=== PATIENT | male | born 1940 | race Caucasian/White ===

== ENCOUNTER 2017-08-12 08:30 | Outpatient (RCR) | payer MEDICARE, SELFPAY | END 2017-08-12 14:53 | LOC: CAR 08:30 | PROVIDERS: Family Provider Family Medicine; PCP Family Medicine; Visit Provider Internal Medicine Cardiovascular Disease | DX: Z95.2 Presence of prosthetic heart valve (principal) | CPT/HCPCS: 93798 ==

== ENCOUNTER → 2018-01-24 10:21 | Outpatient (CLI) | payer MEDICARE, SELFPAY ==
[2018-01-24 12:00] LABS: BUN Creatinine Ratio 17.5 (6-22); Blood Urea Nitrogen 14 mg/dL (9-20); Calcium 9.7 mg/dL (8.4-10.2); Carbon Dioxide 31 mmol/L (22-32); Chloride 99 mmol/L (98-107); Estimated Glomerular Filt Rate > 60.0 mL/min (>60); Glucose 100 mg/dL (80-110); HEMOLYSIS < 15 (0-50); Potassium 4.3 mmol/L (3.4-5.1); Sodium 141 mmol/L (137-145)
[2018-01-24 12:25] LABS: Thyroid Stimulating Hormone 1.52 uIU/mL (0.47-4.68)
== END ==
PROVIDERS: Visit Provider Internal Medicine Cardiovascular Disease
DX: I10 Essential (primary) hypertension (principal); I49.1 Atrial premature depolarization
CPT/HCPCS: 36415; 80048; 83735; 84443

== ENCOUNTER → 2018-04-05 07:31 | Outpatient (CLI) | payer MEDICARE, SELFPAY ==
[2018-04-05 08:09] LABS: Add Manual Diff / Slide Review NO; Basophils Absolute Auto 0 /uL (0-100); Basophils Percent Auto 0.4 % (0-2); Eosinophils Absolute Auto 200 /uL (0-450); Eosinophils Percent Auto 3.5 % (2-4); Hemoglobin 14.3 g/dL (13.5-17.5); Lymphocytes Absolute Auto 2000 /uL (1100-4500); Mean Corpuscular HGB Conc 33.3 % (30-36); Mean Corpuscular Hemoglobin 29.6 PG (26-34); Mean Corpuscular Volume 88.9 fL (80-100); Monocytes Absolute Auto 600 /uL (0-900); Monocytes Percent Auto 8.5 % (3-14); Neutrophils Absolute Auto 3700 /uL (1500-7000); Neutrophils Percent Auto 56.6 % (50-75); Platelet Count 211 X10^3/uL (150-400); Red Blood Cell Count 4.84 X10^6/uL (4.5-5.9); Red Cell Distribution Width 14.3 % (11.6-14.8); White Blood Cell Count 6.5 X10^3/uL (4.5-11.0)
[2018-04-05 08:35] LABS: Alanine Aminotransferase 42 IU/L (21-72); Albumin 4.4 g/dL (3.5-5.0); Albumin Globulin Ratio 1.4 (1.0-2.8); Alkaline Phosphatase 107 U/L (38-126); Aspartate Aminotransferase 35 IU/L (17-59); BUN Creatinine Ratio 22.5 (6-22); Bilirubin Total 1.3 mg/dL (0.2-1.3); Blood Urea Nitrogen 18 mg/dL (9-20); Calcium 9.4 mg/dL (8.4-10.2); Carbon Dioxide 29 mmol/L (22-32); Chloride 101 mmol/L (98-107); Estimated Glomerular Filt Rate > 60.0 mL/min (>60); Globulin 3.1 g/dL (1.7-4.1); Glucose 109 mg/dL (80-110); HEMOLYSIS < 15 (0-50); Potassium 4.2 mmol/L (3.4-5.1); Sodium 140 mmol/L (137-145); Total Protein 7.5 g/dL (6.3-8.2)
--- NOTE | 2018-04-05 14:15 | DI.CT.S_ITS ---
PROCEDURE: CT KIDNEY URETER BLADDER (KUB) INDICATIONS: 77 y/o former smoker w/ painless gross hematuria TECHNIQUE: Noncontrast 5 mm thick sections acquired from the diaphragms to the symphysis. 5 mm thick coronal and sagittal reformats were then performed. For radiation dose reduction, the following was used: automated exposure control, adjustment of mA and/or kV according to patient size. COMPARISON: [facility], CT, THORAX WITH CONTRAST, 09/20/2007, 9:28. [facility], CT, THORAX WITHOUT CONTRAST, 03/20/2008, 10:10. [facility], CT, THORAX WITHOUT CONTRAST, 04/04/2009, 9:34. FINDINGS: Image quality: Excellent. Lung bases: There is a partially calcified 2 cm mass in the right middle lobe, minimally changed since 2007, consistent with a benign mass. Heart size is normal. There is a aortic valve prosthesis. There is a tiny hiatal hernia. Urinary system: There is a 3 mm stone in the proximal left ureter. There is trace left pelviectasis. Both kidneys are normal in size. Mild bilateral perinephric fat stranding. Both ureters appear non-dilated throughout their expected courses. Bladder wall thickness is normal; no calcified bladder stones. There is a 3.2 cm diameter simple appearing cyst in the superior pole of the left kidney. No renal stones. Other solid organs: There is a 1.8 x 5.8 cm low density subcapsular mass in the posterior inferior aspect of liver. Liver is normal in size. Gallbladder is normal. Pancreas is normal in contours. Spleen is normal in size. No adrenal nodules. Peritoneum and bowel: Unenhanced bowel loops demonstrate normal wall thickness and caliber. There are numerous colonic diverticula. No evidence for acute diverticulitis. No free fluid or air. Nodes and vessels: No retroperitoneal or mesenteric adenopathy by size criteria. Aorta and inferior vena cava are normal in caliber. Severe aortic atherosclerosis. Abdominal wall: No ventral hernias. Pelvis: No free pelvic fluid. No inguinal hernias or adenopathy. Bones: No suspicious bony lesions. No vertebral body compression fractures. Degenerative and postsurgical changes changes are noted in lumbar spine. IMPRESSION: 1. A 3 mm stone in the proximal left ureter. There is trace left pelviectasis. 2. A 3.2 cm simple cyst in the superior pole the left kidney. 3. Diverticulosis without acute diverticulitis. 4. A 2 cm partially calcified mass in the right middle lobe, minimally changed since 2007, compared with a benign mass. 5. A 1.8 x 5.8 cm subcapsular low density mass in the posterior inferior aspect of liver. This may be a subscapularis cyst. Ultrasound is suggested for followup evaluation. Dictated by: Chaim Boggs M.D. on 04/05/2018 at 17:04 Approved by: Chaim Boggs M.D. on 04/05/2018 at 17:18
== END ==
PROVIDERS: Visit Provider Physician Assistant
DX: R31.0 Gross hematuria (principal); N20.1 Calculus of ureter; Z87.891 Personal history of nicotine dependence; K57.90 Diverticulosis of intestine, part unspecified, without perforation or abscess without bleeding; N28.1 Cyst of kidney, acquired; R91.8 Other nonspecific abnormal finding of lung field; R16.0 Hepatomegaly, not elsewhere classified
CPT/HCPCS: 36415; 74176; 80053; 85025

== ENCOUNTER → 2018-05-20 11:58 | Outpatient (CLI) | payer MEDICARE, SELFPAY ==
--- NOTE | 2018-05-20 12:01 | DI.US.S_ITS ---
PROCEDURE: US ABDOMEN COMPLETE INDICATIONS: abnormal abd CT, liver TECHNIQUE: Real-time scanning was performed of the abdominal and retroperitoneal organs, with image documentation. COMPARISON: [facility], US, ABDOMEN COMPLETE, 04/09/2015, 10:16. [facility], CT, CT KIDNEY URETER BLADDER (KUB), 04/05/2018, 14:09. FINDINGS: Liver: Liver is diffusely increased in echogenicity. Right lateral subcapsular cystic structure seen as was noted on prior CT scan measuring 5.4 x 2.3 x 1.4 cm. Gallbladder: No gallstones identified. Normal gallbladder wall. No pericholecystic fluid. Negative sonographic Singh sign. Biliary ducts: Intrahepatic bile ducts are non-dilated. Extrahepatic bile duct caliber measures 3 point mm. Normal is 6-7 mm or less in diameter, or 10 mm or less post-cholecystectomy. Pancreas: Visualized portions of the pancreas are sonographically normal. Spleen: Spleen is normal in size and homogeneous in echotexture. Kidneys: Kidneys are normal in size and echotexture. Right kidney measures 10.5 cm long; left kidney measures 11.5 cm long. No hydronephrosis or nephrolithiasis. No solid masses. Superior pole left renal cyst measuring 4.0 cm. Possible small calcifications in the superior pole left kidney measuring 7 mm. Aorta: Visualized aorta is normal in caliber at less than 3 cm. Iliacs: Proximal common iliac arteries are normal in caliber at less than 2.5 cm. IVC: Intrahepatic inferior vena cava is patent. Miscellaneous: No free abdominal fluid. IMPRESSION: 1. Increased hepatic echogenicity noted possibly related to hepatic steatosis but other sources of hepatocellular disease cannot be excluded. Recommend clinical correlation. 2. Subcapsular right lateral cystic structure again noted measuring up to 5.4 cm. Dictated by: Alonso NERI Interpreted: Karla Knight MD on 05/20/2018 at 13:36 Approved by: Karla Knight M.D. on 05/20/2018 at 16:59
== END ==
PROVIDERS: PCP Nurse Practitioner Family; Visit Provider Nurse Practitioner Family
DX: R93.5 Abnormal findings on diagnostic imaging of other abdominal regions, including retroperitoneum (principal); N28.1 Cyst of kidney, acquired
CPT/HCPCS: 76700

== ENCOUNTER → 2018-07-18 07:26 | Outpatient (CLI) | payer MEDICARE, SELFPAY ==
[2018-07-18 08:46] LABS: Cholesterol 194 mg/dL (140-199); HDL Cholesterol 39 mg/dL (40-60); LDL Cholesterol Calculated 121 mg/dL (<100); Triglycerides 172 mg/dL (35-150)
== END ==
PROVIDERS: PCP Nurse Practitioner Family; Visit Provider Nurse Practitioner Family
DX: E78.5 Hyperlipidemia, unspecified (principal)
CPT/HCPCS: 36415; 80061

== ENCOUNTER → 2018-10-27 08:38 | Outpatient (CLI) | payer MEDICARE, SELFPAY ==
[2018-10-27 09:39] LABS: Hematocrit 41.3 % (41-53); Mean Corpuscular HGB Conc 33.8 % (30-36); Mean Corpuscular Hemoglobin 30.3 PG (26-34); Mean Corpuscular Volume 89.6 fL (80-100); Platelet Count 200 X10^3/uL (150-400); Red Blood Cell Count 4.61 X10^6/uL (4.5-5.9); Red Cell Distribution Width 13.6 % (11.6-14.8); White Blood Cell Count 7.1 X10^3/uL (4.5-11.0)
[2018-10-27 10:00] LABS: Creatinine Urine Random 76.6 mg/dL
[2018-10-27 10:01] LABS: Alanine Aminotransferase 39 IU/L (21-72); Albumin 4.2 g/dL (3.5-5.0); Albumin Globulin Ratio 1.3 (1.0-2.8); Alkaline Phosphatase 109 U/L (38-126); Aspartate Aminotransferase 42 IU/L (17-59); BUN Creatinine Ratio 21.4 (6-22); Bilirubin Total 1.3 mg/dL (0.2-1.3); Blood Urea Nitrogen 15 mg/dL (9-20); Calcium 9.2 mg/dL (8.4-10.2); Carbon Dioxide 29 mmol/L (22-32); Chloride 102 mmol/L (98-107); Cholesterol 172 mg/dL (140-199); Estimated Glomerular Filt Rate > 60.0 mL/min (>60); Globulin 3.2 g/dL (1.7-4.1); Glucose 103 mg/dL (80-110); HDL Cholesterol 36 mg/dL (40-60); HEMOLYSIS 19 (0-50); LDL Cholesterol Calculated 109 mg/dL (<100); Potassium 3.8 mmol/L (3.4-5.1); Sodium 139 mmol/L (137-145); Total Protein 7.4 g/dL (6.3-8.2); Triglycerides 135 mg/dL (35-150)
[2018-10-27 10:05] LABS: Microalbumi Creatinin Ratio Ur 11.7 ug/mg CR (<30); Microalbumin Urine Random 0.9 mg/dL (0-1.6)
[2018-10-27 10:07] LABS: Hemoglobin A1C% w Est Avg Glu 5.8 % (4.0-6.0)
== END ==
PROVIDERS: PCP Nurse Practitioner Family; Visit Provider Nurse Practitioner Family
DX: I10 Essential (primary) hypertension (principal); Z68.36 Body mass index [BMI] 36.0-36.9, adult; R73.09 Other abnormal glucose
CPT/HCPCS: 36415; 80053; 80061; 82043; 82570; 83036; 85027

== ENCOUNTER → 2018-11-02 10:34 | Outpatient (CLI) | payer MEDICARE, SELFPAY ==
--- NOTE | 2018-11-02 10:36 | DI.RAD.S_ITS ---
PROCEDURE: XR LUMBAR SPINE MIN 4V INDICATIONS: hx back surgery, spinal stenosis TECHNIQUE: 4 views of the lumbar spine were acquired. COMPARISON: [facility], CT, CT ABDOMEN HEPATIC/ADRENAL PROTOCOL, 07/16/2018, 12:02. FINDINGS: Bones: 5 nonrib-bearing vertebrae are present. There is normal bony alignment. No acute vertebral body compression fractures. No suspicious bony lesions. Stable appearance of moderate multilevel spondylosis throughout the imaged lower thoracic and entire lumbar spine. There is disc space narrowing, degenerative endplate changes, and prominent endplate osteophyte formation. Severe multilevel facet arthrosis of the lumbar spine. Soft tissues: Overlying bowel gas pattern is normal. No suspicious soft tissue calcifications. Dense vascular calcifications of the abdominal aorta are noted. Oblique images: No definite pars defects identified. IMPRESSION: Lumbar spine without acute radiographic abnormalities. Moderate multilevel spondylosis involving the imaged portions of the lower thoracic and entire lumbar spine with severe lumbar facet arthrosis. Dictated by: Elie Castro M.D. on 11/02/2018 at 13:26 Approved by: Elie Castro M.D. on 11/02/2018 at 13:32
== END ==
PROVIDERS: PCP Nurse Practitioner Family; Visit Provider Nurse Practitioner Family
DX: R20.2 Paresthesia of skin (principal); M47.816 Spondylosis without myelopathy or radiculopathy, lumbar region; M47.814 Spondylosis without myelopathy or radiculopathy, thoracic region
CPT/HCPCS: 72110

== ENCOUNTER → 2018-11-24 11:34 | Outpatient (CLI) | payer MEDICARE, SELFPAY | PROVIDERS: PCP Nurse Practitioner Family; Visit Provider Nurse Practitioner Family | DX: R20.2 Paresthesia of skin (principal); M48.00 Spinal stenosis, site unspecified | CPT/HCPCS: 95885; 95886; 95912 ==

== ENCOUNTER → 2019-04-20 07:20 | Outpatient (CLI) | payer MEDICARE, SELFPAY ==
[2019-04-20 08:11] LABS: Alanine Aminotransferase 37 IU/L (<50); Albumin 4.3 g/dL (3.5-5.0); Albumin Globulin Ratio 1.3 (1.0-2.8); Alkaline Phosphatase 114 U/L (38-126); Aspartate Aminotransferase 44 IU/L (17-59); BUN Creatinine Ratio 23.8 (6-22); Blood Urea Nitrogen 19 mg/dL (9-20); Calcium 9.2 mg/dL (8.4-10.2); Carbon Dioxide 30 mmol/L (22-32); Chloride 102 mmol/L (98-107); Cholesterol 177 mg/dL (140-199); Estimated Glomerular Filt Rate > 60.0 mL/min (>60); Globulin 3.4 g/dL (1.7-4.1); Glucose 111 mg/dL (80-110); HDL Cholesterol 33 mg/dL (40-60); HEMOLYSIS < 15 (0-50); LDL Cholesterol Calculated 115 mg/dL (<100); Sodium 140 mmol/L (137-145); Total Protein 7.7 g/dL (6.3-8.2); Triglycerides 145 mg/dL (35-150)
== END ==
PROVIDERS: PCP Nurse Practitioner Family; Referring Provider Internal Medicine Cardiovascular Disease; Visit Provider Internal Medicine Cardiovascular Disease
DX: E78.5 Hyperlipidemia, unspecified (principal)
CPT/HCPCS: 36415; 80053; 80061

== ENCOUNTER → 2019-07-07 07:29 | Outpatient (CLI) | payer MEDICARE, SELFPAY ==
[2019-07-07 09:46] LABS: Alanine Aminotransferase 29 IU/L (<50); Albumin 4.3 g/dL (3.5-5.0); Albumin Globulin Ratio 1.4 (1.0-2.8); Alkaline Phosphatase 103 U/L (38-126); Aspartate Aminotransferase 38 IU/L (17-59); Bilirubin Total 2.1 mg/dL (0.2-1.3); Bilirubin Unconjugated 1.9 mg/dL (0.0-1.1); Cholesterol 135 mg/dL (140-199); HDL Cholesterol 33 mg/dL (40-60); HEMOLYSIS < 15 (0-50); LDL Cholesterol Calculated 74 mg/dL (<100); Total Protein 7.3 g/dL (6.3-8.2); Triglycerides 142 mg/dL (35-150)
== END ==
PROVIDERS: PCP Nurse Practitioner Family; Referring Provider Internal Medicine Cardiovascular Disease; Visit Provider Internal Medicine Cardiovascular Disease
DX: E78.5 Hyperlipidemia, unspecified (principal); R17 Unspecified jaundice
CPT/HCPCS: 36415; 80061; 80076

== ENCOUNTER 2019-10-12 10:30 | Outpatient (RCR) | payer MEDICARE, SELFPAY ==
--- NOTE | 2019-08-29 12:31 | PT.OIE ---
Current Diagnoses Unilateral primary osteoarthritis, right hip (08/29/19) Pain in right hip (08/29/19) Past Medical History (Last Updated 05/26/19 @ 12:45 by BENNY Murdock) Fatigue (Inactive 12/10/14) Obesity (BMI 30-39.9) (Chronic) Obstructive sleep apnea of adult (Chronic) Rosacea (Acute) Seborrheic dermatitis (Acute) Seborrheic keratosis (Acute) Past Surgical History (Last Reviewed 01/19/18 @ 16:23 by Marino Jones MD) Status post knee surgery Visit Care Team Role Provider Type BENNY Murdock Primary Care Provider Advanced Cad Programmer Specialty: Family Practice Address: [address] [place] [address], [id number] Email: [email or web address] Taylor Merritt PA-C Attending Provider Non-Staff Referring Provider Specialty: General Surgery Address: [address] [place] [address], [id number] Fax: Email: Physical Therapy Initial Evaluation PT-OP-A Visit Information Start: 08/29/19 12:05 Freq: Status: Active Protocol: Document 08/29/19 12:05 (Rec: 08/29/19 12:31 [email or web address]) Out-Patient Physical Therapy Visit Information Visit Information Visit Type Initial Evaluation Visit Start Time 09:04 Visit Stop Time 09:45 Total Visit Minutes 41 Visit Number 02/26 Number of PRESCRIPTION EYEGLASS MAKER Visits 0 Evaluation Information Evaluation Date 08/29/19 Precautions Precautions bruise easily PT-OP-B Current Condition Start: 08/29/19 12:05 Freq: Status: Active Protocol: Document 08/29/19 12:05 (Rec: 08/29/19 12:31 [email or web address]) Current Condition History of Current Condition Onset Date 08/23/19 Current Complaints s/p R RJ (post), difficulty in walking History of Current Condition Pt is a 78 yo male here for therapy s/p R RJ with posterior approach on 08/23/[address] [facility]. Pt has been using FWW for mobility and her and dtr assisted in ADLs and IADLs with mostly SBA. Pt is ambulatory but difficulty in bed mobility and transfers. He has been sleeping in his recliner since he has 5 MATILDA with L rail to bedroom. Pt currently can walk a block without a rest break. And his pain is around 2/10. He has been doing his post op ex such as hip abduction in supine, seated knee extension, mini squat and quad set twice a day for 20 reps. Future Testing and Treatments Planned Pt will have follow up 09/02 with surgical team. Treatment Goals Patient/Caregiver Goals 1. To be ambulatory with SPC 2. To climb 5 matilda with 1 rail without assistance 3. To complete all ADLs and IADLs independently Prior Functional Status Baseline Function- ADL's Modified Independent Baseline Function- Mobility Modified Independent Baseline Function- Gait with SPC Current Functional Impairments (Reported) Functional Limitations- ADL's SBA from family Functional Limitations- Mobility/Gait amb with FWW and CGA for car transfer Personal Factors Other Personal Factors That May Effect Depression, B TKA, STEBBINS Therapy/Recovery PT-OP-C Subjective Start: 08/29/19 12:05 Freq: Status: Active Protocol: Document 08/29/19 12:05 (Rec: 08/29/19 12:31 [email or web address]) Patient Questionnaires Lower Extremity Functional Scale LEFS Score 12 LEFS Impairment 80 to 99% Impaired (Score 1-16 ) OP-PT Pain Assessment Location R hip Pain Location Details posterior hip Intensity 2 Scale Used Numeric (0 - 10) Description Aching Frequency Frequent Pain Aggravating Factors Position,Changing Position,ADL 's,Activity,Exercise,Bending Pain Alleviating Factors Inactivity PT-OP-F Manual Assessment Start: 08/29/19 12:05 Freq: Status: Active Protocol: Document 08/29/19 12:05 (Rec: 08/29/19 12:31 [email or web address]) Manual Assessments Soft Tissue Assessment Soft Tissue Mobility Assessment significant swelling and soft tissue hardening at distal R thigh especiall medially. significant ecchymosis noted at posterior of R thigh PT-OP-G Mobility & Gait Start: 08/29/19 12:05 Freq: Status: Active Protocol: Document 08/29/19 12:05 (Rec: 08/29/19 12:31 [email or web address]) OP Mobility Evaluation Bed Mobility Supine to and from Sit need 1 POWER PLANT OPERATOR to pull from supine to sit OP Gait Assessment Gait Deviations General Gait Pattern Antalgic,Decreased Stride Length,Decreased Feet Clearance,Lateral Trunk Lean, Step-to Gait Factors Limiting Gait Function Factors Limiting Gait Function Decreased Activity Tolerance, Decreased Strength,Limited Range of Motion,Pain,Poor Balance,Poor Safety Awareness Stair Climbing Evaluation Comments Stair Climbing Comments unable to climb stairs yet PT-OP-H Neuro Start: 08/29/19 12:05 Freq: Status: Active Protocol: Document 08/29/19 12:05 (Rec: 08/29/19 12:31 [email or web address]) Deep Tendon Reflex & Clonus Assessment Deep Tendon Reflex Bilateral Achilles Deep Tendon Reflex 2+ Normal Bilateral Patellar Deep Tendon Reflex 1+ Diminished PT-OP-J Posture/Palpation/Skin Start: 08/29/19 12:05 Freq: Status: Active Protocol: Document 08/29/19 12:05 (Rec: 08/29/19 12:31 [email or web address]) Skin Assessment Circumference Measurement L knee Location 5 cm above of patella, patella and 5 cm below patella Comments 18.5 , 17 , 14 R knee Location 5 cm above of patella, patella and 5 cm below patella Comments 20 , 18 , 16.3 PT-OP-K Range of Motion Start: 08/29/19 12:05 Freq: Status: Active Protocol: Document 08/29/19 12:05 (Rec: 08/29/19 12:31 [email or web address]) Hip Goniometric Range of Motion Hip Left Passive Hip ROM WFL Yes Testing Position Supine Straight Leg Raise 85 Extension 0 Abduction 25 Right Passive Hip ROM WFL No Testing Position Supine Straight Leg Raise 70 Extension 0 Abduction 18 Knee Goniometric Range of Motion Knee Right Knee ROM WFL No Patient Position Supine Flexion Active (degrees) 108 Extension Active (degrees) 5 Left Knee ROM WFL Yes Patient Position Supine Flexion Active (degrees) 120 Extension Active (degrees) 0 PT-OP-M Strength Start: 08/29/19 12:05 Freq: Status: Active Protocol: Document 08/29/19 12:05 (Rec: 08/29/19 12:31 [email or web address]) Hip Strength Hip Manual Muscle Testing Right Flexion (L2) 3 Fair Extension (S1) 3+ Fair+ Abduction 2+ Poor+ Adduction 3+ Fair+ Left Flexion (L2) 4 Good Extension (S1) 4 Good Abduction 4 Good Adduction 4 Good Knee Strength Knee Manual Muscle Testing Right Flexion (S2) 4 Good Extension (L3) 4 Good Left Flexion (S2) 4+ Good+ Extension (L3) 4+ Good+ PT-OP-Q Treatments Start: 08/29/19 12:05 Freq: Status: Active Protocol: Document 08/29/19 12:05 (Rec: 08/29/19 12:31 [email or web address]) Manual Therapy Treatment Soft Tissue Mobilization R thigh Body Location for swelling management Mobilization Type Rolling Intensity/Depth Deep Body Position Hooklying Comments upward rolling at R quads and hamstrings for HEP as well for swelling management PT-OP-T Assessment and Plan Start: 08/29/19 12:05 Freq: Status: Active Protocol: Document 08/29/19 12:05 (Rec: 08/29/19 12:31 [email or web address]) Physical Therapy Assessment Rehab Potential Rehabilitation Potential Good Evaluation Complexity Number of Personal Factors/Comorbidities 3 or More Number of Body Systems Impaired 3 Clinical Presentation at Evaluation Stable Impairments Impairments Activity Tolerance,Balance, Edema,Functional Activities, Functional Mobility,Gait,Pain, Posture,ROM,Soft Tissue Mobility,Strength,Transfers Goals stair climbing Impairment Pt has poor leg strength Retirement Goal (LTG) Pt will strengthen his RLE by doing daily HEP so he can climb his 5 steps to bedroom independently. LTG Duration 6 weeks activity tolerance Impairment Pt has poor activity tolerance and amb with FWW Short Term Goal (STG) Pt will be able to amb with SPC for more than 2 blocks STG Duration 4 weeks Retirement Goal (LTG) Pt will be able to amb with least assistive device for more than 4 blocks independently for community mobility LTG Duration 6 weeks hip and knee ROM Impairment pt lacks of hip flexion, abd and knee ext and flexion actively Behavioral Health Specialist Goal (LTG) Pt will gain 10 degrees or greater for both hip and knee ROM to optimize his gait pattern LTG Duration 6 weeks LEFS Impairment pt scores 12 for LEFS Short Term Goal (STG) Pt will score 30 or greater on LEFS STG Duration 4 weeks Behavioral Health Specialist Goal (LTG) Pt will score 40 or greater on LEFS to improve her quality of life LTG Duration 6 weeks Assessment Summary Assessment Pt is a 78 yo male here for therapy s/p R RJ with posterior approach on 08/23/[address] [facility]. Upon assessment, pt is using FWW for mobility and SBA for ADLs from his family. He presents with significant post op ecchymosis and swelling at R thigh which is approx 1-1.5 inches bigger than L. His R hip and knee ROM are also affected. Educated pt to use rolling for swelling management. Pt will benefit from skilled therapy to strength his LE strength, balance, gait quality and RLE ROM so he can complete ADLs and IADLs and community mobility independently. Physical Therapy Plan Frequency and Duration Frequency of Treatment 2x/Week Duration of Treatment 6 weeks Plan of Care Start Date 08/29/19 Plan of Care End Date 10/13/19 Therapeutic Interventions Therapeutic Interventions Balance Training,Gait Training ,Home Exercise Program,Joint Mobilizations,Manual Therapy, Neuromuscular Re-education, Patient/Caregiver Education, Self-Care/Home Management,Soft Tissue Mobilization,Taping, Therapeutic Activities, Therapeutic Exercises Modalities Cold Pack/Ice Massage,Hot Packs,Infrared Therapy Next Visit Focus/Plan Next Note Type Treatment Note Next Visit Plan check rolling pin usage for self swelling management provide HEP for home ex ROM ex for R hip and knee balance training gait training within //bar
--- NOTE | 2019-08-29 12:32 | PT.OPPOC ---
Physical, Occupational & Speech Therapy At [facility] Current Diagnoses Unilateral primary osteoarthritis, right hip (08/29/19) Pain in right hip (08/29/19) Visit Care Team Role Provider Type BENNY Murdock Primary Care Provider Advanced Supervisor Offset Plate Preparation Specialty: Family Practice Address: [address] [place] [address], [id number] Email: [email or web address] Taylor Merritt PA-C Attending Provider Non-Staff Referring Provider Specialty: General Surgery Address: [address] [place] [address], [address] Fax: Email: Plan Of Care PT-OP-T Assessment and Plan Start: 08/29/19 12:05 Freq: Status: Active Protocol: Document 08/29/19 12:05 (Rec: 08/29/19 12:31 [email or web address]) Physical Therapy Assessment Rehab Potential Rehabilitation Potential Good Evaluation Complexity Number of Personal Factors/Comorbidities 3 or More Number of Body Systems Impaired 3 Clinical Presentation at Evaluation Stable Impairments Impairments Activity Tolerance,Balance, Edema,Functional Activities, Functional Mobility,Gait,Pain, Posture,ROM,Soft Tissue Mobility,Strength,Transfers Goals stair climbing Impairment Pt has poor leg strength Nursing Home Goal (LTG) Pt will strengthen his RLE by doing daily HEP so he can climb his 5 steps to bedroom independently. LTG Duration 6 weeks activity tolerance Impairment Pt has poor activity tolerance and amb with FWW Short Term Goal (STG) Pt will be able to amb with SPC for more than 2 blocks STG Duration 4 weeks Nursing Home Goal (LTG) Pt will be able to amb with least assistive device for more than 4 blocks independently for community mobility LTG Duration 6 weeks hip and knee ROM Impairment pt lacks of hip flexion, abd and knee ext and flexion actively Arbor Press Operator Goal (LTG) Pt will gain 10 degrees or greater for both hip and knee ROM to optimize his gait pattern LTG Duration 6 weeks LEFS Impairment pt scores 12 for LEFS Short Term Goal (STG) Pt will score 30 or greater on LEFS STG Duration 4 weeks Nursing Home Goal (LTG) Pt will score 40 or greater on LEFS to improve her quality of life LTG Duration 6 weeks Assessment Summary Assessment Pt is a 78 yo male here for therapy s/p R RJ with posterior approach on 08/23/19 at [facility]. Upon assessment, pt is using FWW for mobility and SBA for ADLs from his family. He presents with significant post op ecchymosis and swelling at R thigh which is approx 1-1.5 inches bigger than L. His R hip and knee ROM are also affected. Educated pt to use rolling for swelling management. Pt will benefit from skilled therapy to strength his LE strength, balance, gait quality and RLE ROM so he can complete ADLs and IADLs and community mobility independently. Physical Therapy Plan Frequency and Duration Frequency of Treatment 2x/Week Duration of Treatment 6 weeks Plan of Care Start Date 08/29/19 Plan of Care End Date 10/13/19 Therapeutic Interventions Therapeutic Interventions Balance Training,Gait Training ,Home Exercise Program,Joint Mobilizations,Manual Therapy, Neuromuscular Re-education, Patient/Caregiver Education, Self-Care/Home Management,Soft Tissue Mobilization,Taping, Therapeutic Activities, Therapeutic Exercises Modalities Cold Pack/Ice Massage,Hot Packs,Infrared Therapy Next Visit Focus/Plan Next Note Type Treatment Note Next Visit Plan check rolling pin usage for self swelling management provide HEP for home ex ROM ex for R hip and knee balance training gait training within //bar Plan of Care Dates Plan of Care Start Date 08/29/19 Plan of Care End Date 10/13/19 Electronically Signed by: Gisella Velázquez PT 08/29/19 [id number] Please Sign and Return: I have reviewed this Plan of Care and certify that the skilled therapy services above are required to meet the patient?s needs. Physician Signature Date Printed Name and Credentials Clinical Instructor Signature Printed Name and Credentials
--- NOTE | 2019-08-31 14:30 | PT.OTN ---
Addendum entered and electronically signed by Marina Bills PTA 08/31/19 16:01: CARDIAC CATH TECH student, Antonieta, attended tx session and provided feedback to pt for proper form during tx. Original Note: Current Diagnoses Unilateral primary osteoarthritis, right hip (08/31/19) Pain in right hip (08/31/19) Physical Therapy Treatment Note PT-OP-A Visit Information Start: 08/29/19 12:05 Freq: Status: Active Protocol: Document 08/31/19 13:50 SP (Rec: 08/31/19 16:00 SP [id number]) Out-Patient Physical Therapy Visit Information Visit Information Visit Type Treatment Note Visit Start Time 13:50 Visit Stop Time 14:30 Total Visit Minutes 40 Visit Number 03/29 Number of CARDIAC CATH TECH Visits 1 PT-OP-B Current Condition Start: 08/29/19 12:05 Freq: Status: Active Protocol: Document 08/29/19 12:05 HH (Rec: 08/29/19 12:31 HH [email or web address]) Current Condition History of Current Condition Onset Date 08/23/19 Current Complaints s/p R RJ (post), difficulty in walking History of Current Condition Pt is a 78 yo male here for therapy s/p R RJ with posterior approach on 08/23/19 at [facility]. Pt has been using FWW for mobility and her and dtr assisted in ADLs and IADLs with mostly SBA. Pt is ambulatory but difficulty in bed mobility and transfers. He has been sleeping in his recliner since he has 5 MATILDA with L rail to bedroom. Pt currently can walk a block without a rest break. And his pain is around 2/10. He has been doing his post op ex such as hip abduction in supine, seated knee extension, mini squat and quad set twice a day for 20 reps. Future Testing and Treatments Planned Pt will have follow up 09/02 with surgical team. Treatment Goals Patient/Caregiver Goals 1. To be ambulatory with SPC 2. To climb 5 matilda with 1 rail without assistance 3. To complete all ADLs and IADLs independently Prior Functional Status Baseline Function- ADL's Modified Independent Baseline Function- Mobility Modified Independent Baseline Function- Gait with SPC Current Functional Impairments (Reported) Functional Limitations- ADL's SBA from family Functional Limitations- Mobility/Gait amb with FWW and CGA for car transfer Personal Factors Other Personal Factors That May Effect Depression, B TKA, [place] Therapy/Recovery PT-OP-C Subjective Start: 08/29/19 12:05 Freq: Status: Active Protocol: Document 08/31/19 13:50 SP (Rec: 08/31/19 16:00 SP [id number]) OP-PT Subjective Patient Comments Patient Comments Pt arrived to tx using FWW. Pt reports has been compliant with post ops exercises at home, wearing JANESSA thigh hose on accept 1 x2 hrs a day, 1/10 pain and just mostly feeling bruised over surgery site. Pt stated rolling pin use at home over R quad has been very helpful with low level pain/ soreness. PT-OP-F Manual Assessment Start: 08/29/19 12:05 Freq: Status: Active Protocol: Document 08/29/19 12:05 HH (Rec: 08/29/19 12:31 HH [email or web address]) Manual Assessments Soft Tissue Assessment Soft Tissue Mobility Assessment significant swelling and soft tissue hardening at distal R thigh especiall medially. significant ecchymosis noted at posterior of R thigh PT-OP-G Mobility & Gait Start: 08/29/19 12:05 Freq: Status: Active Protocol: Document 08/29/19 12:05 HH (Rec: 08/29/19 12:31 HH [email or web address]) OP Mobility Evaluation Bed Mobility Supine to and from Sit need 1 CLASSIFIER OPERATOR to pull from supine to sit OP Gait Assessment Gait Deviations General Gait Pattern Antalgic,Decreased Stride Length,Decreased Feet Clearance,Lateral Trunk Lean, Step-to Gait Factors Limiting Gait Function Factors Limiting Gait Function Decreased Activity Tolerance, Decreased Strength,Limited Range of Motion,Pain,Poor Balance,Poor Safety Awareness Stair Climbing Evaluation Comments Stair Climbing Comments unable to climb stairs yet PT-OP-H Neuro Start: 08/29/19 12:05 Freq: Status: Active Protocol: Document 08/29/19 12:05 HH (Rec: 08/29/19 12:31 HH [email or web address]) Deep Tendon Reflex & Clonus Assessment Deep Tendon Reflex Bilateral Achilles Deep Tendon Reflex 2+ Normal Bilateral Patellar Deep Tendon Reflex 1+ Diminished PT-OP-J Posture/Palpation/Skin Start: 08/29/19 12:05 Freq: Status: Active Protocol: Document 08/29/19 12:05 HH (Rec: 08/29/19 12:31 HH [email or web address]) Skin Assessment Circumference Measurement L knee Location 5 cm above of patella, patella and 5 cm below patella Comments 18.5 , 17 , 14 R knee Location 5 cm above of patella, patella and 5 cm below patella Comments 20 , 18 , 16.3 PT-OP-K Range of Motion Start: 08/29/19 12:05 Freq: Status: Active Protocol: Document 08/29/19 12:05 (Rec: 08/29/19 12:31 [email or web address]) Hip Goniometric Range of Motion Hip Left Passive Hip ROM WFL Yes Testing Position Supine Straight Leg Raise 85 Extension 0 Abduction 25 Right Passive Hip ROM WFL No Testing Position Supine Straight Leg Raise 70 Extension 0 Abduction 18 Knee Goniometric Range of Motion Knee Right Knee ROM WFL No Patient Position Supine Flexion Active (degrees) 108 Extension Active (degrees) 5 Left Knee ROM WFL Yes Patient Position Supine Flexion Active (degrees) 120 Extension Active (degrees) 0 PT-OP-M Strength Start: 08/29/19 12:05 Freq: Status: Active Protocol: Document 08/29/19 12:05 (Rec: 08/29/19 12:31 [email or web address]) Hip Strength Hip Manual Muscle Testing Right Flexion (L2) 3 Fair Extension (S1) 3+ Fair+ Abduction 2+ Poor+ Adduction 3+ Fair+ Left Flexion (L2) 4 Good Extension (S1) 4 Good Abduction 4 Good Adduction 4 Good Knee Strength Knee Manual Muscle Testing Right Flexion (S2) 4 Good Extension (L3) 4 Good Left Flexion (S2) 4+ Good+ Extension (L3) 4+ Good+ PT-OP-Q Treatments Start: 08/29/19 12:05 Freq: Status: Active Protocol: Document 08/31/19 13:50 SP (Rec: 08/31/19 16:00 SP [id number]) Therapeutic Exercises Supine Exercises hip abd Side right Reps/Minutes x10 heel slide Side right Reps/Minutes x10 Comments cued oppposite knee bent if needed for LS neutral quad, glut set Side right Reps/Minutes 5 sec hold x10 Standing Exercises sit to stand with BUE Reps/Minutes x3 april Equipment Used FWW Reps/Minutes x10 hip ext Equipment Used FWW Reps/Minutes x10 hip abd Side bilateral Equipment Used FWW Reps/Minutes 5 x2 Comments cued L glut facilitation during RLE abd, weakness better on R LE Gait Training Gait Activity stairs Description step to/step over step Device Used L HR Level of Assistance SBA Surface 3 steps x4 Treatment Focus assess assist needed Comments SBA step to patterning ascend, receiprocal descend L HR ( at home uses SPC in RUE), son installing RHR today. gait Description LLE increase glut facilitation Device Used FWW Surface level Distance/Duration 100 Treatment Focus decreased hip elevation on L PT-OP-R Modalities Start: 08/29/19 12:05 Freq: Status: Active Protocol: Document 08/31/19 13:50 SP (Rec: 08/31/19 16:00 SP [id number]) Hot Pack/Cold Pack Treatment CP Location R h ip Patient Position Hooklying Treatment Duration (minutes) 10 Patient Tolerance Good PT-OP-T Assessment and Plan Start: 08/29/19 12:05 Freq: Status: Active Protocol: Document 08/31/19 13:50 SP (Rec: 08/31/19 16:00 SP [id number]) Physical Therapy Assessment Goals stair climbing Impairment Pt has poor leg strength Chcf Goal (LTG) Pt will strengthen his RLE by doing daily HEP so he can climb his 5 steps to bedroom independently. LTG Duration 6 weeks activity tolerance Impairment Pt has poor activity tolerance and amb with FWW Short Term Goal (STG) Pt will be able to amb with SPC for more than 2 blocks STG Duration 4 weeks Support Teacher Goal (LTG) Pt will be able to amb with least assistive device for more than 4 blocks independently for community mobility LTG Duration 6 weeks hip and knee ROM Impairment pt lacks of hip flexion, abd and knee ext and flexion actively Chcf Goal (LTG) Pt will gain 10 degrees or greater for both hip and knee ROM to optimize his gait pattern LTG Duration 6 weeks LEFS Impairment pt scores 12 for LEFS Short Term Goal (STG) Pt will score 30 or greater on LEFS STG Duration 4 weeks Support Teacher Goal (LTG) Pt will score 40 or greater on LEFS to improve her quality of life LTG Duration 6 weeks Assessment Summary Assessment Tx focused on supine post op exercise review with good demonstration, added standing hip abd/ext using FWW for support. Pt demonstrated increased weakness in L glut medius hip depression and R lower leg circumduction during RLE standing activity and gait using FWW. Cued for level pelvis and using mirror in front at home for self cuing awareness that gave during tx today. Next tx mirror front standing ex review. Pt is able to ascend L HR step to gait and receiprocal descend, pt stated uses SPC in RUE at home and son will be installing R HR tonight for support. Improved level pelvis walking out of tx with little R low leg circumduction, will assess work on quality gait next tx. Physical Therapy Plan Frequency and Duration Frequency of Treatment 2x/Week Duration of Treatment 6 weeks Plan of Care Start Date 08/29/19 Plan of Care End Date 10/13/19 Therapeutic Interventions Therapeutic Interventions Balance Training,Gait Training ,Home Exercise Program,Joint Mobilizations,Manual Therapy, Neuromuscular Re-education, Patient/Caregiver Education, Self-Care/Home Management,Soft Tissue Mobilization,Taping, Therapeutic Activities, Therapeutic Exercises Modalities Cold Pack/Ice Massage,Hot Packs,Infrared Therapy Next Visit Focus/Plan Next Note Type Treatment Note Next Visit Plan Assess response to last tx: HEP review, added stand ex, stairs, gait. Progress gait with decrease R lower leg circumduction. and progress HEP as tolerated. Continue per PT POC: provide HEP for home ex ROM ex for R hip and knee balance training gait training within //bar
--- NOTE | 2019-09-05 09:51 | PT.OTN ---
Current Diagnoses Unilateral primary osteoarthritis, right hip (09/05/19) Pain in right hip (09/05/19) Physical Therapy Treatment Note PT-OP-A Visit Information Start: 08/29/19 12:05 Freq: Status: Active Protocol: Document 09/05/19 09:02 HH (Rec: 09/05/19 09:51 HH [id number]) Out-Patient Physical Therapy Visit Information Visit Information Visit Type Treatment Note Visit Start Time 09:04 Visit Stop Time 10:00 Total Visit Minutes 41 Visit Number 04/26 Number of STORAGE BATTERY CHARGER Visits 0 PT-OP-B Current Condition Start: 08/29/19 12:05 Freq: Status: Active Protocol: Document 08/29/19 12:05 HH (Rec: 08/29/19 12:31 HH [email or web address]) Current Condition History of Current Condition Onset Date 08/23/19 Current Complaints s/p R RJ (post), difficulty in walking History of Current Condition Pt is a 78 yo male here for therapy s/p R RJ with posterior approach on 08/23/19 at [facility]. Pt has been using FWW for mobility and her and dtr assisted in ADLs and IADLs with mostly SBA. Pt is ambulatory but difficulty in bed mobility and transfers. He has been sleeping in his recliner since he has 5 MATILDA with L rail to bedroom. Pt currently can walk a block without a rest break. And his pain is around 2/10. He has been doing his post op ex such as hip abduction in supine, seated knee extension, mini squat and quad set twice a day for 20 reps. Future Testing and Treatments Planned Pt will have follow up 09/02 with surgical team. Treatment Goals Patient/Caregiver Goals 1. To be ambulatory with SPC 2. To climb 5 matilda with 1 rail without assistance 3. To complete all ADLs and IADLs independently Prior Functional Status Baseline Function- ADL's Modified Independent Baseline Function- Mobility Modified Independent Baseline Function- Gait with SPC Current Functional Impairments (Reported) Functional Limitations- ADL's SBA from family Functional Limitations- Mobility/Gait amb with FWW and CGA for car transfer Personal Factors Other Personal Factors That May Effect Depression, B TKA, [place] Therapy/Recovery PT-OP-C Subjective Start: 08/29/19 12:05 Freq: Status: Active Protocol: Document 09/05/19 09:02 HH (Rec: 09/05/19 09:51 HH [id number]) OP-PT Subjective Patient Comments Patient Comments Pt arrived to session using FWW. Jayshree been doing pretty and walking faster and better. I can get up and down the chair easily without much pain Patient Reported Progress Improving PT-OP-F Manual Assessment Start: 08/29/19 12:05 Freq: Status: Active Protocol: Document 08/29/19 12:05 HH (Rec: 08/29/19 12:31 [email or web address]) Manual Assessments Soft Tissue Assessment Soft Tissue Mobility Assessment significant swelling and soft tissue hardening at distal R thigh especiall medially. significant ecchymosis noted at posterior of R thigh PT-OP-G Mobility & Gait Start: 08/29/19 12:05 Freq: Status: Active Protocol: Document 08/29/19 12:05 HH (Rec: 08/29/19 12:31 [email or web address]) OP Mobility Evaluation Bed Mobility Supine to and from Sit need 1 CREPE LAMINATOR OPERATOR to pull from supine to sit OP Gait Assessment Gait Deviations General Gait Pattern Antalgic,Decreased Stride Length,Decreased Feet Clearance,Lateral Trunk Lean, Step-to Gait Factors Limiting Gait Function Factors Limiting Gait Function Decreased Activity Tolerance, Decreased Strength,Limited Range of Motion,Pain,Poor Balance,Poor Safety Awareness Stair Climbing Evaluation Comments Stair Climbing Comments unable to climb stairs yet PT-OP-H Neuro Start: 08/29/19 12:05 Freq: Status: Active Protocol: Document 08/29/19 12:05 HH (Rec: 08/29/19 12:31 [email or web address]) Deep Tendon Reflex & Clonus Assessment Deep Tendon Reflex Bilateral Achilles Deep Tendon Reflex 2+ Normal Bilateral Patellar Deep Tendon Reflex 1+ Diminished PT-OP-J Posture/Palpation/Skin Start: 08/29/19 12:05 Freq: Status: Active Protocol: Document 08/29/19 12:05 (Rec: 08/29/19 12:31 [email or web address]) Skin Assessment Circumference Measurement L knee Location 5 cm above of patella, patella and 5 cm below patella Comments 18.5 , 17 , 14 R knee Location 5 cm above of patella, patella and 5 cm below patella Comments 20 , 18 , 16.3 PT-OP-K Range of Motion Start: 08/29/19 12:05 Freq: Status: Active Protocol: Document 08/29/19 12:05 (Rec: 08/29/19 12:31 [email or web address]) Hip Goniometric Range of Motion Hip Left Passive Hip ROM WFL Yes Testing Position Supine Straight Leg Raise 85 Extension 0 Abduction 25 Right Passive Hip ROM WFL No Testing Position Supine Straight Leg Raise 70 Extension 0 Abduction 18 Knee Goniometric Range of Motion Knee Right Knee ROM WFL No Patient Position Supine Flexion Active (degrees) 108 Extension Active (degrees) 5 Left Knee ROM WFL Yes Patient Position Supine Flexion Active (degrees) 120 Extension Active (degrees) 0 PT-OP-M Strength Start: 08/29/19 12:05 Freq: Status: Active Protocol: Document 08/29/19 12:05 (Rec: 08/29/19 12:31 [email or web address]) Hip Strength Hip Manual Muscle Testing Right Flexion (L2) 3 Fair Extension (S1) 3+ Fair+ Abduction 2+ Poor+ Adduction 3+ Fair+ Left Flexion (L2) 4 Good Extension (S1) 4 Good Abduction 4 Good Adduction 4 Good Knee Strength Knee Manual Muscle Testing Right Flexion (S2) 4 Good Extension (L3) 4 Good Left Flexion (S2) 4+ Good+ Extension (L3) 4+ Good+ PT-OP-Q Treatments Start: 08/29/19 12:05 Freq: Status: Active Protocol: Document 09/05/19 09:02 (Rec: 09/05/19 09:51 [id number]) Cardio Equipment Recumbent Elliptical (Biodex) Duration (Minutes) 6 Resistance 2 Therapeutic Exercises Supine Exercises hip abd Side right Reps/Minutes x10 quad, glut set Side right Reps/Minutes 5 sec hold x10 Standing Exercises staggered stance Standing Exercise Name AP weight shift Side bilateral Reps/Minutes 20 x 2 Comments noticed LLE is less stable ankle board Standing Exercise Name A/P and lateral w/o support Side bilateral Reps/Minutes 20 reps x 2 sit to stand with BUE Reps/Minutes x3 april Equipment Used FWW Reps/Minutes x10 Gait Training Gait Activity gait with SPC Device Used SPC Surface level Distance/Duration 200 ft Treatment Focus cues on preventing circumduction Comments SPC on L hand gait Device Used //bar Surface level Distance/Duration in place Treatment Focus R hip flexion Comments arlyn on R to facilitate hip flexion and prevent circumduction Manual Therapy Treatment Soft Tissue Mobilization R thigh Body Location for swelling management Mobilization Type Rolling Intensity/Depth Deep Body Position Hooklying Comments upward rolling at R quads and hamstrings for HEP as well for swelling management PT-OP-R Modalities Start: 08/29/19 12:05 Freq: Status: Active Protocol: Document 09/05/19 09:02 HH (Rec: 09/05/19 09:51 HH [email or web address]) Hot Pack/Cold Pack Treatment CP Location R h ip Patient Position Sitting Treatment Duration (minutes) 10 Patient Tolerance Good PT-OP-T Assessment and Plan Start: 08/29/19 12:05 Freq: Status: Active Protocol: Document 09/05/19 09:02 HH (Rec: 09/05/19 09:51 HH [id number]) Physical Therapy Assessment Goals stair climbing Impairment Pt has poor leg strength Longterm Goal (LTG) Pt will strengthen his RLE by doing daily HEP so he can climb his 5 steps to bedroom independently. LTG Duration 6 weeks activity tolerance Impairment Pt has poor activity tolerance and amb with FWW Short Term Goal (STG) Pt will be able to amb with SPC for more than 2 blocks STG Duration 4 weeks Material Distributor Goal (LTG) Pt will be able to amb with least assistive device for more than 4 blocks independently for community mobility LTG Duration 6 weeks hip and knee ROM Impairment pt lacks of hip flexion, abd and knee ext and flexion actively Material Distributor Goal (LTG) Pt will gain 10 degrees or greater for both hip and knee ROM to optimize his gait pattern LTG Duration 6 weeks LEFS Impairment pt scores 12 for LEFS Short Term Goal (STG) Pt will score 30 or greater on LEFS STG Duration 4 weeks Material Distributor Goal (LTG) Pt will score 40 or greater on LEFS to improve her quality of life LTG Duration 6 weeks Assessment Summary Assessment Pt shows good progress with improved stability and gait pattern. This session focused on gait training to reduce circumduction and staggered stance balance. Physical Therapy Plan Next Visit Focus/Plan Next Note Type Treatment Note Next Visit Plan Assess response to last tx: HEP review, added stand ex, stairs, gait. Progress gait with decrease R lower leg circumduction. and progress HEP as tolerated. Continue per PT POC: provide HEP for home ex ROM ex for R hip and knee balance training gait training within //bar
--- NOTE | 2019-09-08 13:04 | PT.OTN ---
Current Diagnoses Unilateral primary osteoarthritis, right hip (09/08/19) Pain in right hip (09/08/19) Physical Therapy Treatment Note PT-OP-A Visit Information Start: 08/29/19 12:05 Freq: Status: Active Protocol: Document 09/08/19 12:18 SP (Rec: 09/08/19 15:48 SP [id number]) Out-Patient Physical Therapy Visit Information Visit Information Visit Type Treatment Note Visit Start Time 12:18 Visit Stop Time 13:04 Total Visit Minutes 46 Visit Number 05/27 Number of PURCHASE REQUEST EDITOR Visits 1 PT-OP-B Current Condition Start: 08/29/19 12:05 Freq: Status: Active Protocol: Document 08/29/19 12:05 HH (Rec: 08/29/19 12:31 HH [email or web address]) Current Condition History of Current Condition Onset Date 08/23/19 Current Complaints s/p R RJ (post), difficulty in walking History of Current Condition Pt is a 78 yo male here for therapy s/p R RJ with posterior approach on 08/23/19 at [facility]. Pt has been using FWW for mobility and her and dtr assisted in ADLs and IADLs with mostly SBA. Pt is ambulatory but difficulty in bed mobility and transfers. He has been sleeping in his recliner since he has 5 YIMI with L rail to bedroom. Pt currently can walk a block without a rest break. And his pain is around 2/10. He has been doing his post op ex such as hip abduction in supine, seated knee extension, mini squat and quad set twice a day for 20 reps. Future Testing and Treatments Planned Pt will have follow up 09/02 with surgical team. Treatment Goals Patient/Caregiver Goals 1. To be ambulatory with SPC 2. To climb 5 yimi with 1 rail without assistance 3. To complete all ADLs and IADLs independently Prior Functional Status Baseline Function- ADL's Modified Independent Baseline Function- Mobility Modified Independent Baseline Function- Gait with SPC Current Functional Impairments (Reported) Functional Limitations- ADL's SBA from family Functional Limitations- Mobility/Gait amb with FWW and CGA for car transfer Personal Factors Other Personal Factors That May Effect Depression, B TKA, [place] Therapy/Recovery PT-OP-C Subjective Start: 08/29/19 12:05 Freq: Status: Active Protocol: Document 09/08/19 12:18 SP (Rec: 09/08/19 15:48 SP [id number]) OP-PT Subjective Patient Comments Patient Comments Pt arrived using SPC for gait in LUE. Dressing removed yesterday and PA please with surgical site. Pt reported that bruising and swelling still and was told this is normal. PT-OP-F Manual Assessment Start: 08/29/19 12:05 Freq: Status: Active Protocol: Document 08/29/19 12:05 HH (Rec: 08/29/19 12:31 HH [email or web address]) Manual Assessments Soft Tissue Assessment Soft Tissue Mobility Assessment significant swelling and soft tissue hardening at distal R thigh especiall medially. significant ecchymosis noted at posterior of R thigh PT-OP-G Mobility & Gait Start: 08/29/19 12:05 Freq: Status: Active Protocol: Document 08/29/19 12:05 HH (Rec: 08/29/19 12:31 HH [email or web address]) OP Mobility Evaluation Bed Mobility Supine to and from Sit need 1 AIRCRAFT PART ASSEMBLER to pull from supine to sit OP Gait Assessment Gait Deviations General Gait Pattern Antalgic,Decreased Stride Length,Decreased Feet Clearance,Lateral Trunk Lean, Step-to Gait Factors Limiting Gait Function Factors Limiting Gait Function Decreased Activity Tolerance, Decreased Strength,Limited Range of Motion,Pain,Poor Balance,Poor Safety Awareness Stair Climbing Evaluation Comments Stair Climbing Comments unable to climb stairs yet PT-OP-H Neuro Start: 08/29/19 12:05 Freq: Status: Active Protocol: Document 08/29/19 12:05 HH (Rec: 08/29/19 12:31 [email or web address]) Deep Tendon Reflex & Clonus Assessment Deep Tendon Reflex Bilateral Achilles Deep Tendon Reflex 2+ Normal Bilateral Patellar Deep Tendon Reflex 1+ Diminished PT-OP-J Posture/Palpation/Skin Start: 08/29/19 12:05 Freq: Status: Active Protocol: Document 08/29/19 12:05 HH (Rec: 08/29/19 12:31 [email or web address]) Skin Assessment Circumference Measurement L knee Location 5 cm above of patella, patella and 5 cm below patella Comments 18.5 , 17 , 14 R knee Location 5 cm above of patella, patella and 5 cm below patella Comments 20 , 18 , 16.3 PT-OP-K Range of Motion Start: 08/29/19 12:05 Freq: Status: Active Protocol: Document 08/29/19 12:05 HH (Rec: 08/29/19 12:31 HH [email or web address]) Hip Goniometric Range of Motion Hip Left Passive Hip ROM WFL Yes Testing Position Supine Straight Leg Raise 85 Extension 0 Abduction 25 Right Passive Hip ROM WFL No Testing Position Supine Straight Leg Raise 70 Extension 0 Abduction 18 Knee Goniometric Range of Motion Knee Right Knee ROM WFL No Patient Position Supine Flexion Active (degrees) 108 Extension Active (degrees) 5 Left Knee ROM WFL Yes Patient Position Supine Flexion Active (degrees) 120 Extension Active (degrees) 0 PT-OP-M Strength Start: 08/29/19 12:05 Freq: Status: Active Protocol: Document 08/29/19 12:05 HH (Rec: 08/29/19 12:31 [email or web address]) Hip Strength Hip Manual Muscle Testing Right Flexion (L2) 3 Fair Extension (S1) 3+ Fair+ Abduction 2+ Poor+ Adduction 3+ Fair+ Left Flexion (L2) 4 Good Extension (S1) 4 Good Abduction 4 Good Adduction 4 Good Knee Strength Knee Manual Muscle Testing Right Flexion (S2) 4 Good Extension (L3) 4 Good Left Flexion (S2) 4+ Good+ Extension (L3) 4+ Good+ PT-OP-Q Treatments Start: 08/29/19 12:05 Freq: Status: Active Protocol: Document 09/08/19 12:18 SP (Rec: 09/08/19 15:48 SP [id number]) Cardio Equipment Recumbent Elliptical (Biodex) Duration (Minutes) 6 Resistance 4 Seat Position 12 Therapeutic Exercises Supine Exercises hip abd Supine Exercise Name alternating BLE(isometric glut /quad facilitaiton opposite LE ) Side right Reps/Minutes x10 heel slide Supine Exercise Name HEP review Reps/Minutes x5 Comments cued oppposite knee bent if needed for LS neutral quad, glut set Supine Exercise Name HEP review Side right Reps/Minutes 5 sec hold x10 Standing Exercises staggered stance Standing Exercise Name AP weight shift Side bilateral Reps/Minutes 20 x 2 Comments noticed LLE is less stable sit to stand with BUE Reps/Minutes x3 Gait Training Gait Activity gait with SPC Device Used SPC Surface level Distance/Duration 200 ft Treatment Focus cues on L glut facilitation and RLE preventing circumduction Comments SPC on L hand, cued keep time with RLE advancement with upright posture and core for balance improvement gait Description LLe glut facilitation Device Used at rail, mirror for self feedback, SPC in LUE vs RUE Surface level Distance/Duration in place Treatment Focus R hip flexion Comments arlyn on R to facilitate hip flexion and prevent circumduction, L glut facilitation level pelvis PT-OP-R Modalities Start: 08/29/19 12:05 Freq: Status: Active Protocol: Document 09/05/19 09:02 HH (Rec: 09/05/19 09:51 HH [id number]) Hot Pack/Cold Pack Treatment CP Location R h ip Patient Position Sitting Treatment Duration (minutes) 10 Patient Tolerance Good PT-OP-T Assessment and Plan Start: 08/29/19 12:05 Freq: Status: Active Protocol: Document 09/08/19 12:18 SP (Rec: 09/08/19 15:48 SP [id number]) Physical Therapy Assessment Goals stair climbing Impairment Pt has poor leg strength Intermediate Goal (LTG) Pt will strengthen his RLE by doing daily HEP so he can climb his 5 steps to bedroom independently. LTG Duration 6 weeks activity tolerance Impairment Pt has poor activity tolerance and amb with FWW Short Term Goal (STG) Pt will be able to amb with SPC for more than 2 blocks STG Duration 4 weeks Certified Adapted Physical Educator Goal (LTG) Pt will be able to amb with least assistive device for more than 4 blocks independently for community mobility LTG Duration 6 weeks hip and knee ROM Impairment pt lacks of hip flexion, abd and knee ext and flexion actively Intermediate Goal (LTG) Pt will gain 10 degrees or greater for both hip and knee ROM to optimize his gait pattern LTG Duration 6 weeks LEFS Impairment pt scores 12 for LEFS Short Term Goal (STG) Pt will score 30 or greater on LEFS STG Duration 4 weeks Intermediate Goal (LTG) Pt will score 40 or greater on LEFS to improve her quality of life LTG Duration 6 weeks Assessment Summary Assessment Pt demonstrated trendelenburg gait upon arrival, cued slower pacing gait for sequencing SPC in LUE with RLE together, L glut facilitation, upright posture, and quality R toe off /knee and hip flexion/foward swing/ heel toe to decreased L hip depression and R lower leg circumduction. Focused on quality of this sequencing as did last tx with mirror for self visual with little improvement and patient stated has a mirror at home can do this in front of as well. HEP review supine good form. Physical Therapy Plan Frequency and Duration Frequency of Treatment 2x/Week Duration of Treatment 6 weeks Plan of Care Start Date 08/29/19 Plan of Care End Date 10/13/19 Therapeutic Interventions Therapeutic Interventions Balance Training,Gait Training ,Home Exercise Program,Joint Mobilizations,Manual Therapy, Neuromuscular Re-education, Patient/Caregiver Education, Self-Care/Home Management,Soft Tissue Mobilization,Taping, Therapeutic Activities, Therapeutic Exercises Modalities Cold Pack/Ice Massage,Hot Packs,Infrared Therapy Next Visit Focus/Plan Next Note Type Treatment Note Next Visit Plan Assess response to last tx: HEP review and quality gait performed. Continue stand ex, stairs, gait given previous . Progress gait with decrease R lower leg circumduction and progress HEP as tolerated, balance training gait training with SPC.
--- NOTE | 2019-09-12 09:49 | PT.OTN ---
Current Diagnoses Unilateral primary osteoarthritis, right hip (09/12/19) Pain in right hip (09/12/19) Physical Therapy Treatment Note PT-OP-A Visit Information Start: 08/29/19 12:05 Freq: Status: Active Protocol: Document 09/12/19 09:03 HH (Rec: 09/12/19 09:48 HH [id number]) Out-Patient Physical Therapy Visit Information Visit Information Visit Type Treatment Note Visit Start Time 09:04 Visit Stop Time 09:45 Total Visit Minutes 41 Visit Number 06/26 Number of TROUBLE SHOOTING MECHANIC Visits 0 PT-OP-B Current Condition Start: 08/29/19 12:05 Freq: Status: Active Protocol: Document 08/29/19 12:05 HH (Rec: 08/29/19 12:31 HH [email or web address]) Current Condition History of Current Condition Onset Date 08/23/19 Current Complaints s/p R RJ (post), difficulty in walking History of Current Condition Pt is a 78 yo male here for therapy s/p R RJ with posterior approach on 08/23/19 at [facility]. Pt has been using FWW for mobility and her and dtr assisted in ADLs and IADLs with mostly SBA. Pt is ambulatory but difficulty in bed mobility and transfers. He has been sleeping in his recliner since he has 5 YIMI with L rail to bedroom. Pt currently can walk a block without a rest break. And his pain is around 2/10. He has been doing his post op ex such as hip abduction in supine, seated knee extension, mini squat and quad set twice a day for 20 reps. Future Testing and Treatments Planned Pt will have follow up 09/02 with surgical team. Treatment Goals Patient/Caregiver Goals 1. To be ambulatory with SPC 2. To climb 5 yimi with 1 rail without assistance 3. To complete all ADLs and IADLs independently Prior Functional Status Baseline Function- ADL's Modified Independent Baseline Function- Mobility Modified Independent Baseline Function- Gait with SPC Current Functional Impairments (Reported) Functional Limitations- ADL's SBA from family Functional Limitations- Mobility/Gait amb with FWW and CGA for car transfer Personal Factors Other Personal Factors That May Effect Depression, B TKA, [place] Therapy/Recovery PT-OP-C Subjective Start: 08/29/19 12:05 Freq: Status: Active Protocol: Document 09/12/19 09:03 HH (Rec: 09/12/19 09:48 HH [id number]) OP-PT Subjective Patient Comments Patient Comments Everything has been doing good. I still feel wobbly sometimes. Patient Reported Progress Improving PT-OP-F Manual Assessment Start: 08/29/19 12:05 Freq: Status: Active Protocol: Document 08/29/19 12:05 HH (Rec: 08/29/19 12:31 HH [email or web address]) Manual Assessments Soft Tissue Assessment Soft Tissue Mobility Assessment significant swelling and soft tissue hardening at distal R thigh especiall medially. significant ecchymosis noted at posterior of R thigh PT-OP-G Mobility & Gait Start: 08/29/19 12:05 Freq: Status: Active Protocol: Document 08/29/19 12:05 HH (Rec: 08/29/19 12:31 [email or web address]) OP Mobility Evaluation Bed Mobility Supine to and from Sit need 1 DATABASE REPORT WRITER to pull from supine to sit OP Gait Assessment Gait Deviations General Gait Pattern Antalgic,Decreased Stride Length,Decreased Feet Clearance,Lateral Trunk Lean, Step-to Gait Factors Limiting Gait Function Factors Limiting Gait Function Decreased Activity Tolerance, Decreased Strength,Limited Range of Motion,Pain,Poor Balance,Poor Safety Awareness Stair Climbing Evaluation Comments Stair Climbing Comments unable to climb stairs yet PT-OP-H Neuro Start: 08/29/19 12:05 Freq: Status: Active Protocol: Document 08/29/19 12:05 (Rec: 08/29/19 12:31 [email or web address]) Deep Tendon Reflex & Clonus Assessment Deep Tendon Reflex Bilateral Achilles Deep Tendon Reflex 2+ Normal Bilateral Patellar Deep Tendon Reflex 1+ Diminished PT-OP-J Posture/Palpation/Skin Start: 08/29/19 12:05 Freq: Status: Active Protocol: Document 08/29/19 12:05 HH (Rec: 08/29/19 12:31 [email or web address]) Skin Assessment Circumference Measurement L knee Location 5 cm above of patella, patella and 5 cm below patella Comments 18.5 , 17 , 14 R knee Location 5 cm above of patella, patella and 5 cm below patella Comments 20 , 18 , 16.3 PT-OP-K Range of Motion Start: 08/29/19 12:05 Freq: Status: Active Protocol: Document 08/29/19 12:05 (Rec: 08/29/19 12:31 [email or web address]) Hip Goniometric Range of Motion Hip Left Passive Hip ROM WFL Yes Testing Position Supine Straight Leg Raise 85 Extension 0 Abduction 25 Right Passive Hip ROM WFL No Testing Position Supine Straight Leg Raise 70 Extension 0 Abduction 18 Knee Goniometric Range of Motion Knee Right Knee ROM WFL No Patient Position Supine Flexion Active (degrees) 108 Extension Active (degrees) 5 Left Knee ROM WFL Yes Patient Position Supine Flexion Active (degrees) 120 Extension Active (degrees) 0 PT-OP-M Strength Start: 08/29/19 12:05 Freq: Status: Active Protocol: Document 08/29/19 12:05 (Rec: 08/29/19 12:31 [email or web address]) Hip Strength Hip Manual Muscle Testing Right Flexion (L2) 3 Fair Extension (S1) 3+ Fair+ Abduction 2+ Poor+ Adduction 3+ Fair+ Left Flexion (L2) 4 Good Extension (S1) 4 Good Abduction 4 Good Adduction 4 Good Knee Strength Knee Manual Muscle Testing Right Flexion (S2) 4 Good Extension (L3) 4 Good Left Flexion (S2) 4+ Good+ Extension (L3) 4+ Good+ PT-OP-Q Treatments Start: 08/29/19 12:05 Freq: Status: Active Protocol: Document 09/12/19 09:03 (Rec: 09/12/19 09:48 [id number]) Cardio Equipment Recumbent Elliptical (Biodex) Duration (Minutes) 6 Resistance 4 Seat Position 12 Gym Equipment Shuttle Rebound red Exercise Details static then staggered Reps/Duration 8 mins Comments w/o support pt needed min A for staggered stance. Gait Training Gait Activity gait without SPC Device Used 100 ft x 4 Level of Assistance CGA Surface ground level Comments RLE circumduction noted. Cues on heel strike and push off. side stepping, bwd walking Device Used CGA Level of Assistance CGA Surface ground level Comments next to grab bar pt appeared fatigue towards the end of backward walking, slight LOB gait Description hurdles Device Used nex to grab bar Surface level Distance/Duration 15 ft x 6 rounds Treatment Focus R hip flexion Comments cues on step to pattern with good pacing. Pt tends to león it resulting LOB PT-OP-R Modalities Start: 08/29/19 12:05 Freq: Status: Active Protocol: Document 09/05/19 09:02 (Rec: 09/05/19 09:51 [id number]) Hot Pack/Cold Pack Treatment CP Location R h ip Patient Position Sitting Treatment Duration (minutes) 10 Patient Tolerance Good PT-OP-T Assessment and Plan Start: 08/29/19 12:05 Freq: Status: Active Protocol: Document 09/12/19 09:03 (Rec: 09/12/19 09:48 [email or web address]) Physical Therapy Assessment Goals stair climbing Impairment Pt has poor leg strength Care Home Goal (LTG) Pt will strengthen his RLE by doing daily HEP so he can climb his 5 steps to bedroom independently. LTG Duration 6 weeks activity tolerance Impairment Pt has poor activity tolerance and amb with FWW Short Term Goal (STG) Pt will be able to amb with SPC for more than 2 blocks STG Duration 4 weeks Care Home Goal (LTG) Pt will be able to amb with least assistive device for more than 4 blocks independently for community mobility LTG Duration 6 weeks hip and knee ROM Impairment pt lacks of hip flexion, abd and knee ext and flexion actively Care Home Goal (LTG) Pt will gain 10 degrees or greater for both hip and knee ROM to optimize his gait pattern LTG Duration 6 weeks LEFS Impairment pt scores 12 for LEFS Short Term Goal (STG) Pt will score 30 or greater on LEFS STG Duration 4 weeks Test Design Engineer Goal (LTG) Pt will score 40 or greater on LEFS to improve her quality of life LTG Duration 6 weeks Assessment Summary Assessment Pt shows improved gait qaulity with decreased RLE circumduction. Pt does need cues to slow down for balancing ex and step over ex. Practiced gait training without SPC and noticed circumduction on RLE. Pt overall progress very well. Physical Therapy Plan Next Visit Focus/Plan Next Note Type Treatment Note Next Visit Plan Assess response to last tx: HEP review and quality gait performed. Continue stand ex, stairs, gait given previous . Progress gait with decrease R lower leg circumduction and progress HEP as tolerated, balance training gait training with / without SPC.
--- NOTE | 2019-09-15 13:00 | PT.OTN ---
Current Diagnoses Unilateral primary osteoarthritis, right hip (09/15/19) Pain in right hip (09/15/19) Physical Therapy Treatment Note PT-OP-A Visit Information Start: 08/29/19 12:05 Freq: Status: Active Protocol: Document 09/15/19 12:16 TP (Rec: 09/15/19 15:35 TP [id number]) Out-Patient Physical Therapy Visit Information Visit Information Visit Type Treatment Note Visit Note Student WILBER Fung supervised by WILBER Gray. Visit Start Time 12:16 Visit Stop Time 13:00 Total Visit Minutes 44 Visit Number 07/27 Number of COAL HANDLER Visits 1 PT-OP-B Current Condition Start: 08/29/19 12:05 Freq: Status: Active Protocol: Document 08/29/19 12:05 HH (Rec: 08/29/19 12:31 HH [email or web address]) Current Condition History of Current Condition Onset Date 08/23/19 Current Complaints s/p R RJ (post), difficulty in walking History of Current Condition Pt is a 78 yo male here for therapy s/p R RJ with posterior approach on 08/23/19 at [facility]. Pt has been using FWW for mobility and her and dtr assisted in ADLs and IADLs with mostly SBA. Pt is ambulatory but difficulty in bed mobility and transfers. He has been sleeping in his recliner since he has 5 MATILDA with L rail to bedroom. Pt currently can walk a block without a rest break. And his pain is around 2/10. He has been doing his post op ex such as hip abduction in supine, seated knee extension, mini squat and quad set twice a day for 20 reps. Future Testing and Treatments Planned Pt will have follow up 09/02 with surgical team. Treatment Goals Patient/Caregiver Goals 1. To be ambulatory with SPC 2. To climb 5 matilda with 1 rail without assistance 3. To complete all ADLs and IADLs independently Prior Functional Status Baseline Function- ADL's Modified Independent Baseline Function- Mobility Modified Independent Baseline Function- Gait with SPC Current Functional Impairments (Reported) Functional Limitations- ADL's SBA from family Functional Limitations- Mobility/Gait amb with FWW and CGA for car transfer Personal Factors Other Personal Factors That May Effect Depression, B TKA, [place] Therapy/Recovery PT-OP-C Subjective Start: 08/29/19 12:05 Freq: Status: Active Protocol: Document 09/15/19 12:16 TP (Rec: 09/15/19 15:35 TP [id number]) OP-PT Subjective Patient Comments Patient Comments I'm doing well. I'm doing my exercises at home and try to get outside as much as I can. PT-OP-F Manual Assessment Start: 08/29/19 12:05 Freq: Status: Active Protocol: Document 08/29/19 12:05 HH (Rec: 08/29/19 12:31 HH [email or web address]) Manual Assessments Soft Tissue Assessment Soft Tissue Mobility Assessment significant swelling and soft tissue hardening at distal R thigh especiall medially. significant ecchymosis noted at posterior of R thigh PT-OP-G Mobility & Gait Start: 08/29/19 12:05 Freq: Status: Active Protocol: Document 08/29/19 12:05 HH (Rec: 08/29/19 12:31 HH [email or web address]) OP Mobility Evaluation Bed Mobility Supine to and from Sit need 1 JOINT CLEANING MACHINE OPERATOR to pull from supine to sit OP Gait Assessment Gait Deviations General Gait Pattern Antalgic,Decreased Stride Length,Decreased Feet Clearance,Lateral Trunk Lean, Step-to Gait Factors Limiting Gait Function Factors Limiting Gait Function Decreased Activity Tolerance, Decreased Strength,Limited Range of Motion,Pain,Poor Balance,Poor Safety Awareness Stair Climbing Evaluation Comments Stair Climbing Comments unable to climb stairs yet PT-OP-H Neuro Start: 08/29/19 12:05 Freq: Status: Active Protocol: Document 08/29/19 12:05 HH (Rec: 08/29/19 12:31 [email or web address]) Deep Tendon Reflex & Clonus Assessment Deep Tendon Reflex Bilateral Achilles Deep Tendon Reflex 2+ Normal Bilateral Patellar Deep Tendon Reflex 1+ Diminished PT-OP-J Posture/Palpation/Skin Start: 08/29/19 12:05 Freq: Status: Active Protocol: Document 08/29/19 12:05 HH (Rec: 08/29/19 12:31 [email or web address]) Skin Assessment Circumference Measurement L knee Location 5 cm above of patella, patella and 5 cm below patella Comments 18.5 , 17 , 14 R knee Location 5 cm above of patella, patella and 5 cm below patella Comments 20 , 18 , 16.3 PT-OP-K Range of Motion Start: 08/29/19 12:05 Freq: Status: Active Protocol: Document 08/29/19 12:05 HH (Rec: 08/29/19 12:31 HH [email or web address]) Hip Goniometric Range of Motion Hip Left Passive Hip ROM WFL Yes Testing Position Supine Straight Leg Raise 85 Extension 0 Abduction 25 Right Passive Hip ROM WFL No Testing Position Supine Straight Leg Raise 70 Extension 0 Abduction 18 Knee Goniometric Range of Motion Knee Right Knee ROM WFL No Patient Position Supine Flexion Active (degrees) 108 Extension Active (degrees) 5 Left Knee ROM WFL Yes Patient Position Supine Flexion Active (degrees) 120 Extension Active (degrees) 0 PT-OP-M Strength Start: 08/29/19 12:05 Freq: Status: Active Protocol: Document 08/29/19 12:05 HH (Rec: 08/29/19 12:31 HH [email or web address]) Hip Strength Hip Manual Muscle Testing Right Flexion (L2) 3 Fair Extension (S1) 3+ Fair+ Abduction 2+ Poor+ Adduction 3+ Fair+ Left Flexion (L2) 4 Good Extension (S1) 4 Good Abduction 4 Good Adduction 4 Good Knee Strength Knee Manual Muscle Testing Right Flexion (S2) 4 Good Extension (L3) 4 Good Left Flexion (S2) 4+ Good+ Extension (L3) 4+ Good+ PT-OP-Q Treatments Start: 08/29/19 12:05 Freq: Status: Active Protocol: Document 09/15/19 12:16 TP (Rec: 09/15/19 15:35 TP [id number]) Cardio Equipment Recumbent Elliptical (Biodex) Duration (Minutes) 8 Resistance 5 Seat Position 12 Therapeutic Exercises Standing Exercises sit to stands Standing Exercise Name arms across chest Equipment Used 18 chair height Reps/Minutes x5 Comments cued COG over ALBINO feet underneath him hip ext Standing Exercise Name Review HEP Side bilateral Equipment Used //bar Reps/Minutes x10 Comments cued glut facilitation, knee extension, upright posture hip abd Standing Exercise Name HEP review Side bilateral Equipment Used //bar Reps/Minutes 5 x2 Comments cued L glut facilitation during RLE abd, weakness better on R LE Gait Training Gait Activity stairs Description step ups Device Used // Level of Assistance CGA Surface firm Distance/Duration 10x2 each side Comments CGA-Min A required for safety. Cues for glut fac. Use of L rail as needed. gait Description hurdles forward/backward Device Used //bar Surface level Distance/Duration 10 ft x 4 rounds Treatment Focus R hip flexion Comments cues on step to pattern with heel toe and glut facilitation and trailing foot clearance. Pt tends to león it resulting LOB Neuro Re-Education Treatment Balance Activities heel toe rocking Details AP weight shift, into each gait stance phase Surface firm Equipment // Reps/Duration 10x2 each side Comments noticed LLE is less stable ALBINO Details WBOS, NBOS, modified tandem, heel/toe rocking Surface firm Equipment // Reps/Duration 30 sec each Comments Cues for glut fac. Head turns and EC (held 3-5 sec) PT-OP-R Modalities Start: 08/29/19 12:05 Freq: Status: Active Protocol: Document 09/05/19 09:02 HH (Rec: 09/05/19 09:51 HH [id number]) Hot Pack/Cold Pack Treatment CP Location R h ip Patient Position Sitting Treatment Duration (minutes) 10 Patient Tolerance Good PT-OP-T Assessment and Plan Start: 08/29/19 12:05 Freq: Status: Active Protocol: Document 09/15/19 12:16 TP (Rec: 09/15/19 15:35 TP [id number]) Physical Therapy Assessment Goals stair climbing Impairment Pt has poor leg strength Assisted Goal (LTG) Pt will strengthen his RLE by doing daily HEP so he can climb his 5 steps to bedroom independently. LTG Duration 6 weeks activity tolerance Impairment Pt has poor activity tolerance and amb with FWW Short Term Goal (STG) Pt will be able to amb with SPC for more than 2 blocks STG Duration 4 weeks Assisted Goal (LTG) Pt will be able to amb with least assistive device for more than 4 blocks independently for community mobility LTG Duration 6 weeks hip and knee ROM Impairment pt lacks of hip flexion, abd and knee ext and flexion actively Mill Beam Fitter Goal (LTG) Pt will gain 10 degrees or greater for both hip and knee ROM to optimize his gait pattern LTG Duration 6 weeks LEFS Impairment pt scores 12 for LEFS Short Term Goal (STG) Pt will score 30 or greater on LEFS STG Duration 4 weeks Mill Beam Fitter Goal (LTG) Pt will score 40 or greater on LEFS to improve his quality of life LTG Duration 6 weeks Assessment Summary Assessment Review of HEP. Cues needed for improved posture and smaller range hip ext/abd eliminate compensation strategies. Self feedback provided with full length mirror. Pt hip strength increasing with an improvement in gait. R hip FF increasing evidenced by improved foot clearance during gait, reducing R LE circumduction. Continue PT to increase strength and endurance of B hips with R<L to improve hip stability and balance. Current limitations in hip stability increase pt's fall risk. Pt fatigues with duration. Physical Therapy Plan Frequency and Duration Frequency of Treatment 2x/Week Duration of Treatment 6 weeks Plan of Care Start Date 08/29/19 Plan of Care End Date 10/13/19 Therapeutic Interventions Therapeutic Interventions Balance Training,Gait Training ,Home Exercise Program,Joint Mobilizations,Manual Therapy, Neuromuscular Re-education, Patient/Caregiver Education, Self-Care/Home Management,Soft Tissue Mobilization,Taping, Therapeutic Activities, Therapeutic Exercises Modalities Cold Pack/Ice Massage,Hot Packs,Infrared Therapy Next Visit Focus/Plan Next Note Type Treatment Note Next Visit Plan Assess response to last tx: HEP review and quality gait performed. Continue stand ex, stairs, gait. Progress gait with decrease R lower leg circumduction.Progress HEP as tolerated, balance training gait training with / without SPC.
--- NOTE | 2019-09-19 09:50 | PT.OTN ---
Current Diagnoses Unilateral primary osteoarthritis, right hip (09/19/19) Pain in right hip (09/19/19) Physical Therapy Treatment Note PT-OP-A Visit Information Start: 08/29/19 12:05 Freq: Status: Active Protocol: Document 09/19/19 09:08 HH (Rec: 09/19/19 09:50 HH [id number]) Out-Patient Physical Therapy Visit Information Visit Information Visit Type Treatment Note Visit Start Time 09:04 Visit Stop Time 09:45 Total Visit Minutes 41 Visit Number 08/26 Number of BOARD MILL SUPERVISOR Visits 0 PT-OP-B Current Condition Start: 08/29/19 12:05 Freq: Status: Active Protocol: Document 08/29/19 12:05 HH (Rec: 08/29/19 12:31 HH [email or web address]) Current Condition History of Current Condition Onset Date 08/23/19 Current Complaints s/p R RJ (post), difficulty in walking History of Current Condition Pt is a 78 yo male here for therapy s/p R RJ with posterior approach on 08/23/19 at [facility]. Pt has been using FWW for mobility and her and dtr assisted in ADLs and IADLs with mostly SBA. Pt is ambulatory but difficulty in bed mobility and transfers. He has been sleeping in his recliner since he has 5 YIMI with L rail to bedroom. Pt currently can walk a block without a rest break. And his pain is around 2/10. He has been doing his post op ex such as hip abduction in supine, seated knee extension, mini squat and quad set twice a day for 20 reps. Future Testing and Treatments Planned Pt will have follow up 09/02 with surgical team. Treatment Goals Patient/Caregiver Goals 1. To be ambulatory with SPC 2. To climb 5 yimi with 1 rail without assistance 3. To complete all ADLs and IADLs independently Prior Functional Status Baseline Function- ADL's Modified Independent Baseline Function- Mobility Modified Independent Baseline Function- Gait with SPC Current Functional Impairments (Reported) Functional Limitations- ADL's SBA from family Functional Limitations- Mobility/Gait amb with FWW and CGA for car transfer Personal Factors Other Personal Factors That May Effect Depression, B TKA, [place] Therapy/Recovery PT-OP-C Subjective Start: 08/29/19 12:05 Freq: Status: Active Protocol: Document 09/19/19 09:08 HH (Rec: 09/19/19 09:50 HH [id number]) OP-PT Subjective Patient Comments Patient Comments Im doing good without using my cane but more careful. Im 80 % better. Patient Reported Progress Improving PT-OP-F Manual Assessment Start: 08/29/19 12:05 Freq: Status: Active Protocol: Document 08/29/19 12:05 HH (Rec: 08/29/19 12:31 [email or web address]) Manual Assessments Soft Tissue Assessment Soft Tissue Mobility Assessment significant swelling and soft tissue hardening at distal R thigh especiall medially. significant ecchymosis noted at posterior of R thigh PT-OP-G Mobility & Gait Start: 08/29/19 12:05 Freq: Status: Active Protocol: Document 08/29/19 12:05 HH (Rec: 08/29/19 12:31 [email or web address]) OP Mobility Evaluation Bed Mobility Supine to and from Sit need 1 FERTILIZER SUPERVISOR to pull from supine to sit OP Gait Assessment Gait Deviations General Gait Pattern Antalgic,Decreased Stride Length,Decreased Feet Clearance,Lateral Trunk Lean, Step-to Gait Factors Limiting Gait Function Factors Limiting Gait Function Decreased Activity Tolerance, Decreased Strength,Limited Range of Motion,Pain,Poor Balance,Poor Safety Awareness Stair Climbing Evaluation Comments Stair Climbing Comments unable to climb stairs yet PT-OP-H Neuro Start: 08/29/19 12:05 Freq: Status: Active Protocol: Document 08/29/19 12:05 (Rec: 08/29/19 12:31 [email or web address]) Deep Tendon Reflex & Clonus Assessment Deep Tendon Reflex Bilateral Achilles Deep Tendon Reflex 2+ Normal Bilateral Patellar Deep Tendon Reflex 1+ Diminished PT-OP-J Posture/Palpation/Skin Start: 08/29/19 12:05 Freq: Status: Active Protocol: Document 08/29/19 12:05 HH (Rec: 08/29/19 12:31 [email or web address]) Skin Assessment Circumference Measurement L knee Location 5 cm above of patella, patella and 5 cm below patella Comments 18.5 , 17 , 14 R knee Location 5 cm above of patella, patella and 5 cm below patella Comments 20 , 18 , 16.3 PT-OP-K Range of Motion Start: 08/29/19 12:05 Freq: Status: Active Protocol: Document 08/29/19 12:05 HH (Rec: 08/29/19 12:31 [email or web address]) Hip Goniometric Range of Motion Hip Left Passive Hip ROM WFL Yes Testing Position Supine Straight Leg Raise 85 Extension 0 Abduction 25 Right Passive Hip ROM WFL No Testing Position Supine Straight Leg Raise 70 Extension 0 Abduction 18 Knee Goniometric Range of Motion Knee Right Knee ROM WFL No Patient Position Supine Flexion Active (degrees) 108 Extension Active (degrees) 5 Left Knee ROM WFL Yes Patient Position Supine Flexion Active (degrees) 120 Extension Active (degrees) 0 PT-OP-M Strength Start: 08/29/19 12:05 Freq: Status: Active Protocol: Document 08/29/19 12:05 (Rec: 08/29/19 12:31 [email or web address]) Hip Strength Hip Manual Muscle Testing Right Flexion (L2) 3 Fair Extension (S1) 3+ Fair+ Abduction 2+ Poor+ Adduction 3+ Fair+ Left Flexion (L2) 4 Good Extension (S1) 4 Good Abduction 4 Good Adduction 4 Good Knee Strength Knee Manual Muscle Testing Right Flexion (S2) 4 Good Extension (L3) 4 Good Left Flexion (S2) 4+ Good+ Extension (L3) 4+ Good+ PT-OP-Q Treatments Start: 08/29/19 12:05 Freq: Status: Active Protocol: Document 09/19/19 09:08 (Rec: 09/19/19 09:50 [id number]) Cardio Equipment Recumbent Stepper (Sci-Fit) Duration (Minutes) 6 Resistance 3.0 Seat Position 12 Gym Equipment Shuttle Rebound red Exercise Details static then staggered Reps/Duration 8 mins Comments w/o support pt needed min A for staggered stance. CGA for balance Therapeutic Exercises Standing Exercises step up Standing Exercise Name 6 inch step Side bilateral Reps/Minutes 10 x 2 Comments with B rails. sit to stands Standing Exercise Name arms across chest Equipment Used 18 chair height Reps/Minutes x5 Comments cued COG over ALBINO feet underneath him ankle board Standing Exercise Name for warm up Equipment Used CGA Reps/Minutes 4 mins Comments ankle board, blue foam then mckinley foam Gait Training Gait Activity gait without SPC Device Used 80 ft x 4 Level of Assistance CGA Surface ground level Comments reduced RLE circumduction noted. Cues on heel strike and push off. Pt tends to LOB slightly with increased step length side stepping, bwd walking Device Used CGA Level of Assistance CGA Surface ground level Comments next to grab bar pt needs cues to slow down then balance improves Neuro Re-Education Treatment Balance Activities heel toe rocking Details AP weight shift, into each gait stance phase Surface firm Equipment // Reps/Duration 10x2 each side Comments noticed LLE is less stable ALBINO Details WBOS, NBOS, modified tandem, heel/toe rocking Surface firm Equipment // Reps/Duration 30 sec each Comments Cues for glut fac. Head turns and EC (held 3-5 sec) PT-OP-R Modalities Start: 08/29/19 12:05 Freq: Status: Active Protocol: Document 09/05/19 09:02 HH (Rec: 09/05/19 09:51 HH [id number]) Hot Pack/Cold Pack Treatment CP Location R h ip Patient Position Sitting Treatment Duration (minutes) 10 Patient Tolerance Good PT-OP-T Assessment and Plan Start: 08/29/19 12:05 Freq: Status: Active Protocol: Document 09/19/19 09:08 HH (Rec: 09/19/19 09:50 HH [id number]) Physical Therapy Assessment Goals activity tolerance Impairment Pt has poor activity tolerance and amb with FWW Short Term Goal (STG) Pt will be able to amb with SPC for more than 2 blocks STG Duration 4 weeks Embalmer/Funeral Director Goal (LTG) Pt will be able to amb with least assistive device for more than 4 blocks independently for community mobility LTG Duration 6 weeks hip and knee ROM Impairment pt lacks of hip flexion, abd and knee ext and flexion actively Embalmer/Funeral Director Goal (LTG) Pt will gain 10 degrees or greater for both hip and knee ROM to optimize his gait pattern LTG Duration 6 weeks LEFS Impairment pt scores 12 for LEFS Short Term Goal (STG) Pt will score 30 or greater on LEFS STG Duration 4 weeks Embalmer/Funeral Director Goal (LTG) Pt will score 40 or greater on LEFS to improve his quality of life LTG Duration 6 weeks Assessment Summary Assessment Pt reports he is 80% better with overall improvements in strength and balance. Added step up today and pt tends to attempt it without using handrails. Spent time educating pt regarding HEP safety. Will cont POC to focus on balance and strengthening. Physical Therapy Plan Next Visit Focus/Plan Next Note Type Treatment Note Next Visit Plan Assess response to last tx: HEP review and quality gait performed. Continue stand ex, stairs, gait. Progress gait with decrease R lower leg circumduction.Progress HEP as tolerated, balance training gait training with / without SPC.
--- NOTE | 2019-09-21 09:45 | PT.OTN ---
Current Diagnoses Unilateral primary osteoarthritis, right hip (09/21/19) Pain in right hip (09/21/19) Physical Therapy Treatment Note PT-OP-A Visit Information Start: 08/29/19 12:05 Freq: Status: Active Protocol: Document 09/21/19 09:00 TP (Rec: 09/21/19 11:41 TP [id number]) Out-Patient Physical Therapy Visit Information Visit Information Visit Type Treatment Note Visit Note Student WILBER Fung supervised by WILBER Gray. Visit Start Time 09:00 Visit Stop Time 09:45 Total Visit Minutes 45 Visit Number 09/26 Number of SILO ERECTOR Visits 1 PT-OP-B Current Condition Start: 08/29/19 12:05 Freq: Status: Active Protocol: Document 08/29/19 12:05 HH (Rec: 08/29/19 12:31 HH [email or web address]) Current Condition History of Current Condition Onset Date 08/23/19 Current Complaints s/p R RJ (post), difficulty in walking History of Current Condition Pt is a 78 yo male here for therapy s/p R RJ with posterior approach on 08/23/19 at [facility]. Pt has been using FWW for mobility and her and dtr assisted in ADLs and IADLs with mostly SBA. Pt is ambulatory but difficulty in bed mobility and transfers. He has been sleeping in his recliner since he has 5 MATILDA with L rail to bedroom. Pt currently can walk a block without a rest break. And his pain is around 2/10. He has been doing his post op ex such as hip abduction in supine, seated knee extension, mini squat and quad set twice a day for 20 reps. Future Testing and Treatments Planned Pt will have follow up 09/02 with surgical team. Treatment Goals Patient/Caregiver Goals 1. To be ambulatory with SPC 2. To climb 5 matilda with 1 rail without assistance 3. To complete all ADLs and IADLs independently Prior Functional Status Baseline Function- ADL's Modified Independent Baseline Function- Mobility Modified Independent Baseline Function- Gait with SPC Current Functional Impairments (Reported) Functional Limitations- ADL's SBA from family Functional Limitations- Mobility/Gait amb with FWW and CGA for car transfer Personal Factors Other Personal Factors That May Effect Depression, B TKA, PAUMA Therapy/Recovery PT-OP-C Subjective Start: 08/29/19 12:05 Freq: Status: Active Protocol: Document 09/21/19 09:00 TP (Rec: 09/21/19 11:41 TP [id number]) OP-PT Subjective Patient Comments Patient Comments I'm not using my cane at all, but I have to be careful sometimes. Patient Reported Progress Improving PT-OP-F Manual Assessment Start: 08/29/19 12:05 Freq: Status: Active Protocol: Document 08/29/19 12:05 HH (Rec: 08/29/19 12:31 HH [email or web address]) Manual Assessments Soft Tissue Assessment Soft Tissue Mobility Assessment significant swelling and soft tissue hardening at distal R thigh especiall medially. significant ecchymosis noted at posterior of R thigh PT-OP-G Mobility & Gait Start: 08/29/19 12:05 Freq: Status: Active Protocol: Document 08/29/19 12:05 HH (Rec: 08/29/19 12:31 HH [email or web address]) OP Mobility Evaluation Bed Mobility Supine to and from Sit need 1 PILER to pull from supine to sit OP Gait Assessment Gait Deviations General Gait Pattern Antalgic,Decreased Stride Length,Decreased Feet Clearance,Lateral Trunk Lean, Step-to Gait Factors Limiting Gait Function Factors Limiting Gait Function Decreased Activity Tolerance, Decreased Strength,Limited Range of Motion,Pain,Poor Balance,Poor Safety Awareness Stair Climbing Evaluation Comments Stair Climbing Comments unable to climb stairs yet PT-OP-H Neuro Start: 08/29/19 12:05 Freq: Status: Active Protocol: Document 08/29/19 12:05 HH (Rec: 08/29/19 12:31 [email or web address]) Deep Tendon Reflex & Clonus Assessment Deep Tendon Reflex Bilateral Achilles Deep Tendon Reflex 2+ Normal Bilateral Patellar Deep Tendon Reflex 1+ Diminished PT-OP-J Posture/Palpation/Skin Start: 08/29/19 12:05 Freq: Status: Active Protocol: Document 08/29/19 12:05 HH (Rec: 08/29/19 12:31 [email or web address]) Skin Assessment Circumference Measurement L knee Location 5 cm above of patella, patella and 5 cm below patella Comments 18.5 , 17 , 14 R knee Location 5 cm above of patella, patella and 5 cm below patella Comments 20 , 18 , 16.3 PT-OP-K Range of Motion Start: 08/29/19 12:05 Freq: Status: Active Protocol: Document 08/29/19 12:05 HH (Rec: 08/29/19 12:31 HH [email or web address]) Hip Goniometric Range of Motion Hip Left Passive Hip ROM WFL Yes Testing Position Supine Straight Leg Raise 85 Extension 0 Abduction 25 Right Passive Hip ROM WFL No Testing Position Supine Straight Leg Raise 70 Extension 0 Abduction 18 Knee Goniometric Range of Motion Knee Right Knee ROM WFL No Patient Position Supine Flexion Active (degrees) 108 Extension Active (degrees) 5 Left Knee ROM WFL Yes Patient Position Supine Flexion Active (degrees) 120 Extension Active (degrees) 0 PT-OP-M Strength Start: 08/29/19 12:05 Freq: Status: Active Protocol: Document 08/29/19 12:05 HH (Rec: 08/29/19 12:31 [email or web address]) Hip Strength Hip Manual Muscle Testing Right Flexion (L2) 3 Fair Extension (S1) 3+ Fair+ Abduction 2+ Poor+ Adduction 3+ Fair+ Left Flexion (L2) 4 Good Extension (S1) 4 Good Abduction 4 Good Adduction 4 Good Knee Strength Knee Manual Muscle Testing Right Flexion (S2) 4 Good Extension (L3) 4 Good Left Flexion (S2) 4+ Good+ Extension (L3) 4+ Good+ PT-OP-Q Treatments Start: 08/29/19 12:05 Freq: Status: Active Protocol: Document 09/21/19 09:00 TP (Rec: 09/21/19 11:41 TP [id number]) Cardio Equipment Recumbent Stepper (Sci-Fit) Duration (Minutes) 6 Resistance 3.5 Seat Position 12 Gym Equipment Shuttle Balance Red Details WBOS, NBOS with head turns Reps/Duration 8min Comments Cues for glute facilitation. Pause for AP weightshifts. CGA-Vida required. Therapeutic Exercises Standing Exercises step up Standing Exercise Name 6 inch step, 2 inch step w/ foam Side bilateral Equipment Used green foam Reps/Minutes 10x2 step, 10x2 step with/foam Comments with rails for support, CGA, verbal cues to control ankle pronation march Standing Exercise Name stationary march Side bilateral Equipment Used L rail Reps/Minutes x20 Comments cues to slow movement with increased flexion hip ext Standing Exercise Name Review HEP Side right Equipment Used Rail, mirror Reps/Minutes 10x2 Comments cues for glute facilitation and upright posture hip abd Standing Exercise Name HEP Review Side right Equipment Used Rail Reps/Minutes 10x2 Comments cues for glute facilitation and upright posture PT-OP-R Modalities Start: 08/29/19 12:05 Freq: Status: Active Protocol: Document 09/05/19 09:02 HH (Rec: 09/05/19 09:51 HH [id number]) Hot Pack/Cold Pack Treatment CP Location R h ip Patient Position Sitting Treatment Duration (minutes) 10 Patient Tolerance Good PT-OP-T Assessment and Plan Start: 08/29/19 12:05 Freq: Status: Active Protocol: Document 09/21/19 09:00 TP (Rec: 09/21/19 11:41 TP [id number]) Physical Therapy Assessment Goals stair climbing Impairment Pt has poor leg strength Fci Goal (LTG) Pt will strengthen his RLE by doing daily HEP so he can climb his 5 steps to bedroom independently. LTG Duration 6 weeks activity tolerance Impairment Pt has poor activity tolerance and amb with FWW Short Term Goal (STG) Pt will be able to amb with SPC for more than 2 blocks STG Duration 4 weeks Health Evaluator Goal (LTG) Pt will be able to amb with least assistive device for more than 4 blocks independently for community mobility LTG Duration 6 weeks hip and knee ROM Impairment pt lacks of hip flexion, abd and knee ext and flexion actively Health Evaluator Goal (LTG) Pt will gain 10 degrees or greater for both hip and knee ROM to optimize his gait pattern LTG Duration 6 weeks LEFS Impairment pt scores 12 for LEFS Short Term Goal (STG) Pt will score 30 or greater on LEFS STG Duration 4 weeks Fci Goal (LTG) Pt will score 40 or greater on LEFS to improve his quality of life LTG Duration 6 weeks Assessment Summary Assessment Pt strength and balance improving, as pt is no longer using SPC for gait. Pt continues to have weakness in R hip and decreased static and dynamic balance in standing. Tx focus today on HEP review, balance training on Shuttle Balance, and stair management with a stable and unstable surface. Ther ex requires cues for upright posture to avoid compensatory strategies, with abd/ext>flex. Balance impairment persist, with need to hold on to rail to manage stairs, and Vida required during Shuttle Balance, particularly with head turns. Verbal cues for glute facilitation improves balance. Pt exhibits excessive R ankle pronation performing step ups on 2 step with blue foam pad. Unstable surface reduced to green foam pad on 2 step, with improved ability to control ankle pronation. Observation of R circumduction during gait upon completion of tx. Assess gait to see if circumduction is more or less present with SPC. Continue PT to increase R hip and LE strength, endurance and activity tolerance for improved balance and safe mobility. Physical Therapy Plan Frequency and Duration Frequency of Treatment 2x/Week Duration of Treatment 6 weeks Plan of Care Start Date 08/29/19 Plan of Care End Date 10/13/19 Therapeutic Interventions Therapeutic Interventions Balance Training,Gait Training ,Home Exercise Program,Joint Mobilizations,Manual Therapy, Neuromuscular Re-education, Patient/Caregiver Education, Self-Care/Home Management,Soft Tissue Mobilization,Taping, Therapeutic Activities, Therapeutic Exercises Modalities Cold Pack/Ice Massage,Hot Packs,Infrared Therapy Next Visit Focus/Plan Next Note Type Treatment Note Next Visit Plan Assess response to last tx: HEP review, Shuttle Balance, step ups stable/unstable surface. Continue stand ex, stairs, gait. Progress gait with decrease R lower leg circumduction.Progress HEP as tolerated, balance training gait training with / without SPC. Seated hip abd with TB resistance to reduce compensatory trunk lean in standing. Steps ups with blue foam pad if tolerated. Reassess gait with and without SPC for presence of R circumduction.
--- NOTE | 2019-09-26 15:21 | PT.OTN ---
Current Diagnoses Unilateral primary osteoarthritis, right hip (09/26/19) Pain in right hip (09/26/19) Physical Therapy Treatment Note PT-OP-A Visit Information Start: 08/29/19 12:05 Freq: Status: Active Protocol: Document 09/26/19 14:38 HH (Rec: 09/26/19 15:21 HH [id number]) Out-Patient Physical Therapy Visit Information Visit Information Visit Type Treatment Note Visit Start Time 14:32 Visit Stop Time 15:15 Total Visit Minutes 43 Visit Number 10/27 Number of COMMUNITY AMBASSADOR Visits 0 PT-OP-B Current Condition Start: 08/29/19 12:05 Freq: Status: Active Protocol: Document 08/29/19 12:05 HH (Rec: 08/29/19 12:31 HH [email or web address]) Current Condition History of Current Condition Onset Date 08/23/19 Current Complaints s/p R RJ (post), difficulty in walking History of Current Condition Pt is a 78 yo male here for therapy s/p R RJ with posterior approach on 08/23/19 at [facility]. Pt has been using FWW for mobility and her and dtr assisted in ADLs and IADLs with mostly SBA. Pt is ambulatory but difficulty in bed mobility and transfers. He has been sleeping in his recliner since he has 5 YIMI with L rail to bedroom. Pt currently can walk a block without a rest break. And his pain is around 2/10. He has been doing his post op ex such as hip abduction in supine, seated knee extension, mini squat and quad set twice a day for 20 reps. Future Testing and Treatments Planned Pt will have follow up 09/02 with surgical team. Treatment Goals Patient/Caregiver Goals 1. To be ambulatory with SPC 2. To climb 5 yimi with 1 rail without assistance 3. To complete all ADLs and IADLs independently Prior Functional Status Baseline Function- ADL's Modified Independent Baseline Function- Mobility Modified Independent Baseline Function- Gait with SPC Current Functional Impairments (Reported) Functional Limitations- ADL's SBA from family Functional Limitations- Mobility/Gait amb with FWW and CGA for car transfer Personal Factors Other Personal Factors That May Effect Depression, B TKA, [id number] Therapy/Recovery PT-OP-C Subjective Start: 08/29/19 12:05 Freq: Status: Active Protocol: Document 09/26/19 14:38 HH (Rec: 09/26/19 15:21 HH [id number]) OP-PT Subjective Patient Comments Patient Comments Im not using the cane now. but i still have some discomfort at my R hip getting up after sitting for a long time. Im 95% better now . Patient Reported Progress Improving PT-OP-F Manual Assessment Start: 08/29/19 12:05 Freq: Status: Active Protocol: Document 08/29/19 12:05 HH (Rec: 08/29/19 12:31 [email or web address]) Manual Assessments Soft Tissue Assessment Soft Tissue Mobility Assessment significant swelling and soft tissue hardening at distal R thigh especiall medially. significant ecchymosis noted at posterior of R thigh PT-OP-G Mobility & Gait Start: 08/29/19 12:05 Freq: Status: Active Protocol: Document 08/29/19 12:05 HH (Rec: 08/29/19 12:31 [email or web address]) OP Mobility Evaluation Bed Mobility Supine to and from Sit need 1 ADDICTIONS RECOVERY SPECIALIST to pull from supine to sit OP Gait Assessment Gait Deviations General Gait Pattern Antalgic,Decreased Stride Length,Decreased Feet Clearance,Lateral Trunk Lean, Step-to Gait Factors Limiting Gait Function Factors Limiting Gait Function Decreased Activity Tolerance, Decreased Strength,Limited Range of Motion,Pain,Poor Balance,Poor Safety Awareness Stair Climbing Evaluation Comments Stair Climbing Comments unable to climb stairs yet PT-OP-H Neuro Start: 08/29/19 12:05 Freq: Status: Active Protocol: Document 08/29/19 12:05 HH (Rec: 08/29/19 12:31 [email or web address]) Deep Tendon Reflex & Clonus Assessment Deep Tendon Reflex Bilateral Achilles Deep Tendon Reflex 2+ Normal Bilateral Patellar Deep Tendon Reflex 1+ Diminished PT-OP-J Posture/Palpation/Skin Start: 08/29/19 12:05 Freq: Status: Active Protocol: Document 08/29/19 12:05 HH (Rec: 08/29/19 12:31 [email or web address]) Skin Assessment Circumference Measurement L knee Location 5 cm above of patella, patella and 5 cm below patella Comments 18.5 , 17 , 14 R knee Location 5 cm above of patella, patella and 5 cm below patella Comments 20 , 18 , 16.3 PT-OP-K Range of Motion Start: 08/29/19 12:05 Freq: Status: Active Protocol: Document 08/29/19 12:05 (Rec: 08/29/19 12:31 [email or web address]) Hip Goniometric Range of Motion Hip Left Passive Hip ROM WFL Yes Testing Position Supine Straight Leg Raise 85 Extension 0 Abduction 25 Right Passive Hip ROM WFL No Testing Position Supine Straight Leg Raise 70 Extension 0 Abduction 18 Knee Goniometric Range of Motion Knee Right Knee ROM WFL No Patient Position Supine Flexion Active (degrees) 108 Extension Active (degrees) 5 Left Knee ROM WFL Yes Patient Position Supine Flexion Active (degrees) 120 Extension Active (degrees) 0 PT-OP-M Strength Start: 08/29/19 12:05 Freq: Status: Active Protocol: Document 08/29/19 12:05 (Rec: 08/29/19 12:31 [email or web address]) Hip Strength Hip Manual Muscle Testing Right Flexion (L2) 3 Fair Extension (S1) 3+ Fair+ Abduction 2+ Poor+ Adduction 3+ Fair+ Left Flexion (L2) 4 Good Extension (S1) 4 Good Abduction 4 Good Adduction 4 Good Knee Strength Knee Manual Muscle Testing Right Flexion (S2) 4 Good Extension (L3) 4 Good Left Flexion (S2) 4+ Good+ Extension (L3) 4+ Good+ PT-OP-Q Treatments Start: 08/29/19 12:05 Freq: Status: Active Protocol: Document 09/26/19 14:38 (Rec: 09/26/19 15:21 [id number]) Cardio Equipment Recumbent Stepper (Sci-Fit) Duration (Minutes) 6 Resistance 3.5 Seat Position 12 Therapeutic Exercises Standing Exercises step up Standing Exercise Name 6 inch step, 2 inch step w/ foam Side bilateral Reps/Minutes 10x2 step, 10x2 step with/foam Comments with rails for support, CGA, verbal cues to control ankle pronation march Standing Exercise Name walking march Side bilateral Equipment Used L rail Reps/Minutes x20 Comments cues to slow movement with increased flexion Gait Training Gait Activity side stepping, bwd walking Device Used CGA Level of Assistance CGA Surface ground level Distance/Duration 20 ft x 2 round trips each Comments next to grab bar pt needs cues to slow down then balance improves Manual Therapy Treatment Soft Tissue Mobilization R trochanteric region Body Location R hip Mobilization Type Sustained Pressure,Trigger Point Release Intensity/Depth Moderate Body Position Sidelying Comments slight ecchymosis noted at the proximal surgical region. PT-OP-R Modalities Start: 08/29/19 12:05 Freq: Status: Active Protocol: Document 09/05/19 09:02 HH (Rec: 09/05/19 09:51 [id number]) Hot Pack/Cold Pack Treatment CP Location R h ip Patient Position Sitting Treatment Duration (minutes) 10 Patient Tolerance Good PT-OP-T Assessment and Plan Start: 08/29/19 12:05 Freq: Status: Active Protocol: Document 09/26/19 14:38 HH (Rec: 09/26/19 15:21 [id number]) Physical Therapy Assessment Goals step up Impairment pt still has slight discomfort at R hip upon step up Alf Goal (LTG) pt will have no discomfort at R hip while step up/ climbin stair. LTG Duration 2 weeks stair climbing Impairment Pt has poor leg strength Wood Model Maker Goal (LTG) 09/25 goal met pt is getting in and out of bedroom multiple times a day independently LTG Duration 6 weeks activity tolerance Impairment Pt has poor activity tolerance and amb with FWW Short Term Goal (STG) Pt will be able to amb with SPC for more than 2 blocks STG Duration 4 weeks Alf Goal (LTG) 09/25 goal met Pt is amb without AD at home and community. LTG Duration 6 weeks hip and knee ROM Impairment pt lacks of hip flexion, abd and knee ext and flexion actively Wood Model Maker Goal (LTG) 09/25 Pt regain hip ROM to WFL LTG Duration 6 weeks LEFS Impairment pt scores 12 for LEFS Short Term Goal (STG) Pt will score 30 or greater on LEFS STG Duration 4 weeks Alf Goal (LTG) Pt will score 40 or greater on LEFS to improve his quality of life LTG Duration 6 weeks Progress Towards Goals Progress Towards Goals Progressing Toward Goals Assessment Summary Assessment Pt is 4 weeks s/p R RJ and cont to improve. He met most of rehab goals who is able to amb without AD safely. Pt still has some discomfort with step up / stair climbing. And pt's f/u appointment with surgeon = 10/10. Changed POC to once a week for 2 weeks for maintainence. Physical Therapy Plan Frequency and Duration Frequency of Treatment 1x/Week Duration of Treatment 2 weeks Next Visit Focus/Plan Next Note Type Treatment Note Next Visit Plan Assess response to last tx: HEP review, Shuttle Balance, step ups stable/unstable surface. Continue stand ex, stairs, gait. Progress gait with decrease R lower leg circumduction.Progress HEP as tolerated, balance training gait training with / without SPC. Seated hip abd with TB resistance to reduce compensatory trunk lean in standing. Steps ups with blue foam pad if tolerated. Reassess gait with and without SPC for presence of R circumduction.
--- NOTE | 2019-10-03 11:19 | PT.OTN ---
Current Diagnoses Unilateral primary osteoarthritis, right hip (10/03/19) Pain in right hip (10/03/19) Physical Therapy Treatment Note PT-OP-A Visit Information Start: 08/29/19 12:05 Freq: Status: Active Protocol: Document 10/03/19 10:35 HH (Rec: 10/03/19 11:19 HH [id number]) Out-Patient Physical Therapy Visit Information Visit Information Visit Type Progress Note Visit Start Time 10:31 Visit Stop Time 11:15 Total Visit Minutes 44 Visit Number 11/26 Number of SPECIALIST ICU Visits 0 PT-OP-B Current Condition Start: 08/29/19 12:05 Freq: Status: Active Protocol: Document 08/29/19 12:05 HH (Rec: 08/29/19 12:31 HH [email or web address]) Current Condition History of Current Condition Onset Date 08/23/19 Current Complaints s/p R RJ (post), difficulty in walking History of Current Condition Pt is a 78 yo male here for therapy s/p R RJ with posterior approach on 08/23/19 at [facility]. Pt has been using FWW for mobility and her and dtr assisted in ADLs and IADLs with mostly SBA. Pt is ambulatory but difficulty in bed mobility and transfers. He has been sleeping in his recliner since he has 5 MATILDA with L rail to bedroom. Pt currently can walk a block without a rest break. And his pain is around 2/10. He has been doing his post op ex such as hip abduction in supine, seated knee extension, mini squat and quad set twice a day for 20 reps. Future Testing and Treatments Planned Pt will have follow up 09/02 with surgical team. Treatment Goals Patient/Caregiver Goals 1. To be ambulatory with SPC 2. To climb 5 matilda with 1 rail without assistance 3. To complete all ADLs and IADLs independently Prior Functional Status Baseline Function- ADL's Modified Independent Baseline Function- Mobility Modified Independent Baseline Function- Gait with SPC Current Functional Impairments (Reported) Functional Limitations- ADL's SBA from family Functional Limitations- Mobility/Gait amb with FWW and CGA for car transfer Personal Factors Other Personal Factors That May Effect Depression, B TKA, [place] Therapy/Recovery PT-OP-C Subjective Start: 08/29/19 12:05 Freq: Status: Active Protocol: Document 10/03/19 10:35 HH (Rec: 10/03/19 11:19 [id number]) OP-PT Subjective Patient Comments Patient Comments Im doing good and i am walking better Patient Reported Progress Improving PT-OP-F Manual Assessment Start: 08/29/19 12:05 Freq: Status: Active Protocol: Document 08/29/19 12:05 HH (Rec: 08/29/19 12:31 [email or web address]) Manual Assessments Soft Tissue Assessment Soft Tissue Mobility Assessment significant swelling and soft tissue hardening at distal R thigh especiall medially. significant ecchymosis noted at posterior of R thigh PT-OP-G Mobility & Gait Start: 08/29/19 12:05 Freq: Status: Active Protocol: Document 08/29/19 12:05 HH (Rec: 08/29/19 12:31 [email or web address]) OP Mobility Evaluation Bed Mobility Supine to and from Sit need 1 SOLAR POOL HEATING INSTALLER to pull from supine to sit OP Gait Assessment Gait Deviations General Gait Pattern Antalgic,Decreased Stride Length,Decreased Feet Clearance,Lateral Trunk Lean, Step-to Gait Factors Limiting Gait Function Factors Limiting Gait Function Decreased Activity Tolerance, Decreased Strength,Limited Range of Motion,Pain,Poor Balance,Poor Safety Awareness Stair Climbing Evaluation Comments Stair Climbing Comments unable to climb stairs yet PT-OP-H Neuro Start: 08/29/19 12:05 Freq: Status: Active Protocol: Document 08/29/19 12:05 (Rec: 08/29/19 12:31 [email or web address]) Deep Tendon Reflex & Clonus Assessment Deep Tendon Reflex Bilateral Achilles Deep Tendon Reflex 2+ Normal Bilateral Patellar Deep Tendon Reflex 1+ Diminished PT-OP-J Posture/Palpation/Skin Start: 08/29/19 12:05 Freq: Status: Active Protocol: Document 08/29/19 12:05 (Rec: 08/29/19 12:31 [email or web address]) Skin Assessment Circumference Measurement L knee Location 5 cm above of patella, patella and 5 cm below patella Comments 18.5 , 17 , 14 R knee Location 5 cm above of patella, patella and 5 cm below patella Comments 20 , 18 , 16.3 PT-OP-K Range of Motion Start: 08/29/19 12:05 Freq: Status: Active Protocol: Document 08/29/19 12:05 (Rec: 08/29/19 12:31 [email or web address]) Hip Goniometric Range of Motion Hip Left Passive Hip ROM WFL Yes Testing Position Supine Straight Leg Raise 85 Extension 0 Abduction 25 Right Passive Hip ROM WFL No Testing Position Supine Straight Leg Raise 70 Extension 0 Abduction 18 Knee Goniometric Range of Motion Knee Right Knee ROM WFL No Patient Position Supine Flexion Active (degrees) 108 Extension Active (degrees) 5 Left Knee ROM WFL Yes Patient Position Supine Flexion Active (degrees) 120 Extension Active (degrees) 0 PT-OP-M Strength Start: 08/29/19 12:05 Freq: Status: Active Protocol: Document 08/29/19 12:05 (Rec: 08/29/19 12:31 [email or web address]) Hip Strength Hip Manual Muscle Testing Right Flexion (L2) 3 Fair Extension (S1) 3+ Fair+ Abduction 2+ Poor+ Adduction 3+ Fair+ Left Flexion (L2) 4 Good Extension (S1) 4 Good Abduction 4 Good Adduction 4 Good Knee Strength Knee Manual Muscle Testing Right Flexion (S2) 4 Good Extension (L3) 4 Good Left Flexion (S2) 4+ Good+ Extension (L3) 4+ Good+ PT-OP-Q Treatments Start: 08/29/19 12:05 Freq: Status: Active Protocol: Document 10/03/19 10:35 HH (Rec: 10/03/19 11:19 [id number]) Cardio Equipment Recumbent Bicycle Duration (Minutes) 6 Resistance 8 Seat Position 10 Gym Equipment Shuttle Balance Red Details static stance CGA with ball toss on trampoline Reps/Duration 6 mins Comments no LOB noted. Therapeutic Exercises Standing Exercises bosu ball step up Standing Exercise Name with CGA Equipment Used grab bar Reps/Minutes 5x2 step up Standing Exercise Name 6 inch step, 2 inch step w/ foam Side bilateral Reps/Minutes 20 x 2, alt steps Comments with L rail only, no shoes Neuro Re-Education Treatment Balance Activities reactive balance Details static stance on airmat Surface airmat Reps/Duration 4 mins Comments PT provides perturbations. Pt has difficulty with perturbation posteriorly. bosu ball Surface bosu Reps/Duration 4 mins Comments static stance with CGA pt needed grab bar for support PT-OP-R Modalities Start: 08/29/19 12:05 Freq: Status: Active Protocol: Document 09/05/19 09:02 (Rec: 09/05/19 09:51 [email or web address]) Hot Pack/Cold Pack Treatment CP Location R h ip Patient Position Sitting Treatment Duration (minutes) 10 Patient Tolerance Good PT-OP-T Assessment and Plan Start: 08/29/19 12:05 Freq: Status: Active Protocol: Document 10/03/19 10:35 HH (Rec: 10/03/19 11:19 [id number]) Physical Therapy Assessment Goals step up Impairment pt still has slight discomfort at R hip upon step up Prison Goal (LTG) 10/02 goal met no discomfort noted and able to climb stairs with 1/ 2 railings. pt will have no discomfort at R hip while step up/ climbin stair. LTG Duration 2 weeks stair climbing Impairment Pt has poor leg strength Game Room Attendant Goal (LTG) 09/25 goal met pt is getting in and out of bedroom multiple times a day independently LTG Duration 6 weeks activity tolerance Impairment Pt has poor activity tolerance and amb with FWW Short Term Goal (STG) Pt will be able to amb with SPC for more than 2 blocks STG Duration 4 weeks Prison Goal (LTG) 09/25 goal met Pt is amb without AD at home and community. LTG Duration 6 weeks hip and knee ROM Impairment pt lacks of hip flexion, abd and knee ext and flexion actively Prison Goal (LTG) 09/25 Pt regain hip ROM to WFL LTG Duration 6 weeks LEFS Impairment pt scores 12 for LEFS Short Term Goal (STG) Pt will score 30 or greater on LEFS STG Duration 4 weeks Prison Goal (LTG) 10/02 goal met pt scores 66 today Pt will score 40 or greater on LEFS to improve his quality of life LTG Duration 6 weeks Progress Towards Goals Progress Towards Goals Progressing Toward Goals Assessment Summary Assessment Pt came in with new shoes with thicker soles today and he apparently has decreased performance in balance. But he got better once he practices withiout shoes. Cont to focus on step up, balance training with uneven surface and reactive balance. Pt estrada tx well. He will have a f/u with surgeon next [id number]. Expect pt to be d/c from PT as well. Physical Therapy Plan Next Visit Focus/Plan Next Note Type Treatment Note Next Visit Plan Assess response to last tx: HEP review, Shuttle Balance, step ups stable/unstable surface. Continue stand ex, stairs, gait. Progress gait with decrease R lower leg circumduction.Progress HEP as tolerated, balance training gait training with / without SPC. Seated hip abd with TB resistance to reduce compensatory trunk lean in standing. Steps ups with blue foam pad if tolerated. Reassess gait with and without SPC for presence of R circumduction.
--- NOTE | 2019-10-12 11:16 | PT.OPDS ---
Current Diagnoses Unilateral primary osteoarthritis, right hip (10/12/19) Pain in right hip (10/12/19) Visit Care Team Role Provider Type BENNY Murdock Primary Care Provider Advanced New Grad Rn Specialty: Family Practice Address: [address] [place] [address] [address], [place], [address] Email: [email or web address] Taylor Merritt PA-C Attending Provider Non-Staff Referring Provider Specialty: General Surgery Address: [address] [place], [address] Fax: Email: Visit Number Visit Number 01/26 Discharge Summary PT-OP-B Current Condition Start: 08/29/19 12:05 Freq: Status: Active Protocol: Document 08/29/19 12:05 (Rec: 08/29/19 12:31 [email or web address]) Current Condition History of Current Condition Onset Date 08/23/19 Current Complaints s/p R RJ (post), difficulty in walking History of Current Condition Pt is a 78 yo male here for therapy s/p R RJ with posterior approach on 08/23/19 at [facility]. Pt has been using FWW for mobility and her and dtr assisted in ADLs and IADLs with mostly SBA. Pt is ambulatory but difficulty in bed mobility and transfers. He has been sleeping in his recliner since he has 5 MATILDA with L rail to bedroom. Pt currently can walk a block without a rest break. And his pain is around 2/10. He has been doing his post op ex such as hip abduction in supine, seated knee extension, mini squat and quad set twice a day for 20 reps. Future Testing and Treatments Planned Pt will have follow up 09/02 with surgical team. Treatment Goals Patient/Caregiver Goals 1. To be ambulatory with SPC 2. To climb 5 matilda with 1 rail without assistance 3. To complete all ADLs and IADLs independently Prior Functional Status Baseline Function- ADL's Modified Independent Baseline Function- Mobility Modified Independent Baseline Function- Gait with SPC Current Functional Impairments (Reported) Functional Limitations- ADL's SBA from family Functional Limitations- Mobility/Gait amb with FWW and CGA for car transfer Personal Factors Other Personal Factors That May Effect Depression, B TKA, [place] Therapy/Recovery PT-OP-C Subjective Start: 08/29/19 12:05 Freq: Status: Active Protocol: Document 10/12/19 10:35 HH (Rec: 10/12/19 11:13 HH [id number]) OP-PT Subjective Patient Comments Patient Comments Im doing good and im ready to be discharged. Patient Reported Progress Improving PT-OP-F Manual Assessment Start: 08/29/19 12:05 Freq: Status: Active Protocol: Document 08/29/19 12:05 HH (Rec: 08/29/19 12:31 [email or web address]) Manual Assessments Soft Tissue Assessment Soft Tissue Mobility Assessment significant swelling and soft tissue hardening at distal R thigh especiall medially. significant ecchymosis noted at posterior of R thigh PT-OP-G Mobility & Gait Start: 08/29/19 12:05 Freq: Status: Active Protocol: Document 08/29/19 12:05 HH (Rec: 08/29/19 12:31 [email or web address]) OP Mobility Evaluation Bed Mobility Supine to and from Sit need 1 MOTOR VEHICLES INSPECTOR to pull from supine to sit OP Gait Assessment Gait Deviations General Gait Pattern Antalgic,Decreased Stride Length,Decreased Feet Clearance,Lateral Trunk Lean, Step-to Gait Factors Limiting Gait Function Factors Limiting Gait Function Decreased Activity Tolerance, Decreased Strength,Limited Range of Motion,Pain,Poor Balance,Poor Safety Awareness Stair Climbing Evaluation Comments Stair Climbing Comments unable to climb stairs yet PT-OP-H Neuro Start: 08/29/19 12:05 Freq: Status: Active Protocol: Document 08/29/19 12:05 HH (Rec: 08/29/19 12:31 [email or web address]) Deep Tendon Reflex & Clonus Assessment Deep Tendon Reflex Bilateral Achilles Deep Tendon Reflex 2+ Normal Bilateral Patellar Deep Tendon Reflex 1+ Diminished PT-OP-J Posture/Palpation/Skin Start: 08/29/19 12:05 Freq: Status: Active Protocol: Document 08/29/19 12:05 (Rec: 08/29/19 12:31 [email or web address]) Skin Assessment Circumference Measurement L knee Location 5 cm above of patella, patella and 5 cm below patella Comments 18.5 , 17 , 14 R knee Location 5 cm above of patella, patella and 5 cm below patella Comments 20 , 18 , 16.3 PT-OP-K Range of Motion Start: 08/29/19 12:05 Freq: Status: Active Protocol: Document 08/29/19 12:05 (Rec: 08/29/19 12:31 [email or web address]) Hip Goniometric Range of Motion Hip Left Passive Hip ROM WFL Yes Testing Position Supine Straight Leg Raise 85 Extension 0 Abduction 25 Right Passive Hip ROM WFL No Testing Position Supine Straight Leg Raise 70 Extension 0 Abduction 18 Knee Goniometric Range of Motion Knee Right Knee ROM WFL No Patient Position Supine Flexion Active (degrees) 108 Extension Active (degrees) 5 Left Knee ROM WFL Yes Patient Position Supine Flexion Active (degrees) 120 Extension Active (degrees) 0 PT-OP-M Strength Start: 08/29/19 12:05 Freq: Status: Active Protocol: Document 08/29/19 12:05 (Rec: 08/29/19 12:31 [email or web address]) Hip Strength Hip Manual Muscle Testing Right Flexion (L2) 3 Fair Extension (S1) 3+ Fair+ Abduction 2+ Poor+ Adduction 3+ Fair+ Left Flexion (L2) 4 Good Extension (S1) 4 Good Abduction 4 Good Adduction 4 Good Knee Strength Knee Manual Muscle Testing Right Flexion (S2) 4 Good Extension (L3) 4 Good Left Flexion (S2) 4+ Good+ Extension (L3) 4+ Good+ PT-OP-T Assessment and Plan Start: 08/29/19 12:05 Freq: Status: Active Protocol: Document 10/12/19 10:35 (Rec: 10/12/19 11:13 [id number]) Physical Therapy Assessment Goals step up Impairment pt still has slight discomfort at R hip upon step up Continuous Absorption Process Operator Goal (LTG) 10/02 goal met no discomfort noted and able to climb stairs with 1/ 2 railings. pt will have no discomfort at R hip while step up/ climbin stair. LTG Duration 2 weeks stair climbing Impairment Pt has poor leg strength Continuous Absorption Process Operator Goal (LTG) 09/25 goal met pt is getting in and out of bedroom multiple times a day independently LTG Duration 6 weeks activity tolerance Impairment Pt has poor activity tolerance and amb with FWW Short Term Goal (STG) Pt will be able to amb with SPC for more than 2 blocks STG Duration 4 weeks [facility] Goal (LTG) 09/25 goal met Pt is amb without AD at home and community. LTG Duration 6 weeks hip and knee ROM Impairment pt lacks of hip flexion, abd and knee ext and flexion actively [facility] Goal (LTG) 09/25 Pt regain hip ROM to WFL LTG Duration 6 weeks LEFS Impairment pt scores 12 for LEFS Short Term Goal (STG) Pt will score 30 or greater on LEFS STG Duration 4 weeks [facility] Goal (LTG) 10/02 goal met pt scores 66 today Pt will score 40 or greater on LEFS to improve his quality of life LTG Duration 6 weeks Progress Towards Goals Progress Towards Goals Goals Met Assessment Summary Assessment Pt has been progressing really well without other complaints at this point. Pt regained full ROM, strength and functional mobility. Pt felt ready to be d.c from therapy at this point since he met all his functional rehab goals.
== END 2020-02-08 08:18 ==
LOC: PHYS 10:30
PROVIDERS: PCP Nurse Practitioner Family; Referring Provider Physician Assistant Surgical; Visit Provider Physician Assistant Surgical
DX: M16.11 Unilateral primary osteoarthritis, right hip (principal); M25.551 Pain in right hip
CPT/HCPCS: 97010; 97110; 97112; 97116; 97140; 97161

== ENCOUNTER → 2019-12-06 11:00 | Oncology outpatient (ONC) | payer MEDICARE, SELFPAY ==
[2019-11-22 16:18] VITALS: BP 139/71; PULSE 61; RESP 18; TEMP 36.3; O2SAT 93
[2019-11-22] MEDS: RABIES VACCINE (RABAVERT) 2.5 UNITS SYRINGE 1 UNITS IM (16:56)
[2019-11-22] MEDS: RABIES IMMUNE GLOBULIN 300 UNIT/ML 5 ML VIAL 2400 UNIT IM (16:57)
[2019-11-25] MEDS: RABIES VACCINE (RABAVERT) 2.5 UNITS SYRINGE IM (11:03)
[2019-11-29 13:46] VITALS: BP 135/74; PULSE 72; RESP 18; TEMP 36.6; O2SAT 96
[2019-11-29] MEDS: RABIES VACCINE (RABAVERT) 2.5 UNITS SYRINGE IM (13:47)
[2019-12-06 11:06] VITALS: BP 123/76; PULSE 77; RESP 18; TEMP 36.6; O2SAT 95
[2019-12-06] MEDS: RABIES VACCINE (RABAVERT) 2.5 UNITS SYRINGE IM (11:16)
== END ==
PROVIDERS: PCP Nurse Practitioner Family; Referring Provider Nurse Practitioner Family; Visit Provider Nurse Practitioner Family
DX: Z20.3 Contact with and (suspected) exposure to rabies (principal); W53.21XA Bitten by squirrel, initial encounter
CPT/HCPCS: 90375; 90471; 90472; 90675

== ENCOUNTER → 2020-06-21 07:38 | Outpatient (CLI) | payer MEDICARE, SELFPAY ==
[2020-06-21 08:12] LABS: Add Manual Diff / Slide Review NO; Basophils Absolute Auto 0 /uL (0-100); Basophils Percent Auto 0.6 % (0-2); Eosinophils Absolute Auto 500 /uL (0-450); Eosinophils Percent Auto 7.4 % (2-4); Hematocrit 41.1 % (41-53); Hemoglobin 13.7 g/dL (13.5-17.5); Lymphocytes Absolute Auto 1700 /uL (1100-4500); Lymphocytes Percent Auto 27.6 % (25-40); Mean Corpuscular HGB Conc 33.3 % (30-36); Mean Corpuscular Hemoglobin 30.1 PG (26-34); Mean Corpuscular Volume 90.5 fL (80-100); Monocytes Absolute Auto 600 /uL (0-900); Monocytes Percent Auto 9.3 % (3-14); Neutrophils Absolute Auto 3400 /uL (1500-7000); Neutrophils Percent Auto 55.1 % (50-75); Platelet Count 193 X10^3/uL (150-400); Red Blood Cell Count 4.54 X10^6/uL (4.5-5.9); Red Cell Distribution Width 13.3 % (11.6-14.8); White Blood Cell Count 6.2 X10^3/uL (4.5-11.0)
[2020-06-21 08:27] LABS: BUN Creatinine Ratio 19.7 (6-22); Blood Urea Nitrogen 15 mg/dL (9-20); Calcium 9.5 mg/dL (8.4-10.2); Carbon Dioxide 34 mmol/L (22-32); Chloride 102 mmol/L (98-107); Cholesterol 157 mg/dL (140-199); Estimated Glomerular Filt Rate > 60.0 mL/min (>60); Glucose 103 mg/dL (80-110); HDL Cholesterol 43 mg/dL (40-60); HEMOLYSIS < 15 (0-50); LDL Cholesterol Calculated 86 mg/dL (<100); Potassium 4.4 mmol/L (3.4-5.1); Sodium 140 mmol/L (137-145); Triglycerides 140 mg/dL (35-150)
== END ==
PROVIDERS: PCP Nurse Practitioner Family; Referring Provider Nurse Practitioner; Visit Provider Nurse Practitioner
DX: I10 Essential (primary) hypertension (principal); E78.5 Hyperlipidemia, unspecified
CPT/HCPCS: 36415; 80048; 80061; 83735; 85025

== ENCOUNTER → 2021-02-13 11:55 | Outpatient (CLI) | payer MEDICARE, SELFPAY ==
--- NOTE | 2021-02-13 11:57 | DI.US.S_ITS ---
PROCEDURE: US CAROTID DOPPLER BI INDICATIONS: STENOSIS TECHNIQUE: Color and pulse Doppler interrogation was performed of both carotid systems, with image documentation and velocity measurements. COMPARISON: [facility], , CAROTID ARTERY DOPPLER BILAT, 04/03/2015, 9:16. [facility], , CAROTID ARTERY DOPPLER BILAT, 03/20/2011, 8:39. FINDINGS: Stenosis calculations are based on SRU (Society of Radiologists in Ultrasound) criteria. The flow velocities and the arterial waveforms are normal within both carotid arterial systems. Atherosclerotic plaque is seen on both sides. The estimated degree of internal carotid artery stenosis is less than 50%. Antegrade flow is confirmed within both vertebral arteries. IMPRESSION: No hemodynamically significant stenosis is seen. No significant change from the prior. Atherosclerotic plaque is noted bilaterally. Dictated by: Lukas Church M.D. on 02/13/2021 at 12:08 Approved by: Lukas Church M.D. on 02/13/2021 at 12:09
== END ==
PROVIDERS: PCP Nurse Practitioner Family; Referring Provider Internal Medicine Cardiovascular Disease; Visit Provider Internal Medicine Cardiovascular Disease
DX: I65.23 Occlusion and stenosis of bilateral carotid arteries (principal)
CPT/HCPCS: 93880

== ENCOUNTER → 2021-02-27 07:01 | Outpatient (CLI) | payer MEDICARE, SELFPAY ==
[2021-02-27 08:49] LABS: BUN Creatinine Ratio 21.8 (6-22); Blood Urea Nitrogen 17 mg/dL (9-20); Carbon Dioxide 31 mmol/L (22-32); Chloride 102 mmol/L (98-107); Estimated Glomerular Filt Rate > 60.0 mL/min (>60); Glucose 103 mg/dL (80-110); HEMOLYSIS < 15 (0-50); Potassium 3.9 mmol/L (3.4-5.1); Sodium 139 mmol/L (137-145)
[2021-02-27 09:21] LABS: Thyroid Stimulating Hormone 2.16 uIU/mL (0.47-4.68)
== END ==
PROVIDERS: PCP Nurse Practitioner Family; Referring Provider Internal Medicine Cardiovascular Disease; Visit Provider Internal Medicine Cardiovascular Disease
DX: I10 Essential (primary) hypertension (principal); I47.2 Ventricular tachycardia
CPT/HCPCS: 36415; 80048; 83735; 84443

== ENCOUNTER 2021-05-30 15:47 | Emergency (ER) | payer MEDICARE, SELFPAY ==
[2021-05-30] VITALS (9 sets, daily range): BP systolic 159–181; BP diastolic 72–92; PULSE 62–75; RESP 15–18; TEMP 36.8; O2SAT 95–100; BMI 35.6
--- NOTE | 2021-05-30 16:25 | DI.RAD.S_ITS ---
PROCEDURE: XR ACUTE ABDOMEN SERIES INDICATIONS: constipation x 4 days, back pain TECHNIQUE: One view chest and two views of the abdomen were acquired. COMPARISON: [facility], CHEST 2 VIEW, 03/20/2008, 10:11. FINDINGS: Surgical changes and devices: Prostatectomy clips. Right hip arthroplasty. Percutaneous aortic valve replacement. Chest: Lungs are clear. Chronic smooth right lateral mid lung nodule. Heart size is normal. No pleural effusions. No pneumoperitoneum. Abdomen: No free air. Bowel gas pattern is normal. Normal quantity of stool present. No acute fluid levels. No suspicious calcifications. Visualized solid organ contours appear normal. Bones: No suspicious bony lesions. Multilevel degenerative disc and endplate spurs throughout the spine. IMPRESSION: 1. Nonobstructive bowel gas pattern. 2. No acute process visible in the chest or abdomen. Dictated by: Deisi Monroe M.D. on 05/30/2021 at 16:53 Approved by: Deisi Monroe M.D. on 05/30/2021 at 16:58
[2021-05-30 16:39] LABS: Alanine Aminotransferase 28 IU/L (<50); Albumin 4.6 g/dL (3.5-5.0); Albumin Globulin Ratio 1.5 (1.0-2.8); Alkaline Phosphatase 78 U/L (38-126); Aspartate Aminotransferase 39 IU/L (17-59); BUN Creatinine Ratio 21.8 (6-22); Bilirubin Total 1.7 mg/dL (0.2-1.3); Blood Urea Nitrogen 17 mg/dL (9-20); Carbon Dioxide 31 mmol/L (22-32); Chloride 105 mmol/L (98-107); Estimated Glomerular Filt Rate > 60 mL/min (>60); Globulin 3.1 g/dL (1.7-4.1); Glucose 127 mg/dL (80-110); HEMOLYSIS < 15 (0-50); Lipase 348 U/L (23-300); Potassium 3.7 mmol/L (3.4-5.1); Sodium 140 mmol/L (137-145); Total Protein 7.7 g/dL (6.3-8.2)
[2021-05-30 16:43] LABS: Add Manual Diff / Slide Review NO; Basophils Absolute Auto 0 /uL (0-100); Basophils Percent Auto 0.6 % (0-2); Eosinophils Absolute Auto 500 /uL (0-450); Eosinophils Percent Auto 5.8 % (2-4); Hematocrit 40.3 % (41-53); Hemoglobin 13.7 g/dL (13.5-17.5); Lymphocytes Absolute Auto 1600 /uL (1100-4500); Lymphocytes Percent Auto 19.8 % (25-40); Mean Corpuscular HGB Conc 33.9 % (30-36); Mean Corpuscular Hemoglobin 30.4 PG (26-34); Mean Corpuscular Volume 89.7 fL (80-100); Monocytes Absolute Auto 700 /uL (0-900); Monocytes Percent Auto 8.9 % (3-14); Neutrophils Absolute Auto 5300 /uL (1500-7000); Neutrophils Percent Auto 64.9 % (50-75); Platelet Count 203 X10^3/uL (150-400); Red Blood Cell Count 4.49 X10^6/uL (4.5-5.9); Red Cell Distribution Width 13.8 % (11.6-14.8); White Blood Cell Count 8.1 X10^3/uL (4.5-11.0)
--- NOTE | 2021-05-30 20:52 | ED_ITS ---
HPI - General Adult General Chief complaint: Abdominal Pain Stated complaint: Constipated 3 days, difficulty urinating Time Seen by Provider: 05/30/21 20:28 Source: patient and family Mode of arrival: Ambulatory History of Present Illness HPI narrative: Patient is an 80-year-old male who a couple days ago started having pain in his left back/left flank. After that he started to have a decrease in urine output. He has also felt like he has been constipated. He did take some stool softeners without any improvement. He also feels like his left leg is somewhat swollen. He has had swelling in his feet in the past but not in his legs. He denies chest pain. No shortness of breath. No nausea vomiting. He is not having any burning or itching with urination. No skin rashes. Related Data Home Medications Medication Instructions Recorded Confirmed CHOLECALCIFEROL (D3-5) 1,000 iu PO QDAY #0 12/24/10 11/22/19 ASPIRIN (Aspir-Low) 81 mg PO QDAY #0 03/19/11 11/22/19 apixaban 5 mg tablet (Eliquis) 5 mg PO BID 04/04/18 11/22/19 lisinopril 10 mg tablet 10 mg PO QPM tab 04/04/18 11/22/19 metoprolol succinate 25 mg 12.5 mg PO BID 04/19/18 11/22/19 tablet,extended release 24 hr ezetimibe 10 mg tablet (Zetia) 10 mg PO DAILY 05/19/19 11/22/19 Previous Rx's Medication Instructions Recorded varicella-zoster glycoE vacc-[id number] 50 mcg (0.5 mL) IM ONCE #1 each 04/22/18 adj(PF) 50 mcg/0.5 mL IM susp, kit (Shingrix (PF)) lisinopril 20 1 tab PO QAM #90 tab 05/04/18 mg-hydrochlorothiazide 25 mg tablet amoxicillin 875 mg-potassium 1 tab PO BID #10 tab 11/22/19 clavulanate 125 mg tablet rabies immune globulin (PF) 300 2,300 unit (7.6667 mL) IM ONCE #8 11/22/19 unit/mL intramuscular solution ml rabies vacc,human diploid (PF) 2.5 1 ml IM ONCE #1 each 11/22/19 unit intramuscular solution citalopram 40 mg tablet See Rx Instructions .ROUTE 04/16/21 .COMPLEX #90 tab atorvastatin 80 mg tablet See Rx Instructions .ROUTE 05/27/21 .COMPLEX #90 tab Allergies Allergy/AdvReac Type Severity Reaction Status Date / Time oxycodone Allergy Mild ITCHING, Verified 11/22/19 14:52 RASH Review of Systems Constitutional Constitutional: Denies fever(s) Eyes Eyes: Reports system reviewed and no additional complaints, except as documented ENT Ears, Nose, Mouth, and Throat: Reports system reviewed and no additional complaints, except as documented Cardiovascular Cardiovascular: Reports system reviewed and no additional complaints, except as documented Respiratory Respiratory: Reports system reviewed and no additional complaints, except as documented Gastrointestinal Gastrointestinal: Reports as per HPI and Reports system reviewed and no additional complaints, except as documented Genitourinary Genitourinary: Reports system reviewed and no additional complaints, except as documented and Reports as per HPI Musculoskeletal Musculoskeletal: Reports system reviewed and no additional complaints, except as documented and Reports as per HPI Integumentary/Breasts Skin/Breast: Reports system reviewed and no additional complaints, except as documented and Reports as per HPI Neurologic Neurologic: Reports system reviewed and no additional complaints, except as documented Psychiatric Psychiatric: Reports system reviewed and no additional complaints, except as documented Hematologic/Lymphatic On Anticoagulants: Yes Allergic/Immunologic Allergic/Immunologic: Reports system reviewed and no additional complaints, except as documented Patient History Medical History Bitten by squirrel (11/22/19) Fatigue (12/10/14) Obesity (BMI 30-39.9) Obstructive sleep apnea of adult Rosacea Seborrheic dermatitis Seborrheic keratosis Surgical History Status post knee surgery Social History Previous occupational history: 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, 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 Smoking Status: Former smoker alcohol intake: current (occasionally ) substance use type: does not use Smoking Status: Former smoker alcohol intake frequency: a few times a week Alcohol type: hard liquor Substance Use Type: does not use Exam Initial Vital Signs Initial Vital Signs: Vital Signs Temperature 98.2 F 05/30/21 15:51 Pulse Rate 68 05/30/21 15:51 Respiratory Rate 18 05/30/21 15:51 Blood Pressure 159/74 H 05/30/21 15:51 Pulse Oximetry 95 05/30/21 15:51 HENMT Head: normal to inspection and normocephalic Chest Chest: normal inspection of the chest Resp Effort & Inspection: normal respiratory effort Auscultation: clear to auscultation bilaterally Cardio Rate: regular rate Rhythm: regular rhythm GI Inspection: normal to inspection and non-distended Palpation: soft, No firm and No tender Back/Spine/Pelvis Back: No CVA tenderness Skin Other: No rashes concerning for zoster Neuro General: patient alert, patient awake, patient oriented x3 and moves all extremities Extrem General: capillary refill normal Other: Mild swelling bilateral feet. Left leg is only slightly more swollen than right. Psych Appearance: grossly normal and well kempt Course Orders Ordered: ED Orders 05/30/21 20:52 CT abdomen pelvis w con Stat Discontinued Medications Sodium Chloride (Normal Saline 0.9%) 1,000 mls @ 500 mls/hr IV BOLUS ONE Stop: 05/30/21 22:52 Last Admin: 05/30/21 21:20 Dose: 500 mls/hr Documented by: DANIELLE Vital Signs Vital signs: Vital Signs - 8 hr 05/30/21 20:34 05/30/21 20:35 05/30/21 20:44 Pulse Rate 71 66 75 Respiratory Rate 18 Blood Pressure 163/72 H 176/92 H Pulse Oximetry 98 100 98 05/30/21 21:00 05/30/21 21:30 05/30/21 22:00 Pulse Rate 67 67 64 Respiratory Rate 15 Blood Pressure Pulse Oximetry 99 98 98 05/30/21 22:30 05/30/21 23:17 Pulse Rate 62 67 Respiratory Rate 18 Blood Pressure 181/86 H Pulse Oximetry 99 98 Medical Decision Making Lab Data Lab results reviewed: Yes I reviewed the patient's lab results. Result diagrams: 05/30/21 16:10 05/30/21 16:10 Labs: Lab Results 05/30/21 05/30/21 Range/Units 16:10 16:10 WBC 8.1 (4.5-11.0) X10^3/uL RBC 4.49 L (4.5-5.9) X10^6/uL Hgb 13.7 (13.5-17.5) g/dL Hct 40.3 L (41-53) % MCV 89.7 (80-100) fL MCH 30.4 (26-34) PG MCHC 33.9 (30-36) % RDW 13.8 (11.6-14.8) % Plt Count 203 (150-400) X10^3/uL Neut % (Auto) 64.9 (50-75) % Lymph % (Auto) 19.8 L (25-40) % George % (Auto) 8.9 (3-14) % Eos % (Auto) 5.8 H (2-4) % Baso % (Auto) 0.6 (0-2) % Neut # (Auto) 5300 (0816-3624) /uL Lymph # (Auto) 1600 (5780-2366) /uL George # (Auto) 700 (0-900) /uL Eos # (Auto) 500 H (0-450) /uL Baso # (Auto) 0 (0-100) /uL Sodium 140 (137-145) mmol/L Potassium 3.7 (3.4-5.1) mmol/L Chloride 105 (98-107) mmol/L Carbon Dioxide 31 (22-32) mmol/L BUN 17 (9-20) mg/dL Creatinine 0.78 (0.66-1.25) mg/dL Estimated GFR > 60 (>60) mL/min BUN/Creatinine Ratio 21.8 (6-22) Glucose 127 H (80-110) mg/dL Calcium 9.0 (8.4-10.2) mg/dL Total Bilirubin 1.7 H (0.2-1.3) mg/dL AST 39 (17-59) IU/L ALT 28 (<50) IU/L Alkaline Phosphatase 78 (38-126) U/L Total Protein 7.7 (6.3-8.2) g/dL Albumin 4.6 (3.5-5.0) g/dL Globulin 3.1 (1.7-4.1) g/dL Albumin/Globulin Ratio 1.5 (1.0-2.8) Lipase 348 H (23-300) U/L Urine Dip Bedside Urine Glucose Negative Bedside Urine Bilirubin - Negative Bedside Urine Ketone - Negative Urine Specific [place] 1.030 Bedside Urine Occult Blood - Negative Bedside Urine pH 6.0 Bedside Urine Protein - Negative Bedside Urine Urobilinogen - Negative Bedside Urine Nitrite - Negative Bedside Urine Leukocytes - Negative Esterase Point of care testing: Urine Dip Bedside Urine Glucose Negative Bedside Urine Bilirubin - Negative Bedside Urine Ketone - Negative Urine Specific [place] 1.030 Bedside Urine Occult Blood - Negative Bedside Urine pH 6.0 Bedside Urine Protein - Negative Bedside Urine Urobilinogen - Negative Bedside Urine Nitrite - Negative Bedside Urine Leukocytes - Negative Esterase Imaging Data Abdominal x-ray: Radiologist's Impression: [address] [address] XRay Report Signed Patient: Woodrow Diego MR#: [id number] : 1940 Acct:[id number] Age/Sex: 80 / M Date of Service: 05/30/21 Loc: ED Accession Number: [id number] ?? Procedure: XR acute abdomen series Ordering Provider: Deann Boggs D.O. PROCEDURE:? XR ACUTE ABDOMEN SERIES ? INDICATIONS:? constipation x 4 days, back pain ? TECHNIQUE:? One view chest and two views of the abdomen were acquired.? ? COMPARISON:? [facility], CHEST 2 VIEW, 03/20/2008, 10:11. ? FINDINGS:? ? Surgical changes and devices:? Prostatectomy clips.? Right hip arthroplasty.? Percutaneous aortic valve replacement. ? Chest:? Lungs are clear.? Chronic smooth right lateral mid lung nodule.? Heart size is normal.? No pleural effusions.? No pneumoperitoneum.? ? Abdomen:? No free air.? Bowel gas pattern is normal.? Normal quantity of stool present.? No acute fluid levels.? No suspicious calcifications.? Visualized solid organ contours appear normal.? ? Bones:? No suspicious bony lesions.? Multilevel degenerative disc and endplate spurs throughout the spine.? ? IMPRESSION:? ? 1. Nonobstructive bowel gas pattern. ? 2. No acute process visible in the chest or abdomen.? ? ? Dictated by: Deisi Monroe M.D. on 05/30/2021 at 16:53 ? ? Approved by: Deisi Monroe M.D. on 05/30/2021 at 16:58?? CT scan - abdomen/pelvis: Radiologist's Impression: [address] [address] [address] Scan Report Signed Patient: Woodrow Diego MR#: [id number] : 1940 Acct:[id number] Age/Sex: 80 / M Date of Service: 05/30/21 Loc: ED Accession Number: [id number] ?? Procedure: CT abdomen pelvis w con Ordering Provider: Ty Jaquez D.O. PROCEDURE:? CT ABDOMEN PELVIS W CON ? INDICATIONS:? L sided abd pain and constipation ? TECHNIQUE:? After the administration of IV contrast, axial sections were acquired from the lung bases to the pubic symphysis.? Coronal and sagittal reformats were performed.? For radiation dose reduction, the following was used:? automated exposure control, adjustment of mA and/or kV according to patient size. ? COMPARISON:? [facility], CT, CT KIDNEY URETER BLADDER (KUB), 04/05/2018, 14:09.? [facility], CT, CT ABDOMEN HEPATIC/ADRENAL PROTOCOL, 07/16/2018, 12:02. ? FINDINGS:? Image quality:? Excellent.? ? Lung bases:? Right lower lobe pulmonary nodule measuring 1.6 x 1.2 cm, (04/08), partially visualized.? On the CT 04/05/2018 this measured 2.4 x 2 cm suggesting a benign etiology.? ? Heart:? TAVR stent. ? ? ABDOMEN: Liver:? No focal lesion.? ? Gallbladder:? Unremarkable.? ? Biliary ducts:? Unremarkable.? ? Pancreas:? Unremarkable.? ? Spleen:? Unremarkable.? ? Adrenal Glands:? Unremarkable.? ? Kidneys and Ureters:? No hydronephrosis.? Simple left kidney cysts.? ? ? Stomach and Bowel:? Stomach, small bowel loops, and colon are unremarkable.? Diverticulosis.? No diverticulitis.? Normal appendix.? Peritoneum:? No abnormal intraperitoneal fluid.? No free air.? Cyst adjacent to the liver measuring 6 cm, (04/03), unchanged compared to 2019. ? Ventral Wall: ? No hernia.? Abdominal Nodes:? No retroperitoneal or mesenteric adenopathy by size criteria.? Vessels:? Aorta and inferior vena cava are normal in size.? Circumferential calcified atherosclerotic plaque. ? PELVIS: Pelvic Organs:? Prostate is surgically absent.? Beam hardening artifact.? ? Bladder:? Prominent. Pelvic Nodes: No enlarged lymph nodes.? Miscellaneous: No definite inguinal hernias are seen. ? ? ? Bones:? No suspicious lesion identified.? Right total hip arthroplasty.? Mild L3 compression fracture, new.? Multilevel DDD. ? ? IMPRESSION:? 1. No diverticulitis.? No free fluid.? No small bowel obstruction. ? 2. Cyst adjacent to the liver is similar to 2019.? ? 3. Right lower lobe pulmonary nodule is similar or smaller compared to 2019 suggesting a benign etiology. ? 4. L3 compression fracture which is new in the interval compared to 2019. ? ? Dictated by: Allen Glasgow M.D. on 05/30/2021 at 21:48 ? ? Approved by: Allen Glasgow M.D. on 05/30/2021 at 21:58?? ECG Data Attestation: I personally reviewed and interpreted this ECG as follows: Interpretation: Sinus rhythm Ventricular rate is 66 Normal axis Normal QRS Normal QTC No ST T wave changes MDM Narrative Medical decision making narrative: Physical exam is reassuring. Labs reassuring. X-rays reassuring. CT scans reassuring. No signs of bowel obstruction. Low suspicion for urinary tract infection. Low suspicion for heart failure. I did inform him the faculty with diagnosing constipation secondary to a CT scan or x-ray and he does state that he feels like he is constipated so we did discuss thinks he could try at home to help with this to include laxatives and stool softeners. Patient was able to urinate here in the ER so I have low suspicion for acute urinary retention requiring Bernard catheterization. Not describing any discomfort over his lumbar vertebrae where the compression fractures noted on the CT scan. Patient can be safely discharged home with follow-up with primary provider he was given return precautions. He expressed understanding and agreement. Discharge Plan Departure Patient Disposition: Home Clinical Impression: Abdominal pain Instructions: DI for Abdominal Pain-Adult, DI for Constipation Activity Restrictions/Additional Instructions: Take all of your medications as directed. I do recommend that you increase your fluid intake and also consider taking a laxative. Return to the emergency department for any new or worsening symptoms. Prescriptions: No Action Eliquis 5 mg tablet 5 mg PO BID 0RF lisinopril 10 mg tablet 10 mg PO QPM 0RF metoprolol succinate 25 mg tablet extended release 24 hr 12.5 mg PO BID 0RF CHOLECALCIFEROL (D3-5) 1,000 iu PO QDAY Qty: 0 0RF ASPIRIN (Aspir-Low) 81 mg PO QDAY Qty: 0 0RF Shingrix (PF) 50 mcg/0.5 mL suspension for reconstitution 50 mcg IM ONCE Qty: 1 0RF Rx Instructions: as a single dose lisinopril-hydrochlorothiazide 20-25 mg tablet 1 tab PO QAM Qty: 90 1RF citalopram 40 mg tablet See Rx Instructions .ROUTE .COMPLEX Qty: 90 0RF Dose Instruction: TAKE 1 TABLET BY MOUTH ONCE DAILY Rx Instructions: TAKE 1 TABLET BY MOUTH ONCE DAILY atorvastatin 80 mg tablet See Rx Instructions .ROUTE .COMPLEX Qty: 90 3RF Dose Instruction: TAKE 1 TABLET BY MOUTH DAILY Rx Instructions: TAKE 1 TABLET BY MOUTH DAILY rabies immune globulin (PF) 300 unit/mL solution 2,300 unit IM ONCE Qty: 8 0RF amoxicillin-pot clavulanate 875-125 mg tablet 1 tab PO BID Qty: 10 0RF Rx Instructions: take with food rabies vacc,human diploid (PF) 2.5 unit recon soln 1 ml IM ONCE Qty: 1 3RF Rx Instructions: one dose on day 0, 3, 7, 14 ezetimibe [Zetia] 10 mg tablet 10 mg PO DAILY 0RF Referrals: Alma Coates ARNP [Primary Care Provider] -
--- NOTE | 2021-05-30 20:52 | DI.CT.S_ITS ---
PROCEDURE: CT ABDOMEN PELVIS W CON INDICATIONS: L sided abd pain and constipation TECHNIQUE: After the administration of IV contrast, axial sections were acquired from the lung bases to the pubic symphysis. Coronal and sagittal reformats were performed. For radiation dose reduction, the following was used: automated exposure control, adjustment of mA and/or kV according to patient size. COMPARISON: [facility], CT, CT KIDNEY URETER BLADDER (KUB), 04/05/2018, 14:09. [facility], CT, CT ABDOMEN HEPATIC/ADRENAL PROTOCOL, 07/16/2018, 12:02. FINDINGS: Image quality: Excellent. Lung bases: Right lower lobe pulmonary nodule measuring 1.6 x 1.2 cm, (3/), partially visualized. On the CT 04/05/2018 this measured 2.4 x 2 cm suggesting a benign etiology. Heart: TAVR stent. ABDOMEN: Liver: No focal lesion. Gallbladder: Unremarkable. Biliary ducts: Unremarkable. Pancreas: Unremarkable. Spleen: Unremarkable. Adrenal Glands: Unremarkable. Kidneys and Ureters: No hydronephrosis. Simple left kidney cysts. Stomach and Bowel: Stomach, small bowel loops, and colon are unremarkable. Diverticulosis. No diverticulitis. Normal appendix. Peritoneum: No abnormal intraperitoneal fluid. No free air. Cyst adjacent to the liver measuring 6 cm, (04/03), unchanged compared to 2019. Ventral Wall: No hernia. Abdominal Nodes: No retroperitoneal or mesenteric adenopathy by size criteria. Vessels: Aorta and inferior vena cava are normal in size. Circumferential calcified atherosclerotic plaque. PELVIS: Pelvic Organs: Prostate is surgically absent. Beam hardening artifact. Bladder: Prominent. Pelvic Nodes: No enlarged lymph nodes. Miscellaneous: No definite inguinal hernias are seen. Bones: No suspicious lesion identified. Right total hip arthroplasty. Mild L3 compression fracture, new. Multilevel DDD. IMPRESSION: 1. No diverticulitis. No free fluid. No small bowel obstruction. 2. Cyst adjacent to the liver is similar to 2019. 3. Right lower lobe pulmonary nodule is similar or smaller compared to 2019 suggesting a benign etiology. 4. L3 compression fracture which is new in the interval compared to 2019. Dictated by: Allen Glasgow M.D. on 05/30/2021 at 21:48 Approved by: Allen Glasgow M.D. on 05/30/2021 at 21:58
[2021-05-30] MEDS: SODIUM CHLORIDE 0.9% 1,000 ML 500 ML IV (21:20)
== END 2021-05-30 23:18 | disposition home or self-care (01) ==
PROVIDERS: Emergency Medicine; Emergency Provider Emergency Medicine; PCP Nurse Practitioner
DX: R10.9 Unspecified abdominal pain (principal); Z87.891 Personal history of nicotine dependence
CPT/HCPCS: 74022; 74177; 80053; 81003; 83690; 85025; 93005; 99284; Q9967

== ENCOUNTER 2021-08-27 11:18 | Emergency (ER) | payer MEDICARE, SELFPAY ==
[2021-08-27] VITALS (16 sets, daily range): BP systolic 133–149; BP diastolic 67–102; PULSE 62–111; RESP 13–39; TEMP 36.9; O2SAT 84–98; BMI 35.9
--- NOTE | 2021-08-27 11:40 | DI.RAD.S_ITS ---
PROCEDURE: XR CHEST 1V INDICATIONS: chest pain TECHNIQUE: One view of the chest was acquired. COMPARISON: [facility], , CHEST 2 VIEW, 03/20/2008, 10:11. FINDINGS: Surgical changes and devices: None. Lungs and pleura: Lungs are clear. No pleural effusions or pneumothorax. Mediastinum: Aortic arch calcifications are seen. Heart size is borderline enlarged. Bones and chest wall: No suspicious bony lesions. Overlying soft tissues appear unremarkable. IMPRESSION: No acute cardiopulmonary pathology. Dictated by: Leonidas Roberto M.D. on 08/27/2021 at 12:08 Approved by: Leonidas Roberto M.D. on 08/27/2021 at 12:09
[2021-08-27 11:50] LABS: Add Manual Diff / Slide Review NO; Basophils Absolute Auto 0 /uL (0-100); Basophils Percent Auto 0.5 % (0-2); Eosinophils Absolute Auto 400 /uL (0-450); Eosinophils Percent Auto 6.5 % (2-4); Hematocrit 41.5 % (41-53); Hemoglobin 13.8 g/dL (13.5-17.5); Lymphocytes Absolute Auto 1600 /uL (1100-4500); Lymphocytes Percent Auto 27.5 % (25-40); Mean Corpuscular HGB Conc 33.3 % (30-36); Mean Corpuscular Volume 90.3 fL (80-100); Monocytes Absolute Auto 500 /uL (0-900); Monocytes Percent Auto 9.2 % (3-14); Neutrophils Absolute Auto 3200 /uL (1500-7000); Neutrophils Percent Auto 56.3 % (50-75); Platelet Count 211 X10^3/uL (150-400); Red Cell Distribution Width 13.7 % (11.6-14.8); White Blood Cell Count 5.8 X10^3/uL (4.5-11.0)
--- NOTE | 2021-08-27 11:51 | ED_ITS ---
HPI - Dizziness General Chief Complaint: Dizziness Stated Complaint: headaches sent by Alec dizzy Time Seen by Provider: 08/27/21 11:40 History of Present Illness HPI Narrative: Patient is a 80-year-old male history of atrial fibrillation on Eliquis presenting today with ongoing dizziness. He says he always has some level of dizziness over the last 4 days if this progressively gotten worse. It is definitely worse with movement but seems to be a constant now. He has never been diagnosed with vertigo or stroke. He has no chest pain or palpitations. He does get some shortness of breath with exertion he was a little diaphoretic in the ED. he denies any blurry vision or double vision. 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 He does not have any weakness in his extremities. Related Data Home Medications Medication Instructions Recorded Confirmed CHOLECALCIFEROL (D3-5) 1,000 iu PO QDAY ##0 12/24/10 08/27/21 ASPIRIN (Aspir-Low) 81 mg PO QDAY ##0 03/19/11 08/27/21 apixaban 5 mg tablet (Eliquis) 5 mg PO BID 04/04/18 08/27/21 ezetimibe 10 mg tablet (Zetia) 10 mg PO DAILY 05/19/19 08/27/21 ketoconazole 2 % topical cream 1 applic topical BID 06/09/21 08/27/21 metoprolol succinate 25 mg 12.5 mg PO DAILY 06/09/21 08/27/21 tablet,extended release 24 hr multivitamin (Daily Multi-Vitamin 1 tab PO DAILY 06/09/21 08/27/21 tablet) omega 8-jjh-ksn-fish oil 1,000 mg 1 cap PO DAILY 06/09/21 08/27/21 (120 mg-180 mg) capsule (Fish Oil) Previous Rx's Medication Instructions Recorded lisinopril 20 1 tab PO QAM #90 tabs 05/04/18 mg-hydrochlorothiazide 25 mg tablet atorvastatin 80 mg tablet See Rx Instructions .Route 05/27/21 .COMPLEX #90 tabs citalopram 40 mg tablet See Rx Instructions .Route 06/09/21 .COMPLEX #90 tabs meclizine 25 mg tablet 25 mg PO TID PRN dizziness #10 tabs 08/27/21 Allergies Allergy/AdvReac Type Severity Reaction Status Date / Time oxycodone Allergy Mild ITCHING, Verified 06/09/21 10:42 RASH Review of Systems Review of Systems Narrative: GENERAL: Denies chills, fatigue, malaise, fever, sweats, travel HEENT: Denies sinus pain, ear pain, sore throat, difficulty swallowing, neck pain RESPIRATORY: Denies dyspnea, cough, wheezing, hemoptysis, sputum. CARDIOVASCULAR: Denies chest pain, palpitations, orthopnea, edema GASTROINTESTINAL: Denies nausea, vomiting, abdominal pain, diarrhea, constipation, melena. : Denies dysuria, frequency, incontinence, hematuria, urinary retention, flank pain. MUSCULOSKELETAL: Denies weakness, joint pain, or bony pain SKIN: No rash, no erythema, no pruritus NEUROLOGIC: See HPI PSYCHIATRIC: No concerning psychosocial issues. 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 HEENT: Head atraumatic,EOMI, pupils reactive, face symmetric, moist mucous memb ranes CARDIOVASCULAR: Regular rate and rhythm without murmurs, rubs or gallops. RESPIRATORY: Breath sounds equal bilaterally, no wheezes rales or rhonchi. ABDOMEN: Soft, nontender. Normoactive bowel sounds all 4 quadrants. No guarding or rebound. EXTREMITIES: Normal range of motion, no clubbing or edema. Neurovascularly intact NEUROLOGICAL: Alert and oriented x4.Normal gait and speech. Cranial nerves II through XII grossly intact. Good mxlejy-km-jwtn, good wzuh-mu-voeg, strength equal bilaterally, no dysarthria or aphasia, sensation in tact to soft touch bilaterally, no visual changes, no facial droop SKIN: Warm, dry, no laceration, no petechiae, no rashes or lesions. Scores NIH Stroke Scale Level of Conciousness: Alert, keenly responsive Ask month/age: Answers both questions correctly. Open/close eyes, close hand: Performs both tasks correctly Best gaze horizontal: Normal Visual pedroza: No visual loss Facial palsy: Normal symetrical movement Left arm drift: No drift for full 10 sec Right arm drift: No drift for full 10 sec Left leg drift: No drift for full 5 sec Right leg drift: No drift for full 5 sec Limb ataxia: Absent Sensory on face/arms/legs: Normal, no sensory loss Best language: No aphasia, normal Dysarthria: Normal Extinction or inattention: No abnormality Total NIH Stroke scale score: 0 Course Orders Ordered: ED Orders 08/27/21 11:40 XR chest 1V Stat 08/27/21 11:42 BNP [NT-proBNP (BNP-Adult 18+)] Stat Complete Blood Count AUTO DIFF Stat Comprehensive Metabolic Panel Stat Lipase Stat Magnesium Stat Partial Thromboplastin Time Stat Prothrombin Time INR Stat Troponin & CK Cardiac Panel Stat 08/27/21 11:49 COVID19 -Nasal RAPID/Pre-Proc Stat 08/27/21 11:54 CT angio head and neck Stat Discontinued Medications Furosemide (Furosemide 40 Mg/4 Ml Vial) 20 mg IV NOW ONE Stop: 08/27/21 12:15 Last Admin: 08/27/21 12:50 Dose: 20 mg Documented By: [facility] Meclizine HCl (Meclizine Hcl 12.5 Mg Tablet) 25 mg PO NOW ONE Stop: 08/27/21 13:42 Last Admin: 08/27/21 13:55 Dose: 25 mg Documented By: MARIELLEK Vital Signs Vital signs: Vital Signs - 8 hr 08/27/21 11:38 08/27/21 12:51 08/27/21 12:00 Temperature 98.4 F Pulse Rate 73 62 73 Respiratory Rate 20 21 Blood Pressure 135/71 138/71 Pulse Oximetry 94 94 Oxygen Delivery Method Room Air 08/27/21 12:34 08/27/21 12:50 08/27/21 12:50 Temperature Pulse Rate 63 66 Respiratory Rate 17 19 Blood Pressure 138/71 Pulse Oximetry 95 94 Oxygen Delivery Method 08/27/21 13:00 08/27/21 13:00 08/27/21 13:30 Temperature Pulse Rate 66 78 Respiratory Rate 17 17 Blood Pressure 149/70 H Pulse Oximetry 96 96 Oxygen Delivery Method 08/27/21 13:31 08/27/21 13:31 08/27/21 14:00 Temperature Pulse Rate 111 H 65 Respiratory Rate 20 Blood Pressure 149/102 H Pulse Oximetry 98 Oxygen Delivery Method 08/27/21 14:01 08/27/21 14:01 08/27/21 14:30 Temperature Pulse Rate 75 Respiratory Rate 18 Blood Pressure 141/72 H 139/67 Pulse Oximetry 97 Oxygen Delivery Method 08/27/21 14:30 08/27/21 15:00 08/27/21 15:13 Temperature Pulse Rate 64 75 Respiratory Rate 13 39 H Blood Pressure 142/83 H Pulse Oximetry 97 84 L Oxygen Delivery Method 08/27/21 15:13 08/27/21 16:19 Temperature Pulse Rate 68 77 Respiratory Rate 24 20 Blood Pressure 133/79 Pulse Oximetry 97 97 Oxygen Delivery Method Room Air MDM - Dizziness Lab Data Result diagrams: 08/27/21 11:42 08/27/21 11:42 Labs: Lab Results 08/27/21 08/27/21 08/27/21 Range/Units 11:42 11:42 11:42 WBC 5.8 (4.5-11.0) X10^3/uL RBC 4.60 (4.5-5.9) X10^6/uL Hgb 13.8 (13.5-17.5) g/dL Hct 41.5 (41-53) % MCV 90.3 (80-100) fL MCH 30.0 (26-34) PG MCHC 33.3 (30-36) % RDW 13.7 (11.6-14.8) % Plt Count 211 (150-400) X10^3/uL Neut % (Auto) 56.3 (50-75) % Lymph % (Auto) 27.5 (25-40) % Smith % (Auto) 9.2 (3-14) % Eos % (Auto) 6.5 H (2-4) % Baso % (Auto) 0.5 (0-2) % Neut # (Auto) 3200 (8702-7536) /uL Lymph # (Auto) 1600 (4636-2899) /uL Smith # (Auto) 500 (0-900) /uL Eos # (Auto) 400 (0-450) /uL Baso # (Auto) 0 (0-100) /uL PT 15.9 H (10.1-12.7) SECONDS INR 1.4 H (0.9-1.3) APTT 42 H (26.4-36.2) SECONDS Sodium 139 (137-145) mmol/L Potassium 3.7 (3.4-5.1) mmol/L Chloride 104 (98-107) mmol/L Carbon Dioxide 31 (22-32) mmol/L BUN 14 (9-20) mg/dL Creatinine 0.76 (0.66-1.25) mg/dL Estimated GFR > 60 (>60) mL/min BUN/Creatinine Ratio 18.4 (6-22) Glucose 106 (80-110) mg/dL Calcium 8.8 (8.4-10.2) mg/dL Magnesium 2.0 (1.6-2.3) mg/dL Total Bilirubin 1.8 H (0.2-1.3) mg/dL AST 36 (17-59) IU/L ALT 25 (<50) IU/L Alkaline Phosphatase 105 (38-126) U/L Total Creatine Kinase 140 (55-170) U/L CK-MB (CK-2) 2.20 (<2.37) ng/mL CK-MB (CK-2) Rel Index 1.6 (1.5-5.0) % Troponin I < 0.012 (0.01-0.034) ng/mL NT-Pro-B Natriuret Pep (<450) pg/mL Total Protein 7.4 (6.3-8.2) g/dL Albumin 4.3 (3.5-5.0) g/dL Globulin 3.1 (1.7-4.1) g/dL Albumin/Globulin Ratio 1.4 (1.0-2.8) Lipase 1097 H (23-300) U/L SARS-CoV-2 (PCR) (Negative) 08/27/21 08/27/21 Range/Units 11:42 11:49 WBC (4.5-11.0) X10^3/uL RBC (4.5-5.9) X10^6/uL Hgb (13.5-17.5) g/dL Hct (41-53) % MCV (80-100) fL MCH (26-34) PG MCHC (30-36) % RDW (11.6-14.8) % Plt Count (150-400) X10^3/uL Neut % (Auto) (50-75) % Lymph % (Auto) (25-40) % Smith % (Auto) (3-14) % Eos % (Auto) (2-4) % Baso % (Auto) (0-2) % Neut # (Auto) (1331-9320) /uL Lymph # (Auto) (7250-2597) /uL Smith # (Auto) (0-900) /uL Eos # (Auto) (0-450) /uL Baso # (Auto) (0-100) /uL PT (10.1-12.7) SECONDS INR (0.9-1.3) APTT (26.4-36.2) SECONDS Sodium (137-145) mmol/L Potassium (3.4-5.1) mmol/L Chloride (98-107) mmol/L Carbon Dioxide (22-32) mmol/L BUN (9-20) mg/dL Creatinine (0.66-1.25) mg/dL Estimated GFR (>60) mL/min BUN/Creatinine Ratio (6-22) Glucose (80-110) mg/dL Calcium (8.4-10.2) mg/dL Magnesium (1.6-2.3) mg/dL Total Bilirubin (0.2-1.3) mg/dL AST (17-59) IU/L ALT (<50) IU/L Alkaline Phosphatase (38-126) U/L Total Creatine Kinase (55-170) U/L CK-MB (CK-2) (<2.37) ng/mL CK-MB (CK-2) Rel Index (1.5-5.0) % Troponin I (0.01-0.034) ng/mL NT-Pro-B Natriuret Pep 44 (<450) pg/mL Total Protein (6.3-8.2) g/dL Albumin (3.5-5.0) g/dL Globulin (1.7-4.1) g/dL Albumin/Globulin Ratio (1.0-2.8) Lipase (23-300) U/L SARS-CoV-2 (PCR) Negative (Negative) Imaging Data Chest x-ray: Radiologist's Impression: Signed Patient: Woodrow Diego MR#: [id number] : 1940 Acct:[id number] Age/Sex: 80 / M Date of Service: 08/27/21 Loc: ED Accession Number: [id number] ?? Procedure: XR chest 1V Ordering Provider: Yamini Gerber D.O. PROCEDURE:? XR CHEST 1V ? INDICATIONS:? chest pain ? TECHNIQUE:? One view of the chest was acquired.? ? COMPARISON:? [facility], , CHEST 2 VIEW, 03/20/2008, 10:11. ? FINDINGS:? ? Surgical changes and devices:? None.? ? Lungs and pleura:? Lungs are clear.? No pleural effusions or pneumothorax.? ? Mediastinum:? Aortic arch calcifications are seen.? Heart size is borderline enlarged. ? Bones and chest wall:? No suspicious bony lesions.? Overlying soft tissues appear unremarkable.? ? IMPRESSION:? No acute cardiopulmonary pathology. ? ? Dictated by: Leonidas Roberto M.D. on 08/27/2021 at 12:08 ? ? Approved by: Leonidas Roberto M.D. on 08/27/2021 at 12:09? CTA - brain/neck: Radiologist's Impression: [facility] [id number] CT Scan Report Signed Patient: Woodrow Diego MR#: [id number] : 1940 Acct:[id number] Age/Sex: 80 / M Date of Service: 08/27/21 Loc: ED Accession Number: [id number] ?? Procedure: CT angio head and neck Ordering Provider: Yamini Gerber D.O. PROCEDURE:? CT ANGIO HEAD AND NECK ? INDICATIONS:? dizzy x 4 days on eliquis ? TECHNIQUE:? Pre-contrast 4.5 mm thick sections acquired from the foramen magnum to the vertex.? After the administration of intravenous contrast, 1 mm thick sections acquired from the aortic arch through the [place] of [place].? Post-contrast 4.5 mm thick sections then re- acquired from the foramen magnum to the vertex.? 3-dimensional uefiiot-exzfgpnno-wzdlkcmbij (MIP) and/or volume rendering reformats were acquired of the central intracranial vasculature and neck separately. For radiation dose reduction, the following was used:? automated exposure control, adjustment of mA and/or kV according to patient size.? ? COMPARISON:? None. ? FINDINGS:? Image quality:? Excellent.? ? BRAIN:? CSF spaces:? Ventricles are normal in size and shape.? Basal cisterns are patent.? No extra-axial fluid collections.? ? Brain:? No midline shift.? No intracranial bleeds or masses.? Guzman-white matter interface appears intact.? ? Skull and face:? Calvarium and facial bones appear intact, without suspicious lesions.? Orbits appear normal.? ? Sinuses:? Sinuses and mastoids are clear.? ? HEAD CT ANGIOGRAPHY:? Anterior circulation:? Intracranial internal carotid arteries have heavy calcifications with less than 50 percent stenosis bilaterally.? The flow within the paired anterior cerebral arteries is normal and symmetric.? The flow within the middle cerebral arteries is normal and symmetric.? The anterior communicating artery is seen.? No aneurysms are seen.? ? Posterior circulation:? Visualized portions of the vertebral arteries demonstrate normal caliber, and join to form a normal appearing basilar artery.? Flow within the posterior cerebral arteries is normal and symmetric.? No aneurysms are seen.? ? NECK CT ANGIOGRAPHY:? Carotid system:? The great vessels demonstrate a conventional anatomy as they arise from the aortic arch.? The origins of the common carotid arteries appear patent.? The common carotid arteries demonstrate normal caliber and courses.? The bifurcation regions have heavy atherosclerotic calcifications with less than 50 percent stenosis.? The internal carotid arteries demonstrate normal calibers and courses.? ? Posterior circulation:? The origins of the vertebral arteries both appear widely patent.? The more superior extracranial portions of both vertebral arteries also demonstrate normal courses and calibers.? They join to form a normal appearing basilar artery.? ? Soft tissues:? Visualized neck soft tissues demonstrate no suspicious abnormalities.? ? Bones:? No suspicious bony lesions.? Visualized cervical spine appears normally aligned.? ? ? IMPRESSION:? 1. No acute intracranial abnormality. 2. Atherosclerotic calcifications of the carotid bulbs with no significant stenosis. 3. Atherosclerosis of the intracranial ICAs with less than 50 percent stenosis. 4. No aneurysm or dissection.? ? Any quantitative measurements of stenosis were performed using NASCET criteria.? ? ? Dictated by: Tim Almazan M.D. on 08/27/2021 at 13:12 ? ? ECG Data Interpretation: Normal sinus rhythm rate 59 OH interval 196 QRS [address] changes no T-wave inversions MDM Narrative Medical decision making narrative: Patient's son is a he always has some sort of dizziness is worse over last [address] angio is negative blood work is overall reassuring. He was having some shortness of breath he was given a small dose of Lasix however BNP was within normal range and chest x-ray is negative. He is on Eliquis this is unlikely to be a pulmonary embolism he is not hypoxic this is not his major stated complaint. Attempted to get MRI however patient states that he had valve repair I do not hear a mechanical valve or see metal on his chest x-ray however MR would not take him without knowing what type of valve he had. He was given meclizine and actually improved quite a bit. He has been ambulatory without any issues. At this time I think patient is likely having exacerbation of some vertigo. He has a low he has had ongoing lightheadedness but worse over the last 4 days. His he has no focal deficits. At this time will send him home. I attempted to call Cardiology and find out what they knew about him but we never received any more information. Discharge Plan Departure Patient Disposition: Home Clinical Impression: Vertigo Instructions: DI for Vertigo Activity Restrictions/Additional Instructions: *You have been diagnosed with vertigo *What to do: At this time blood work and CT are overall reassuring. *Continue to take medications as directed Meclizine 25 mg every 8 hours *Follow up with your primary care provider in 2-3 days or call [phone] *Return to ER if you should have increasing dizziness weakness numbness tingling or any new, worsening or concerning symptoms Prescriptions: New meclizine 25 mg tablet 25 mg PO TID PRN (Reason: dizziness) Qty: 10 0RF No Action Eliquis 5 mg tablet 5 mg PO BID CHOLECALCIFEROL (D3-5) 1,000 iu PO QDAY Qty: 0 ASPIRIN (Aspir-Low) 81 mg tablet 81 mg PO QDAY Qty: 0 lisinopril-hydrochlorothiazide 20-25 mg tablet 1 tab PO QAM Qty: 90 1RF atorvastatin 80 mg tablet See Rx Instructions .ROUTE .COMPLEX Qty: 90 3RF Dose Instruction: TAKE 1 TABLET BY MOUTH DAILY Rx Instructions: TAKE 1 TABLET BY MOUTH DAILY ezetimibe [Zetia] 10 mg tablet 10 mg PO DAILY ketoconazole 2 % cream 1 applic topical BID multivitamin [Daily Multi-Vitamin] Tablet 1 tab PO DAILY omega 2-qfb-rpa-fish oil [Fish Oil] 1,000 mg (120 mg-180 mg) capsule 1 cap PO DAILY citalopram 40 mg tablet See Rx Instructions .ROUTE .COMPLEX Qty: 90 3RF Dose Instruction: TAKE 1 TABLET BY MOUTH ONCE DAILY Rx Instructions: TAKE 1 TABLET BY MOUTH ONCE DAILY metoprolol succinate 25 mg tablet extended release 24 hr 12.5 mg PO DAILY Referrals: Alma Coates ARNP [Primary Care Provider] - Visit Report Forms: Patient Portal/API
--- NOTE | 2021-08-27 11:52 | PC.NURSE ---
reports dizziness at baseline for some time worse than normal. Increase SOB with exertion. Mild swelling in bilateral ankles. Denies recent illness. Clammy upon arrival to ER, increase work of breathing with ambulation to room, walks with cane at baseline. Recent headaches prominent on right side temporal region radiating across forehead. Has some vision loss in left upper eye from an artery issue.
--- NOTE | 2021-08-27 11:54 | DI.CT.S_ITS ---
PROCEDURE: CT ANGIO HEAD AND NECK INDICATIONS: dizzy x 4 days on eliquis TECHNIQUE: Pre-contrast 4.5 mm thick sections acquired from the foramen magnum to the vertex. After the administration of intravenous contrast, 1 mm thick sections acquired from the aortic arch through the [place] of [place]. Post-contrast 4.5 mm thick sections then re-acquired from the foramen magnum to the vertex. 3-dimensional yxnpjbx-bszsmapvh-oowitfyvda (MIP) and/or volume rendering reformats were acquired of the central intracranial vasculature and neck separately. For radiation dose reduction, the following was used: automated exposure control, adjustment of mA and/or kV according to patient size. COMPARISON: None. FINDINGS: Image quality: Excellent. BRAIN: CSF spaces: Ventricles are normal in size and shape. Basal cisterns are patent. No extra-axial fluid collections. Brain: No midline shift. No intracranial bleeds or masses. Guzman-white matter interface appears intact. Skull and face: Calvarium and facial bones appear intact, without suspicious lesions. Orbits appear normal. Sinuses: Sinuses and mastoids are clear. HEAD CT ANGIOGRAPHY: Anterior circulation: Intracranial internal carotid arteries have heavy calcifications with less than 50 percent stenosis bilaterally. The flow within the paired anterior cerebral arteries is normal and symmetric. The flow within the middle cerebral arteries is normal and symmetric. The anterior communicating artery is seen. No aneurysms are seen. Posterior circulation: Visualized portions of the vertebral arteries demonstrate normal caliber, and join to form a normal appearing basilar artery. Flow within the posterior cerebral arteries is normal and symmetric. No aneurysms are seen. NECK CT ANGIOGRAPHY: Carotid system: The great vessels demonstrate a conventional anatomy as they arise from the aortic arch. The origins of the common carotid arteries appear patent. The common carotid arteries demonstrate normal caliber and courses. The bifurcation regions have heavy atherosclerotic calcifications with less than 50 percent stenosis. The internal carotid arteries demonstrate normal calibers and courses. Posterior circulation: The origins of the vertebral arteries both appear widely patent. The more superior extracranial portions of both vertebral arteries also demonstrate normal courses and calibers. They join to form a normal appearing basilar artery. Soft tissues: Visualized neck soft tissues demonstrate no suspicious abnormalities. Bones: No suspicious bony lesions. Visualized cervical spine appears normally aligned. IMPRESSION: 1. No acute intracranial abnormality. 2. Atherosclerotic calcifications of the carotid bulbs with no significant stenosis. 3. Atherosclerosis of the intracranial ICAs with less than 50 percent stenosis. 4. No aneurysm or dissection. Any quantitative measurements of stenosis were performed using NASCET criteria. Dictated by: Tim Almazan M.D. on 08/27/2021 at 13:12 Approved by: Tim Almazan M.D. on 08/27/2021 at 13:18
[2021-08-27 12:00] LABS: INR 1.4 (0.9-1.3); Prothrombin Time 15.9 SECONDS (10.1-12.7)
[2021-08-27 12:02] LABS: PTT Partial Thromboplastin Tim 42 SECONDS (26.4-36.2)
[2021-08-27 12:07] LABS: Alanine Aminotransferase 25 IU/L (<50); Albumin 4.3 g/dL (3.5-5.0); Albumin Globulin Ratio 1.4 (1.0-2.8); Alkaline Phosphatase 105 U/L (38-126); Aspartate Aminotransferase 36 IU/L (17-59); BUN Creatinine Ratio 18.4 (6-22); Bilirubin Total 1.8 mg/dL (0.2-1.3); Blood Urea Nitrogen 14 mg/dL (9-20); Calcium 8.8 mg/dL (8.4-10.2); Carbon Dioxide 31 mmol/L (22-32); Chloride 104 mmol/L (98-107); Creatine Kinase 140 U/L (55-170); Estimated Glomerular Filt Rate > 60 mL/min (>60); Globulin 3.1 g/dL (1.7-4.1); Glucose 106 mg/dL (80-110); HEMOLYSIS < 15 (0-50); Lipase 1097 U/L (23-300); Potassium 3.7 mmol/L (3.4-5.1); Sodium 139 mmol/L (137-145); Total Protein 7.4 g/dL (6.3-8.2)
[2021-08-27 12:14] LABS: COVID19 -Nasal RAPID Negative (Negative)
[2021-08-27 12:15] LABS: NT-proBNP (BNP-Adult 18+) 44 pg/mL (<450)
[2021-08-27 12:18] LABS: Troponin I < 0.012 ng/mL (0.01-0.034)
[2021-08-27 12:22] LABS: CKMB % Relative Index 1.6 % (1.5-5.0)
[2021-08-27] MEDS: FUROSEMIDE 40 MG/4 ML VIAL 20 MG IV (12:50)
[2021-08-27] MEDS: MECLIZINE HCL 12.5 MG TABLET 25 MG PO (13:55)
== END 2021-08-27 16:19 | disposition home or self-care (01) ==
PROVIDERS: Emergency Provider Emergency Medicine; PCP Nurse Practitioner
DX: R42 Dizziness and giddiness (principal); R07.9 Chest pain, unspecified; Z20.822 Contact with and (suspected) exposure to COVID-19; Z79.01 Long term (current) use of anticoagulants
CPT/HCPCS: 36415; 70496; 70498; 71045; 80053; 82550; 82553; 83690; 83735; 83880; 84484; 85025; 85610; 85730; 87635; 93005; 93010; 96374; 99284; C9803; J1940; Q9967

== ENCOUNTER → 2021-10-28 06:53 | Outpatient (CLI) | payer MEDICARE, SELFPAY ==
[2021-10-28 09:23] LABS: Cholesterol 137 mg/dL (140-199); HDL Cholesterol 38 mg/dL (40-60); LDL Cholesterol Calculated 77 mg/dL (<100); Triglycerides 111 mg/dL (35-150)
== END ==
PROVIDERS: PCP Nurse Practitioner; Referring Provider Internal Medicine Cardiovascular Disease; Visit Provider Internal Medicine Cardiovascular Disease
DX: E78.5 Hyperlipidemia, unspecified (principal)
CPT/HCPCS: 36415; 80061

== ENCOUNTER 2022-03-30 08:15 | Outpatient (RCR) | payer MEDICARE, SELFPAY ==
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
--- NOTE | 2021-11-06 11:15 | PT.OPPOC ---
Physical, Occupational & Speech Therapy At 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 [employer] Primary Care Provider Referring Provider Specialty: [facility] Practice Address: [address] [place] [address], [facility] Email: [email or web address] Plan Of Care PT-OP-T Assessment and Plan Start: 11/06/21 08:18 Freq: Status: Active Protocol: Document 11/06/21 11:17 SAK (Rec: 11/10/21 08:55 [facility] [id number]) Physical Therapy Assessment Rehab Potential Rehabilitation Potential Good Evaluation Complexity Number of Personal Factors/Comorbidities 1-2 Number of Body Systems Impaired 3 Clinical Presentation at Evaluation Evolving Impairments Impairments Balance,Gait,Pain,Strength Goals Four Impairment LBP Impairment Oswestry disability index score 42% Hard Hat Diver Goal (LTG) Decrease Oswestry disability index score to no greater than 30% LTG Duration 02/05/22 Three Impairment gait dysfunction Impairment step-to pattern on stairs, requires use of walker on level surfaces Hard Hat Diver Goal (LTG) Patient will be able to ascend and descend stairs safetly with alternating step pattern and weigh least restrictive device on level surfaces at home and in the community LTG Duration 02/05/22 Two Impairment weakness left LE Short Term Goal (STG) Patient to be instructed in HEP for purposes of LE strengthening to support PT clinic activities STG Duration 12/23/21 Hard Hat Diver Goal (LTG) Patient to be independent and compliant with HEP and demonstrate 1 grade muscle strength improvement throughout left LE LTG Duration 02/05/22 One Impairment balance dysfunction indicating high fall risk Impairment Cavanaugh balance score 36/56 Dynamic gait index 01/01 Short Term Goal (STG) Improve Cavanaugh balance and Dynamic gait index by 5 points as measure of improved functional balance and safety STG Duration 12/23/21 Custodial Goal (LTG) Improve Cavanaugh balance and Dynamic Gait index by 10 points as measure of improved functional balance and safety in the home and community LTG Duration 02/05/22 Assessment Summary Assessment Patient presents to PT with function-limiting balance dysfunction, weakness, gait dysfunction, and low back pain all gradually progressing since 2010 when patient was diagnosed with both spinal stenosis and neuropathy per his report. Patient is at high risk for falls, and limited in his activity level due to fear of falling. Feel he would benefit from PT for strengthening, balance training, gait training, and treatment of low back pain with ther ex, modalities, and manual therapy PRN. We discussed POC and he agreed. He was instructed in initial HEP today and demonstrated good understanding and treatment was inded with moist heat which he responded positively to. Physical Therapy Plan Frequency and Duration Frequency of Treatment 2x/Week Duration of treatment (weeks) 12 Plan of Care Start Date 11/06/21 Plan of Care End Date 02/05/22 Therapeutic Interventions Therapeutic Interventions Aquatic Therapy,Balance Training,Gait Training,Home Exercise Program,Manual Therapy,Neuromuscular Re- education,Patient/Caregiver Education,Self-Care/Home Management,Soft Tissue Mobilization,Taping, Therapeutic Activities, Therapeutic Exercises Modalities Cold Pack/Ice Massage,Electric Stimulation,Hot Packs, Traction- Mechanical, Ultrasound Next Visit Focus/Plan Next Note Type Treatment Note Next Visit Plan Review HEP, ther ex, gait training, balance training. Modalities and manual therapy PRN back pain. Plan of Care Dates Plan of Care Start Date 11/06/21 Plan of Care End Date 02/05/22 Electronically Signed by: Ashtyn Christiansen, PT 11/10/21 0856 If you are in agreement with this Plan of Care, please return a signed and dated copy. I have reviewed this Plan of Care and certify that the skilled therapy services above are required to meet the patient?s needs. Physician Signature Date Printed Name and Credentials Clinical Instructor Signature Printed Name and Credentials
--- NOTE | 2021-11-11 14:47 | PT.OTN ---
Current Diagnoses Other chronic pain (11/11/21) Sciatica, left side (11/11/21) Low back pain, unspecified (11/11/21) Paresthesia of skin (11/11/21) Other abnormalities of gait and mobility (11/11/21) Weakness (11/11/21) Physical Therapy Treatment Note PT-OP-A Visit Information Start: 11/06/21 08:18 Freq: Status: Active Protocol: Document 11/11/21 13:48 SAK (Rec: 11/11/21 14:46 SAK [id number]) Out-Patient Physical Therapy Visit Information Visit Information Visit Type Treatment Note Visit Start Time 13:46 Visit Stop Time 14:31 Total Visit Minutes 45 Visit Number 2 Precautions Precautions back pain with spinal stenosis , prostate cancer, cardiac disease PT-OP-B Current Condition Start: 11/06/21 08:18 Freq: Status: Active Protocol: Document 11/11/21 13:48 SAK (Rec: 11/11/21 14:46 SAK [id number]) Current Condition History of Current Condition Onset Date 2010 Current Complaints balance dysfunction History of Current Condition 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 Has fallen several times last probably 6 months ago. Reports drop foot. States he has gained weight and would like to lose weight as well. Also history of a tank falling on his back 1984 with 4 compression fractures. Reports his balance difficulty is his biggest concern. Prior Treatments and Tests History aortic valve replacement, raúl TKA, right RJ, cataract surgery with partial vision loss left ( upper and side), prostate cancer. Pain clinic not helpful, has seen neurologist Treatment Goals Patient/Caregiver Goals Improve balance, decrease neuropathy PT-OP-C Subjective Start: 11/06/21 08:18 Freq: Status: Active Protocol: Document 11/11/21 13:48 SAK (Rec: 11/11/21 14:46 SAK [id number]) OP-PT Subjective Patient Comments Patient Comments No new c/o, compliant to HEP. Riding recumbant elliptical most days, wants to get back to treadmill. Liked heating pad PT-OP-D Balance Start: 11/06/21 08:18 Freq: Status: Active Protocol: Document 11/06/21 11:17 SAK (Rec: 11/10/21 08:55 SAK [id number]) OP-PT Balance Assessment Sitting Balance Static Sitting Balance Ability Good Standing Balance Static Standing Balance Ability Fair Cavanaugh Balance Assessment Evaluation Sitting to Standing Ability Independent w/Hands Unsupported Stance Supervision- 2 minutes Sitting Unsupported, Feet on Floor Safely- 2 minutes Standing to Sitting Ability Safely, Minimal Hand Use Transfer Ability Safely, Hand Use Unsupported Stance- Eyes Closed Supervision, 10 seconds Unsupported Stance- Eyes Open Supervision to maintain Reaching Forward Standing Safely, 5 inches Pick- Up Object From Floor Supervision Look Behind Shoulder - Standing Shifts Weight Well Turning 360 Degrees Turns slowly, but safely Unsupported Stance, Alternating Feet on 2 Steps w/Minimum Assist Stair Unsupported Tandem Stance Balance Lost- Step/Stand Unilateral Leg Stance Unable,assist to not fall Total Score Cavanaugh Total Score (out of 56 points) 36 Taylor Fall Scale Copyright Permission PT-OP-E Functional Tests Start: 11/06/21 08:18 Freq: Status: Active Protocol: Document 11/06/21 11:17 [facility] (Rec: 11/10/21 08:55 [facility] [id number]) Functional Tests Dynamic Gait Index (DGI) Score 11 PT-OP-G Mobility & Gait Start: 11/06/21 08:18 Freq: Status: Active Protocol: Document 11/06/21 11:17 [facility] (Rec: 11/10/21 08:55 [facility] [id number]) OP Gait Assessment Gait Gait Assistance Required: Independent Distance (Feet) 150 Assistive Devices Assistive Device Front Wheeled Walker Factors Limiting Gait Function Factors Limiting Gait Function Decreased Sensation,Decreased Strength Stair Climbing Evaluation Evaluation Level of Assist On Stairs Standby Assistance Devices Stair Climbing Assistive Devices Right Railing Technique/Endurance Stair Climbing Direction Descend Stair Climbing Technique Step to Step Number of Steps Climbed 4 Stair Climbing Set # Repetitions (reps) 1 PT-OP-H Neuro Start: 11/06/21 08:18 Freq: Status: Active Protocol: Document 11/06/21 11:17 [facility] (Rec: 11/10/21 08:55 [facility] [id number]) Sensation Evaluation Gross Sensation Gross Sensation Left LE Impaired Sensation Description Numbness PT-OP-K Range of Motion Start: 11/06/21 08:18 Freq: Status: Active Protocol: Document 11/06/21 11:17 [facility] (Rec: 11/10/21 08:55 [facility] [id number]) Lumbar Spine Range of Motion Lumbar Spine Active ROM Limitations Soft Tissue Tightness,Pain Comments Mod decrease all motions Hip Goniometric Range of Motion Hip Active Hip ROM WFL No Flexion w/Knee Flexed 95 Straight Leg Raise 55 Extension 0 Abduction 35 Internal Rotation 10 External Rotation 40 Comments raúl Ankle and Foot Goniometric Range of Motion Ankle and Foot Left Active Comments lacking 10 deg from neutral df right Ankle/Foot ROM WFL Yes PT-OP-M Strength Start: 11/06/21 08:18 Freq: Status: Active Protocol: Document 11/06/21 11:17 [facility] (Rec: 11/10/21 08:55 [facility] [id number]) Trunk Strength Trunk Manual Muscle Testing Flexion 4- Good- Extension 3+ Fair+ Hip Strength Hip Manual Muscle Testing Left Flexion (L2) 4- Good- Extension (S1) 3 Fair Abduction 3+ Fair+ External Rotation 3+ Fair+ Internal Rotation 4- Good- Right Flexion (L2) 4 Good Extension (S1) 3+ Fair+ Abduction 3+ Fair+ External Rotation 4- Good- Internal Rotation 4 Good Knee Strength Knee Manual Muscle Testing Left Flexion (S2) 4 Good Extension (L3) 4 Good Right Flexion (S2) 5 Normal Extension (L3) 5 Normal Ankle/Foot Strength Ankle and Foot Manual Muscle Testing Left Dorsiflexion (L4) 2+ Poor+ Plantarflexion (S1) 3- Fair- Right Dorsiflexion (L4) 5 Normal Plantarflexion (S1) 5 Normal PT-OP-Q Treatments Start: 11/06/21 08:18 Freq: Status: Active Protocol: Document 11/11/21 13:48 [facility] (Rec: 11/11/21 14:46 [facility] [id number]) Cardio Equipment Recumbent Stepper (Sci-Fit) Duration (Minutes) 5 Resistance 1 Seat Position 13 Treadmill Duration (Minutes) 5 Speed 1 Incline 0 Gym Equipment Shuttle Balance Red Details bal and wt shift fwd/bck, side Reps/Duration 6 mins Therapeutic Exercises Standing Exercises HC stretch Reps/Minutes 2x30 Neuro Re-Education Treatment Balance Activities pod balance Details EC Surface blue pods Reps/Duration 1' x 2 Comments CG to min assist for balance SLS Reps/Duration 4x10 Comments raúl UE support tandem stand Reps/Duration 4x30 Comments raúl UE support balance pods Details blue, green, black Reps/Duration 4x Comments walk across Self-Care/Home Management Treatment Education Patient Education Home Exercise Program Other Education updated HEP PT-OP-R Modalities Start: 11/06/21 08:18 Freq: Status: Active Protocol: Document 11/06/21 11:17 [facility] (Rec: 11/10/21 08:55 [facility] [id number]) Hot Pack/Cold Pack Treatment Hot Pack Location lumbar spine Patient Position Sitting Treatment Duration (minutes) 15 PT-OP-T Assessment and Plan Start: 11/06/21 08:18 Freq: Status: Active Protocol: Document 11/11/21 13:48 [facility] (Rec: 11/11/21 14:46 [facility] [id number]) Physical Therapy Assessment Goals Four Impairment LBP Impairment Oswestry disability index score 42% [employer] Supervisor Goal (LTG) Decrease Oswestry disability index score to no greater than 30% LTG Duration 02/05/22 Three Impairment gait dysfunction Impairment step-to pattern on stairs, requires use of walker on level surfaces [facility] Goal (LTG) Patient will be able to ascend and descend stairs safetly with alternating step pattern and weigh least restrictive device on level surfaces at home and in the community LTG Duration 02/05/22 Two Impairment weakness left LE Short Term Goal (STG) Patient to be instructed in HEP for purposes of LE strengthening to support PT clinic activities STG Duration 12/23/21 [facility] Goal (LTG) Patient to be independent and compliant with HEP and demonstrate 1 grade muscle strength improvement throughout left LE LTG Duration 02/05/22 One Impairment balance dysfunction indicating high fall risk Impairment Cavanaugh balance score 36/56 Dynamic gait index 01/01 Short Term Goal (STG) Improve Cavanaugh balance and Dynamic gait index by 5 points as measure of improved functional balance and safety STG Duration 12/23/21 [facility] Goal (LTG) Improve Cavanaugh balance and Dynamic Gait index by 10 points as measure of improved functional balance and safety in the home and community LTG Duration 02/05/22 Assessment Summary Assessment Patient challenged with balance activities, required frequent rest. Requires raúl UE support on treadmill (has at home and wants to resume), good tolerance for recumbant elliptical. Patient balance poor with eyes closed, has difficulty detecting small amplitude movements at ankles. Added standing HC and HS/low back stretch with good understanding. Patient compliant to HEP. Physical Therapy Plan Frequency and Duration Frequency of Treatment 2x/Week Duration of treatment (weeks) 12 Plan of Care Start Date 11/06/21 Plan of Care End Date 02/05/22 Therapeutic Interventions Therapeutic Interventions Aquatic Therapy,Balance Training,Gait Training,Home Exercise Program,Manual Therapy,Neuromuscular Re- education,Patient/Caregiver Education,Self-Care/Home Management,Soft Tissue Mobilization,Taping, Therapeutic Activities, Therapeutic Exercises Modalities Cold Pack/Ice Massage,Electric Stimulation,Hot Packs, Traction- Mechanical, Ultrasound Next Visit Focus/Plan Next Note Type Treatment Note Next Visit Plan Continue progressive ther ex for balance, functional strengthening, gait on uneven surfaces. Start with treadmill . Modalities and manual therapy PRN back pain.
--- NOTE | 2021-11-13 12:31 | PT.OTN ---
Current Diagnoses Other chronic pain (11/13/21) Sciatica, left side (11/13/21) Low back pain, unspecified (11/13/21) Paresthesia of skin (11/13/21) Other abnormalities of gait and mobility (11/13/21) Weakness (11/13/21) Physical Therapy Treatment Note PT-OP-A Visit Information Start: 11/06/21 08:18 Freq: Status: Active Protocol: Document 11/13/21 08:12 SAK (Rec: 11/13/21 08:59 [facility] [id number]) Out-Patient Physical Therapy Visit Information Visit Information Visit Type Treatment Note Visit Start Time 08:15 Visit Stop Time 09:10 Total Visit Minutes 55 Visit Number 3 Precautions Precautions back pain with spinal stenosis , prostate cancer, cardiac disease PT-OP-B Current Condition Start: 11/06/21 08:18 Freq: Status: Active Protocol: Document 11/13/21 08:12 SAK (Rec: 11/13/21 08:59 [facility] [id number]) Current Condition History of Current Condition Onset Date 2010 Current Complaints balance dysfunction History of Current Condition 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 Has fallen several times last probably 6 months ago. Reports drop foot. States he has gained weight and would like to lose weight as well. Also history of a tank falling on his back 1984 with 4 compression fractures. Reports his balance difficulty is his biggest concern. Prior Treatments and Tests History aortic valve replacement, raúl TKA, right RJ, cataract surgery with partial vision loss left ( upper and side), prostate cancer. Pain clinic not helpful, has seen neurologist Treatment Goals Patient/Caregiver Goals Improve balance, decrease neuropathy PT-OP-C Subjective Start: 11/06/21 08:18 Freq: Status: Active Protocol: Document 11/13/21 08:12 SAK (Rec: 11/13/21 09:00 SAK [id number]) OP-PT Subjective Patient Comments Patient Comments reports muscle soreness, some pain left hip/low back. PT-OP-D Balance Start: 11/06/21 08:18 Freq: Status: Active Protocol: Document 11/06/21 11:17 SAK (Rec: 11/10/21 08:55 SAK [id number]) OP-PT Balance Assessment Sitting Balance Static Sitting Balance Ability Good Standing Balance Static Standing Balance Ability Fair Cavanaugh Balance Assessment Evaluation Sitting to Standing Ability Independent w/Hands Unsupported Stance Supervision- 2 minutes Sitting Unsupported, Feet on Floor Safely- 2 minutes Standing to Sitting Ability Safely, Minimal Hand Use Transfer Ability Safely, Hand Use Unsupported Stance- Eyes Closed Supervision, 10 seconds Unsupported Stance- Eyes Open Supervision to maintain Reaching Forward Standing Safely, 5 inches Pick- Up Object From Floor Supervision Look Behind Shoulder - Standing Shifts Weight Well Turning 360 Degrees Turns slowly, but safely Unsupported Stance, Alternating Feet on 2 Steps w/Minimum Assist Stair Unsupported Tandem Stance Balance Lost- Step/Stand Unilateral Leg Stance Unable,assist to not fall Total Score Cavanaugh Total Score (out of 56 points) 36 Taylor Fall Scale Copyright Permission PT-OP-E Functional Tests Start: 11/06/21 08:18 Freq: Status: Active Protocol: Document 11/06/21 11:17 [facility] (Rec: 11/10/21 08:55 [facility] [id number]) Functional Tests Dynamic Gait Index (DGI) Score 11 PT-OP-G Mobility & Gait Start: 11/06/21 08:18 Freq: Status: Active Protocol: Document 11/06/21 11:17 [facility] (Rec: 11/10/21 08:55 [facility] [id number]) OP Gait Assessment Gait Gait Assistance Required: Independent Distance (Feet) 150 Assistive Devices Assistive Device Front Wheeled Walker Factors Limiting Gait Function Factors Limiting Gait Function Decreased Sensation,Decreased Strength Stair Climbing Evaluation Evaluation Level of Assist On Stairs Standby Assistance Devices Stair Climbing Assistive Devices Right Railing Technique/Endurance Stair Climbing Direction Descend Stair Climbing Technique Step to Step Number of Steps Climbed 4 Stair Climbing Set # Repetitions (reps) 1 PT-OP-H Neuro Start: 11/06/21 08:18 Freq: Status: Active Protocol: Document 11/06/21 11:17 [facility]AK (Rec: 11/10/21 08:55 [facility] [id number]) Sensation Evaluation Gross Sensation Gross Sensation Left LE Impaired Sensation Description Numbness PT-OP-K Range of Motion Start: 11/06/21 08:18 Freq: Status: Active Protocol: Document 11/06/21 11:17 SAK (Rec: 11/10/21 08:55 [facility] [id number]) Lumbar Spine Range of Motion Lumbar Spine Active ROM Limitations Soft Tissue Tightness,Pain Comments Mod decrease all motions Hip Goniometric Range of Motion Hip Active Hip ROM WFL No Flexion w/Knee Flexed 95 Straight Leg Raise 55 Extension 0 Abduction 35 Internal Rotation 10 External Rotation 40 Comments raúl Ankle and Foot Goniometric Range of Motion Ankle and Foot Left Active Comments lacking 10 deg from neutral df right Ankle/Foot ROM WFL Yes PT-OP-M Strength Start: 11/06/21 08:18 Freq: Status: Active Protocol: Document 11/06/21 11:17 [facility] (Rec: 11/10/21 08:55 [facility] [id number]) Trunk Strength Trunk Manual Muscle Testing Flexion 4- Good- Extension 3+ Fair+ Hip Strength Hip Manual Muscle Testing Left Flexion (L2) 4- Good- Extension (S1) 3 Fair Abduction 3+ Fair+ External Rotation 3+ Fair+ Internal Rotation 4- Good- Right Flexion (L2) 4 Good Extension (S1) 3+ Fair+ Abduction 3+ Fair+ External Rotation 4- Good- Internal Rotation 4 Good Knee Strength Knee Manual Muscle Testing Left Flexion (S2) 4 Good Extension (L3) 4 Good Right Flexion (S2) 5 Normal Extension (L3) 5 Normal Ankle/Foot Strength Ankle and Foot Manual Muscle Testing Left Dorsiflexion (L4) 2+ Poor+ Plantarflexion (S1) 3- Fair- Right Dorsiflexion (L4) 5 Normal Plantarflexion (S1) 5 Normal PT-OP-Q Treatments Start: 11/06/21 08:18 Freq: Status: Active Protocol: Document 11/13/21 08:12 [facility] (Rec: 11/13/21 08:59 [facility] [id number]) Cardio Equipment Treadmill Duration (Minutes) 6 Speed 1 Incline 0 Gym Equipment Shuttle Balance Red Details bal and wt shift fwd/bck, side Reps/Duration 6 mins Sport Cord cord green Exercise Details fwd, side Reps/Duration 10x,6x ea Comments cane 50% of time, CG to min assist for balance Therapeutic Exercises Sitting Exercises sit to stand Sitting Exercise Name elevated table Equipment Used ball between knees, no ball Reps/Minutes 10x, 5x Comments cues for hip hinge, neutral LE 's ball squeeze Equipment Used green ball Reps/Minutes 10x HS stretch Reps/Minutes 2x30 piriformis stretch Reps/Minutes 2x30 Standing Exercises HC stretch Reps/Minutes 2x30 Manual Therapy Treatment Soft Tissue Mobilization lumbar spine, left buttock Mobilization Type Myofascial Release,Sustained Pressure Intensity/Depth Moderate PT-OP-R Modalities Start: 11/06/21 08:18 Freq: Status: Active Protocol: Document 11/13/21 08:12 [facility] (Rec: 11/13/21 08:59 [facility] [id number]) Hot Pack/Cold Pack Treatment Hot Pack Location lumbar spine Patient Position Sidelying Treatment Duration (minutes) 15 PT-OP-T Assessment and Plan Start: 11/06/21 08:18 Freq: Status: Active Protocol: Document 11/13/21 08:12 [facility] (Rec: 11/13/21 08:59 [facility] [id number]) Physical Therapy Assessment Impairments Impairments Balance,Gait,Pain,Strength Goals Four Impairment LBP Impairment Oswestry disability index score 42% Product Assurance Engineer Goal (LTG) Decrease Oswestry disability index score to no greater than 30% LTG Duration 02/05/22 Three Impairment gait dysfunction Impairment step-to pattern on stairs, requires use of walker on level surfaces Product Assurance Engineer Goal (LTG) Patient will be able to ascend and descend stairs safetly with alternating step pattern and weigh least restrictive device on level surfaces at home and in the community LTG Duration 02/05/22 Two Impairment weakness left LE Short Term Goal (STG) Patient to be instructed in HEP for purposes of LE strengthening to support PT clinic activities STG Duration 12/23/21 Product Assurance Engineer Goal (LTG) Patient to be independent and compliant with HEP and demonstrate 1 grade muscle strength improvement throughout left LE LTG Duration 02/05/22 One Impairment balance dysfunction indicating high fall risk Impairment Cavanaugh balance score 36/56 Dynamic gait index 01/01 Short Term Goal (STG) Improve Cavanaugh balance and Dynamic gait index by 5 points as measure of improved functional balance and safety STG Duration 12/23/21 Product Assurance Engineer Goal (LTG) Improve Cavanaugh balance and Dynamic Gait index by 10 points as measure of improved functional balance and safety in the home and community LTG Duration 02/05/22 Assessment Summary Assessment Emphasis on flexibility and strengthening LE's, increased standing and closed chain ther ex. Frequent cues for LE alignment, core activation. Physical Therapy Plan Frequency and Duration Frequency of Treatment 2x/Week Duration of treatment (weeks) 12 Plan of Care Start Date 11/06/21 Plan of Care End Date 02/05/22 Therapeutic Interventions Therapeutic Interventions Aquatic Therapy,Balance Training,Gait Training,Home Exercise Program,Manual Therapy,Neuromuscular Re- education,Patient/Caregiver Education,Self-Care/Home Management,Soft Tissue Mobilization,Taping, Therapeutic Activities, Therapeutic Exercises Modalities Cold Pack/Ice Massage,Electric Stimulation,Hot Packs, Traction- Mechanical, Ultrasound Next Visit Focus/Plan Next Note Type Treatment Note Next Visit Plan Continue progressive ther ex for balance, functional strengthening, gait on uneven surfaces. Start with treadmill . Modalities and manual therapy PRN back pain.
--- NOTE | 2021-11-18 12:30 | PT.OTN ---
Current Diagnoses Other chronic pain (11/13/21) Sciatica, left side (11/13/21) Low back pain, unspecified (11/13/21) Paresthesia of skin (11/13/21) Other abnormalities of gait and mobility (11/13/21) Weakness (11/13/21) Physical Therapy Treatment Note PT-OP-A Visit Information Start: 11/06/21 08:18 Freq: Status: Active Protocol: Document 11/18/22 11:15 NB (Rec: 05/25/22 07:44 [facility] [id number]) Out-Patient Physical Therapy Visit Information Visit Information Visit Type Treatment Note Visit Start Time 11:15 Visit Stop Time 12:03 Total Visit Minutes 48 Visit Number 4 Number of PER DIEM Visits 1 Evaluation Information Evaluation Date 11/06/21 Precautions Precautions back pain with spinal stenosis , prostate cancer, cardiac disease PT-OP-B Current Condition Start: 11/06/21 08:18 Freq: Status: Active Protocol: Document 11/20/21 14:31 [facility]AK (Rec: 11/20/21 15:15 [facility] [id number]) Current Condition History of Current Condition Onset Date 2010 Current Complaints balance dysfunction History of Current Condition 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 Has fallen several times last probably 6 months ago. Reports drop foot. States he has gained weight and would like to lose weight as well. Also history of a tank falling on his back 1984 with 4 compression fractures. Reports his balance difficulty is his biggest concern. Prior Treatments and Tests History aortic valve replacement, raúl TKA, right RJ, cataract surgery with partial vision loss left ( upper and side), prostate cancer. Pain clinic not helpful, has seen neurologist Treatment Goals Patient/Caregiver Goals Improve balance, decrease neuropathy PT-OP-C Subjective Start: 11/06/21 08:18 Freq: Status: Active Protocol: Document 11/18/22 11:15 NB (Rec: 05/25/22 07:44 [facility] [id number]) OP-PT Subjective Patient Comments Patient Comments Pt reports treadmill made back feel better at home. They state L hip is very sore and they wonder if it's time for a total hip replacement. PT-OP-D Balance Start: 11/06/21 08:18 Freq: Status: Active Protocol: Document 11/06/21 11:17 [facility] (Rec: 11/10/21 08:55 [facility] [id number]) OP-PT Balance Assessment Sitting Balance Static Sitting Balance Ability Good Standing Balance Static Standing Balance Ability Fair Cavanaugh Balance Assessment Evaluation Sitting to Standing Ability Independent w/Hands Unsupported Stance Supervision- 2 minutes Sitting Unsupported, Feet on Floor Safely- 2 minutes Standing to Sitting Ability Safely, Minimal Hand Use Transfer Ability Safely, Hand Use Unsupported Stance- Eyes Closed Supervision, 10 seconds Unsupported Stance- Eyes Open Supervision to maintain Reaching Forward Standing Safely, 5 inches Pick- Up Object From Floor Supervision Look Behind Shoulder - Standing Shifts Weight Well Turning 360 Degrees Turns slowly, but safely Unsupported Stance, Alternating Feet on 2 Steps w/Minimum Assist Stair Unsupported Tandem Stance Balance Lost- Step/Stand Unilateral Leg Stance Unable,assist to not fall Total Score Cavanaugh Total Score (out of 56 points) 36 Taylor Fall Scale Copyright Permission PT-OP-E Functional Tests Start: 11/06/21 08:18 Freq: Status: Active Protocol: Document 11/06/21 11:17 [facility] (Rec: 11/10/21 08:55 [facility] [id number]) Functional Tests Dynamic Gait Index (DGI) Score 11 PT-OP-G Mobility & Gait Start: 11/06/21 08:18 Freq: Status: Active Protocol: Document 03/30/22 08:14 [facility] (Rec: 03/30/22 08:53 [facility] [id number]) Stair Climbing Evaluation Evaluation Level of Assist On Stairs Standby Assistance Devices Stair Climbing Assistive Devices Right Railing PT-OP-H Neuro Start: 11/06/21 08:18 Freq: Status: Active Protocol: Document 11/06/21 11:17 [facility] (Rec: 11/10/21 08:55 [facility] [id number]) Sensation Evaluation Gross Sensation Gross Sensation Left LE Impaired Sensation Description Numbness PT-OP-K Range of Motion Start: 11/06/21 08:18 Freq: Status: Active Protocol: Document 11/06/21 11:17 [facility] (Rec: 11/10/21 08:55 [facility] [id number]) Lumbar Spine Range of Motion Lumbar Spine Active ROM Limitations Soft Tissue Tightness,Pain Comments Mod decrease all motions Hip Goniometric Range of Motion Hip Active Hip ROM WFL No Flexion w/Knee Flexed 95 Straight Leg Raise 55 Extension 0 Abduction 35 Internal Rotation 10 External Rotation 40 Comments raúl Ankle and Foot Goniometric Range of Motion Ankle and Foot Left Active Comments lacking 10 deg from neutral df right Ankle/Foot ROM WFL Yes PT-OP-M Strength Start: 11/06/21 08:18 Freq: Status: Active Protocol: Document 11/06/21 11:17 [facility]AK (Rec: 11/10/21 08:55 [facility] [id number]) Trunk Strength Trunk Manual Muscle Testing Flexion 4- Good- Extension 3+ Fair+ Hip Strength Hip Manual Muscle Testing Left Flexion (L2) 4- Good- Extension (S1) 3 Fair Abduction 3+ Fair+ External Rotation 3+ Fair+ Internal Rotation 4- Good- Right Flexion (L2) 4 Good Extension (S1) 3+ Fair+ Abduction 3+ Fair+ External Rotation 4- Good- Internal Rotation 4 Good Knee Strength Knee Manual Muscle Testing Left Flexion (S2) 4 Good Extension (L3) 4 Good Right Flexion (S2) 5 Normal Extension (L3) 5 Normal Ankle/Foot Strength Ankle and Foot Manual Muscle Testing Left Dorsiflexion (L4) 2+ Poor+ Plantarflexion (S1) 3- Fair- Right Dorsiflexion (L4) 5 Normal Plantarflexion (S1) 5 Normal PT-OP-Q Treatments Start: 11/06/21 08:18 Freq: Status: Active Protocol: Document 11/18/22 11:15 [facility] (Rec: 05/25/22 07:44 [facility] [id number]) Cardio Equipment Treadmill Duration (Minutes) 5 Speed 1.0 Incline 0 Therapeutic Exercises Supine Exercises pelvic tilt Supine Exercise Name HEP 1. TrA focus 2. ball squeeze Reps/Minutes 10 x5 SH / 2-3 breaths Comments cues for not breatholding. Sitting Exercises HS stretch Sitting Exercise Name Seated HS stretch Side bilateral Reps/Minutes 2x30 Standing Exercises heel raise, toe raise Reps/Minutes 10x Comments max cues not to lean; limited DF improves w/ tactile cues; slow ecc. HC stretch Equipment Used HONORIO Reps/Minutes 2x30 Comments cues for hips fwd Neuro Re-Education Treatment Balance Activities SLS Details HEP Comments R leg back is less challengng PT-OP-R Modalities Start: 11/06/21 08:18 Freq: Status: Active Protocol: Document 03/30/22 08:14 [facility] (Rec: 03/30/22 08:53 [facility] [id number]) Spinal Traction Traction Treatment Lumbar Method Mechanical,Static Patient Position Hooklying Force Applied (Pounds) 66 Duration of Treatment (Minutes) 10 Heating Pad Applied No Traction Treatment Comment [facility] traction unit PT-OP-T Assessment and Plan Start: 11/06/21 08:18 Freq: Status: Active Protocol: Document 11/18/22 11:15 [facility] (Rec: 05/25/22 07:44 [facility] [id number]) Physical Therapy Assessment Impairments Impairments Balance,Gait,Pain,Strength Goals Four Impairment LBP Impairment Oswestry disability index score 42% Supervisor Special Education Goal (LTG) Decrease Oswestry disability index score to no greater than 30% 01/06/22: goal met LTG Duration goal met Three Impairment gait dysfunction Impairment step-to pattern on stairs, requires use of walker on level surfaces Supervisor Special Education Goal (LTG) Patient will be able to ascend and descend stairs safetly with alternating step pattern and weigh least restrictive device on level surfaces at home and in the community 01/06/22: goal met, able to do with SPC and railing LTG Duration goal met Two Impairment weakness left LE Short Term Goal (STG) Patient to be instructed in HEP for purposes of LE strengthening to support PT clinic activities STG Duration goal met Supervisor Special Education Goal (LTG) Patient to be independent and compliant with HEP and demonstrate 1 grade muscle strength improvement throughout left LE 01/06/22: good progress, except no change left ankle 02/16/22: no change in ankle 03/02/22: no further progress, patient reports earlier fatigue. LTG Duration goal met 03/30/22 One Impairment balance dysfunction indicating high fall risk Impairment Cavanaugh balance score 36/56 Dynamic gait index 01/01 Activitiesw Specific Balance Confidence (ABC ) scale 40% Short Term Goal (STG) Improve Cavanaugh balance and Dynamic gait index by 5 points as measure of improved functional balance and safety STG Duration goal met Supervisor Special Education Goal (LTG) Improve Cavanaugh balance and Dynamic Gait index by 10 points as measure of improved functional balance and safety in the home and community 01/06/22: good goal progress, has improved 5 points on Cavanaugh 02/16/22: Cavanaugh Balance score 38/ 56, Dynamic Gait Index , ABC 52.5% all improved 1/23/23: no further progress 03/30/22: Cavanaugh Balance score 40 /56 Dynamic GAit Indix LTG Duration 04/07/22 Assessment Summary Assessment Treatment focus on HEP review and core stability. Pt requires max cues not to lean w/ heel/toe raises but limited DF improves w/ tactile cues. Pt is more challenged w/ SLS R leg back than L. Pt requires cues not to hold breath with core ex's. Added to HEP: supine PPT w/ TrA focus and w/ ball squeeze. Physical Therapy Plan Frequency and Duration Frequency of Treatment 2x/Week Duration of treatment (weeks) 8 Plan of Care Start Date 02/16/22 Plan of Care End Date 04/07/22 Therapeutic Interventions Therapeutic Interventions Aquatic Therapy,Balance Training,Gait Training,Home Exercise Program,Manual Therapy,Neuromuscular Re- education,Patient/Caregiver Education,Self-Care/Home Management,Soft Tissue Mobilization,Taping, Therapeutic Activities, Therapeutic Exercises Modalities Cold Pack/Ice Massage,Electric Stimulation,Hot Packs, Traction- Mechanical, Ultrasound Discharge Physical Therapy Discharge Reasons Plateau in Progress Next Visit Focus/Plan Next Note Type Treatment Note Next Visit Plan Continue PT Per POC, assure patient went to pool for aquatic exercise and spinal decompression. Anticipate discharge to independent HEP, aquatic exercise, self- management.
--- NOTE | 2021-11-20 16:23 | PT.OTN ---
Current Diagnoses Other chronic pain (11/20/21) Sciatica, left side (11/20/21) Low back pain, unspecified (11/20/21) Paresthesia of skin (11/20/21) Other abnormalities of gait and mobility (11/20/21) Weakness (11/20/21) Physical Therapy Treatment Note PT-OP-A Visit Information Start: 11/06/21 08:18 Freq: Status: Active Protocol: Document 11/20/21 14:31 [facility] (Rec: 11/20/21 15:15 [facility] [id number]) Out-Patient Physical Therapy Visit Information Visit Information Visit Type Treatment Note Visit Start Time 02:31 Visit Stop Time 15:26 Total Visit Minutes 55 Visit Number 4 Precautions Precautions back pain with spinal stenosis , prostate cancer, cardiac disease PT-OP-B Current Condition Start: 11/06/21 08:18 Freq: Status: Active Protocol: Document 11/20/21 14:31 [facility]AK (Rec: 11/20/21 15:15 [facility] [id number]) Current Condition History of Current Condition Onset Date 2010 Current Complaints balance dysfunction History of Current Condition 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 Has fallen several times last probably 6 months ago. Reports drop foot. States he has gained weight and would like to lose weight as well. Also history of a tank falling on his back 1984 with 4 compression fractures. Reports his balance difficulty is his biggest concern. Prior Treatments and Tests History aortic valve replacement, raúl TKA, right RJ, cataract surgery with partial vision loss left ( upper and side), prostate cancer. Pain clinic not helpful, has seen neurologist Treatment Goals Patient/Caregiver Goals Improve balance, decrease neuropathy PT-OP-C Subjective Start: 11/06/21 08:18 Freq: Status: Active Protocol: Document 11/20/21 14:31 [facility] (Rec: 11/20/21 15:15 [facility] [id number]) OP-PT Subjective Patient Comments Patient Comments Feels better after PT. States woke up feeling pretty good but after doing his exercises had pain, not sure what may have caused it. Asked patient about sitting surface at home, admitted to seat sloping toward right due to leaning toward armrest and table. States I have been planning to put a pillow under the low side of the cushion or maybe even just get new ones. PT-OP-D Balance Start: 11/06/21 08:18 Freq: Status: Active Protocol: Document 11/06/21 11:17 [facility] (Rec: 11/10/21 08:55 [facility] [id number]) OP-PT Balance Assessment Sitting Balance Static Sitting Balance Ability Good Standing Balance Static Standing Balance Ability Fair Cavanaugh Balance Assessment Evaluation Sitting to Standing Ability Independent w/Hands Unsupported Stance Supervision- 2 minutes Sitting Unsupported, Feet on Floor Safely- 2 minutes Standing to Sitting Ability Safely, Minimal Hand Use Transfer Ability Safely, Hand Use Unsupported Stance- Eyes Closed Supervision, 10 seconds Unsupported Stance- Eyes Open Supervision to maintain Reaching Forward Standing Safely, 5 inches Pick- Up Object From Floor Supervision Look Behind Shoulder - Standing Shifts Weight Well Turning 360 Degrees Turns slowly, but safely Unsupported Stance, Alternating Feet on 2 Steps w/Minimum Assist Stair Unsupported Tandem Stance Balance Lost- Step/Stand Unilateral Leg Stance Unable,assist to not fall Total Score Cavanaugh Total Score (out of 56 points) 36 Taylor Fall Scale Copyright Permission PT-OP-E Functional Tests Start: 11/06/21 08:18 Freq: Status: Active Protocol: Document 11/06/21 11:17 [facility] (Rec: 11/10/21 08:55 [facility] [id number]) Functional Tests Dynamic Gait Index (DGI) Score 11 PT-OP-G Mobility & Gait Start: 11/06/21 08:18 Freq: Status: Active Protocol: Document 11/06/21 11:17 [facility] (Rec: 11/10/21 08:55 [facility] [id number]) OP Gait Assessment Gait Gait Assistance Required: Independent Distance (Feet) 150 Assistive Devices Assistive Device Front Wheeled Walker Factors Limiting Gait Function Factors Limiting Gait Function Decreased Sensation,Decreased Strength Stair Climbing Evaluation Evaluation Level of Assist On Stairs Standby Assistance Devices Stair Climbing Assistive Devices Right Railing Technique/Endurance Stair Climbing Direction Descend Stair Climbing Technique Step to Step Number of Steps Climbed 4 Stair Climbing Set # Repetitions (reps) 1 PT-OP-H Neuro Start: 11/06/21 08:18 Freq: Status: Active Protocol: Document 11/06/21 11:17 [facility]AK (Rec: 11/10/21 08:55 [facility] [id number]) Sensation Evaluation Gross Sensation Gross Sensation Left LE Impaired Sensation Description Numbness PT-OP-K Range of Motion Start: 11/06/21 08:18 Freq: Status: Active Protocol: Document 11/06/21 11:17 [facility] (Rec: 11/10/21 08:55 [facility] [id number]) Lumbar Spine Range of Motion Lumbar Spine Active ROM Limitations Soft Tissue Tightness,Pain Comments Mod decrease all motions Hip Goniometric Range of Motion Hip Active Hip ROM WFL No Flexion w/Knee Flexed 95 Straight Leg Raise 55 Extension 0 Abduction 35 Internal Rotation 10 External Rotation 40 Comments raúl Ankle and Foot Goniometric Range of Motion Ankle and Foot Left Active Comments lacking 10 deg from neutral df right Ankle/Foot ROM WFL Yes PT-OP-M Strength Start: 11/06/21 08:18 Freq: Status: Active Protocol: Document 11/06/21 11:17 [facility] (Rec: 11/10/21 08:55 [facility] [id number]) Trunk Strength Trunk Manual Muscle Testing Flexion 4- Good- Extension 3+ Fair+ Hip Strength Hip Manual Muscle Testing Left Flexion (L2) 4- Good- Extension (S1) 3 Fair Abduction 3+ Fair+ External Rotation 3+ Fair+ Internal Rotation 4- Good- Right Flexion (L2) 4 Good Extension (S1) 3+ Fair+ Abduction 3+ Fair+ External Rotation 4- Good- Internal Rotation 4 Good Knee Strength Knee Manual Muscle Testing Left Flexion (S2) 4 Good Extension (L3) 4 Good Right Flexion (S2) 5 Normal Extension (L3) 5 Normal Ankle/Foot Strength Ankle and Foot Manual Muscle Testing Left Dorsiflexion (L4) 2+ Poor+ Plantarflexion (S1) 3- Fair- Right Dorsiflexion (L4) 5 Normal Plantarflexion (S1) 5 Normal PT-OP-Q Treatments Start: 11/06/21 08:18 Freq: Status: Active Protocol: Document 11/20/21 14:31 [facility] (Rec: 11/20/21 15:15 [facility] [id number]) Cardio Equipment Treadmill Duration (Minutes) 6 Speed 1.4 Incline 0 Gym Equipment Shuttle Balance Red Details bal and wt shift fwd/bck, side Reps/Duration 6 mins Sport Cord cord green Exercise Details fwd, side Reps/Duration 10x,6x ea Comments cane 50% of time, CG to min assist for balance Therapeutic Exercises Supine Exercises segmental bridge Reps/Minutes 10x pelvic tilt Reps/Minutes 10x Sitting Exercises pelvic tilt Reps/Minutes 10x5 sit to stand Sitting Exercise Name standard height chair, then with 2 pillows added Equipment Used ball between knees Reps/Minutes 5 trials Comments unable keeping LE's neutral or ball in between legs HS stretch Reps/Minutes 2x30 piriformis stretch Reps/Minutes 2x30 Standing Exercises wall roll up Reps/Minutes 10x Comments feet away from wall, cues for PPT, segmental roll Manual Therapy Treatment Soft Tissue Mobilization lumbar spine, left buttock Comments instruction in self-massage with tennis ball; good understanding. Issue HO next session PT-OP-R Modalities Start: 11/06/21 08:18 Freq: Status: Active Protocol: Document 11/20/21 14:31 [facility] (Rec: 11/20/21 15:15 [facility] [id number]) Hot Pack/Cold Pack Treatment Hot Pack Location lumbar spine Patient Position Sitting Treatment Duration (minutes) 15 PT-OP-T Assessment and Plan Start: 11/06/21 08:18 Freq: Status: Active Protocol: Document 11/20/21 14:31 [facility] (Rec: 11/20/21 15:15 [facility] [id number]) Physical Therapy Assessment Impairments Impairments Balance,Gait,Pain,Strength Goals Four Impairment LBP Impairment Oswestry disability index score 42% Exhauster Engineer Goal (LTG) Decrease Oswestry disability index score to no greater than 30% LTG Duration 02/05/22 Three Impairment gait dysfunction Impairment step-to pattern on stairs, requires use of walker on level surfaces [facility] Goal (LTG) Patient will be able to ascend and descend stairs safetly with alternating step pattern and weigh least restrictive device on level surfaces at home and in the community LTG Duration 02/05/22 Two Impairment weakness left LE Short Term Goal (STG) Patient to be instructed in HEP for purposes of LE strengthening to support PT clinic activities STG Duration 12/23/21 [facility] Goal (LTG) Patient to be independent and compliant with HEP and demonstrate 1 grade muscle strength improvement throughout left LE LTG Duration 02/05/22 One Impairment balance dysfunction indicating high fall risk Impairment Cavanaugh balance score 36/56 Dynamic gait index 01/01 Short Term Goal (STG) Improve Cavanaugh balance and Dynamic gait index by 5 points as measure of improved functional balance and safety STG Duration 12/23/21 Exhauster Engineer Goal (LTG) Improve Cavanaugh balance and Dynamic Gait index by 10 points as measure of improved functional balance and safety in the home and community LTG Duration 02/05/22 Assessment Summary Assessment Improving understanding of postural habits and muscle imbalances contribution to pain. Improved understanding of PPT and able to perform in sitting and with wall roll-up. Difficulty with sit to stand unless abducts and ER at hips , will continue to work on this. Physical Therapy Plan Frequency and Duration Frequency of Treatment 2x/Week Duration of treatment (weeks) 12 Plan of Care Start Date 11/06/21 Plan of Care End Date 02/05/22 Therapeutic Interventions Therapeutic Interventions Aquatic Therapy,Balance Training,Gait Training,Home Exercise Program,Manual Therapy,Neuromuscular Re- education,Patient/Caregiver Education,Self-Care/Home Management,Soft Tissue Mobilization,Taping, Therapeutic Activities, Therapeutic Exercises Modalities Cold Pack/Ice Massage,Electric Stimulation,Hot Packs, Traction- Mechanical, Ultrasound Next Visit Focus/Plan Next Note Type Treatment Note Next Visit Plan Review neutral alignment, wall posture and wall roll up, continue sport cord with visual feedback, progression of sit to stand. Add shuttle leg press raúl and unil for LE strengthening. Dicuss whether patient modified recliner seat or looked into new chairs for improved sitting alignment.
--- NOTE | 2021-11-25 09:50 | PT.OTN ---
Current Diagnoses Other chronic pain (11/25/21) Sciatica, left side (11/25/21) Low back pain, unspecified (11/25/21) Paresthesia of skin (11/25/21) Other abnormalities of gait and mobility (11/25/21) Weakness (11/25/21) Physical Therapy Treatment Note PT-OP-A Visit Information Start: 11/06/21 08:18 Freq: Status: Active Protocol: Document 11/25/21 09:06 NBM (Rec: 11/25/21 09:46 NBM [id number]) Out-Patient Physical Therapy Visit Information Visit Information Visit Type Treatment Note Visit Start Time 09:05 Visit Stop Time 09:45 Total Visit Minutes 40 Visit Number 5 Number of WELDER FITTER Visits 1 PT-OP-B Current Condition Start: 11/06/21 08:18 Freq: Status: Active Protocol: Document 11/20/21 14:31 SAK (Rec: 11/20/21 15:15 SAK [id number]) Current Condition History of Current Condition Onset Date 2010 Current Complaints balance dysfunction History of Current Condition 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 Has fallen several times last probably 6 months ago. Reports drop foot. States he has gained weight and would like to lose weight as well. Also history of a tank falling on his back 1983 with 4 compression fractures. Reports his balance difficulty is his biggest concern. Prior Treatments and Tests History aortic valve replacement, raúl TKA, right RJ, cataract surgery with partial vision loss left ( upper and side), prostate cancer. Pain clinic not helpful, has seen neurologist Treatment Goals Patient/Caregiver Goals Improve balance, decrease neuropathy PT-OP-C Subjective Start: 11/06/21 08:18 Freq: Status: Active Protocol: Document 11/25/21 09:06 NBM (Rec: 11/25/21 09:46 NBM [id number]) OP-PT Subjective Patient Comments Patient Comments Pt states he put a cushion in his recliner seat and it made a lot of difference. Pt was cleaning deck yesterday and not as sore as he used to be. He sits and flattens his low back when it gets sore. PT-OP-D Balance Start: 11/06/21 08:18 Freq: Status: Active Protocol: Document 11/06/21 11:17 SAK (Rec: 11/10/21 08:55 [facility] [id number]) OP-PT Balance Assessment Sitting Balance Static Sitting Balance Ability Good Standing Balance Static Standing Balance Ability Fair Cavanaugh Balance Assessment Evaluation Sitting to Standing Ability Independent w/Hands Unsupported Stance Supervision- 2 minutes Sitting Unsupported, Feet on Floor Safely- 2 minutes Standing to Sitting Ability Safely, Minimal Hand Use Transfer Ability Safely, Hand Use Unsupported Stance- Eyes Closed Supervision, 10 seconds Unsupported Stance- Eyes Open Supervision to maintain Reaching Forward Standing Safely, 5 inches Pick- Up Object From Floor Supervision Look Behind Shoulder - Standing Shifts Weight Well Turning 360 Degrees Turns slowly, but safely Unsupported Stance, Alternating Feet on 2 Steps w/Minimum Assist Stair Unsupported Tandem Stance Balance Lost- Step/Stand Unilateral Leg Stance Unable,assist to not fall Total Score Cavanaugh Total Score (out of 56 points) 36 Taylor Fall Scale Copyright Permission PT-OP-E Functional Tests Start: 11/06/21 08:18 Freq: Status: Active Protocol: Document 11/06/21 11:17 [facility] (Rec: 11/10/21 08:55 [facility] [id number]) Functional Tests Dynamic Gait Index (DGI) Score 11 PT-OP-G Mobility & Gait Start: 11/06/21 08:18 Freq: Status: Active Protocol: Document 11/06/21 11:17 [facility] (Rec: 11/10/21 08:55 [facility] [id number]) OP Gait Assessment Gait Gait Assistance Required: Independent Distance (Feet) 150 Assistive Devices Assistive Device Front Wheeled Walker Factors Limiting Gait Function Factors Limiting Gait Function Decreased Sensation,Decreased Strength Stair Climbing Evaluation Evaluation Level of Assist On Stairs Standby Assistance Devices Stair Climbing Assistive Devices Right Railing Technique/Endurance Stair Climbing Direction Descend Stair Climbing Technique Step to Step Number of Steps Climbed 4 Stair Climbing Set # Repetitions (reps) 1 PT-OP-H Neuro Start: 11/06/21 08:18 Freq: Status: Active Protocol: Document 11/06/21 11:17 [facility] (Rec: 11/10/21 08:55 [facility] [id number]) Sensation Evaluation Gross Sensation Gross Sensation Left LE Impaired Sensation Description Numbness PT-OP-K Range of Motion Start: 11/06/21 08:18 Freq: Status: Active Protocol: Document 11/06/21 11:17 [facility] (Rec: 11/10/21 08:55 [facility] [id number]) Lumbar Spine Range of Motion Lumbar Spine Active ROM Limitations Soft Tissue Tightness,Pain Comments Mod decrease all motions Hip Goniometric Range of Motion Hip Active Hip ROM WFL No Flexion w/Knee Flexed 95 Straight Leg Raise 55 Extension 0 Abduction 35 Internal Rotation 10 External Rotation 40 Comments raúl Ankle and Foot Goniometric Range of Motion Ankle and Foot Left Active Comments lacking 10 deg from neutral df right Ankle/Foot ROM WFL Yes PT-OP-M Strength Start: 11/06/21 08:18 Freq: Status: Active Protocol: Document 11/06/21 11:17 [facility] (Rec: 11/10/21 08:55 [facility] [id number]) Trunk Strength Trunk Manual Muscle Testing Flexion 4- Good- Extension 3+ Fair+ Hip Strength Hip Manual Muscle Testing Left Flexion (L2) 4- Good- Extension (S1) 3 Fair Abduction 3+ Fair+ External Rotation 3+ Fair+ Internal Rotation 4- Good- Right Flexion (L2) 4 Good Extension (S1) 3+ Fair+ Abduction 3+ Fair+ External Rotation 4- Good- Internal Rotation 4 Good Knee Strength Knee Manual Muscle Testing Left Flexion (S2) 4 Good Extension (L3) 4 Good Right Flexion (S2) 5 Normal Extension (L3) 5 Normal Ankle/Foot Strength Ankle and Foot Manual Muscle Testing Left Dorsiflexion (L4) 2+ Poor+ Plantarflexion (S1) 3- Fair- Right Dorsiflexion (L4) 5 Normal Plantarflexion (S1) 5 Normal PT-OP-Q Treatments Start: 11/06/21 08:18 Freq: Status: Active Protocol: Document 11/25/21 09:06 MARGUERITE (Rec: 11/25/21 09:46 [facility] [id number]) Cardio Equipment Treadmill Duration (Minutes) 6 Speed 1.4 Incline 0 Gym Equipment Sport Cord cord green Exercise Details fwd, side Reps/Duration 10x,8x ea Comments CG to [place] for balance, no AD. one sitting rest break. cues for upright posture, controlled eccentric. Therapeutic Exercises Sitting Exercises pelvic tilt Reps/Minutes 10x5 sit to stand Sitting Exercise Name standard height chair Reps/Minutes trials - pt able to achieve stand ~50% Comments unable keeping LE's neutral Standing Exercises wall roll up Reps/Minutes 10x Comments feet away from wall, cues for PPT, segmental roll Self-Care/Home Management Treatment Education Patient Education Home Exercise Program Other Education self-STM w/ tennis ball - HO given PT-OP-R Modalities Start: 11/06/21 08:18 Freq: Status: Active Protocol: Document 11/20/21 14:31 SAK (Rec: 11/20/21 15:15 SAK [id number]) Hot Pack/Cold Pack Treatment Hot Pack Location lumbar spine Patient Position Sitting Treatment Duration (minutes) 15 PT-OP-T Assessment and Plan Start: 11/06/21 08:18 Freq: Status: Active Protocol: Document 11/25/21 09:06 NBM (Rec: 11/25/21 09:46 NBM [id number]) Physical Therapy Assessment Goals Four Impairment LBP Impairment Oswestry disability index score 42% Automotive Service Director Goal (LTG) Decrease Oswestry disability index score to no greater than 30% LTG Duration 02/05/22 Three Impairment gait dysfunction Impairment step-to pattern on stairs, requires use of walker on level surfaces Automotive Service Director Goal (LTG) Patient will be able to ascend and descend stairs safetly with alternating step pattern and weigh least restrictive device on level surfaces at home and in the community LTG Duration 02/05/22 Two Impairment weakness left LE Short Term Goal (STG) Patient to be instructed in HEP for purposes of LE strengthening to support PT clinic activities STG Duration 12/23/21 Mcc Goal (LTG) Patient to be independent and compliant with HEP and demonstrate 1 grade muscle strength improvement throughout left LE LTG Duration 02/05/22 One Impairment balance dysfunction indicating high fall risk Impairment Cavanaugh balance score 36/56 Dynamic gait index 01/01 Short Term Goal (STG) Improve Cavanaugh balance and Dynamic gait index by 5 points as measure of improved functional balance and safety STG Duration 12/23/21 Mcc Goal (LTG) Improve Cavanaugh balance and Dynamic Gait index by 10 points as measure of improved functional balance and safety in the home and community LTG Duration 02/05/22 Assessment Summary Assessment Pt tends to towards trunk flexion with fatigue and requires cues for upright posture. Pt is unable to achieve full upright posture with wall posture exercise due to thoracic kyphosis at this time and will benefit from cervical extensor strengthening. Pt demonstrates improved understanding of posterior pelvic tilt and core as well as improving postural awareness. Pt is unable to perform sit to stand w/out BLE external rotation and will benefit from continued skilled therapeutic intervention. Added to HEP: self-STM w/ tennis ball - HO given. Physical Therapy Plan Frequency and Duration Frequency of Treatment 2x/Week Duration of treatment (weeks) 12 Plan of Care Start Date 11/06/21 Plan of Care End Date 02/05/22 Therapeutic Interventions Therapeutic Interventions Aquatic Therapy,Balance Training,Gait Training,Home Exercise Program,Manual Therapy,Neuromuscular Re- education,Patient/Caregiver Education,Self-Care/Home Management,Soft Tissue Mobilization,Taping, Therapeutic Activities, Therapeutic Exercises Modalities Cold Pack/Ice Massage,Electric Stimulation,Hot Packs, Traction- Mechanical, Ultrasound Next Visit Focus/Plan Next Note Type Treatment Note Next Visit Plan Continue sport cord with visual feedback, progression of sit to stand. Add shuttle leg press raúl and unil for LE strengthening - consider LAQs for HEP.
--- NOTE | 2021-11-27 09:03 | PT.OTN ---
Current Diagnoses Other chronic pain (11/27/21) Sciatica, left side (11/27/21) Low back pain, unspecified (11/27/21) Paresthesia of skin (11/27/21) Other abnormalities of gait and mobility (11/27/21) Weakness (11/27/21) Physical Therapy Treatment Note PT-OP-A Visit Information Start: 11/06/21 08:18 Freq: Status: Active Protocol: Document 11/27/21 08:12 SAK (Rec: 11/27/21 09:03 [facility] [id number]) Out-Patient Physical Therapy Visit Information Visit Information Visit Type Treatment Note Visit Start Time 08:15 Visit Stop Time 09:00 Total Visit Minutes 40 Visit Number 6 Number of SECURITY OPERATIONS ENGINEER Visits 0 Precautions Precautions back pain with spinal stenosis , prostate cancer, cardiac disease PT-OP-B Current Condition Start: 11/06/21 08:18 Freq: Status: Active Protocol: Document 11/20/21 14:31 SAK (Rec: 11/20/21 15:15 SAK [id number]) Current Condition History of Current Condition Onset Date 2010 Current Complaints balance dysfunction History of Current Condition 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 Has fallen several times last probably 6 months ago. Reports drop foot. States he has gained weight and would like to lose weight as well. Also history of a tank falling on his back 1984 with 4 compression fractures. Reports his balance difficulty is his biggest concern. Prior Treatments and Tests History aortic valve replacement, raúl TKA, right RJ, cataract surgery with partial vision loss left ( upper and side), prostate cancer. Pain clinic not helpful, has seen neurologist Treatment Goals Patient/Caregiver Goals Improve balance, decrease neuropathy PT-OP-C Subjective Start: 11/06/21 08:18 Freq: Status: Active Protocol: Document 11/27/21 08:12 SAK (Rec: 11/27/21 09:03 SAK [id number]) OP-PT Subjective Patient Comments Patient Comments Less pain after putting new cushion in his chair. Used tennis ball at home with good tolerance PT-OP-D Balance Start: 11/06/21 08:18 Freq: Status: Active Protocol: Document 11/06/21 11:17 SAK (Rec: 11/10/21 08:55 SAK [id number]) OP-PT Balance Assessment Sitting Balance Static Sitting Balance Ability Good Standing Balance Static Standing Balance Ability Fair Cavanaugh Balance Assessment Evaluation Sitting to Standing Ability Independent w/Hands Unsupported Stance Supervision- 2 minutes Sitting Unsupported, Feet on Floor Safely- 2 minutes Standing to Sitting Ability Safely, Minimal Hand Use Transfer Ability Safely, Hand Use Unsupported Stance- Eyes Closed Supervision, 10 seconds Unsupported Stance- Eyes Open Supervision to maintain Reaching Forward Standing Safely, 5 inches Pick- Up Object From Floor Supervision Look Behind Shoulder - Standing Shifts Weight Well Turning 360 Degrees Turns slowly, but safely Unsupported Stance, Alternating Feet on 2 Steps w/Minimum Assist Stair Unsupported Tandem Stance Balance Lost- Step/Stand Unilateral Leg Stance Unable,assist to not fall Total Score Cavanaugh Total Score (out of 56 points) 36 Taylor Fall Scale Copyright Permission PT-OP-E Functional Tests Start: 11/06/21 08:18 Freq: Status: Active Protocol: Document 11/06/21 11:17 SAK (Rec: 11/10/21 08:55 [facility] [id number]) Functional Tests Dynamic Gait Index (DGI) Score 11 PT-OP-G Mobility & Gait Start: 11/06/21 08:18 Freq: Status: Active Protocol: Document 11/06/21 11:17 SAK (Rec: 11/10/21 08:55 [facility] [id number]) OP Gait Assessment Gait Gait Assistance Required: Independent Distance (Feet) 150 Assistive Devices Assistive Device Front Wheeled Walker Factors Limiting Gait Function Factors Limiting Gait Function Decreased Sensation,Decreased Strength Stair Climbing Evaluation Evaluation Level of Assist On Stairs Standby Assistance Devices Stair Climbing Assistive Devices Right Railing Technique/Endurance Stair Climbing Direction Descend Stair Climbing Technique Step to Step Number of Steps Climbed 4 Stair Climbing Set # Repetitions (reps) 1 PT-OP-H Neuro Start: 11/06/21 08:18 Freq: Status: Active Protocol: Document 11/06/21 11:17 SAK (Rec: 11/10/21 08:55 [facility] [id number]) Sensation Evaluation Gross Sensation Gross Sensation Left LE Impaired Sensation Description Numbness PT-OP-K Range of Motion Start: 11/06/21 08:18 Freq: Status: Active Protocol: Document 11/06/21 11:17 SAK (Rec: 11/10/21 08:55 [facility] [id number]) Lumbar Spine Range of Motion Lumbar Spine Active ROM Limitations Soft Tissue Tightness,Pain Comments Mod decrease all motions Hip Goniometric Range of Motion Hip Active Hip ROM WFL No Flexion w/Knee Flexed 95 Straight Leg Raise 55 Extension 0 Abduction 35 Internal Rotation 10 External Rotation 40 Comments raúl Ankle and Foot Goniometric Range of Motion Ankle and Foot Left Active Comments lacking 10 deg from neutral df right Ankle/Foot ROM WFL Yes PT-OP-M Strength Start: 11/06/21 08:18 Freq: Status: Active Protocol: Document 11/06/21 11:17 [facility] (Rec: 11/10/21 08:55 [facility] [id number]) Trunk Strength Trunk Manual Muscle Testing Flexion 4- Good- Extension 3+ Fair+ Hip Strength Hip Manual Muscle Testing Left Flexion (L2) 4- Good- Extension (S1) 3 Fair Abduction 3+ Fair+ External Rotation 3+ Fair+ Internal Rotation 4- Good- Right Flexion (L2) 4 Good Extension (S1) 3+ Fair+ Abduction 3+ Fair+ External Rotation 4- Good- Internal Rotation 4 Good Knee Strength Knee Manual Muscle Testing Left Flexion (S2) 4 Good Extension (L3) 4 Good Right Flexion (S2) 5 Normal Extension (L3) 5 Normal Ankle/Foot Strength Ankle and Foot Manual Muscle Testing Left Dorsiflexion (L4) 2+ Poor+ Plantarflexion (S1) 3- Fair- Right Dorsiflexion (L4) 5 Normal Plantarflexion (S1) 5 Normal PT-OP-Q Treatments Start: 11/06/21 08:18 Freq: Status: Active Protocol: Document 11/27/21 08:12 [facility] (Rec: 11/27/21 09:03 [facility] [id number]) Cardio Equipment Treadmill Duration (Minutes) 6 Speed 1.4 Incline 0 Gym Equipment Shuttle Recovery Unilateral Squats Resistance 37 Reps/Time 10x2 Bilateral Squats Resistance 62 Reps/Time 10x2 Shuttle Balance Red Details bal and wt shift fwd/bck, side Reps/Duration 7 mins Therapeutic Exercises Supine Exercises segmental bridge Reps/Minutes 10x pelvic tilt Reps/Minutes 5x Sitting Exercises seated march Equipment Used mat table, no back support Reps/Minutes 10x Comments cues for upright posture, core engagement LAQ Equipment Used mat table, no back support Reps/Minutes 10x Comments cues for upright posture, core engagement sit to stand Sitting Exercise Name standard height chair Reps/Minutes 10 trials - pt able to achieve stand 75% Comments improved LE alignment Neuro Re-Education Treatment Balance Activities tandem gait Comments trial, too fatigued pod balance Details EO walking Surface blue, green, b Reps/Duration 3 min Comments 1 railing, CGA PT-OP-R Modalities Start: 11/06/21 08:18 Freq: Status: Active Protocol: Document 11/20/21 14:31 SAK (Rec: 11/20/21 15:15 SAK [id number]) Hot Pack/Cold Pack Treatment Hot Pack Location lumbar spine Patient Position Sitting Treatment Duration (minutes) 15 PT-OP-T Assessment and Plan Start: 11/06/21 08:18 Freq: Status: Active Protocol: Document 11/27/21 08:12 SAK (Rec: 11/27/21 09:03 [facility] [id number]) Physical Therapy Assessment Impairments Impairments Balance,Gait,Pain,Strength Goals Four Impairment LBP Impairment Oswestry disability index score 42% Cleaner And Polisher Goal (LTG) Decrease Oswestry disability index score to no greater than 30% LTG Duration 02/05/22 Three Impairment gait dysfunction Impairment step-to pattern on stairs, requires use of walker on level surfaces Group Home Goal (LTG) Patient will be able to ascend and descend stairs safetly with alternating step pattern and weigh least restrictive device on level surfaces at home and in the community LTG Duration 02/05/22 Two Impairment weakness left LE Short Term Goal (STG) Patient to be instructed in HEP for purposes of LE strengthening to support PT clinic activities STG Duration 12/23/21 Group Home Goal (LTG) Patient to be independent and compliant with HEP and demonstrate 1 grade muscle strength improvement throughout left LE LTG Duration 02/05/22 One Impairment balance dysfunction indicating high fall risk Impairment Cavanaugh balance score 36/56 Dynamic gait index 01/01 Short Term Goal (STG) Improve Cavanaugh balance and Dynamic gait index by 5 points as measure of improved functional balance and safety STG Duration 12/23/21 Group Home Goal (LTG) Improve Cavanaugh balance and Dynamic Gait index by 10 points as measure of improved functional balance and safety in the home and community LTG Duration 02/05/22 Assessment Summary Assessment Patient needs frequent rest breaks with functional balance ex, too fatigued after treadmill, shuttle balance, and balance pods to do tandem gait. Good self-correction of posture with LAQ. Physical Therapy Plan Frequency and Duration Frequency of Treatment 2x/Week Duration of treatment (weeks) 12 Plan of Care Start Date 11/06/21 Plan of Care End Date 01/29/22 Therapeutic Interventions Therapeutic Interventions Aquatic Therapy,Balance Training,Gait Training,Home Exercise Program,Manual Therapy,Neuromuscular Re- education,Patient/Caregiver Education,Self-Care/Home Management,Soft Tissue Mobilization,Taping, Therapeutic Activities, Therapeutic Exercises Modalities Cold Pack/Ice Massage,Electric Stimulation,Hot Packs, Traction- Mechanical, Ultrasound Next Visit Focus/Plan Next Visit Plan Assess response to today's treatment with addition of leg press, inc balance challenges , LAQ.
--- NOTE | 2021-12-02 09:46 | PT.OTN ---
Current Diagnoses Other chronic pain (12/02/21) Sciatica, left side (12/02/21) Low back pain, unspecified (12/02/21) Paresthesia of skin (12/02/21) Other abnormalities of gait and mobility (12/02/21) Weakness (12/02/21) Physical Therapy Treatment Note PT-OP-A Visit Information Start: 11/06/21 08:18 Freq: Status: Active Protocol: Document 12/02/21 08:58 NBM (Rec: 12/02/21 09:46 NBM [id number]) Out-Patient Physical Therapy Visit Information Visit Information Visit Type Treatment Note Visit Start Time 09:00 Visit Stop Time 09:40 Total Visit Minutes 40 Visit Number 7 Number of COLLEGE ADMINISTRATOR Visits 1 Precautions Precautions back pain with spinal stenosis , prostate cancer, cardiac disease PT-OP-B Current Condition Start: 11/06/21 08:18 Freq: Status: Active Protocol: Document 11/20/21 14:31 SAK (Rec: 11/20/21 15:15 SAK [id number]) Current Condition History of Current Condition Onset Date 2010 Current Complaints balance dysfunction History of Current Condition 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 Has fallen several times last probably 6 months ago. Reports drop foot. States he has gained weight and would like to lose weight as well. Also history of a tank falling on his back 1984 with 4 compression fractures. Reports his balance difficulty is his biggest concern. Prior Treatments and Tests History aortic valve replacement, raúl TKA, right RJ, cataract surgery with partial vision loss left ( upper and side), prostate cancer. Pain clinic not helpful, has seen neurologist Treatment Goals Patient/Caregiver Goals Improve balance, decrease neuropathy PT-OP-C Subjective Start: 11/06/21 08:18 Freq: Status: Active Protocol: Document 12/02/21 08:58 NBM (Rec: 12/02/21 09:46 NBM [id number]) OP-PT Subjective Patient Comments Patient Comments Pt states he was sore and faiigued the day after the last visit I was pretty pooped out. but is not sure it was too much. His back was sore as usual. I feel pretty good after doing my exercises. Pt states he gets cramps sometimes in hamstrings with bridging. PT-OP-D Balance Start: 11/06/21 08:18 Freq: Status: Active Protocol: Document 11/06/21 11:17 SAK (Rec: 11/10/21 08:55 [facility] [id number]) OP-PT Balance Assessment Sitting Balance Static Sitting Balance Ability Good Standing Balance Static Standing Balance Ability Fair Cavanaugh Balance Assessment Evaluation Sitting to Standing Ability Independent w/Hands Unsupported Stance Supervision- 2 minutes Sitting Unsupported, Feet on Floor Safely- 2 minutes Standing to Sitting Ability Safely, Minimal Hand Use Transfer Ability Safely, Hand Use Unsupported Stance- Eyes Closed Supervision, 10 seconds Unsupported Stance- Eyes Open Supervision to maintain Reaching Forward Standing Safely, 5 inches Pick- Up Object From Floor Supervision Look Behind Shoulder - Standing Shifts Weight Well Turning 360 Degrees Turns slowly, but safely Unsupported Stance, Alternating Feet on 2 Steps w/Minimum Assist Stair Unsupported Tandem Stance Balance Lost- Step/Stand Unilateral Leg Stance Unable,assist to not fall Total Score Cavanaugh Total Score (out of 56 points) 36 Talyor Fall Scale Copyright Permission PT-OP-E Functional Tests Start: 11/06/21 08:18 Freq: Status: Active Protocol: Document 11/06/21 11:17 SAK (Rec: 11/10/21 08:55 [facility] [id number]) Functional Tests Dynamic Gait Index (DGI) Score 11 PT-OP-G Mobility & Gait Start: 11/06/21 08:18 Freq: Status: Active Protocol: Document 11/06/21 11:17 SAK (Rec: 11/10/21 08:55 [facility] [id number]) OP Gait Assessment Gait Gait Assistance Required: Independent Distance (Feet) 150 Assistive Devices Assistive Device Front Wheeled Walker Factors Limiting Gait Function Factors Limiting Gait Function Decreased Sensation,Decreased Strength Stair Climbing Evaluation Evaluation Level of Assist On Stairs Standby Assistance Devices Stair Climbing Assistive Devices Right Railing Technique/Endurance Stair Climbing Direction Descend Stair Climbing Technique Step to Step Number of Steps Climbed 4 Stair Climbing Set # Repetitions (reps) 1 PT-OP-H Neuro Start: 11/06/21 08:18 Freq: Status: Active Protocol: Document 11/06/21 11:17 SAK (Rec: 11/10/21 08:55 [facility] [id number]) Sensation Evaluation Gross Sensation Gross Sensation Left LE Impaired Sensation Description Numbness PT-OP-K Range of Motion Start: 11/06/21 08:18 Freq: Status: Active Protocol: Document 11/06/21 11:17 SAK (Rec: 11/10/21 08:55 [facility] [id number]) Lumbar Spine Range of Motion Lumbar Spine Active ROM Limitations Soft Tissue Tightness,Pain Comments Mod decrease all motions Hip Goniometric Range of Motion Hip Active Hip ROM WFL No Flexion w/Knee Flexed 95 Straight Leg Raise 55 Extension 0 Abduction 35 Internal Rotation 10 External Rotation 40 Comments raúl Ankle and Foot Goniometric Range of Motion Ankle and Foot Left Active Comments lacking 10 deg from neutral df right Ankle/Foot ROM WFL Yes PT-OP-M Strength Start: 11/06/21 08:18 Freq: Status: Active Protocol: Document 11/06/21 11:17 [facility] (Rec: 11/10/21 08:55 [facility] [id number]) Trunk Strength Trunk Manual Muscle Testing Flexion 4- Good- Extension 3+ Fair+ Hip Strength Hip Manual Muscle Testing Left Flexion (L2) 4- Good- Extension (S1) 3 Fair Abduction 3+ Fair+ External Rotation 3+ Fair+ Internal Rotation 4- Good- Right Flexion (L2) 4 Good Extension (S1) 3+ Fair+ Abduction 3+ Fair+ External Rotation 4- Good- Internal Rotation 4 Good Knee Strength Knee Manual Muscle Testing Left Flexion (S2) 4 Good Extension (L3) 4 Good Right Flexion (S2) 5 Normal Extension (L3) 5 Normal Ankle/Foot Strength Ankle and Foot Manual Muscle Testing Left Dorsiflexion (L4) 2+ Poor+ Plantarflexion (S1) 3- Fair- Right Dorsiflexion (L4) 5 Normal Plantarflexion (S1) 5 Normal PT-OP-Q Treatments Start: 11/06/21 08:18 Freq: Status: Active Protocol: Document 12/02/21 08:58 NBM (Rec: 12/02/21 09:46 NBM [id number]) Cardio Equipment Treadmill Duration (Minutes) 6 Speed 1.5 Incline 0 Gym Equipment Shuttle Recovery Unilateral Squats Resistance 37 Reps/Time 12x2 Bilateral Squats Details cues for knee alignment Resistance 62 Reps/Time 12x2 Therapeutic Exercises Sitting Exercises seated march Equipment Used mesh chair, no back support, mirror Reps/Minutes 10x Comments pt self-corrects for upright posture, hip rotation, core engagement LAQ Equipment Used mesh chair, no back support Reps/Minutes 10x Comments cues for upright posture, core engagement pelvic tilt Reps/Minutes 10x5 Comments cues for form, breathholding sit to stand Sitting Exercise Name standard height chair Reps/Minutes 10 trials - pt able to achieve stand 75% Comments improved LE alignment ball squeeze Equipment Used green ball Reps/Minutes 10x Comments vc upright posture, some raúl hip discomfort reported. HS stretch Reps/Minutes 2x30 Neuro Re-Education Treatment Balance Activities tandem gait Details fwd/bwd Surface firm Equipment // bars Reps/Duration 5 x 10ft ea Comments L challenged more than R w/ bwd, improves w/ cueing SLS Reps/Duration trials Comments raúl UE support prn, LLE more challenged than RLE PT-OP-R Modalities Start: 11/06/21 08:18 Freq: Status: Active Protocol: Document 11/20/21 14:31 SAK (Rec: 11/20/21 15:15 SAK [id number]) Hot Pack/Cold Pack Treatment Hot Pack Location lumbar spine Patient Position Sitting Treatment Duration (minutes) 15 PT-OP-T Assessment and Plan Start: 11/06/21 08:18 Freq: Status: Active Protocol: Document 12/02/21 08:58 NBM (Rec: 12/02/21 09:46 NBM [id number]) Physical Therapy Assessment Goals Four Impairment LBP Impairment Oswestry disability index score 42% Steward/Stewardess Room Goal (LTG) Decrease Oswestry disability index score to no greater than 30% LTG Duration 02/05/22 Three Impairment gait dysfunction Impairment step-to pattern on stairs, requires use of walker on level surfaces Alf Goal (LTG) Patient will be able to ascend and descend stairs safetly with alternating step pattern and weigh least restrictive device on level surfaces at home and in the community LTG Duration 02/05/22 Two Impairment weakness left LE Short Term Goal (STG) Patient to be instructed in HEP for purposes of LE strengthening to support PT clinic activities STG Duration 12/23/21 Steward/Stewardess Room Goal (LTG) Patient to be independent and compliant with HEP and demonstrate 1 grade muscle strength improvement throughout left LE LTG Duration 02/05/22 One Impairment balance dysfunction indicating high fall risk Impairment Cavanaugh balance score 36/56 Dynamic gait index 01/01 Short Term Goal (STG) Improve Cavanaugh balance and Dynamic gait index by 5 points as measure of improved functional balance and safety STG Duration 12/23/21 Steward/Stewardess Room Goal (LTG) Improve Cavanaugh balance and Dynamic Gait index by 10 points as measure of improved functional balance and safety in the home and community LTG Duration 02/05/22 Assessment Summary Assessment Pt demonstrates improved awareness of knee alignment w/ repetitions on the shuttle recovery and with LAQs. Pt self-corrects for upright posture throughout treatment session. Pt is able to perform Sit to Stand ~75% with cues for controlled eccentric. Pt will benefit from continued skilled physical therapy. Physical Therapy Plan Frequency and Duration Frequency of Treatment 2x/Week Duration of treatment (weeks) 12 Plan of Care Start Date 11/06/21 Plan of Care End Date 01/29/22 Therapeutic Interventions Therapeutic Interventions Aquatic Therapy,Balance Training,Gait Training,Home Exercise Program,Manual Therapy,Neuromuscular Re- education,Patient/Caregiver Education,Self-Care/Home Management,Soft Tissue Mobilization,Taping, Therapeutic Activities, Therapeutic Exercises Modalities Cold Pack/Ice Massage,Electric Stimulation,Hot Packs, Traction- Mechanical, Ultrasound Next Visit Focus/Plan Next Note Type Treatment Note Next Visit Plan Continue sport cord with visual feedback, progression of sit to stand. Continue supine IT band and HS stretches.
--- NOTE | 2021-12-04 09:03 | PT.OTN ---
Current Diagnoses Other chronic pain (12/04/21) Sciatica, left side (12/04/21) Low back pain, unspecified (12/04/21) Paresthesia of skin (12/04/21) Other abnormalities of gait and mobility (12/04/21) Weakness (12/04/21) Physical Therapy Treatment Note PT-OP-A Visit Information Start: 11/06/21 08:18 Freq: Status: Active Protocol: Document 12/04/21 08:15 SAK (Rec: 12/04/21 09:02 [facility] [id number]) Out-Patient Physical Therapy Visit Information Visit Information Visit Type Treatment Note Visit Start Time 08:16 Visit Stop Time 09:00 Total Visit Minutes 44 Visit Number 8 Number of WOUND CARE PHYSICIAN Visits 0 Precautions Precautions back pain with spinal stenosis , prostate cancer, cardiac disease PT-OP-B Current Condition Start: 11/06/21 08:18 Freq: Status: Active Protocol: Document 11/20/21 14:31 SAK (Rec: 11/20/21 15:15 SAK [id number]) Current Condition History of Current Condition Onset Date 2010 Current Complaints balance dysfunction History of Current Condition 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 Has fallen several times last probably 6 months ago. Reports drop foot. States he has gained weight and would like to lose weight as well. Also history of a tank falling on his back 1984 with 4 compression fractures. Reports his balance difficulty is his biggest concern. Prior Treatments and Tests History aortic valve replacement, raúl TKA, right RJ, cataract surgery with partial vision loss left ( upper and side), prostate cancer. Pain clinic not helpful, has seen neurologist Treatment Goals Patient/Caregiver Goals Improve balance, decrease neuropathy PT-OP-C Subjective Start: 11/06/21 08:18 Freq: Status: Active Protocol: Document 12/04/21 08:15 SAK (Rec: 12/04/21 09:02 SAK [id number]) OP-PT Subjective Patient Comments Patient Comments Has appointment with his doctor, wants to discuss SOB and possible x-ray for low back. Using heat quite a bit. States some days better than others with strength and balance. PT-OP-D Balance Start: 11/06/21 08:18 Freq: Status: Active Protocol: Document 11/06/21 11:17 SAK (Rec: 11/10/21 08:55 [facility] [id number]) OP-PT Balance Assessment Sitting Balance Static Sitting Balance Ability Good Standing Balance Static Standing Balance Ability Fair Cavanaugh Balance Assessment Evaluation Sitting to Standing Ability Independent w/Hands Unsupported Stance Supervision- 2 minutes Sitting Unsupported, Feet on Floor Safely- 2 minutes Standing to Sitting Ability Safely, Minimal Hand Use Transfer Ability Safely, Hand Use Unsupported Stance- Eyes Closed Supervision, 10 seconds Unsupported Stance- Eyes Open Supervision to maintain Reaching Forward Standing Safely, 5 inches Pick- Up Object From Floor Supervision Look Behind Shoulder - Standing Shifts Weight Well Turning 360 Degrees Turns slowly, but safely Unsupported Stance, Alternating Feet on 2 Steps w/Minimum Assist Stair Unsupported Tandem Stance Balance Lost- Step/Stand Unilateral Leg Stance Unable,assist to not fall Total Score Cavanaugh Total Score (out of 56 points) 36 Taylor Fall Scale Copyright Permission PT-OP-E Functional Tests Start: 11/06/21 08:18 Freq: Status: Active Protocol: Document 11/06/21 11:17 [facility] (Rec: 11/10/21 08:55 [facility] [id number]) Functional Tests Dynamic Gait Index (DGI) Score 11 PT-OP-G Mobility & Gait Start: 11/06/21 08:18 Freq: Status: Active Protocol: Document 11/06/21 11:17 [facility] (Rec: 11/10/21 08:55 [facility] [id number]) OP Gait Assessment Gait Gait Assistance Required: Independent Distance (Feet) 150 Assistive Devices Assistive Device Front Wheeled Walker Factors Limiting Gait Function Factors Limiting Gait Function Decreased Sensation,Decreased Strength Stair Climbing Evaluation Evaluation Level of Assist On Stairs Standby Assistance Devices Stair Climbing Assistive Devices Right Railing Technique/Endurance Stair Climbing Direction Descend Stair Climbing Technique Step to Step Number of Steps Climbed 4 Stair Climbing Set # Repetitions (reps) 1 PT-OP-H Neuro Start: 11/06/21 08:18 Freq: Status: Active Protocol: Document 11/06/21 11:17 [facility] (Rec: 11/10/21 08:55 [facility] [id number]) Sensation Evaluation Gross Sensation Gross Sensation Left LE Impaired Sensation Description Numbness PT-OP-K Range of Motion Start: 11/06/21 08:18 Freq: Status: Active Protocol: Document 11/06/21 11:17 [facility] (Rec: 11/10/21 08:55 [facility] [id number]) Lumbar Spine Range of Motion Lumbar Spine Active ROM Limitations Soft Tissue Tightness,Pain Comments Mod decrease all motions Hip Goniometric Range of Motion Hip Active Hip ROM WFL No Flexion w/Knee Flexed 95 Straight Leg Raise 55 Extension 0 Abduction 35 Internal Rotation 10 External Rotation 40 Comments raúl Ankle and Foot Goniometric Range of Motion Ankle and Foot Left Active Comments lacking 10 deg from neutral df right Ankle/Foot ROM WFL Yes PT-OP-M Strength Start: 11/06/21 08:18 Freq: Status: Active Protocol: Document 11/06/21 11:17 [facility] (Rec: 11/10/21 08:55 [facility] [id number]) Trunk Strength Trunk Manual Muscle Testing Flexion 4- Good- Extension 3+ Fair+ Hip Strength Hip Manual Muscle Testing Left Flexion (L2) 4- Good- Extension (S1) 3 Fair Abduction 3+ Fair+ External Rotation 3+ Fair+ Internal Rotation 4- Good- Right Flexion (L2) 4 Good Extension (S1) 3+ Fair+ Abduction 3+ Fair+ External Rotation 4- Good- Internal Rotation 4 Good Knee Strength Knee Manual Muscle Testing Left Flexion (S2) 4 Good Extension (L3) 4 Good Right Flexion (S2) 5 Normal Extension (L3) 5 Normal Ankle/Foot Strength Ankle and Foot Manual Muscle Testing Left Dorsiflexion (L4) 2+ Poor+ Plantarflexion (S1) 3- Fair- Right Dorsiflexion (L4) 5 Normal Plantarflexion (S1) 5 Normal PT-OP-Q Treatments Start: 11/06/21 08:18 Freq: Status: Active Protocol: Document 12/04/21 08:15 [facility] (Rec: 12/04/21 09:02 [facility] [id number]) Cardio Equipment Treadmill Duration (Minutes) 7 Speed 1.5 Incline 0 Other cues for posture Gym Equipment Shuttle Recovery Unilateral Squats Resistance 37 Reps/Time 12x2 Bilateral Squats Details cues for knee alignment Resistance 75 Reps/Time 12x2 Therapeutic Exercises Supine Exercises segmental bridge Reps/Minutes 10x pelvic tilt Reps/Minutes 5x Sitting Exercises LAQ Equipment Used hi-low table, Dynadisc Reps/Minutes 10x Comments cues for upright posture, core engagement pelvic tilt Reps/Minutes 10x5 Comments cues for form, breathholding sit to stand Sitting Exercise Name hi low table, decreasing height to min 19 Reps/Minutes 10 trials - pt able to achieve stand 75% Comments improved LE alignment HS stretch Reps/Minutes 2x30 Standing Exercises weight shifts Standing Exercise Name lateral, fwd/bck Reps/Minutes 5x ea Comments feet together, CG to min assist resisted sidestep Equipment Used L2 TB at umbilicus Reps/Minutes 10x raúl Comments cues for core engagement, alignment shoulder ext Resistance L2 Reps/Minutes 10x Neuro Re-Education Treatment Balance Activities tandem gait Details fwd/bwd Surface firm Equipment // bars Reps/Duration 5 x 10ft ea Comments L challenged more than R w/ bwd, improves w/ cueing balance pods Details blue, green, black Reps/Duration 4x Comments plus 2 hurdles, 4 box at bar; patient unable to do without UE support PT-OP-R Modalities Start: 11/06/21 08:18 Freq: Status: Active Protocol: Document 11/20/21 14:31 SAK (Rec: 11/20/21 15:15 SAK [id number]) Hot Pack/Cold Pack Treatment Hot Pack Location lumbar spine Patient Position Sitting Treatment Duration (minutes) 15 PT-OP-T Assessment and Plan Start: 11/06/21 08:18 Freq: Status: Active Protocol: Document 12/04/21 08:15 SAK (Rec: 12/04/21 09:02 [facility] [id number]) Physical Therapy Assessment Goals Four Impairment LBP Impairment Oswestry disability index score 42% Brake Rider Goal (LTG) Decrease Oswestry disability index score to no greater than 30% LTG Duration 02/05/22 Three Impairment gait dysfunction Impairment step-to pattern on stairs, requires use of walker on level surfaces Longterm Goal (LTG) Patient will be able to ascend and descend stairs safetly with alternating step pattern and weigh least restrictive device on level surfaces at home and in the community LTG Duration 02/05/22 Two Impairment weakness left LE Short Term Goal (STG) Patient to be instructed in HEP for purposes of LE strengthening to support PT clinic activities STG Duration 12/23/21 Brake Rider Goal (LTG) Patient to be independent and compliant with HEP and demonstrate 1 grade muscle strength improvement throughout left LE LTG Duration 02/05/22 One Impairment balance dysfunction indicating high fall risk Impairment Cavanaugh balance score 36/56 Dynamic gait index 01/01 Short Term Goal (STG) Improve Cavanaugh balance and Dynamic gait index by 5 points as measure of improved functional balance and safety STG Duration 12/23/21 Brake Rider Goal (LTG) Improve Cavanaugh balance and Dynamic Gait index by 10 points as measure of improved functional balance and safety in the home and community LTG Duration 02/05/22 Assessment Summary Assessment Able to increase resistance on raúl LE shuttle leg press. Improved sit to stand with increased emphas on hip hinge sitting down, improved safety. Patient neuropathy impacts balance. Physical Therapy Plan Frequency and Duration Frequency of Treatment 2x/Week Duration of treatment (weeks) 12 Plan of Care Start Date 11/06/21 Plan of Care End Date 01/29/22 Therapeutic Interventions Therapeutic Interventions Aquatic Therapy,Balance Training,Gait Training,Home Exercise Program,Manual Therapy,Neuromuscular Re- education,Patient/Caregiver Education,Self-Care/Home Management,Soft Tissue Mobilization,Taping, Therapeutic Activities, Therapeutic Exercises Modalities Cold Pack/Ice Massage,Electric Stimulation,Hot Packs, Traction- Mechanical, Ultrasound Next Visit Focus/Plan Next Note Type Treatment Note Next Visit Plan Continue sport cord with visual feedback, progression of sit to stand. Continue supine IT band and HS stretches.
--- NOTE | 2021-12-15 16:38 | PT.OTN ---
Current Diagnoses Other chronic pain (12/15/21) Sciatica, left side (12/15/21) Low back pain, unspecified (12/15/21) Paresthesia of skin (12/15/21) Other abnormalities of gait and mobility (12/15/21) Weakness (12/15/21) Physical Therapy Treatment Note PT-OP-A Visit Information Start: 11/06/21 08:18 Freq: Status: Active Protocol: Document 12/15/21 16:31 [facility] (Rec: 12/15/21 16:38 [facility] [id number]) Out-Patient Physical Therapy Visit Information Visit Information Visit Type Treatment Note Visit Start Time 11:00 Visit Stop Time 11:45 Total Visit Minutes 45 Visit Number 9 Number of GUEST SERVICES Visits 0 Precautions Precautions back pain with spinal stenosis , prostate cancer, cardiac disease PT-OP-B Current Condition Start: 11/06/21 08:18 Freq: Status: Active Protocol: Document 11/20/21 14:31 [facility] (Rec: 11/20/21 15:15 [facility] [id number]) Current Condition History of Current Condition Onset Date 2010 Current Complaints balance dysfunction History of Current Condition 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 Has fallen several times last probably 6 months ago. Reports drop foot. States he has gained weight and would like to lose weight as well. Also history of a tank falling on his back 1984 with 4 compression fractures. Reports his balance difficulty is his biggest concern. Prior Treatments and Tests History aortic valve replacement, raúl TKA, right RJ, cataract surgery with partial vision loss left ( upper and side), prostate cancer. Pain clinic not helpful, has seen neurologist Treatment Goals Patient/Caregiver Goals Improve balance, decrease neuropathy PT-OP-C Subjective Start: 11/06/21 08:18 Freq: Status: Active Protocol: Document 12/15/21 16:31 [facility] (Rec: 12/15/21 16:38 [facility] [id number]) OP-PT Subjective Patient Comments Patient Comments Ready to try aquatic PT, been a long time since he was in a pool. PT-OP-D Balance Start: 11/06/21 08:18 Freq: Status: Active Protocol: Document 11/06/21 11:17 [facility] (Rec: 11/10/21 08:55 [facility] [id number]) OP-PT Balance Assessment Sitting Balance Static Sitting Balance Ability Good Standing Balance Static Standing Balance Ability Fair Cavanaugh Balance Assessment Evaluation Sitting to Standing Ability Independent w/Hands Unsupported Stance Supervision- 2 minutes Sitting Unsupported, Feet on Floor Safely- 2 minutes Standing to Sitting Ability Safely, Minimal Hand Use Transfer Ability Safely, Hand Use Unsupported Stance- Eyes Closed Supervision, 10 seconds Unsupported Stance- Eyes Open Supervision to maintain Reaching Forward Standing Safely, 5 inches Pick- Up Object From Floor Supervision Look Behind Shoulder - Standing Shifts Weight Well Turning 360 Degrees Turns slowly, but safely Unsupported Stance, Alternating Feet on 2 Steps w/Minimum Assist Stair Unsupported Tandem Stance Balance Lost- Step/Stand Unilateral Leg Stance Unable,assist to not fall Total Score Cavnaaugh Total Score (out of 56 points) 36 Taylor Fall Scale Copyright Permission PT-OP-E Functional Tests Start: 11/06/21 08:18 Freq: Status: Active Protocol: Document 11/06/21 11:17 [facility] (Rec: 11/10/21 08:55 [facility] [id number]) Functional Tests Dynamic Gait Index (DGI) Score 11 PT-OP-G Mobility & Gait Start: 11/06/21 08:18 Freq: Status: Active Protocol: Document 11/06/21 11:17 [facility] (Rec: 11/10/21 08:55 [facility] [id number]) OP Gait Assessment Gait Gait Assistance Required: Independent Distance (Feet) 150 Assistive Devices Assistive Device Front Wheeled Walker Factors Limiting Gait Function Factors Limiting Gait Function Decreased Sensation,Decreased Strength Stair Climbing Evaluation Evaluation Level of Assist On Stairs Standby Assistance Devices Stair Climbing Assistive Devices Right Railing Technique/Endurance Stair Climbing Direction Descend Stair Climbing Technique Step to Step Number of Steps Climbed 4 Stair Climbing Set # Repetitions (reps) 1 PT-OP-H Neuro Start: 11/06/21 08:18 Freq: Status: Active Protocol: Document 11/06/21 11:17 [facility] (Rec: 11/10/21 08:55 [facility] [id number]) Sensation Evaluation Gross Sensation Gross Sensation Left LE Impaired Sensation Description Numbness PT-OP-K Range of Motion Start: 11/06/21 08:18 Freq: Status: Active Protocol: Document 11/06/21 11:17 [facility] (Rec: 11/10/21 08:55 [facility] [id number]) Lumbar Spine Range of Motion Lumbar Spine Active ROM Limitations Soft Tissue Tightness,Pain Comments Mod decrease all motions Hip Goniometric Range of Motion Hip Active Hip ROM WFL No Flexion w/Knee Flexed 95 Straight Leg Raise 55 Extension 0 Abduction 35 Internal Rotation 10 External Rotation 40 Comments raúl Ankle and Foot Goniometric Range of Motion Ankle and Foot Left Active Comments lacking 10 deg from neutral df right Ankle/Foot ROM WFL Yes PT-OP-M Strength Start: 11/06/21 08:18 Freq: Status: Active Protocol: Document 11/06/21 11:17 [facility] (Rec: 11/10/21 08:55 [facility] [id number]) Trunk Strength Trunk Manual Muscle Testing Flexion 4- Good- Extension 3+ Fair+ Hip Strength Hip Manual Muscle Testing Left Flexion (L2) 4- Good- Extension (S1) 3 Fair Abduction 3+ Fair+ External Rotation 3+ Fair+ Internal Rotation 4- Good- Right Flexion (L2) 4 Good Extension (S1) 3+ Fair+ Abduction 3+ Fair+ External Rotation 4- Good- Internal Rotation 4 Good Knee Strength Knee Manual Muscle Testing Left Flexion (S2) 4 Good Extension (L3) 4 Good Right Flexion (S2) 5 Normal Extension (L3) 5 Normal Ankle/Foot Strength Ankle and Foot Manual Muscle Testing Left Dorsiflexion (L4) 2+ Poor+ Plantarflexion (S1) 3- Fair- Right Dorsiflexion (L4) 5 Normal Plantarflexion (S1) 5 Normal PT-OP-Q Treatments Start: 11/06/21 08:18 Freq: Status: Active Protocol: Document 12/04/21 08:15 [facility] (Rec: 12/04/21 09:02 [facility] [id number]) Cardio Equipment Treadmill Duration (Minutes) 7 Speed 1.5 Incline 0 Other cues for posture Gym Equipment Shuttle Recovery Unilateral Squats Resistance 37 Reps/Time 12x2 Bilateral Squats Details cues for knee alignment Resistance 75 Reps/Time 12x2 Therapeutic Exercises Supine Exercises segmental bridge Reps/Minutes 10x pelvic tilt Reps/Minutes 5x Sitting Exercises LAQ Equipment Used hi-low table, Dynadisc Reps/Minutes 10x Comments cues for upright posture, core engagement pelvic tilt Reps/Minutes 10x5 Comments cues for form, breathholding sit to stand Sitting Exercise Name hi low table, decreasing height to min 19 Reps/Minutes 10 trials - pt able to achieve stand 75% Comments improved LE alignment HS stretch Reps/Minutes 2x30 Standing Exercises weight shifts Standing Exercise Name lateral, fwd/bck Reps/Minutes 5x ea Comments feet together, CG to min assist resisted sidestep Equipment Used L2 TB at umbilicus Reps/Minutes 10x raúl Comments cues for core engagement, alignment shoulder ext Resistance L2 Reps/Minutes 10x Neuro Re-Education Treatment Balance Activities tandem gait Details fwd/bwd Surface firm Equipment // bars Reps/Duration 5 x 10ft ea Comments L challenged more than R w/ bwd, improves w/ cueing balance pods Details blue, green, black Reps/Duration 4x Comments plus 2 hurdles, 4 box at bar; patient unable to do without UE support PT-OP-R Modalities Start: 11/06/21 08:18 Freq: Status: Active Protocol: Document 11/20/21 14:31 [facility] (Rec: 11/20/21 15:15 [facility] [id number]) Hot Pack/Cold Pack Treatment Hot Pack Location lumbar spine Patient Position Sitting Treatment Duration (minutes) 15 PT-OP-S Aquatic Treatment Start: 11/06/21 08:25 Freq: Status: Active Protocol: Document 12/15/21 16:31 [facility] (Rec: 12/15/21 16:38 [facility] [id number]) Aquatics Treatment Pool Entry/Exit Pool Entry/Exit Method Stairs Assistance Independent Water Walking Monster Walk Water Level Chest Level Level of Assistance Verbal Cues Lunge Walk Water Level Chest Level Level of Assistance Contact Guard Assistance, Verbal Cues [place] March Water Level Chest Level Level of Assistance Verbal Cues Marching Water Level Chest Level Level of Assistance Verbal Cues Sideways Water Level Chest Level Level of Assistance Verbal Cues Backwards Water Level Chest Level Level of Assistance Verbal Cues forward Water Level Chest Level Level of Assistance Verbal Cues Lower Extremity Exercises toe raise Body Position Standing Comments next session heel raise Body Position Standing Comments next session squats Comments next session hip ab/ad Body Position Standing Water Level Chest Level Comments unil UE support knee flex/ext Reps/Duration 10x Comments unil UE support Lower Extremity Stretches IT band Body Position Standing Water Level Chest Level Equipment Small Noodle HS Body Position Standing Water Level Chest Level Equipment Small Noodle Chandler Activities Chandler Activities Bicycle Equipment large noodle in front Duration 5 min x 2 PT-OP-T Assessment and Plan Start: 11/06/21 08:18 Freq: Status: Active Protocol: Document 12/15/21 16:31 [facility] (Rec: 12/15/21 16:38 [facility] [id number]) Physical Therapy Assessment Impairments Impairments Balance,Gait,Pain,Strength Goals Four Impairment LBP Impairment Oswestry disability index score 42% Mcc Goal (LTG) Decrease Oswestry disability index score to no greater than 30% LTG Duration 02/05/22 Three Impairment gait dysfunction Impairment step-to pattern on stairs, requires use of walker on level surfaces Mcc Goal (LTG) Patient will be able to ascend and descend stairs safetly with alternating step pattern and weigh least restrictive device on level surfaces at home and in the community LTG Duration 02/05/22 Two Impairment weakness left LE Short Term Goal (STG) Patient to be instructed in HEP for purposes of LE strengthening to support PT clinic activities STG Duration 12/23/21 Partner Integration Planner Goal (LTG) Patient to be independent and compliant with HEP and demonstrate 1 grade muscle strength improvement throughout left LE LTG Duration 02/05/22 One Impairment balance dysfunction indicating high fall risk Impairment Cavanaugh balance score 36/56 Dynamic gait index 01/01 Short Term Goal (STG) Improve Cavanaugh balance and Dynamic gait index by 5 points as measure of improved functional balance and safety STG Duration 12/23/21 Mcc Goal (LTG) Improve Cavanaugh balance and Dynamic Gait index by 10 points as measure of improved functional balance and safety in the home and community LTG Duration 02/05/22 Assessment Summary Assessment Good tolerance for aquatic therapy exercises but with need for UE support in unilateral stance. Was able to do walking drills without UE support though with lunge walk min assist/tactile cues required for safety Physical Therapy Plan Frequency and Duration Frequency of Treatment 2x/Week Duration of treatment (weeks) 12 Plan of Care Start Date 11/06/21 Plan of Care End Date 01/29/22 Therapeutic Interventions Therapeutic Interventions Aquatic Therapy,Balance Training,Gait Training,Home Exercise Program,Manual Therapy,Neuromuscular Re- education,Patient/Caregiver Education,Self-Care/Home Management,Soft Tissue Mobilization,Taping, Therapeutic Activities, Therapeutic Exercises Modalities Cold Pack/Ice Massage,Electric Stimulation,Hot Packs, Traction- Mechanical, Ultrasound Next Visit Focus/Plan Next Note Type Treatment Note Next Visit Plan clinic: Continue sport cord with visual feedback, progression of sit to stand. Continue supine IT band and HS stretches. aquatic: progression of ther ex for balance, strengthening, flexibility
--- NOTE | 2021-12-16 08:57 | PT.OTN ---
Addendum entered and electronically signed by Clyde Whittington 12/16/21 16:22: PROGRESS NOTE NEXT VISIT. Filed incident report for fall on 12/16/21. Original Note: Current Diagnoses Other chronic pain (12/16/21) Sciatica, left side (12/16/21) Low back pain, unspecified (12/16/21) Paresthesia of skin (12/16/21) Other abnormalities of gait and mobility (12/16/21) Weakness (12/16/21) Physical Therapy Treatment Note PT-OP-A Visit Information Start: 11/06/21 08:18 Freq: Status: Active Protocol: Document 12/16/21 08:06 TS (Rec: 12/16/21 09:00 TS [id number]) Out-Patient Physical Therapy Visit Information Visit Information Visit Type Treatment Note Visit Note SPTA clyde lead treatment supervised by WILBER Gray. 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 Has fallen several times last probably 6 months ago. Reports drop foot. States he has gained weight and would like to lose weight as well. Also history of a tank falling on his back 1983 with 4 compression fractures. Reports his balance difficulty is his biggest concern. Prior Treatments and Tests History aortic valve replacement, raúl TKA, right RJ, cataract surgery with partial vision loss left ( upper and side), prostate cancer. Pain clinic not helpful, has seen neurologist Treatment Goals Patient/Caregiver Goals Improve balance, decrease neuropathy PT-OP-C Subjective Start: 11/06/21 08:18 Freq: Status: Active Protocol: Document 12/16/21 08:06 TS (Rec: 12/16/21 09:00 TS [id number]) OP-PT Subjective Patient Comments Patient Comments Pt had aquatic PT yesterday, reported he felt good but was tired and had some discomfort in his left hip. PT-OP-D Balance Start: 11/06/21 08:18 Freq: Status: Active Protocol: Document 11/06/21 11:17 [facility] (Rec: 11/10/21 08:55 [facility] [id number]) OP-PT Balance Assessment Sitting Balance Static Sitting Balance Ability Good Standing Balance Static Standing Balance Ability Fair Cavanaugh Balance Assessment Evaluation Sitting to Standing Ability Independent w/Hands Unsupported Stance Supervision- 2 minutes Sitting Unsupported, Feet on Floor Safely- 2 minutes Standing to Sitting Ability Safely, Minimal Hand Use Transfer Ability Safely, Hand Use Unsupported Stance- Eyes Closed Supervision, 10 seconds Unsupported Stance- Eyes Open Supervision to maintain Reaching Forward Standing Safely, 5 inches Pick- Up Object From Floor Supervision Look Behind Shoulder - Standing Shifts Weight Well Turning 360 Degrees Turns slowly, but safely Unsupported Stance, Alternating Feet on 2 Steps w/Minimum Assist Stair Unsupported Tandem Stance Balance Lost- Step/Stand Unilateral Leg Stance Unable,assist to not fall Total Score Cavanaugh Total Score (out of 56 points) 36 Taylor Fall Scale Copyright Permission PT-OP-E Functional Tests Start: 11/06/21 08:18 Freq: Status: Active Protocol: Document 11/06/21 11:17 [facility] (Rec: 11/10/21 08:55 [facility] [id number]) Functional Tests Dynamic Gait Index (DGI) Score 11 PT-OP-G Mobility & Gait Start: 11/06/21 08:18 Freq: Status: Active Protocol: Document 11/06/21 11:17 [facility] (Rec: 11/10/21 08:55 [facility] [id number]) OP Gait Assessment Gait Gait Assistance Required: Independent Distance (Feet) 150 Assistive Devices Assistive Device Front Wheeled Walker Factors Limiting Gait Function Factors Limiting Gait Function Decreased Sensation,Decreased Strength Stair Climbing Evaluation Evaluation Level of Assist On Stairs Standby Assistance Devices Stair Climbing Assistive Devices Right Railing Technique/Endurance Stair Climbing Direction Descend Stair Climbing Technique Step to Step Number of Steps Climbed 4 Stair Climbing Set # Repetitions (reps) 1 PT-OP-H Neuro Start: 11/06/21 08:18 Freq: Status: Active Protocol: Document 11/06/21 11:17 SAK (Rec: 11/10/21 08:55 [facility] [id number]) Sensation Evaluation Gross Sensation Gross Sensation Left LE Impaired Sensation Description Numbness PT-OP-K Range of Motion Start: 11/06/21 08:18 Freq: Status: Active Protocol: Document 11/06/21 11:17 SAK (Rec: 11/10/21 08:55 [facility] [id number]) Lumbar Spine Range of Motion Lumbar Spine Active ROM Limitations Soft Tissue Tightness,Pain Comments Mod decrease all motions Hip Goniometric Range of Motion Hip Active Hip ROM WFL No Flexion w/Knee Flexed 95 Straight Leg Raise 55 Extension 0 Abduction 35 Internal Rotation 10 External Rotation 40 Comments raúl Ankle and Foot Goniometric Range of Motion Ankle and Foot Left Active Comments lacking 10 deg from neutral df right Ankle/Foot ROM WFL Yes PT-OP-M Strength Start: 11/06/21 08:18 Freq: Status: Active Protocol: Document 11/06/21 11:17 [facility] (Rec: 11/10/21 08:55 [facility] [id number]) Trunk Strength Trunk Manual Muscle Testing Flexion 4- Good- Extension 3+ Fair+ Hip Strength Hip Manual Muscle Testing Left Flexion (L2) 4- Good- Extension (S1) 3 Fair Abduction 3+ Fair+ External Rotation 3+ Fair+ Internal Rotation 4- Good- Right Flexion (L2) 4 Good Extension (S1) 3+ Fair+ Abduction 3+ Fair+ External Rotation 4- Good- Internal Rotation 4 Good Knee Strength Knee Manual Muscle Testing Left Flexion (S2) 4 Good Extension (L3) 4 Good Right Flexion (S2) 5 Normal Extension (L3) 5 Normal Ankle/Foot Strength Ankle and Foot Manual Muscle Testing Left Dorsiflexion (L4) 2+ Poor+ Plantarflexion (S1) 3- Fair- Right Dorsiflexion (L4) 5 Normal Plantarflexion (S1) 5 Normal PT-OP-Q Treatments Start: 11/06/21 08:18 Freq: Status: Active Protocol: Document 12/16/21 08:06 TS (Rec: 12/16/21 09:00 TS [id number]) Cardio Equipment Treadmill Duration (Minutes) 7 Speed 1.5>1.1 due to SOB Incline 0 Other cues for posture, longer strides and core activaiton. Therapeutic Exercises Sitting Exercises seated march Equipment Used Mat table Reps/Minutes 10x EA LE Comments pt self-corrects for upright posture, hip rotation, core engagement LAQ Equipment Used hi-low table, Dynadisc Reps/Minutes 10x EA LE Comments cues for upright posture, core engagement sit to stand Sitting Exercise Name hi low table, decreasing height to min 19 Reps/Minutes 10 Comments Cues for slow eccentric control in descent. ball squeeze Sitting Exercise Name Adductor Ball Squeeze Equipment Used Blue Bounce Ball, mesh chair Reps/Minutes 2x10 5 sec hold Comments Good form and upright posture. HS stretch Sitting Exercise Name Seated HS stretch Side bilateral Reps/Minutes 2x30 piriformis stretch Sitting Exercise Name Seated piriformis stretch Reps/Minutes 2x30 Comments Feeling a good stretch Standing Exercises Narrow base stance Standing Exercise Name Narrow base stance in corner Equipment Used Mesh chair for support Reps/Minutes 1x30 secs Comments Cues for glute and core activation Half tandem stance Standing Exercise Name Half tandem stance in corner with chair support. Added to HEP Side bilateral Equipment Used Chair Comments 13 secs left foot in front, 7 secs right foot in front. Neuro Re-Education Treatment Balance Activities Corner Narrow Base Stance Details Chair support Equipment Mesh chair Reps/Duration 1x30 Comments Cues for posture, cues and glute activation. Half Tandem Stance Details Half Tandem stance in corner with chair support Equipment Chair Comments 13 sec left foot in front, 7 sec right foot in front. Cues for posture, glute and core activation. SLS Details SLS in // bars Comments 13 sec R LE, 7 sec LLE. Cues for posture, glute, core activation. PT-OP-R Modalities Start: 11/06/21 08:18 Freq: Status: Active Protocol: Document 11/20/21 14:31 [facility] (Rec: 11/20/21 15:15 [facility] [id number]) Hot Pack/Cold Pack Treatment Hot Pack Location lumbar spine Patient Position Sitting Treatment Duration (minutes) 15 PT-OP-S Aquatic Treatment Start: 11/06/21 08:25 Freq: Status: Active Protocol: Document 12/15/21 16:31 [facility] (Rec: 12/15/21 16:38 [facility] [id number]) Aquatics Treatment Pool Entry/Exit Pool Entry/Exit Method Stairs Assistance Independent Water Walking Monster Walk Water Level Chest Level Level of Assistance Verbal Cues Lunge Walk Water Level Chest Level Level of Assistance Contact Guard Assistance, Verbal Cues Mongo March Water Level Chest Level Level of Assistance Verbal Cues Marching Water Level Chest Level Level of Assistance Verbal Cues Sideways Water Level Chest Level Level of Assistance Verbal Cues Backwards Water Level Chest Level Level of Assistance Verbal Cues forward Water Level Chest Level Level of Assistance Verbal Cues Lower Extremity Exercises toe raise Body Position Standing Comments next session heel raise Body Position Standing Comments next session squats Comments next session hip ab/ad Body Position Standing Water Level Chest Level Comments unil UE support knee flex/ext Reps/Duration 10x Comments unil UE support Lower Extremity Stretches IT band Body Position Standing Water Level Chest Level Equipment Small Noodle HS Body Position Standing Water Level Chest Level Equipment Small Noodle Newton Activities Newton Activities Bicycle Equipment large noodle in front Duration 5 min x 2 PT-OP-T Assessment and Plan Start: 11/06/21 08:18 Freq: Status: Active Protocol: Document 12/16/21 08:06 TS (Rec: 12/16/21 09:00 TS [id number]) Physical Therapy Assessment Goals Four Impairment LBP Impairment Oswestry disability index score 42% Teaching Pastor Goal (LTG) Decrease Oswestry disability index score to no greater than 30% LTG Duration 02/05/22 Three Impairment gait dysfunction Impairment step-to pattern on stairs, requires use of walker on level surfaces Teaching Pastor Goal (LTG) Patient will be able to ascend and descend stairs safetly with alternating step pattern and weigh least restrictive device on level surfaces at home and in the community LTG Duration 02/05/22 Two Impairment weakness left LE Short Term Goal (STG) Patient to be instructed in HEP for purposes of LE strengthening to support PT clinic activities STG Duration 12/23/21 Nursing Home Goal (LTG) Patient to be independent and compliant with HEP and demonstrate 1 grade muscle strength improvement throughout left LE LTG Duration 02/05/22 One Impairment balance dysfunction indicating high fall risk Impairment Cavanaugh balance score 36/56 Dynamic gait index 01/01 Short Term Goal (STG) Improve Cavanaugh balance and Dynamic gait index by 5 points as measure of improved functional balance and safety STG Duration 12/23/21 Nursing Home Goal (LTG) Improve Cavanaugh balance and Dynamic Gait index by 10 points as measure of improved functional balance and safety in the home and community LTG Duration 02/05/22 Assessment Summary Assessment Pt slipped when getting off of treadmill. Therapists had to help lower him down to sit on the edge of the treadmill where he reported he was fine and his leg gave out on him. He denied any further examination and session continued. Pt continues to display greater weakness on his LLE than RLE. During treadmill walk he had SOB that required a decrease in speed from 1.5>1.1. Vitals were 184/ 88 BP, o2 99% on RA. During sit to stands he required cues for eccentric control when going into sitting. Pt will continue to require skilled intervention to improve balance and hip strengthening. Physical Therapy Plan Frequency and Duration Frequency of Treatment 2x/Week Duration of treatment (weeks) 12 Plan of Care Start Date 11/06/21 Plan of Care End Date 01/29/22 Therapeutic Interventions Therapeutic Interventions Aquatic Therapy,Balance Training,Gait Training,Home Exercise Program,Manual Therapy,Neuromuscular Re- education,Patient/Caregiver Education,Self-Care/Home Management,Soft Tissue Mobilization,Taping, Therapeutic Activities, Therapeutic Exercises Modalities Cold Pack/Ice Massage,Electric Stimulation,Hot Packs, Traction- Mechanical, Ultrasound Next Visit Focus/Plan Next Note Type Treatment Note Next Visit Plan clinic: Continue sport cord with visual feedback, progression of sit to stand. Continue supine IT band, piriformis and HS stretches. Review corner balance, add paloff press. aquatic: progression of ther ex for balance, strengthening, flexibility
--- NOTE | 2021-12-22 07:59 | PT.OPPN ---
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 Has fallen several times last probably 6 months ago. Reports drop foot. States he has gained weight and would like to lose weight as well. Also history of a tank falling on his back 1984 with 4 compression fractures. Reports his balance difficulty is his biggest concern. Prior Treatments and Tests History aortic valve replacement, raúl TKA, right RJ, cataract surgery with partial vision loss left ( upper and side), prostate cancer. Pain clinic not helpful, has seen neurologist Treatment Goals Patient/Caregiver Goals Improve balance, decrease neuropathy PT-OP-C Subjective Start: 11/06/21 08:18 Freq: Status: Active Protocol: Document 12/22/21 14:05 LJ (Rec: 12/22/21 14:25 LJ [id number]) OP-PT Subjective Patient Comments Patient Comments Reports he felt good after pool session. Does not currently have pain. PT-OP-D Balance Start: 11/06/21 08:18 Freq: Status: Active Protocol: Document 11/06/21 11:17 SAK (Rec: 11/10/21 08:55 SAK [id number]) OP-PT Balance Assessment Sitting Balance Static Sitting Balance Ability Good Standing Balance Static Standing Balance Ability Fair Cavanaugh Balance Assessment Evaluation Sitting to Standing Ability Independent w/Hands Unsupported Stance Supervision- 2 minutes Sitting Unsupported, Feet on Floor Safely- 2 minutes Standing to Sitting Ability Safely, Minimal Hand Use Transfer Ability Safely, Hand Use Unsupported Stance- Eyes Closed Supervision, 10 seconds Unsupported Stance- Eyes Open Supervision to maintain Reaching Forward Standing Safely, 5 inches Pick- Up Object From Floor Supervision Look Behind Shoulder - Standing Shifts Weight Well Turning 360 Degrees Turns slowly, but safely Unsupported Stance, Alternating Feet on 2 Steps w/Minimum Assist Stair Unsupported Tandem Stance Balance Lost- Step/Stand Unilateral Leg Stance Unable,assist to not fall Total Score Cavanaugh Total Score (out of 56 points) 36 Taylor Fall Scale Copyright Permission Claudia WHITE, Claudia RM, Alfredito SJ. Development of a scale to identify the fall- prone patient. Can J Aging 1989;8;366-7. Kaye Taylor (2009). Preventing patient falls. (2nd ed). [place]: [place]. PT-OP-E Functional Tests Start: 11/06/21 08:18 Freq: Status: Active Protocol: Document 11/06/21 11:17 [facility] (Rec: 11/10/21 08:55 [facility] [id number]) Functional Tests Dynamic Gait Index (DGI) Score 11 PT-OP-G Mobility & Gait Start: 11/06/21 08:18 Freq: Status: Active Protocol: Document 11/06/21 11:17 SAK (Rec: 11/10/21 08:55 SAK [id number]) OP Gait Assessment Gait Gait Assistance Required: Independent Distance (Feet) 150 Assistive Devices Assistive Device Front Wheeled Walker Factors Limiting Gait Function Factors Limiting Gait Function Decreased Sensation,Decreased Strength Stair Climbing Evaluation Evaluation Level of Assist On Stairs Standby Assistance Devices Stair Climbing Assistive Devices Right Railing Technique/Endurance Stair Climbing Direction Descend Stair Climbing Technique Step to Step Number of Steps Climbed 4 Stair Climbing Set # Repetitions (reps) 1 PT-OP-H Neuro Start: 11/06/21 08:18 Freq: Status: Active Protocol: Document 11/06/21 11:17 SAK (Rec: 11/10/21 08:55 [facility] [id number]) Sensation Evaluation Gross Sensation Gross Sensation Left LE Impaired Sensation Description Numbness PT-OP-K Range of Motion Start: 11/06/21 08:18 Freq: Status: Active Protocol: Document 11/06/21 11:17 SAK (Rec: 11/10/21 08:55 SAK [id number]) Lumbar Spine Range of Motion Lumbar Spine Active ROM Limitations Soft Tissue Tightness,Pain Comments Mod decrease all motions Hip Goniometric Range of Motion Hip Measured in Degrees Active Hip ROM WFL No Flexion w/Knee Flexed 95 Straight Leg Raise 55 Extension 0 Abduction 35 Internal Rotation 10 External Rotation 40 Comments raúl Ankle and Foot Goniometric Range of Motion Ankle and Foot Measured in Degrees Left Active Comments lacking 10 deg from neutral df right Ankle/Foot ROM WFL Yes PT-OP-M Strength Start: 11/06/21 08:18 Freq: Status: Active Protocol: Document 11/06/21 11:17 SAK (Rec: 11/10/21 08:55 SAK [id number]) Trunk Strength Trunk Manual Muscle Testing Flexion 4- Good- Extension 3+ Fair+ Hip Strength Hip Manual Muscle Testing Left Flexion (L2) 4- Good- Extension (S1) 3 Fair Abduction 3+ Fair+ External Rotation 3+ Fair+ Internal Rotation 4- Good- Right Flexion (L2) 4 Good Extension (S1) 3+ Fair+ Abduction 3+ Fair+ External Rotation 4- Good- Internal Rotation 4 Good Knee Strength Knee Manual Muscle Testing Left Flexion (S2) 4 Good Extension (L3) 4 Good Right Flexion (S2) 5 Normal Extension (L3) 5 Normal Ankle/Foot Strength Ankle and Foot Manual Muscle Testing Left Dorsiflexion (L4) 2+ Poor+ Plantarflexion (S1) 3- Fair- Right Dorsiflexion (L4) 5 Normal Plantarflexion (S1) 5 Normal PT-OP-T Assessment and Plan Start: 11/06/21 08:18 Freq: Status: Active Protocol: Document 12/22/21 14:05 ALANIS (Rec: 12/22/21 14:25 LJ [id number]) Physical Therapy Assessment Impairments Impairments Balance,Gait,Pain,Strength Goals Four Impairment LBP Impairment Oswestry disability index score 42% Fpc Goal (LTG) Decrease Oswestry disability index score to no greater than 30% LTG Duration 02/05/22 Three Impairment gait dysfunction Impairment step-to pattern on stairs, requires use of walker on level surfaces Virtual Customer Assistant Goal (LTG) Patient will be able to ascend and descend stairs safetly with alternating step pattern and weigh least restrictive device on level surfaces at home and in the community LTG Duration 02/05/22 Two Impairment weakness left LE Short Term Goal (STG) Patient to be instructed in HEP for purposes of LE strengthening to support PT clinic activities STG Duration 12/23/21 Virtual Customer Assistant Goal (LTG) Patient to be independent and compliant with HEP and demonstrate 1 grade muscle strength improvement throughout left LE LTG Duration 02/05/22 One Impairment balance dysfunction indicating high fall risk Impairment Cavanaugh balance score 36/56 Dynamic gait index 01/01 Short Term Goal (STG) Improve Cavanaugh balance and Dynamic gait index by 5 points as measure of improved functional balance and safety STG Duration 12/23/21 Virtual Customer Assistant Goal (LTG) Improve Cavanaugh balance and Dynamic Gait index by 10 points as measure of improved functional balance and safety in the home and community LTG Duration 02/05/22 Assessment Summary Assessment Pt unbalanced in initial walking but improved with depth adjustment and increased use of abducted UEs. Stabilized within several minutes of being in pool. Initial squat form poor but able to correct with verbal cueing. Pt needed Vida with noodle balance without BBs but when given BBs he was able to stabilize himself with feet off bottom. Physical Therapy Plan Frequency and Duration Frequency of Treatment 2x/Week Duration of treatment (weeks) 12 Plan of Care Start Date 11/06/21 Plan of Care End Date 01/29/22 Therapeutic Interventions Therapeutic Interventions Aquatic Therapy,Balance Training,Gait Training,Home Exercise Program,Manual Therapy,Neuromuscular Re- education,Patient/Caregiver Education,Self-Care/Home Management,Soft Tissue Mobilization,Taping, Therapeutic Activities, Therapeutic Exercises Modalities Cold Pack/Ice Massage,Electric Stimulation,Hot Packs, Traction- Mechanical, Ultrasound Next Visit Focus/Plan Next Note Type Treatment Note Next Visit Plan clinic: Continue sport cord with visual feedback, progression of sit to stand. Continue supine IT band, piriformis and HS stretches. Review corner balance, add paloff press. aquatic: progression of ther ex for balance, strengthening, flexibility
--- NOTE | 2021-12-22 14:25 | PT.OTN ---
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 Has fallen several times last probably 6 months ago. Reports drop foot. States he has gained weight and would like to lose weight as well. Also history of a tank falling on his back 1984 with 4 compression fractures. Reports his balance difficulty is his biggest concern. Prior Treatments and Tests History aortic valve replacement, raúl TKA, right RJ, cataract surgery with partial vision loss left ( upper and side), prostate cancer. Pain clinic not helpful, has seen neurologist Treatment Goals Patient/Caregiver Goals Improve balance, decrease neuropathy PT-OP-C Subjective Start: 11/06/21 08:18 Freq: Status: Active Protocol: Document 12/22/21 14:05 LJ (Rec: 12/22/21 14:25 LJ [id number]) OP-PT Subjective Patient Comments Patient Comments Reports he felt good after pool session. Does not currently have pain. PT-OP-D Balance Start: 11/06/21 08:18 Freq: Status: Active Protocol: Document 11/06/21 11:17 SAK (Rec: 11/10/21 08:55 SAK [id number]) OP-PT Balance Assessment Sitting Balance Static Sitting Balance Ability Good Standing Balance Static Standing Balance Ability Fair Cavanaugh Balance Assessment Evaluation Sitting to Standing Ability Independent w/Hands Unsupported Stance Supervision- 2 minutes Sitting Unsupported, Feet on Floor Safely- 2 minutes Standing to Sitting Ability Safely, Minimal Hand Use Transfer Ability Safely, Hand Use Unsupported Stance- Eyes Closed Supervision, 10 seconds Unsupported Stance- Eyes Open Supervision to maintain Reaching Forward Standing Safely, 5 inches Pick- Up Object From Floor Supervision Look Behind Shoulder - Standing Shifts Weight Well Turning 360 Degrees Turns slowly, but safely Unsupported Stance, Alternating Feet on 2 Steps w/Minimum Assist Stair Unsupported Tandem Stance Balance Lost- Step/Stand Unilateral Leg Stance Unable,assist to not fall Total Score Cavanaugh Total Score (out of 56 points) 36 Taylor Fall Scale Copyright Permission PT-OP-E Functional Tests Start: 11/06/21 08:18 Freq: Status: Active Protocol: Document 11/06/21 11:17 SAK (Rec: 11/10/21 08:55 [facility] [id number]) Functional Tests Dynamic Gait Index (DGI) Score 11 PT-OP-G Mobility & Gait Start: 11/06/21 08:18 Freq: Status: Active Protocol: Document 11/06/21 11:17 SAK (Rec: 11/10/21 08:55 [facility] [id number]) OP Gait Assessment Gait Gait Assistance Required: Independent Distance (Feet) 150 Assistive Devices Assistive Device Front Wheeled Walker Factors Limiting Gait Function Factors Limiting Gait Function Decreased Sensation,Decreased Strength Stair Climbing Evaluation Evaluation Level of Assist On Stairs Standby Assistance Devices Stair Climbing Assistive Devices Right Railing Technique/Endurance Stair Climbing Direction Descend Stair Climbing Technique Step to Step Number of Steps Climbed 4 Stair Climbing Set # Repetitions (reps) 1 PT-OP-H Neuro Start: 11/06/21 08:18 Freq: Status: Active Protocol: Document 11/06/21 11:17 SAK (Rec: 11/10/21 08:55 [facility] [id number]) Sensation Evaluation Gross Sensation Gross Sensation Left LE Impaired Sensation Description Numbness PT-OP-K Range of Motion Start: 11/06/21 08:18 Freq: Status: Active Protocol: Document 11/06/21 11:17 SAK (Rec: 11/10/21 08:55 [facility] [id number]) Lumbar Spine Range of Motion Lumbar Spine Active ROM Limitations Soft Tissue Tightness,Pain Comments Mod decrease all motions Hip Goniometric Range of Motion Hip Active Hip ROM WFL No Flexion w/Knee Flexed 95 Straight Leg Raise 55 Extension 0 Abduction 35 Internal Rotation 10 External Rotation 40 Comments raúl Ankle and Foot Goniometric Range of Motion Ankle and Foot Left Active Comments lacking 10 deg from neutral df right Ankle/Foot ROM WFL Yes PT-OP-M Strength Start: 11/06/21 08:18 Freq: Status: Active Protocol: Document 11/06/21 11:17 SAK (Rec: 11/10/21 08:55 [facility] [id number]) Trunk Strength Trunk Manual Muscle Testing Flexion 4- Good- Extension 3+ Fair+ Hip Strength Hip Manual Muscle Testing Left Flexion (L2) 4- Good- Extension (S1) 3 Fair Abduction 3+ Fair+ External Rotation 3+ Fair+ Internal Rotation 4- Good- Right Flexion (L2) 4 Good Extension (S1) 3+ Fair+ Abduction 3+ Fair+ External Rotation 4- Good- Internal Rotation 4 Good Knee Strength Knee Manual Muscle Testing Left Flexion (S2) 4 Good Extension (L3) 4 Good Right Flexion (S2) 5 Normal Extension (L3) 5 Normal Ankle/Foot Strength Ankle and Foot Manual Muscle Testing Left Dorsiflexion (L4) 2+ Poor+ Plantarflexion (S1) 3- Fair- Right Dorsiflexion (L4) 5 Normal Plantarflexion (S1) 5 Normal PT-OP-Q Treatments Start: 11/06/21 08:18 Freq: Status: Active Protocol: Document 12/16/21 08:06 TS (Rec: 12/16/21 09:00 TS [id number]) Cardio Equipment Treadmill Duration (Minutes) 7 Speed 1.5>1.1 due to SOB Incline 0 Other cues for posture, longer strides and core activaiton. Therapeutic Exercises Sitting Exercises seated march Equipment Used Mat table Reps/Minutes 10x EA LE Comments pt self-corrects for upright posture, hip rotation, core engagement LAQ Equipment Used hi-low table, Dynadisc Reps/Minutes 10x EA LE Comments cues for upright posture, core engagement sit to stand Sitting Exercise Name hi low table, decreasing height to min 19 Reps/Minutes 10 Comments Cues for slow eccentric control in descent. ball squeeze Sitting Exercise Name Adductor Ball Squeeze Equipment Used Blue Bounce Ball, mesh chair Reps/Minutes 2x10 5 sec hold Comments Good form and upright posture. HS stretch Sitting Exercise Name Seated HS stretch Side bilateral Reps/Minutes 2x30 piriformis stretch Sitting Exercise Name Seated piriformis stretch Reps/Minutes 2x30 Comments Feeling a good stretch Standing Exercises Narrow base stance Standing Exercise Name Narrow base stance in corner Equipment Used Mesh chair for support Reps/Minutes 1x30 secs Comments Cues for glute and core activation Half tandem stance Standing Exercise Name Half tandem stance in corner with chair support. Added to HEP Side bilateral Equipment Used Chair Comments 13 secs left foot in front, 7 secs right foot in front. Neuro Re-Education Treatment Balance Activities Corner Narrow Base Stance Details Chair support Equipment Mesh chair Reps/Duration 1x30 Comments Cues for posture, cues and glute activation. Half Tandem Stance Details Half Tandem stance in corner with chair support Equipment Chair Comments 13 sec left foot in front, 7 sec right foot in front. Cues for posture, glute and core activation. SLS Details SLS in // bars Comments 13 sec R LE, 7 sec LLE. Cues for posture, glute, core activation. PT-OP-R Modalities Start: 11/06/21 08:18 Freq: Status: Active Protocol: Document 11/20/21 14:31 SAK (Rec: 11/20/21 15:15 SAK [id number]) Hot Pack/Cold Pack Treatment Hot Pack Location lumbar spine Patient Position Sitting Treatment Duration (minutes) 15 PT-OP-S Aquatic Treatment Start: 11/06/21 08:25 Freq: Status: Active Protocol: Document 12/22/21 14:05 LJ (Rec: 12/22/21 14:25 LJ [id number]) Aquatics Treatment Water Walking stop start Water Level Waist Level Walking Equipment 5 min Level of Assistance Verbal Cues Comments added direction changes Heel Walk Water Level Chest Level Walking Equipment Large Noodle Level of Assistance Verbal Cues Monster Walk Water Level Chest Level Level of Assistance Verbal Cues [place] March Water Level Chest Level Level of Assistance Verbal Cues Marching Water Level Chest Level Level of Assistance Verbal Cues Sideways Water Level Chest Level Level of Assistance Verbal Cues Backwards Water Level Chest Level Level of Assistance Verbal Cues forward Water Level Chest Level Level of Assistance Verbal Cues Lower Extremity Exercises step up/down Details one box Water Level Waist Level Reps/Duration 10 B Comments cues for ecc. control; hh on wall most times toe raise Body Position Standing Comments hh on wall; minimal movement heel raise Body Position Standing Comments hh on wall; minimal movement squats Details at wall; BLE, SL Body Position Standing Water Level Waist Level Reps/Duration 15 Comments vc for form; repeated on box hip ab/ad Body Position Standing Water Level Chest Level Comments unil UE support knee flex/ext Reps/Duration 10x Comments unil UE support Lower Extremity Stretches gastroc Details at wall Body Position Standing Water Level Waist Level Reps/Duration 2x45 B hip flexors, quads Details at wall Body Position Standing Water Level Waist Level Reps/Duration 2x45 B IT band Body Position Standing Water Level Chest Level Equipment Small Noodle Comments gentle massage distal; HS Body Position Standing Water Level Chest Level Equipment Small Noodle Reps/Duration 2x40 Comments contract/relax x3 B Balance seated on noodle Equipment lg noodle, BBs Reps/Duration 4 min PT-OP-T Assessment and Plan Start: 11/06/21 08:18 Freq: Status: Active Protocol: Document 12/22/21 14:05 ALANIS (Rec: 12/22/21 14:25 ALANIS [id number]) Physical Therapy Assessment Impairments Impairments Balance,Gait,Pain,Strength Goals Four Impairment LBP Impairment Oswestry disability index score 42% Long-Term Goal (LTG) Decrease Oswestry disability index score to no greater than 30% LTG Duration 02/05/22 Three Impairment gait dysfunction Impairment step-to pattern on stairs, requires use of walker on level surfaces Long-Term Goal (LTG) Patient will be able to ascend and descend stairs safetly with alternating step pattern and weigh least restrictive device on level surfaces at home and in the community LTG Duration 02/05/22 Two Impairment weakness left LE Short Term Goal (STG) Patient to be instructed in HEP for purposes of LE strengthening to support PT clinic activities STG Duration 12/23/21 Software Specialist Goal (LTG) Patient to be independent and compliant with HEP and demonstrate 1 grade muscle strength improvement throughout left LE LTG Duration 02/05/22 One Impairment balance dysfunction indicating high fall risk Impairment Cavanaugh balance score 36/56 Dynamic gait index 01/01 Short Term Goal (STG) Improve Cavanaugh balance and Dynamic gait index by 5 points as measure of improved functional balance and safety STG Duration 12/23/21 Long-Term Goal (LTG) Improve Cavanaugh balance and Dynamic Gait index by 10 points as measure of improved functional balance and safety in the home and community LTG Duration 02/05/22 Assessment Summary Assessment Pt unbalanced in initial walking but improved with depth adjustment and increased use of abducted UEs. Stabilized within several minutes of being in pool. Initial squat form poor but able to correct with verbal cueing. Pt needed Vida with noodle balance without BBs but when given BBs he was able to stabilize himself with feet off bottom. Physical Therapy Plan Frequency and Duration Frequency of Treatment 2x/Week Duration of treatment (weeks) 12 Plan of Care Start Date 11/06/21 Plan of Care End Date 01/29/22 Therapeutic Interventions Therapeutic Interventions Aquatic Therapy,Balance Training,Gait Training,Home Exercise Program,Manual Therapy,Neuromuscular Re- education,Patient/Caregiver Education,Self-Care/Home Management,Soft Tissue Mobilization,Taping, Therapeutic Activities, Therapeutic Exercises Modalities Cold Pack/Ice Massage,Electric Stimulation,Hot Packs, Traction- Mechanical, Ultrasound Next Visit Focus/Plan Next Note Type Treatment Note Next Visit Plan clinic: Continue sport cord with visual feedback, progression of sit to stand. Continue supine IT band, piriformis and HS stretches. Review corner balance, add paloff press. aquatic: progression of ther ex for balance, strengthening, flexibility
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
--- NOTE | 2022-01-06 09:01 | PT.OTN ---
Current Diagnoses Other chronic pain (01/06/22) Sciatica, left side (01/06/22) Low back pain, unspecified (01/06/22) Paresthesia of skin (01/06/22) Other abnormalities of gait and mobility (01/06/22) Weakness (01/06/22) Physical Therapy Treatment Note PT-OP-A Visit Information Start: 11/06/21 08:18 Freq: Status: Active Protocol: Document 01/06/22 08:09 SAK (Rec: 01/06/22 09:00 SAK [id number]) Out-Patient Physical Therapy Visit Information Visit Information Visit Type Treatment Note Visit Start Time 08:15 Visit Stop Time 11:00 Total Visit Minutes 45 Visit Number 16 Number of CLOTH BOOKER Visits 0 Precautions Precautions back pain with spinal stenosis , prostate cancer, cardiac disease PT-OP-B Current Condition Start: 11/06/21 08:18 Freq: Status: Active Protocol: Document 11/20/21 14:31 SAK (Rec: 11/20/21 15:15 SAK [id number]) Current Condition History of Current Condition Onset Date 2010 Current Complaints balance dysfunction History of Current Condition 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 Has fallen several times last probably 6 months ago. Reports drop foot. States he has gained weight and would like to lose weight as well. Also history of a tank falling on his back 1984 with 4 compression fractures. Reports his balance difficulty is his biggest concern. Prior Treatments and Tests History aortic valve replacement, raúl TKA, right RJ, cataract surgery with partial vision loss left ( upper and side), prostate cancer. Pain clinic not helpful, has seen neurologist Treatment Goals Patient/Caregiver Goals Improve balance, decrease neuropathy PT-OP-C Subjective Start: 11/06/21 08:18 Freq: Status: Active Protocol: Document 01/05/22 15:38 LJ (Rec: 01/05/22 15:54 LJ [id number]) OP-PT Subjective Patient Comments Patient Comments Feels like he is getting stronger and balance is improving PT-OP-D Balance Start: 11/06/21 08:18 Freq: Status: Active Protocol: Document 11/06/21 11:17 SAK (Rec: 11/10/21 08:55 SAK [id number]) OP-PT Balance Assessment Sitting Balance Static Sitting Balance Ability Good Standing Balance Static Standing Balance Ability Fair Cavanaugh Balance Assessment Evaluation Sitting to Standing Ability Independent w/Hands Unsupported Stance Supervision- 2 minutes Sitting Unsupported, Feet on Floor Safely- 2 minutes Standing to Sitting Ability Safely, Minimal Hand Use Transfer Ability Safely, Hand Use Unsupported Stance- Eyes Closed Supervision, 10 seconds Unsupported Stance- Eyes Open Supervision to maintain Reaching Forward Standing Safely, 5 inches Pick- Up Object From Floor Supervision Look Behind Shoulder - Standing Shifts Weight Well Turning 360 Degrees Turns slowly, but safely Unsupported Stance, Alternating Feet on 2 Steps w/Minimum Assist Stair Unsupported Tandem Stance Balance Lost- Step/Stand Unilateral Leg Stance Unable,assist to not fall Total Score Cavanaugh Total Score (out of 56 points) 36 Taylor Fall Scale Copyright Permission PT-OP-E Functional Tests Start: 11/06/21 08:18 Freq: Status: Active Protocol: Document 11/06/21 11:17 [facility] (Rec: 11/10/21 08:55 [facility] [id number]) Functional Tests Dynamic Gait Index (DGI) Score 11 PT-OP-G Mobility & Gait Start: 11/06/21 08:18 Freq: Status: Active Protocol: Document 11/06/21 11:17 [facility] (Rec: 11/10/21 08:55 [facility] [id number]) OP Gait Assessment Gait Gait Assistance Required: Independent Distance (Feet) 150 Assistive Devices Assistive Device Front Wheeled Walker Factors Limiting Gait Function Factors Limiting Gait Function Decreased Sensation,Decreased Strength Stair Climbing Evaluation Evaluation Level of Assist On Stairs Standby Assistance Devices Stair Climbing Assistive Devices Right Railing Technique/Endurance Stair Climbing Direction Descend Stair Climbing Technique Step to Step Number of Steps Climbed 4 Stair Climbing Set # Repetitions (reps) 1 PT-OP-H Neuro Start: 11/06/21 08:18 Freq: Status: Active Protocol: Document 11/06/21 11:17 [facility] (Rec: 11/10/21 08:55 [facility] [id number]) Sensation Evaluation Gross Sensation Gross Sensation Left LE Impaired Sensation Description Numbness PT-OP-K Range of Motion Start: 11/06/21 08:18 Freq: Status: Active Protocol: Document 11/06/21 11:17 SAK (Rec: 11/10/21 08:55 [facility] [id number]) Lumbar Spine Range of Motion Lumbar Spine Active ROM Limitations Soft Tissue Tightness,Pain Comments Mod decrease all motions Hip Goniometric Range of Motion Hip Active Hip ROM WFL No Flexion w/Knee Flexed 95 Straight Leg Raise 55 Extension 0 Abduction 35 Internal Rotation 10 External Rotation 40 Comments raúl Ankle and Foot Goniometric Range of Motion Ankle and Foot Left Active Comments lacking 10 deg from neutral df right Ankle/Foot ROM WFL Yes PT-OP-M Strength Start: 11/06/21 08:18 Freq: Status: Active Protocol: Document 11/06/21 11:17 [facility] (Rec: 11/10/21 08:55 [facility] [id number]) Trunk Strength Trunk Manual Muscle Testing Flexion 4- Good- Extension 3+ Fair+ Hip Strength Hip Manual Muscle Testing Left Flexion (L2) 4- Good- Extension (S1) 3 Fair Abduction 3+ Fair+ External Rotation 3+ Fair+ Internal Rotation 4- Good- Right Flexion (L2) 4 Good Extension (S1) 3+ Fair+ Abduction 3+ Fair+ External Rotation 4- Good- Internal Rotation 4 Good Knee Strength Knee Manual Muscle Testing Left Flexion (S2) 4 Good Extension (L3) 4 Good Right Flexion (S2) 5 Normal Extension (L3) 5 Normal Ankle/Foot Strength Ankle and Foot Manual Muscle Testing Left Dorsiflexion (L4) 2+ Poor+ Plantarflexion (S1) 3- Fair- Right Dorsiflexion (L4) 5 Normal Plantarflexion (S1) 5 Normal PT-OP-Q Treatments Start: 11/06/21 08:18 Freq: Status: Active Protocol: Document 01/06/22 08:09 [facility] (Rec: 01/06/22 09:00 [facility] [id number]) Gym Equipment Shuttle Recovery Unilateral Heel Raises Resistance 25 right, 12 left Reps/Time 10x2 Bilateral Heel Raises Resistance 37 Shuttle Recovery Platform Stable Reps/Time 10x2 Unilateral Squats Resistance 37 Shuttle Recovery Platform Stable Reps/Time 12x2 Bilateral Squats Details cues for knee alignment Resistance 75 Shuttle Recovery Platform Stable Reps/Time 12x2 Sport Cord cord green Exercise Details fwd, side Reps/Duration 10x,4x ea side Comments CG to [place] for balance, no AD. Therapeutic Exercises Sitting Exercises HC stretch Equipment Used strap Reps/Minutes 2x30 HS stretch Sitting Exercise Name Seated HS stretch Side bilateral Reps/Minutes 2x30 Gait Training Gait Activity stairs Device Used raúl railing Surface 6 stairs x 1 Treatment Focus gluteal activation Neuro Re-Education Treatment Balance Activities Cavanaugh balance testing Reps/Duration 7 min Self-Care/Home Management Treatment Education Patient Education Fall Risk,Home Exercise Program PT-OP-R Modalities Start: 11/06/21 08:18 Freq: Status: Active Protocol: Document 11/20/21 14:31 SAK (Rec: 11/20/21 15:15 SAK [id number]) Hot Pack/Cold Pack Treatment Hot Pack Location lumbar spine Patient Position Sitting Treatment Duration (minutes) 15 PT-OP-S Aquatic Treatment Start: 11/06/21 08:25 Freq: Status: Active Protocol: Document 01/05/22 15:38 LJ (Rec: 01/05/22 15:54 LJ [id number]) Aquatics Treatment Pool Entry/Exit Pool Entry/Exit Method Stairs Assistance Independent Water Walking jogging Water Level Chest Level Comments 3 laps quick steps Water Level Chest Level Comments 2 laps stop start Water Level Waist Level Walking Equipment 5 min Level of Assistance Verbal Cues Comments added direction changes Monster Walk Water Level Chest Level Level of Assistance Verbal Cues Comments x3 laps-20,15,17 steps. 2 LOB Lunge Walk Water Level Chest Level Level of Assistance Standby Assistance,Verbal Cues Comments occ. hh on wall Sideways Water Level Chest Level Level of Assistance Verbal Cues Comments 2 laps side lunge Backwards Water Level Chest Level forward Water Level Chest Level Lower Extremity Exercises jacks; ski Details gentle jumping jacks and cc ski Body Position Standing Water Level Chest Level Equipment noodle under arms Reps/Duration 2x8 B Comments soft landing squats Details BLE, SL Body Position Standing Water Level Waist Level Reps/Duration [id number] Comments focus on form and hip thrust knee flex/ext Reps/Duration 10x Comments unil UE support Lower Extremity Stretches gastroc Details at wall Body Position Standing Water Level Waist Level Reps/Duration 2x45 B hip flexors, quads Details at wall Body Position Standing Water Level Waist Level Reps/Duration 2x45 B IT band Body Position Standing Water Level Chest Level Equipment Small Noodle Comments gentle massage distal; HS Body Position Standing Water Level Chest Level Equipment Small Noodle Reps/Duration 2x40 Comments contract/relax x2 B Spinal Exercises trunk righting Details modified supine w/front and back noodles Body Position Supine Water Level Neck Level Equipment 2 noodles Reps/Duration 6x Comments cue knees to chest, lean forward, extend legs down to floor Balance SLS w/floor clocks Details at wall w/hh Reps/Duration 30 per LE x 4 Comments LLE fatigued after 4th time weight transfer-f/b, s/s, tandem, wide stance, Details at wall Body Position Standing Water Level Waist Level Reps/Duration 6 min Comments NM re-ed; balance; strength PT-OP-T Assessment and Plan Start: 11/06/21 08:18 Freq: Status: Active Protocol: Document 01/06/22 08:09 [facility] (Rec: 01/06/22 09:00 [facility] [id number]) Physical Therapy Assessment Goals Four Impairment LBP Impairment Oswestry disability index score 42% Detention Goal (LTG) Decrease Oswestry disability index score to no greater than 30% 01/06/22: goal met LTG Duration goal met Three Impairment gait dysfunction Impairment step-to pattern on stairs, requires use of walker on level surfaces Inventory Checker Goal (LTG) Patient will be able to ascend and descend stairs safetly with alternating step pattern and weigh least restrictive device on level surfaces at home and in the community 01/06/22: goal met, able to do with SPC LTG Duration goal met Two Impairment weakness left LE Short Term Goal (STG) Patient to be instructed in HEP for purposes of LE strengthening to support PT clinic activities STG Duration goal met Inventory Checker Goal (LTG) Patient to be independent and compliant with HEP and demonstrate 1 grade muscle strength improvement throughout left LE 01/06/22: good progress, except no change left ankle LTG Duration 02/05/22 One Impairment balance dysfunction indicating high fall risk Impairment Cavanaugh balance score 36/56 Dynamic gait index 01/01 Short Term Goal (STG) Improve Cavanaugh balance and Dynamic gait index by 5 points as measure of improved functional balance and safety STG Duration goal met Detention Goal (LTG) Improve Cavanaugh balance and Dynamic Gait index by 10 points as measure of improved functional balance and safety in the home and community 01/06/22: good goal progress, has improved 5 points LTG Duration 02/05/22 Assessment Summary Assessment Patient making good progress toward goals. Feel he would benefit from further PT to help him continue to improve his strength, gait, and balance for improved safety. Physical Therapy Plan Frequency and Duration Frequency of Treatment 2x/Week Duration of treatment (weeks) 12 Plan of Care Start Date 11/06/21 Plan of Care End Date 01/29/22 Therapeutic Interventions Therapeutic Interventions Aquatic Therapy,Balance Training,Gait Training,Home Exercise Program,Manual Therapy,Neuromuscular Re- education,Patient/Caregiver Education,Self-Care/Home Management,Soft Tissue Mobilization,Taping, Therapeutic Activities, Therapeutic Exercises Modalities Cold Pack/Ice Massage,Electric Stimulation,Hot Packs, Traction- Mechanical, Ultrasound Next Visit Focus/Plan Next Note Type Treatment Note Next Visit Plan Continue strengthening, balance, gait training in aquatic and land-based PT settings to help patient fully achieve the above goals for improved safety and function in the home and community.
--- NOTE | 2022-01-21 16:48 | PT.OTN ---
Current Diagnoses Other chronic pain (01/21/22) Sciatica, left side (01/21/22) Low back pain, unspecified (01/21/22) Paresthesia of skin (01/21/22) Other abnormalities of gait and mobility (01/21/22) Weakness (01/21/22) Physical Therapy Treatment Note PT-OP-A Visit Information Start: 11/06/21 08:18 Freq: Status: Active Protocol: Document 01/21/22 16:38 LJ (Rec: 01/21/22 16:48 LJ [id number]) Out-Patient Physical Therapy Visit Information Visit Information Visit Type Aquatic Treatment Note Visit Start Time 12:30 Visit Stop Time 13:15 Total Visit Minutes 45 Visit Number 17 Number of SOAKING PITS SUPERVISOR Visits 1 Precautions Precautions back pain with spinal stenosis , prostate cancer, cardiac disease PT-OP-B Current Condition Start: 11/06/21 08:18 Freq: Status: Active Protocol: Document 11/20/21 14:31 SAK (Rec: 11/20/21 15:15 SAK [id number]) Current Condition History of Current Condition Onset Date 2010 Current Complaints balance dysfunction History of Current Condition 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 Has fallen several times last probably 6 months ago. Reports drop foot. States he has gained weight and would like to lose weight as well. Also history of a tank falling on his back 1984 with 4 compression fractures. Reports his balance difficulty is his biggest concern. Prior Treatments and Tests History aortic valve replacement, raúl TKA, right RJ, cataract surgery with partial vision loss left ( upper and side), prostate cancer. Pain clinic not helpful, has seen neurologist Treatment Goals Patient/Caregiver Goals Improve balance, decrease neuropathy PT-OP-C Subjective Start: 11/06/21 08:18 Freq: Status: Active Protocol: Document 01/21/22 16:38 LJ (Rec: 01/21/22 16:48 LJ [id number]) OP-PT Subjective Patient Comments Patient Comments States his legs get tired awalking around the house so he sits down for a mnute and gets back up. Feels unsteady on his feet. PT-OP-D Balance Start: 11/06/21 08:18 Freq: Status: Active Protocol: Document 11/06/21 11:17 SAK (Rec: 11/10/21 08:55 [facility] [id number]) OP-PT Balance Assessment Sitting Balance Static Sitting Balance Ability Good Standing Balance Static Standing Balance Ability Fair Cavanaugh Balance Assessment Evaluation Sitting to Standing Ability Independent w/Hands Unsupported Stance Supervision- 2 minutes Sitting Unsupported, Feet on Floor Safely- 2 minutes Standing to Sitting Ability Safely, Minimal Hand Use Transfer Ability Safely, Hand Use Unsupported Stance- Eyes Closed Supervision, 10 seconds Unsupported Stance- Eyes Open Supervision to maintain Reaching Forward Standing Safely, 5 inches Pick- Up Object From Floor Supervision Look Behind Shoulder - Standing Shifts Weight Well Turning 360 Degrees Turns slowly, but safely Unsupported Stance, Alternating Feet on 2 Steps w/Minimum Assist Stair Unsupported Tandem Stance Balance Lost- Step/Stand Unilateral Leg Stance Unable,assist to not fall Total Score Cavanaugh Total Score (out of 56 points) 36 Taylor Fall Scale Copyright Permission PT-OP-E Functional Tests Start: 11/06/21 08:18 Freq: Status: Active Protocol: Document 11/06/21 11:17 [facility] (Rec: 11/10/21 08:55 [facility] [id number]) Functional Tests Dynamic Gait Index (DGI) Score 11 PT-OP-G Mobility & Gait Start: 11/06/21 08:18 Freq: Status: Active Protocol: Document 11/06/21 11:17 [facility] (Rec: 11/10/21 08:55 [facility] [id number]) OP Gait Assessment Gait Gait Assistance Required: Independent Distance (Feet) 150 Assistive Devices Assistive Device Front Wheeled Walker Factors Limiting Gait Function Factors Limiting Gait Function Decreased Sensation,Decreased Strength Stair Climbing Evaluation Evaluation Level of Assist On Stairs Standby Assistance Devices Stair Climbing Assistive Devices Right Railing Technique/Endurance Stair Climbing Direction Descend Stair Climbing Technique Step to Step Number of Steps Climbed 4 Stair Climbing Set # Repetitions (reps) 1 PT-OP-H Neuro Start: 11/06/21 08:18 Freq: Status: Active Protocol: Document 11/06/21 11:17 ELIA (Rec: 11/10/21 08:55 [facility] [id number]) Sensation Evaluation Gross Sensation Gross Sensation Left LE Impaired Sensation Description Numbness PT-OP-K Range of Motion Start: 11/06/21 08:18 Freq: Status: Active Protocol: Document 11/06/21 11:17 ELIA (Rec: 11/10/21 08:55 [facility] [id number]) Lumbar Spine Range of Motion Lumbar Spine Active ROM Limitations Soft Tissue Tightness,Pain Comments Mod decrease all motions Hip Goniometric Range of Motion Hip Active Hip ROM WFL No Flexion w/Knee Flexed 95 Straight Leg Raise 55 Extension 0 Abduction 35 Internal Rotation 10 External Rotation 40 Comments raúl Ankle and Foot Goniometric Range of Motion Ankle and Foot Left Active Comments lacking 10 deg from neutral df right Ankle/Foot ROM WFL Yes PT-OP-M Strength Start: 11/06/21 08:18 Freq: Status: Active Protocol: Document 11/06/21 11:17 [facility] (Rec: 11/10/21 08:55 [facility] [id number]) Trunk Strength Trunk Manual Muscle Testing Flexion 4- Good- Extension 3+ Fair+ Hip Strength Hip Manual Muscle Testing Left Flexion (L2) 4- Good- Extension (S1) 3 Fair Abduction 3+ Fair+ External Rotation 3+ Fair+ Internal Rotation 4- Good- Right Flexion (L2) 4 Good Extension (S1) 3+ Fair+ Abduction 3+ Fair+ External Rotation 4- Good- Internal Rotation 4 Good Knee Strength Knee Manual Muscle Testing Left Flexion (S2) 4 Good Extension (L3) 4 Good Right Flexion (S2) 5 Normal Extension (L3) 5 Normal Ankle/Foot Strength Ankle and Foot Manual Muscle Testing Left Dorsiflexion (L4) 2+ Poor+ Plantarflexion (S1) 3- Fair- Right Dorsiflexion (L4) 5 Normal Plantarflexion (S1) 5 Normal PT-OP-Q Treatments Start: 11/06/21 08:18 Freq: Status: Active Protocol: Document 01/06/22 08:09 [facility] (Rec: 01/06/22 09:00 [facility] [id number]) Gym Equipment Shuttle Recovery Unilateral Heel Raises Resistance 25 right, 12 left Reps/Time 10x2 Bilateral Heel Raises Resistance 37 Shuttle Recovery Platform Stable Reps/Time 10x2 Unilateral Squats Resistance 37 Shuttle Recovery Platform Stable Reps/Time 12x2 Bilateral Squats Details cues for knee alignment Resistance 75 Shuttle Recovery Platform Stable Reps/Time 12x2 Sport Cord cord green Exercise Details fwd, side Reps/Duration 10x,4x ea side Comments CG to [place] for balance, no AD. Therapeutic Exercises Sitting Exercises HC stretch Equipment Used strap Reps/Minutes 2x30 HS stretch Sitting Exercise Name Seated HS stretch Side bilateral Reps/Minutes 2x30 Gait Training Gait Activity stairs Device Used raúl railing Surface 6 stairs x 1 Treatment Focus gluteal activation Neuro Re-Education Treatment Balance Activities Cavanaugh balance testing Reps/Duration 7 min Self-Care/Home Management Treatment Education Patient Education Fall Risk,Home Exercise Program PT-OP-R Modalities Start: 11/06/21 08:18 Freq: Status: Active Protocol: Document 11/20/21 14:31 SAK (Rec: 11/20/21 15:15 SAK [id number]) Hot Pack/Cold Pack Treatment Hot Pack Location lumbar spine Patient Position Sitting Treatment Duration (minutes) 15 PT-OP-S Aquatic Treatment Start: 11/06/21 08:25 Freq: Status: Active Protocol: Document 01/21/22 16:38 LJ (Rec: 01/21/22 16:48 LJ [id number]) Aquatics Treatment Pool Entry/Exit Pool Entry/Exit Method Stairs Assistance Independent Water Walking jogging Water Level Chest Level Comments 2 laps quick steps Water Level Chest Level Comments 2 laps stop start Water Level Waist Level Walking Equipment 5 min Level of Assistance Verbal Cues Comments added direction changes April Water Level Chest Level Level of Assistance Verbal Cues Sideways Water Level Chest Level Level of Assistance Verbal Cues Comments large steps challenging Backwards Water Level Chest Level forward Water Level Chest Level Lower Extremity Exercises step up/down Details 3 boxes; various methods-up/ down, step over Water Level Chest Level Comments cues for ecc. control; hh on wall most times squats Details BLE, SL Body Position Standing Water Level Waist Level Reps/Duration [id number] Comments focus on form and hip thrust hip ab/ad Body Position Standing Water Level Chest Level Comments unil UE support knee flex/ext Reps/Duration 10x Comments unil UE support Lower Extremity Stretches gastroc Details at wall Body Position Standing Water Level Waist Level Reps/Duration 2x45 B hip flexors, quads Details at wall Body Position Standing Water Level Waist Level Reps/Duration 2x45 B HS Body Position Standing Water Level Chest Level Equipment Small Noodle Reps/Duration 2x40 Comments contract/relax x2 B Balance weight transfer-f/b, s/s, tandem, wide stance, Details at wall Body Position Standing Water Level Waist Level Reps/Duration 6 min Comments NM re-ed; balance; strength PT-OP-T Assessment and Plan Start: 11/06/21 08:18 Freq: Status: Active Protocol: Document 01/21/22 16:38 ALANIS (Rec: 01/21/22 16:48 LJ [id number]) Physical Therapy Assessment Rehab Potential Rehabilitation Potential Good Evaluation Complexity Number of Personal Factors/Comorbidities 1-2 Number of Body Systems Impaired 3 Clinical Presentation at Evaluation Evolving Impairments Impairments Balance,Gait,Pain,Strength Goals Four Impairment LBP Impairment Oswestry disability index score 42% Nursing Home Goal (LTG) Decrease Oswestry disability index score to no greater than 30% 01/06/22: goal met LTG Duration goal met Three Impairment gait dysfunction Impairment step-to pattern on stairs, requires use of walker on level surfaces Nursing Home Goal (LTG) Patient will be able to ascend and descend stairs safetly with alternating step pattern and weigh least restrictive device on level surfaces at home and in the community 01/06/22: goal met, able to do with SPC LTG Duration goal met Two Impairment weakness left LE Short Term Goal (STG) Patient to be instructed in HEP for purposes of LE strengthening to support PT clinic activities STG Duration goal met [place] Supervisor Brick Goal (LTG) Patient to be independent and compliant with HEP and demonstrate 1 grade muscle strength improvement throughout left LE 01/06/22: good progress, except no change left ankle LTG Duration 02/05/22 One Impairment balance dysfunction indicating high fall risk Impairment Cavanaugh balance score 36/56 Dynamic gait index 01/01 Short Term Goal (STG) Improve Cavanaugh balance and Dynamic gait index by 5 points as measure of improved functional balance and safety STG Duration goal met Nursing Home Goal (LTG) Improve Cavanaugh balance and Dynamic Gait index by 10 points as measure of improved functional balance and safety in the home and community 01/06/22: good goal progress, has improved 5 points LTG Duration 02/05/22 Assessment Summary Assessment Pt more challenged with gait activities and weight shifting . At end of session pt was demonstrating better balance and stability. He would benefit from several days per week doing same exercises in water to improve strength and balance. Informed about [facility] program to encourage him to continue to exercise in pool after Aquatic therapy is discontinued by the hospital. Physical Therapy Plan Frequency and Duration Frequency of Treatment 2x/Week Duration of treatment (weeks) 12 Plan of Care Start Date 11/06/21 Plan of Care End Date 01/29/22 Therapeutic Interventions Therapeutic Interventions Aquatic Therapy,Balance Training,Gait Training,Home Exercise Program,Manual Therapy,Neuromuscular Re- education,Patient/Caregiver Education,Self-Care/Home Management,Soft Tissue Mobilization,Taping, Therapeutic Activities, Therapeutic Exercises Modalities Cold Pack/Ice Massage,Electric Stimulation,Hot Packs, Traction- Mechanical, Ultrasound Next Visit Focus/Plan Next Note Type Treatment Note Next Visit Plan Continue strengthening, balance, gait training in aquatic and land-based PT settings to help patient fully achieve the above goals for improved safety and function in the home and community.
--- NOTE | 2022-02-16 16:40 | PT.OTN ---
Current Diagnoses Other chronic pain (02/16/22) Sciatica, left side (02/16/22) Low back pain, unspecified (02/16/22) Paresthesia of skin (02/16/22) Other abnormalities of gait and mobility (02/16/22) Weakness (02/16/22) Physical Therapy Treatment Note PT-OP-A Visit Information Start: 11/06/21 08:18 Freq: Status: Active Protocol: Document 02/16/22 08:15 SAK (Rec: 02/16/22 08:58 [facility] [id number]) Out-Patient Physical Therapy Visit Information Visit Information Visit Type Treatment Note Visit Start Time 08:14 Visit Stop Time 09:00 Total Visit Minutes 44 Visit Number 18 Number of WAGE ANALYST Visits 0 Precautions Precautions back pain with spinal stenosis , prostate cancer, cardiac disease PT-OP-B Current Condition Start: 11/06/21 08:18 Freq: Status: Active Protocol: Document 11/20/21 14:31 SAK (Rec: 11/20/21 15:15 SAK [id number]) Current Condition History of Current Condition Onset Date 2010 Current Complaints balance dysfunction History of Current Condition 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 Has fallen several times last probably 6 months ago. Reports drop foot. States he has gained weight and would like to lose weight as well. Also history of a tank falling on his back 1983 with 4 compression fractures. Reports his balance difficulty is his biggest concern. Prior Treatments and Tests History aortic valve replacement, raúl TKA, right RJ, cataract surgery with partial vision loss left ( upper and side), prostate cancer. Pain clinic not helpful, has seen neurologist Treatment Goals Patient/Caregiver Goals Improve balance, decrease neuropathy PT-OP-C Subjective Start: 11/06/21 08:18 Freq: Status: Active Protocol: Document 02/16/22 08:15 SAK (Rec: 02/16/22 08:58 [facility] [id number]) OP-PT Subjective Patient Comments Patient Comments Planning to go to local gym with his sister soon. Sad that aquatic PT cancelled. Wasn't very faithful to exercises during the holidays but back at it. PT-OP-D Balance Start: 11/06/21 08:18 Freq: Status: Active Protocol: Document 11/06/21 11:17 SAK (Rec: 11/10/21 08:55 [facility] [id number]) OP-PT Balance Assessment Sitting Balance Static Sitting Balance Ability Good Standing Balance Static Standing Balance Ability Fair Cavanaugh Balance Assessment Evaluation Sitting to Standing Ability Independent w/Hands Unsupported Stance Supervision- 2 minutes Sitting Unsupported, Feet on Floor Safely- 2 minutes Standing to Sitting Ability Safely, Minimal Hand Use Transfer Ability Safely, Hand Use Unsupported Stance- Eyes Closed Supervision, 10 seconds Unsupported Stance- Eyes Open Supervision to maintain Reaching Forward Standing Safely, 5 inches Pick- Up Object From Floor Supervision Look Behind Shoulder - Standing Shifts Weight Well Turning 360 Degrees Turns slowly, but safely Unsupported Stance, Alternating Feet on 2 Steps w/Minimum Assist Stair Unsupported Tandem Stance Balance Lost- Step/Stand Unilateral Leg Stance Unable,assist to not fall Total Score Cavanaugh Total Score (out of 56 points) 36 Taylor Fall Scale Copyright Permission PT-OP-E Functional Tests Start: 11/06/21 08:18 Freq: Status: Active Protocol: Document 11/06/21 11:17 [facility] (Rec: 11/10/21 08:55 [facility] [id number]) Functional Tests Dynamic Gait Index (DGI) Score 11 PT-OP-G Mobility & Gait Start: 11/06/21 08:18 Freq: Status: Active Protocol: Document 11/06/21 11:17 [facility] (Rec: 11/10/21 08:55 [facility] [id number]) OP Gait Assessment Gait Gait Assistance Required: Independent Distance (Feet) 150 Assistive Devices Assistive Device Front Wheeled Walker Factors Limiting Gait Function Factors Limiting Gait Function Decreased Sensation,Decreased Strength Stair Climbing Evaluation Evaluation Level of Assist On Stairs Standby Assistance Devices Stair Climbing Assistive Devices Right Railing Technique/Endurance Stair Climbing Direction Descend Stair Climbing Technique Step to Step Number of Steps Climbed 4 Stair Climbing Set # Repetitions (reps) 1 PT-OP-H Neuro Start: 11/06/21 08:18 Freq: Status: Active Protocol: Document 11/06/21 11:17 [facility] (Rec: 11/10/21 08:55 [facility] [id number]) Sensation Evaluation Gross Sensation Gross Sensation Left LE Impaired Sensation Description Numbness PT-OP-K Range of Motion Start: 11/06/21 08:18 Freq: Status: Active Protocol: Document 11/06/21 11:17 [facility] (Rec: 11/10/21 08:55 [facility] [id number]) Lumbar Spine Range of Motion Lumbar Spine Active ROM Limitations Soft Tissue Tightness,Pain Comments Mod decrease all motions Hip Goniometric Range of Motion Hip Active Hip ROM WFL No Flexion w/Knee Flexed 95 Straight Leg Raise 55 Extension 0 Abduction 35 Internal Rotation 10 External Rotation 40 Comments raúl Ankle and Foot Goniometric Range of Motion Ankle and Foot Left Active Comments lacking 10 deg from neutral df right Ankle/Foot ROM WFL Yes PT-OP-M Strength Start: 11/06/21 08:18 Freq: Status: Active Protocol: Document 11/06/21 11:17 [facility] (Rec: 11/10/21 08:55 [facility] [id number]) Trunk Strength Trunk Manual Muscle Testing Flexion 4- Good- Extension 3+ Fair+ Hip Strength Hip Manual Muscle Testing Left Flexion (L2) 4- Good- Extension (S1) 3 Fair Abduction 3+ Fair+ External Rotation 3+ Fair+ Internal Rotation 4- Good- Right Flexion (L2) 4 Good Extension (S1) 3+ Fair+ Abduction 3+ Fair+ External Rotation 4- Good- Internal Rotation 4 Good Knee Strength Knee Manual Muscle Testing Left Flexion (S2) 4 Good Extension (L3) 4 Good Right Flexion (S2) 5 Normal Extension (L3) 5 Normal Ankle/Foot Strength Ankle and Foot Manual Muscle Testing Left Dorsiflexion (L4) 2+ Poor+ Plantarflexion (S1) 3- Fair- Right Dorsiflexion (L4) 5 Normal Plantarflexion (S1) 5 Normal PT-OP-Q Treatments Start: 11/06/21 08:18 Freq: Status: Active Protocol: Document 02/16/22 08:15 [facility] (Rec: 02/16/22 08:58 [facility] [id number]) Cardio Equipment Elliptical Duration (Minutes) 1 Resistance 1 Recumbent Stepper (Sci-Fit) Duration (Minutes) 5 Resistance 1.5 Seat Position 13 Treadmill Duration (Minutes) 5 Speed 1.4-1.2 due to SOB Incline 0 Other cues for posture and core and gluteal activaiton. Gym Equipment Shuttle Recovery Unilateral Heel Raises Resistance 25 right, 12 left Reps/Time 10x2 Bilateral Heel Raises Resistance 50 Shuttle Recovery Platform Stable Reps/Time 10x2 Unilateral Squats Resistance 50 Shuttle Recovery Platform Stable Reps/Time 12x2 Bilateral Squats Details cues for knee alignment Resistance 75 Shuttle Recovery Platform Stable Reps/Time 10x2 Shuttle Balance Red Details bal and wt shift fwd/bck, side Reps/Duration 7 mins Therapeutic Exercises Sitting Exercises HC stretch Equipment Used strap Reps/Minutes 2x30 HS stretch Sitting Exercise Name Seated HS stretch Side bilateral Reps/Minutes 2x30 PT-OP-R Modalities Start: 11/06/21 08:18 Freq: Status: Active Protocol: Document 11/20/21 14:31 SAK (Rec: 11/20/21 15:15 SAK [id number]) Hot Pack/Cold Pack Treatment Hot Pack Location lumbar spine Patient Position Sitting Treatment Duration (minutes) 15 PT-OP-S Aquatic Treatment Start: 11/06/21 08:25 Freq: Status: Active Protocol: Document 01/21/22 16:38 LJ (Rec: 01/21/22 16:48 LJ [id number]) Aquatics Treatment Pool Entry/Exit Pool Entry/Exit Method Stairs Assistance Independent Water Walking jogging Water Level Chest Level Comments 2 laps quick steps Water Level Chest Level Comments 2 laps stop start Water Level Waist Level Walking Equipment 5 min Level of Assistance Verbal Cues Comments added direction changes April Water Level Chest Level Level of Assistance Verbal Cues Sideways Water Level Chest Level Level of Assistance Verbal Cues Comments large steps challenging Backwards Water Level Chest Level forward Water Level Chest Level Lower Extremity Exercises step up/down Details 3 boxes; various methods-up/ down, step over Water Level Chest Level Comments cues for ecc. control; hh on wall most times squats Details BLE, SL Body Position Standing Water Level Waist Level Reps/Duration [id number] Comments focus on form and hip thrust hip ab/ad Body Position Standing Water Level Chest Level Comments unil UE support knee flex/ext Reps/Duration 10x Comments unil UE support Lower Extremity Stretches gastroc Details at wall Body Position Standing Water Level Waist Level Reps/Duration 2x45 B hip flexors, quads Details at wall Body Position Standing Water Level Waist Level Reps/Duration 2x45 B HS Body Position Standing Water Level Chest Level Equipment Small Noodle Reps/Duration 2x40 Comments contract/relax x2 B Balance weight transfer-f/b, s/s, tandem, wide stance, Details at wall Body Position Standing Water Level Waist Level Reps/Duration 6 min Comments NM re-ed; balance; strength PT-OP-T Assessment and Plan Start: 11/06/21 08:18 Freq: Status: Active Protocol: Document 02/16/22 08:15 ELIA (Rec: 02/16/22 08:58 [facility] [id number]) Physical Therapy Assessment Impairments Impairments Balance,Gait,Pain,Strength Goals Four Impairment LBP Impairment Oswestry disability index score 42% Halfway Goal (LTG) Decrease Oswestry disability index score to no greater than 30% 01/06/22: goal met LTG Duration goal met Three Impairment gait dysfunction Impairment step-to pattern on stairs, requires use of walker on level surfaces Chief Nuclear Medicine Technologist Goal (LTG) Patient will be able to ascend and descend stairs safetly with alternating step pattern and weigh least restrictive device on level surfaces at home and in the community 01/06/22: goal met, able to do with SPC and railing LTG Duration goal met Two Impairment weakness left LE Short Term Goal (STG) Patient to be instructed in HEP for purposes of LE strengthening to support PT clinic activities STG Duration goal met Chief Nuclear Medicine Technologist Goal (LTG) Patient to be independent and compliant with HEP and demonstrate 1 grade muscle strength improvement throughout left LE 01/06/22: good progress, except no change left ankle 02/16/22: no change in ankle LTG Duration 04/07/22 One Impairment balance dysfunction indicating high fall risk Impairment Cavanaugh balance score 36/56 Dynamic gait index 01/01 Activitiesw Specific Balance Confidence (ABC ) scale 40% Short Term Goal (STG) Improve Cavanaugh balance and Dynamic gait index by 5 points as measure of improved functional balance and safety STG Duration goal met Chief Nuclear Medicine Technologist Goal (LTG) Improve Cavanaugh balance and Dynamic Gait index by 10 points as measure of improved functional balance and safety in the home and community 01/06/22: good goal progress, has improved 5 points on Cavanaugh 02/16/22: Cavanaugh Balance score 38/ 56, Dynamic Gait Index , ABC 52.5% all improved LTG Duration 04/07/22 Assessment Summary Assessment Encouraging patient to continue with aquatic exercise on his own or with personalized living assistant. Patient requires use of a device for safety, not as compliant to HEP over the holidays but getting back into it. Noting improvement since starting PT but still balance difficulty. ABC scale 52.5 %. Discussed increasing numbness since back surgery, may want to consider mechanical traction trial Physical Therapy Plan Frequency and Duration Frequency of Treatment 2x/Week Duration of treatment (weeks) 8 Plan of Care Start Date 02/16/22 Plan of Care End Date 04/07/22 Therapeutic Interventions Therapeutic Interventions Aquatic Therapy,Balance Training,Gait Training,Home Exercise Program,Manual Therapy,Neuromuscular Re- education,Patient/Caregiver Education,Self-Care/Home Management,Soft Tissue Mobilization,Taping, Therapeutic Activities, Therapeutic Exercises Modalities Cold Pack/Ice Massage,Electric Stimulation,Hot Packs, Traction- Mechanical, Ultrasound Next Visit Focus/Plan Next Note Type Treatment Note Next Visit Plan PT for strengthening with emphasis on use of weight machines, gait and balance training to improve safety and decrease fall risk. Increase resistance on leg press next session due to increased ease. Consider mechanical traction trial to decrease neurological symptoms
--- NOTE | 2022-02-23 17:30 | PT.OTN ---
Current Diagnoses Other chronic pain (02/23/22) Sciatica, left side (02/23/22) Low back pain, unspecified (02/23/22) Paresthesia of skin (02/23/22) Other abnormalities of gait and mobility (02/23/22) Weakness (02/23/22) Physical Therapy Treatment Note PT-OP-A Visit Information Start: 11/06/21 08:18 Freq: Status: Active Protocol: Document 02/23/22 15:19 NBM (Rec: 02/23/22 16:05 NB [id number]) Out-Patient Physical Therapy Visit Information Visit Information Visit Type Treatment Note Visit Start Time 15:19 Visit Stop Time 16:03 Total Visit Minutes 44 Visit Number 19 Number of WHEELCHAIR VAN OPERATOR FIRST RESPONDER Visits 1 Precautions Precautions back pain with spinal stenosis , prostate cancer, cardiac disease PT-OP-B Current Condition Start: 11/06/21 08:18 Freq: Status: Active Protocol: Document 11/20/21 14:31 SAK (Rec: 11/20/21 15:15 SAK [id number]) Current Condition History of Current Condition Onset Date 2010 Current Complaints balance dysfunction History of Current Condition 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 Has fallen several times last probably 6 months ago. Reports drop foot. States he has gained weight and would like to lose weight as well. Also history of a tank falling on his back 1984 with 4 compression fractures. Reports his balance difficulty is his biggest concern. Prior Treatments and Tests History aortic valve replacement, raúl TKA, right RJ, cataract surgery with partial vision loss left ( upper and side), prostate cancer. Pain clinic not helpful, has seen neurologist Treatment Goals Patient/Caregiver Goals Improve balance, decrease neuropathy PT-OP-C Subjective Start: 11/06/21 08:18 Freq: Status: Active Protocol: Document 02/23/22 15:19 NBM (Rec: 02/23/22 16:05 NBM [id number]) OP-PT Subjective Patient Comments Patient Comments Things are settling back down and pt is going to a pool daily again. Pt thinks legs are getting worse - more numbness in them. I wonder if this neuropathy ever really goes away. Pt thinks his spinal stenosis back surgery may have nicked a nerve. Pt has eye appt and 5-year valve checkup cardiology appt coming up. PT-OP-D Balance Start: 11/06/21 08:18 Freq: Status: Active Protocol: Document 11/06/21 11:17 SAK (Rec: 11/10/21 08:55 [facility] [id number]) OP-PT Balance Assessment Sitting Balance Static Sitting Balance Ability Good Standing Balance Static Standing Balance Ability Fair Cavanaugh Balance Assessment Evaluation Sitting to Standing Ability Independent w/Hands Unsupported Stance Supervision- 2 minutes Sitting Unsupported, Feet on Floor Safely- 2 minutes Standing to Sitting Ability Safely, Minimal Hand Use Transfer Ability Safely, Hand Use Unsupported Stance- Eyes Closed Supervision, 10 seconds Unsupported Stance- Eyes Open Supervision to maintain Reaching Forward Standing Safely, 5 inches Pick- Up Object From Floor Supervision Look Behind Shoulder - Standing Shifts Weight Well Turning 360 Degrees Turns slowly, but safely Unsupported Stance, Alternating Feet on 2 Steps w/Minimum Assist Stair Unsupported Tandem Stance Balance Lost- Step/Stand Unilateral Leg Stance Unable,assist to not fall Total Score Cavanaugh Total Score (out of 56 points) 36 Taylor Fall Scale Copyright Permission PT-OP-E Functional Tests Start: 11/06/21 08:18 Freq: Status: Active Protocol: Document 11/06/21 11:17 SAK (Rec: 11/10/21 08:55 [facility] [id number]) Functional Tests Dynamic Gait Index (DGI) Score 11 PT-OP-G Mobility & Gait Start: 11/06/21 08:18 Freq: Status: Active Protocol: Document 11/06/21 11:17 SAK (Rec: 11/10/21 08:55 [facility] [id number]) OP Gait Assessment Gait Gait Assistance Required: Independent Distance (Feet) 150 Assistive Devices Assistive Device Front Wheeled Walker Factors Limiting Gait Function Factors Limiting Gait Function Decreased Sensation,Decreased Strength Stair Climbing Evaluation Evaluation Level of Assist On Stairs Standby Assistance Devices Stair Climbing Assistive Devices Right Railing Technique/Endurance Stair Climbing Direction Descend Stair Climbing Technique Step to Step Number of Steps Climbed 4 Stair Climbing Set # Repetitions (reps) 1 PT-OP-H Neuro Start: 11/06/21 08:18 Freq: Status: Active Protocol: Document 11/06/21 11:17 SAK (Rec: 11/10/21 08:55 [facility] [id number]) Sensation Evaluation Gross Sensation Gross Sensation Left LE Impaired Sensation Description Numbness PT-OP-K Range of Motion Start: 11/06/21 08:18 Freq: Status: Active Protocol: Document 11/06/21 11:17 [facility] (Rec: 11/10/21 08:55 [facility] [id number]) Lumbar Spine Range of Motion Lumbar Spine Active ROM Limitations Soft Tissue Tightness,Pain Comments Mod decrease all motions Hip Goniometric Range of Motion Hip Active Hip ROM WFL No Flexion w/Knee Flexed 95 Straight Leg Raise 55 Extension 0 Abduction 35 Internal Rotation 10 External Rotation 40 Comments raúl Ankle and Foot Goniometric Range of Motion Ankle and Foot Left Active Comments lacking 10 deg from neutral df right Ankle/Foot ROM WFL Yes PT-OP-M Strength Start: 11/06/21 08:18 Freq: Status: Active Protocol: Document 11/06/21 11:17 [facility] (Rec: 11/10/21 08:55 [facility] [id number]) Trunk Strength Trunk Manual Muscle Testing Flexion 4- Good- Extension 3+ Fair+ Hip Strength Hip Manual Muscle Testing Left Flexion (L2) 4- Good- Extension (S1) 3 Fair Abduction 3+ Fair+ External Rotation 3+ Fair+ Internal Rotation 4- Good- Right Flexion (L2) 4 Good Extension (S1) 3+ Fair+ Abduction 3+ Fair+ External Rotation 4- Good- Internal Rotation 4 Good Knee Strength Knee Manual Muscle Testing Left Flexion (S2) 4 Good Extension (L3) 4 Good Right Flexion (S2) 5 Normal Extension (L3) 5 Normal Ankle/Foot Strength Ankle and Foot Manual Muscle Testing Left Dorsiflexion (L4) 2+ Poor+ Plantarflexion (S1) 3- Fair- Right Dorsiflexion (L4) 5 Normal Plantarflexion (S1) 5 Normal PT-OP-Q Treatments Start: 11/06/21 08:18 Freq: Status: Active Protocol: Document 02/23/22 15:19 NBM (Rec: 02/23/22 16:05 NBM [id number]) Cardio Equipment Recumbent Stepper (Sci-Fit) Duration (Minutes) 8 Resistance 1.5>2.0 last two min Seat Position 13 Gym Equipment Cable Column (Body Solid) Hamstring curl Details Lower bar on hole 11 Resistance 20#>30# Reps/Time 2x10 Knee extension Details Lower bar on hole 6 Resistance 20# Reps/Time 2x10 Shuttle Recovery Unilateral Heel Raises Resistance 25# right, 25>12# left Reps/Time 10x2 Bilateral Heel Raises Resistance 62 Shuttle Recovery Platform Stable Reps/Time 10x2 Unilateral Squats Details initial cue for R knee alignment Resistance 62 Shuttle Recovery Platform Stable Reps/Time 12x2 Bilateral Squats Details min cues for knee alignment Resistance 75>87 Shuttle Recovery Platform Stable Reps/Time 10x2 Shuttle Balance Red Details bal and wt shift a/p Reps/Duration 10 mins Comments balloon volleyball - CGA, IRON CUTTER needed PT-OP-R Modalities Start: 11/06/21 08:18 Freq: Status: Active Protocol: Document 11/20/21 14:31 SAK (Rec: 11/20/21 15:15 SAK [id number]) Hot Pack/Cold Pack Treatment Hot Pack Location lumbar spine Patient Position Sitting Treatment Duration (minutes) 15 PT-OP-S Aquatic Treatment Start: 11/06/21 08:25 Freq: Status: Active Protocol: Document 01/21/22 16:38 LJ (Rec: 01/21/22 16:48 LJ [id number]) Aquatics Treatment Pool Entry/Exit Pool Entry/Exit Method Stairs Assistance Independent Water Walking jogging Water Level Chest Level Comments 2 laps quick steps Water Level Chest Level Comments 2 laps stop start Water Level Waist Level Walking Equipment 5 min Level of Assistance Verbal Cues Comments added direction changes April Water Level Chest Level Level of Assistance Verbal Cues Sideways Water Level Chest Level Level of Assistance Verbal Cues Comments large steps challenging Backwards Water Level Chest Level forward Water Level Chest Level Lower Extremity Exercises step up/down Details 3 boxes; various methods-up/ down, step over Water Level Chest Level Comments cues for ecc. control; hh on wall most times squats Details BLE, SL Body Position Standing Water Level Waist Level Reps/Duration [id number] Comments focus on form and hip thrust hip ab/ad Body Position Standing Water Level Chest Level Comments unil UE support knee flex/ext Reps/Duration 10x Comments unil UE support Lower Extremity Stretches gastroc Details at wall Body Position Standing Water Level Waist Level Reps/Duration 2x45 B hip flexors, quads Details at wall Body Position Standing Water Level Waist Level Reps/Duration 2x45 B HS Body Position Standing Water Level Chest Level Equipment Small Noodle Reps/Duration 2x40 Comments contract/relax x2 B Balance weight transfer-f/b, s/s, tandem, wide stance, Details at wall Body Position Standing Water Level Waist Level Reps/Duration 6 min Comments NM re-ed; balance; strength PT-OP-T Assessment and Plan Start: 11/06/21 08:18 Freq: Status: Active Protocol: Document 02/23/22 15:19 [facility] [place] (Rec: 02/23/22 16:05 [facility] [place] [id number]) Physical Therapy Assessment Goals Four Impairment LBP Impairment Oswestry disability index score 42% Assisted Goal (LTG) Decrease Oswestry disability index score to no greater than 30% 01/06/22: goal met LTG Duration goal met Three Impairment gait dysfunction Impairment step-to pattern on stairs, requires use of walker on level surfaces Foam Rubber Molder Goal (LTG) Patient will be able to ascend and descend stairs safetly with alternating step pattern and weigh least restrictive device on level surfaces at home and in the community 01/06/22: goal met, able to do with SPC and railing LTG Duration goal met Two Impairment weakness left LE Short Term Goal (STG) Patient to be instructed in HEP for purposes of LE strengthening to support PT clinic activities STG Duration goal met Foam Rubber Molder Goal (LTG) Patient to be independent and compliant with HEP and demonstrate 1 grade muscle strength improvement throughout left LE 01/06/22: good progress, except no change left ankle 02/16/22: no change in ankle LTG Duration 04/07/22 One Impairment balance dysfunction indicating high fall risk Impairment Cavanaugh balance score 36/56 Dynamic gait index 01/01 Activitiesw Specific Balance Confidence (ABC ) scale 40% Short Term Goal (STG) Improve Cavanaugh balance and Dynamic gait index by 5 points as measure of improved functional balance and safety STG Duration goal met Assisted Goal (LTG) Improve Cavanaugh balance and Dynamic Gait index by 10 points as measure of improved functional balance and safety in the home and community 01/06/22: good goal progress, has improved 5 points on Cavanaugh 02/16/22: Cavanaugh Balance score 38/ 56, Dynamic Gait Index , ABC 52.5% all improved LTG Duration 04/07/22 Assessment Summary Assessment Pt tolerates increased weight by 12# on shuttle recovery today for DL and SL squats. Pt also tolerates leg extension and hamstring curl on gym equipment but requires cues for pacing and eccentric action initially. Pt is challenged w/ anterior/ posterior weightshifting on balance shuttle, moreso w/ posterior, but improves w/ treatment time and cueing for glute activation and upright posture. Physical Therapy Plan Frequency and Duration Frequency of Treatment 2x/Week Duration of treatment (weeks) 8 Plan of Care Start Date 02/16/22 Plan of Care End Date 04/07/22 Therapeutic Interventions Therapeutic Interventions Aquatic Therapy,Balance Training,Gait Training,Home Exercise Program,Manual Therapy,Neuromuscular Re- education,Patient/Caregiver Education,Self-Care/Home Management,Soft Tissue Mobilization,Taping, Therapeutic Activities, Therapeutic Exercises Modalities Cold Pack/Ice Massage,Electric Stimulation,Hot Packs, Traction- Mechanical, Ultrasound Next Visit Focus/Plan Next Note Type Treatment Note Next Visit Plan PT for strengthening with emphasis on use of weight machines, gait and balance training to improve safety and decrease fall risk. Increase resistance on leg press next session due to increased ease. Consider mechanical traction trial to decrease neurological symptoms
--- NOTE | 2022-03-02 10:20 | PT.OTN ---
Current Diagnoses Other chronic pain (03/02/22) Sciatica, left side (03/02/22) Low back pain, unspecified (03/02/22) Paresthesia of skin (03/02/22) Other abnormalities of gait and mobility (03/02/22) Weakness (03/02/22) Physical Therapy Treatment Note PT-OP-A Visit Information Start: 11/06/21 08:18 Freq: Status: Active Protocol: Document 03/02/22 08:14 SAK (Rec: 03/02/22 09:01 [facility] [id number]) Out-Patient Physical Therapy Visit Information Visit Information Visit Type Treatment Note Visit Start Time 08:14 Visit Stop Time 08:59 Total Visit Minutes 45 Visit Number 20 Number of ROLLER MECHANIC Visits 0 Evaluation Information Evaluation Date 11/06/21 Precautions Precautions back pain with spinal stenosis , prostate cancer, cardiac disease PT-OP-B Current Condition Start: 11/06/21 08:18 Freq: Status: Active Protocol: Document 11/20/21 14:31 SAK (Rec: 11/20/21 15:15 [facility] [id number]) Current Condition History of Current Condition Onset Date 2010 Current Complaints balance dysfunction History of Current Condition 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 Has fallen several times last probably 6 months ago. Reports drop foot. States he has gained weight and would like to lose weight as well. Also history of a tank falling on his back 1984 with 4 compression fractures. Reports his balance difficulty is his biggest concern. Prior Treatments and Tests History aortic valve replacement, raúl TKA, right RJ, cataract surgery with partial vision loss left ( upper and side), prostate cancer. Pain clinic not helpful, has seen neurologist Treatment Goals Patient/Caregiver Goals Improve balance, decrease neuropathy PT-OP-C Subjective Start: 11/06/21 08:18 Freq: Status: Active Protocol: Document 03/02/22 08:14 SAK (Rec: 03/02/22 09:01 SAK [id number]) OP-PT Subjective Patient Comments Patient Comments Feels like legs tire out faster. Numbness worse left LE. Hasn't gotten back to the pool yet. States he has an inversion table at home, hasn' t tried (bought for his ) yet as previously discussed. Agreeable to trial of mechanical traction today. PT-OP-D Balance Start: 11/06/21 08:18 Freq: Status: Active Protocol: Document 11/06/21 11:17 SAK (Rec: 11/10/21 08:55 [facility] [id number]) OP-PT Balance Assessment Sitting Balance Static Sitting Balance Ability Good Standing Balance Static Standing Balance Ability Fair Cavanaugh Balance Assessment Evaluation Sitting to Standing Ability Independent w/Hands Unsupported Stance Supervision- 2 minutes Sitting Unsupported, Feet on Floor Safely- 2 minutes Standing to Sitting Ability Safely, Minimal Hand Use Transfer Ability Safely, Hand Use Unsupported Stance- Eyes Closed Supervision, 10 seconds Unsupported Stance- Eyes Open Supervision to maintain Reaching Forward Standing Safely, 5 inches Pick- Up Object From Floor Supervision Look Behind Shoulder - Standing Shifts Weight Well Turning 360 Degrees Turns slowly, but safely Unsupported Stance, Alternating Feet on 2 Steps w/Minimum Assist Stair Unsupported Tandem Stance Balance Lost- Step/Stand Unilateral Leg Stance Unable,assist to not fall Total Score Cavanaugh Total Score (out of 56 points) 36 Taylor Fall Scale Copyright Permission PT-OP-E Functional Tests Start: 11/06/21 08:18 Freq: Status: Active Protocol: Document 11/06/21 11:17 [facility] (Rec: 11/10/21 08:55 [facility] [id number]) Functional Tests Dynamic Gait Index (DGI) Score 11 PT-OP-G Mobility & Gait Start: 11/06/21 08:18 Freq: Status: Active Protocol: Document 11/06/21 11:17 SAK (Rec: 11/10/21 08:55 [facility] [id number]) OP Gait Assessment Gait Gait Assistance Required: Independent Distance (Feet) 150 Assistive Devices Assistive Device Front Wheeled Walker Factors Limiting Gait Function Factors Limiting Gait Function Decreased Sensation,Decreased Strength Stair Climbing Evaluation Evaluation Level of Assist On Stairs Standby Assistance Devices Stair Climbing Assistive Devices Right Railing Technique/Endurance Stair Climbing Direction Descend Stair Climbing Technique Step to Step Number of Steps Climbed 4 Stair Climbing Set # Repetitions (reps) 1 PT-OP-H Neuro Start: 11/06/21 08:18 Freq: Status: Active Protocol: Document 11/06/21 11:17 SAK (Rec: 11/10/21 08:55 [facility] [id number]) Sensation Evaluation Gross Sensation Gross Sensation Left LE Impaired Sensation Description Numbness PT-OP-K Range of Motion Start: 11/06/21 08:18 Freq: Status: Active Protocol: Document 11/06/21 11:17 [facility] (Rec: 11/10/21 08:55 [facility] [id number]) Lumbar Spine Range of Motion Lumbar Spine Active ROM Limitations Soft Tissue Tightness,Pain Comments Mod decrease all motions Hip Goniometric Range of Motion Hip Active Hip ROM WFL No Flexion w/Knee Flexed 95 Straight Leg Raise 55 Extension 0 Abduction 35 Internal Rotation 10 External Rotation 40 Comments raúl Ankle and Foot Goniometric Range of Motion Ankle and Foot Left Active Comments lacking 10 deg from neutral df right Ankle/Foot ROM WFL Yes PT-OP-M Strength Start: 11/06/21 08:18 Freq: Status: Active Protocol: Document 11/06/21 11:17 [facility] (Rec: 11/10/21 08:55 [facility] [id number]) Trunk Strength Trunk Manual Muscle Testing Flexion 4- Good- Extension 3+ Fair+ Hip Strength Hip Manual Muscle Testing Left Flexion (L2) 4- Good- Extension (S1) 3 Fair Abduction 3+ Fair+ External Rotation 3+ Fair+ Internal Rotation 4- Good- Right Flexion (L2) 4 Good Extension (S1) 3+ Fair+ Abduction 3+ Fair+ External Rotation 4- Good- Internal Rotation 4 Good Knee Strength Knee Manual Muscle Testing Left Flexion (S2) 4 Good Extension (L3) 4 Good Right Flexion (S2) 5 Normal Extension (L3) 5 Normal Ankle/Foot Strength Ankle and Foot Manual Muscle Testing Left Dorsiflexion (L4) 2+ Poor+ Plantarflexion (S1) 3- Fair- Right Dorsiflexion (L4) 5 Normal Plantarflexion (S1) 5 Normal PT-OP-Q Treatments Start: 11/06/21 08:18 Freq: Status: Active Protocol: Document 03/02/22 08:14 [facility] (Rec: 03/02/22 09:01 [facility] [id number]) Cardio Equipment Recumbent Stepper (Sci-Fit) Duration (Minutes) 8 Resistance 2.0 Seat Position 13 Other LE's only last 4 min Therapeutic Exercises Sitting Exercises HS stretch Sitting Exercise Name Seated HS stretch Side bilateral Reps/Minutes 2x30 piriformis stretch Sitting Exercise Name Seated piriformis stretch Reps/Minutes 2x30 Comments Feeling a good stretch Self-Care/Home Management Treatment Education Other Education Return to pool for aquatic exercise Trial inversion table at home, starting with low angle, short amount of time, progress as tolerated. PT-OP-R Modalities Start: 11/06/21 08:18 Freq: Status: Active Protocol: Document 03/02/22 08:14 SAK (Rec: 03/02/22 10:19 SAK [id number]) Spinal Traction Traction Treatment Lumbar Method Mechanical,Static Patient Position Hooklying Force Applied (Pounds) 60 Duration of Treatment (Minutes) 10 Heating Pad Applied No Traction Treatment Comment MH during set-up for electric traction machine; this machine not functioning so work order put in, no heat when switched to [facility] traction unit PT-OP-S Aquatic Treatment Start: 11/06/21 08:25 Freq: Status: Active Protocol: Document 01/21/22 16:38 LJ (Rec: 01/21/22 16:48 LJ [id number]) Aquatics Treatment Pool Entry/Exit Pool Entry/Exit Method Stairs Assistance Independent Water Walking jogging Water Level Chest Level Comments 2 laps quick steps Water Level Chest Level Comments 2 laps stop start Water Level Waist Level Walking Equipment 5 min Level of Assistance Verbal Cues Comments added direction changes April Water Level Chest Level Level of Assistance Verbal Cues Sideways Water Level Chest Level Level of Assistance Verbal Cues Comments large steps challenging Backwards Water Level Chest Level forward Water Level Chest Level Lower Extremity Exercises step up/down Details 3 boxes; various methods-up/ down, step over Water Level Chest Level Comments cues for ecc. control; hh on wall most times squats Details BLE, SL Body Position Standing Water Level Waist Level Reps/Duration [id number] Comments focus on form and hip thrust hip ab/ad Body Position Standing Water Level Chest Level Comments unil UE support knee flex/ext Reps/Duration 10x Comments unil UE support Lower Extremity Stretches gastroc Details at wall Body Position Standing Water Level Waist Level Reps/Duration 2x45 B hip flexors, quads Details at wall Body Position Standing Water Level Waist Level Reps/Duration 2x45 B HS Body Position Standing Water Level Chest Level Equipment Small Noodle Reps/Duration 2x40 Comments contract/relax x2 B Balance weight transfer-f/b, s/s, tandem, wide stance, Details at wall Body Position Standing Water Level Waist Level Reps/Duration 6 min Comments NM re-ed; balance; strength PT-OP-T Assessment and Plan Start: 11/06/21 08:18 Freq: Status: Active Protocol: Document 03/02/22 08:14 [facility] (Rec: 03/02/22 09:01 [facility] [id number]) Physical Therapy Assessment Goals Four Impairment LBP Impairment Oswestry disability index score 42% Group Home Goal (LTG) Decrease Oswestry disability index score to no greater than 30% 01/06/22: goal met LTG Duration goal met Three Impairment gait dysfunction Impairment step-to pattern on stairs, requires use of walker on level surfaces Group Home Goal (LTG) Patient will be able to ascend and descend stairs safetly with alternating step pattern and weigh least restrictive device on level surfaces at home and in the community 01/06/22: goal met, able to do with SPC and railing LTG Duration goal met Two Impairment weakness left LE Short Term Goal (STG) Patient to be instructed in HEP for purposes of LE strengthening to support PT clinic activities STG Duration goal met Group Home Goal (LTG) Patient to be independent and compliant with HEP and demonstrate 1 grade muscle strength improvement throughout left LE 01/06/22: good progress, except no change left ankle 02/16/22: no change in ankle 03/02/22: no further progress, patient reports earlier fatigue. LTG Duration 04/07/22 One Impairment balance dysfunction indicating high fall risk Impairment Cavanaugh balance score 36/56 Dynamic gait index 01/01 Activitiesw Specific Balance Confidence (ABC ) scale 40% Short Term Goal (STG) Improve Cavanaugh balance and Dynamic gait index by 5 points as measure of improved functional balance and safety STG Duration goal met Wood Type Cutter Goal (LTG) Improve Cavanaugh balance and Dynamic Gait index by 10 points as measure of improved functional balance and safety in the home and community 01/06/22: good goal progress, has improved 5 points on Cavanaugh 02/16/22: Cavanaugh Balance score 38/ 56, Dynamic Gait Index , ABC 52.5% all improved 03/02/22: no further progress LTG Duration 04/07/22 Assessment Summary Assessment No change in muscle strength since last tested. , lacking antigravity strength in left ankle all motions, patient reporting some increased numbness. While setting up for mechanical traction patient reported he previously had traction done at another clinic (he had forgotten), but states his body was flat. Agreeable to trial with spine in flexion. Electric unit not functioning today so switched to [facility] traction unit with good tolerance. Also recomended patient trial inversion table at home, and return to the pool for further decompression of spine with ther ex. Patient in agreement . Physical Therapy Plan Frequency and Duration Frequency of Treatment 2x/Week Duration of treatment (weeks) 8 Plan of Care Start Date 02/16/22 Plan of Care End Date 04/07/22 Therapeutic Interventions Therapeutic Interventions Aquatic Therapy,Balance Training,Gait Training,Home Exercise Program,Manual Therapy,Neuromuscular Re- education,Patient/Caregiver Education,Self-Care/Home Management,Soft Tissue Mobilization,Taping, Therapeutic Activities, Therapeutic Exercises Modalities Cold Pack/Ice Massage,Electric Stimulation,Hot Packs, Traction- Mechanical, Ultrasound Next Visit Focus/Plan Next Note Type Treatment Note Next Visit Plan Assess response to traction in clinic with spine in flexion, as well as trial inversion table. See if returned to aquatic exercise. Further traction if estrada well.
--- NOTE | 2022-03-09 08:55 | PT.OTN ---
Current Diagnoses Other chronic pain (03/09/22) Sciatica, left side (03/09/22) Low back pain, unspecified (03/09/22) Paresthesia of skin (03/09/22) Other abnormalities of gait and mobility (03/09/22) Weakness (03/09/22) Physical Therapy Treatment Note PT-OP-A Visit Information Start: 11/06/21 08:18 Freq: Status: Active Protocol: Document 03/09/22 08:15 SAK (Rec: 03/09/22 08:55 [facility] [id number]) Out-Patient Physical Therapy Visit Information Visit Information Visit Type Treatment Note Visit Start Time 08:16 Visit Stop Time 09:00 Total Visit Minutes 44 Visit Number 21 Number of KNOCK UP ASSEMBLER Visits 0 Precautions Precautions back pain with spinal stenosis , prostate cancer, cardiac disease PT-OP-B Current Condition Start: 11/06/21 08:18 Freq: Status: Active Protocol: Document 11/20/21 14:31 SAK (Rec: 11/20/21 15:15 SAK [id number]) Current Condition History of Current Condition Onset Date 2010 Current Complaints balance dysfunction History of Current Condition 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 Has fallen several times last probably 6 months ago. Reports drop foot. States he has gained weight and would like to lose weight as well. Also history of a tank falling on his back 1984 with 4 compression fractures. Reports his balance difficulty is his biggest concern. Prior Treatments and Tests History aortic valve replacement, raúl TKA, right RJ, cataract surgery with partial vision loss left ( upper and side), prostate cancer. Pain clinic not helpful, has seen neurologist Treatment Goals Patient/Caregiver Goals Improve balance, decrease neuropathy PT-OP-C Subjective Start: 11/06/21 08:18 Freq: Status: Active Protocol: Document 03/09/22 08:15 SAK (Rec: 03/09/22 08:55 SAK [id number]) OP-PT Subjective Patient Comments Patient Comments Liked traction, back felt better and also felt less off balance. Tried inversion table at home 3-4 times. Hasn 't gone to pool yet. Going to fitness center several times per week. PT-OP-D Balance Start: 11/06/21 08:18 Freq: Status: Active Protocol: Document 11/06/21 11:17 SAK (Rec: 11/10/21 08:55 [facility] [id number]) OP-PT Balance Assessment Sitting Balance Static Sitting Balance Ability Good Standing Balance Static Standing Balance Ability Fair Cavanaugh Balance Assessment Evaluation Sitting to Standing Ability Independent w/Hands Unsupported Stance Supervision- 2 minutes Sitting Unsupported, Feet on Floor Safely- 2 minutes Standing to Sitting Ability Safely, Minimal Hand Use Transfer Ability Safely, Hand Use Unsupported Stance- Eyes Closed Supervision, 10 seconds Unsupported Stance- Eyes Open Supervision to maintain Reaching Forward Standing Safely, 5 inches Pick- Up Object From Floor Supervision Look Behind Shoulder - Standing Shifts Weight Well Turning 360 Degrees Turns slowly, but safely Unsupported Stance, Alternating Feet on 2 Steps w/Minimum Assist Stair Unsupported Tandem Stance Balance Lost- Step/Stand Unilateral Leg Stance Unable,assist to not fall Total Score Cavanaugh Total Score (out of 56 points) 36 Taylor Fall Scale Copyright Permission PT-OP-E Functional Tests Start: 11/06/21 08:18 Freq: Status: Active Protocol: Document 11/06/21 11:17 [facility] (Rec: 11/10/21 08:55 [facility] [id number]) Functional Tests Dynamic Gait Index (DGI) Score 11 PT-OP-G Mobility & Gait Start: 11/06/21 08:18 Freq: Status: Active Protocol: Document 11/06/21 11:17 [facility] (Rec: 11/10/21 08:55 [facility] [id number]) OP Gait Assessment Gait Gait Assistance Required: Independent Distance (Feet) 150 Assistive Devices Assistive Device Front Wheeled Walker Factors Limiting Gait Function Factors Limiting Gait Function Decreased Sensation,Decreased Strength Stair Climbing Evaluation Evaluation Level of Assist On Stairs Standby Assistance Devices Stair Climbing Assistive Devices Right Railing Technique/Endurance Stair Climbing Direction Descend Stair Climbing Technique Step to Step Number of Steps Climbed 4 Stair Climbing Set # Repetitions (reps) 1 PT-OP-H Neuro Start: 11/06/21 08:18 Freq: Status: Active Protocol: Document 11/06/21 11:17 [facility] (Rec: 11/10/21 08:55 [facility] [id number]) Sensation Evaluation Gross Sensation Gross Sensation Left LE Impaired Sensation Description Numbness PT-OP-K Range of Motion Start: 11/06/21 08:18 Freq: Status: Active Protocol: Document 11/06/21 11:17 [facility] (Rec: 11/10/21 08:55 [facility] [id number]) Lumbar Spine Range of Motion Lumbar Spine Active ROM Limitations Soft Tissue Tightness,Pain Comments Mod decrease all motions Hip Goniometric Range of Motion Hip Active Hip ROM WFL No Flexion w/Knee Flexed 95 Straight Leg Raise 55 Extension 0 Abduction 35 Internal Rotation 10 External Rotation 40 Comments raúl Ankle and Foot Goniometric Range of Motion Ankle and Foot Left Active Comments lacking 10 deg from neutral df right Ankle/Foot ROM WFL Yes PT-OP-M Strength Start: 11/06/21 08:18 Freq: Status: Active Protocol: Document 11/06/21 11:17 [facility] (Rec: 11/10/21 08:55 [facility] [id number]) Trunk Strength Trunk Manual Muscle Testing Flexion 4- Good- Extension 3+ Fair+ Hip Strength Hip Manual Muscle Testing Left Flexion (L2) 4- Good- Extension (S1) 3 Fair Abduction 3+ Fair+ External Rotation 3+ Fair+ Internal Rotation 4- Good- Right Flexion (L2) 4 Good Extension (S1) 3+ Fair+ Abduction 3+ Fair+ External Rotation 4- Good- Internal Rotation 4 Good Knee Strength Knee Manual Muscle Testing Left Flexion (S2) 4 Good Extension (L3) 4 Good Right Flexion (S2) 5 Normal Extension (L3) 5 Normal Ankle/Foot Strength Ankle and Foot Manual Muscle Testing Left Dorsiflexion (L4) 2+ Poor+ Plantarflexion (S1) 3- Fair- Right Dorsiflexion (L4) 5 Normal Plantarflexion (S1) 5 Normal PT-OP-Q Treatments Start: 11/06/21 08:18 Freq: Status: Active Protocol: Document 03/09/22 08:15 [facility] (Rec: 03/09/22 08:55 [facility] [id number]) Cardio Equipment Recumbent Stepper (Sci-Fit) Duration (Minutes) 7 Resistance 2.0 Seat Position 13 Other LE's only Treadmill Duration (Minutes) 5 Speed 1.4-1.2 due to SOB Incline 0 Other cues for posture and core and gluteal activaiton. Therapeutic Exercises Supine Exercises single leg bridge. Reps/Minutes 10x Sidelying Exercises hip abduction Reps/Minutes 10x Comments cues for core activation Sitting Exercises HS stretch Sitting Exercise Name Seated HS stretch Side bilateral Reps/Minutes 2x30 piriformis stretch Sitting Exercise Name Seated piriformis stretch Reps/Minutes 2x30 Standing Exercises step-ups Reps/Minutes 10x Comments cues for gluteal activation hip ext Reps/Minutes 10x Comments cues for small movement, no lumbar ext Self-Care/Home Management Treatment Education Other Education updated HEP with hip abd, single leg bridge PT-OP-R Modalities Start: 11/06/21 08:18 Freq: Status: Active Protocol: Document 03/09/22 08:15 SAK (Rec: 03/09/22 08:55 SAK [id number]) Spinal Traction Traction Treatment Lumbar Method Mechanical,Static Patient Position Hooklying Force Applied (Pounds) 60 Duration of Treatment (Minutes) 10 Heating Pad Applied No Traction Treatment Comment Fletcher Home traction unit PT-OP-S Aquatic Treatment Start: 11/06/21 08:25 Freq: Status: Active Protocol: Document 01/21/22 16:38 LJ (Rec: 01/21/22 16:48 LJ [id number]) Aquatics Treatment Pool Entry/Exit Pool Entry/Exit Method Stairs Assistance Independent Water Walking jogging Water Level Chest Level Comments 2 laps quick steps Water Level Chest Level Comments 2 laps stop start Water Level Waist Level Walking Equipment 5 min Level of Assistance Verbal Cues Comments added direction changes April Water Level Chest Level Level of Assistance Verbal Cues Sideways Water Level Chest Level Level of Assistance Verbal Cues Comments large steps challenging Backwards Water Level Chest Level forward Water Level Chest Level Lower Extremity Exercises step up/down Details 3 boxes; various methods-up/ down, step over Water Level Chest Level Comments cues for ecc. control; hh on wall most times squats Details BLE, SL Body Position Standing Water Level Waist Level Reps/Duration [id number] Comments focus on form and hip thrust hip ab/ad Body Position Standing Water Level Chest Level Comments unil UE support knee flex/ext Reps/Duration 10x Comments unil UE support Lower Extremity Stretches gastroc Details at wall Body Position Standing Water Level Waist Level Reps/Duration 2x45 B hip flexors, quads Details at wall Body Position Standing Water Level Waist Level Reps/Duration 2x45 B HS Body Position Standing Water Level Chest Level Equipment Small Noodle Reps/Duration 2x40 Comments contract/relax x2 B Balance weight transfer-f/b, s/s, tandem, wide stance, Details at wall Body Position Standing Water Level Waist Level Reps/Duration 6 min Comments NM re-ed; balance; strength PT-OP-T Assessment and Plan Start: 11/06/21 08:18 Freq: Status: Active Protocol: Document 03/09/22 08:15 SAK (Rec: 03/09/22 08:55 [facility] [id number]) Physical Therapy Assessment Goals Four Impairment LBP Impairment Oswestry disability index score 42% Half-Way Goal (LTG) Decrease Oswestry disability index score to no greater than 30% 01/06/22: goal met LTG Duration goal met Three Impairment gait dysfunction Impairment step-to pattern on stairs, requires use of walker on level surfaces Half-Way Goal (LTG) Patient will be able to ascend and descend stairs safetly with alternating step pattern and weigh least restrictive device on level surfaces at home and in the community 01/06/22: goal met, able to do with SPC and railing LTG Duration goal met Two Impairment weakness left LE Short Term Goal (STG) Patient to be instructed in HEP for purposes of LE strengthening to support PT clinic activities STG Duration goal met Half-Way Goal (LTG) Patient to be independent and compliant with HEP and demonstrate 1 grade muscle strength improvement throughout left LE 01/06/22: good progress, except no change left ankle 02/16/22: no change in ankle 03/02/22: no further progress, patient reports earlier fatigue. LTG Duration 04/07/22 One Impairment balance dysfunction indicating high fall risk Impairment Cavanaugh balance score 36/56 Dynamic gait index 01/01 Activitiesw Specific Balance Confidence (ABC ) scale 40% Short Term Goal (STG) Improve Cavanaugh balance and Dynamic gait index by 5 points as measure of improved functional balance and safety STG Duration goal met Street Worker Goal (LTG) Improve Cavanaugh balance and Dynamic Gait index by 10 points as measure of improved functional balance and safety in the home and community 01/06/22: good goal progress, has improved 5 points on Cavanaugh 02/16/22: Cavanaugh Balance score 38/ 56, Dynamic Gait Index , ABC 52.5% all improved 03/02/22: no further progress LTG Duration 04/07/22 Physical Therapy Plan Frequency and Duration Frequency of Treatment 2x/Week Duration of treatment (weeks) 8 Plan of Care Start Date 02/16/22 Plan of Care End Date 04/07/22 Therapeutic Interventions Therapeutic Interventions Aquatic Therapy,Balance Training,Gait Training,Home Exercise Program,Manual Therapy,Neuromuscular Re- education,Patient/Caregiver Education,Self-Care/Home Management,Soft Tissue Mobilization,Taping, Therapeutic Activities, Therapeutic Exercises Modalities Cold Pack/Ice Massage,Electric Stimulation,Hot Packs, Traction- Mechanical, Ultrasound Next Visit Focus/Plan Next Note Type Treatment Note Next Visit Plan Continue PT Per POC, assure patient went to pool for aquatic exercise and spinal decompression.
--- NOTE | 2022-03-09 15:05 | PT.OTN ---
Current Diagnoses Other chronic pain (03/09/22) Sciatica, left side (03/09/22) Low back pain, unspecified (03/09/22) Paresthesia of skin (03/09/22) Other abnormalities of gait and mobility (03/09/22) Weakness (03/09/22) Physical Therapy Treatment Note PT-OP-A Visit Information Start: 11/06/21 08:18 Freq: Status: Active Protocol: Document 03/09/22 08:15 SAK (Rec: 03/09/22 08:55 [facility] [id number]) Out-Patient Physical Therapy Visit Information Visit Information Visit Type Treatment Note Visit Start Time 08:16 Visit Stop Time 09:00 Total Visit Minutes 44 Visit Number 21 Number of ECOLOGY TEACHER Visits 0 Precautions Precautions back pain with spinal stenosis , prostate cancer, cardiac disease PT-OP-B Current Condition Start: 11/06/21 08:18 Freq: Status: Active Protocol: Document 11/20/21 14:31 SAK (Rec: 11/20/21 15:15 SAK [id number]) Current Condition History of Current Condition Onset Date 2010 Current Complaints balance dysfunction History of Current Condition 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 Has fallen several times last probably 6 months ago. Reports drop foot. States he has gained weight and would like to lose weight as well. Also history of a tank falling on his back 1984 with 4 compression fractures. Reports his balance difficulty is his biggest concern. Prior Treatments and Tests History aortic valve replacement, raúl TKA, right RJ, cataract surgery with partial vision loss left ( upper and side), prostate cancer. Pain clinic not helpful, has seen neurologist Treatment Goals Patient/Caregiver Goals Improve balance, decrease neuropathy PT-OP-C Subjective Start: 11/06/21 08:18 Freq: Status: Active Protocol: Document 03/09/22 08:15 SAK (Rec: 03/09/22 08:55 SAK [id number]) OP-PT Subjective Patient Comments Patient Comments Liked traction, back felt better and also felt less off balance. Tried inversion table at home 3-4 times. Hasn 't gone to pool yet. Going to fitness center several times per week. PT-OP-D Balance Start: 11/06/21 08:18 Freq: Status: Active Protocol: Document 11/06/21 11:17 SAK (Rec: 11/10/21 08:55 [facility] [id number]) OP-PT Balance Assessment Sitting Balance Static Sitting Balance Ability Good Standing Balance Static Standing Balance Ability Fair Cavanaugh Balance Assessment Evaluation Sitting to Standing Ability Independent w/Hands Unsupported Stance Supervision- 2 minutes Sitting Unsupported, Feet on Floor Safely- 2 minutes Standing to Sitting Ability Safely, Minimal Hand Use Transfer Ability Safely, Hand Use Unsupported Stance- Eyes Closed Supervision, 10 seconds Unsupported Stance- Eyes Open Supervision to maintain Reaching Forward Standing Safely, 5 inches Pick- Up Object From Floor Supervision Look Behind Shoulder - Standing Shifts Weight Well Turning 360 Degrees Turns slowly, but safely Unsupported Stance, Alternating Feet on 2 Steps w/Minimum Assist Stair Unsupported Tandem Stance Balance Lost- Step/Stand Unilateral Leg Stance Unable,assist to not fall Total Score Cavanaugh Total Score (out of 56 points) 36 Taylor Fall Scale Copyright Permission PT-OP-E Functional Tests Start: 11/06/21 08:18 Freq: Status: Active Protocol: Document 11/06/21 11:17 [facility] (Rec: 11/10/21 08:55 [facility] [id number]) Functional Tests Dynamic Gait Index (DGI) Score 11 PT-OP-G Mobility & Gait Start: 11/06/21 08:18 Freq: Status: Active Protocol: Document 11/06/21 11:17 [facility] (Rec: 11/10/21 08:55 [facility] [id number]) OP Gait Assessment Gait Gait Assistance Required: Independent Distance (Feet) 150 Assistive Devices Assistive Device Front Wheeled Walker Factors Limiting Gait Function Factors Limiting Gait Function Decreased Sensation,Decreased Strength Stair Climbing Evaluation Evaluation Level of Assist On Stairs Standby Assistance Devices Stair Climbing Assistive Devices Right Railing Technique/Endurance Stair Climbing Direction Descend Stair Climbing Technique Step to Step Number of Steps Climbed 4 Stair Climbing Set # Repetitions (reps) 1 PT-OP-H Neuro Start: 11/06/21 08:18 Freq: Status: Active Protocol: Document 11/06/21 11:17 [facility] (Rec: 11/10/21 08:55 [facility] [id number]) Sensation Evaluation Gross Sensation Gross Sensation Left LE Impaired Sensation Description Numbness PT-OP-K Range of Motion Start: 11/06/21 08:18 Freq: Status: Active Protocol: Document 11/06/21 11:17 [facility] (Rec: 11/10/21 08:55 [facility] [id number]) Lumbar Spine Range of Motion Lumbar Spine Active ROM Limitations Soft Tissue Tightness,Pain Comments Mod decrease all motions Hip Goniometric Range of Motion Hip Active Hip ROM WFL No Flexion w/Knee Flexed 95 Straight Leg Raise 55 Extension 0 Abduction 35 Internal Rotation 10 External Rotation 40 Comments raúl Ankle and Foot Goniometric Range of Motion Ankle and Foot Left Active Comments lacking 10 deg from neutral df right Ankle/Foot ROM WFL Yes PT-OP-M Strength Start: 11/06/21 08:18 Freq: Status: Active Protocol: Document 11/06/21 11:17 [facility] (Rec: 11/10/21 08:55 [facility] [id number]) Trunk Strength Trunk Manual Muscle Testing Flexion 4- Good- Extension 3+ Fair+ Hip Strength Hip Manual Muscle Testing Left Flexion (L2) 4- Good- Extension (S1) 3 Fair Abduction 3+ Fair+ External Rotation 3+ Fair+ Internal Rotation 4- Good- Right Flexion (L2) 4 Good Extension (S1) 3+ Fair+ Abduction 3+ Fair+ External Rotation 4- Good- Internal Rotation 4 Good Knee Strength Knee Manual Muscle Testing Left Flexion (S2) 4 Good Extension (L3) 4 Good Right Flexion (S2) 5 Normal Extension (L3) 5 Normal Ankle/Foot Strength Ankle and Foot Manual Muscle Testing Left Dorsiflexion (L4) 2+ Poor+ Plantarflexion (S1) 3- Fair- Right Dorsiflexion (L4) 5 Normal Plantarflexion (S1) 5 Normal PT-OP-Q Treatments Start: 11/06/21 08:18 Freq: Status: Active Protocol: Document 03/09/22 08:15 [facility] (Rec: 03/09/22 08:55 [facility] [id number]) Cardio Equipment Recumbent Stepper (Sci-Fit) Duration (Minutes) 7 Resistance 2.0 Seat Position 13 Other LE's only Treadmill Duration (Minutes) 5 Speed 1.4-1.2 due to SOB Incline 0 Other cues for posture and core and gluteal activaiton. Therapeutic Exercises Supine Exercises single leg bridge. Reps/Minutes 10x Sidelying Exercises hip abduction Reps/Minutes 10x Comments cues for core activation Sitting Exercises HS stretch Sitting Exercise Name Seated HS stretch Side bilateral Reps/Minutes 2x30 piriformis stretch Sitting Exercise Name Seated piriformis stretch Reps/Minutes 2x30 Standing Exercises step-ups Reps/Minutes 10x Comments cues for gluteal activation hip ext Reps/Minutes 10x Comments cues for small movement, no lumbar ext Self-Care/Home Management Treatment Education Other Education updated HEP with hip abd, single leg bridge PT-OP-R Modalities Start: 11/06/21 08:18 Freq: Status: Active Protocol: Document 03/09/22 08:15 SAK (Rec: 03/09/22 08:55 SAK [id number]) Spinal Traction Traction Treatment Lumbar Method Mechanical,Static Patient Position Hooklying Force Applied (Pounds) 60 Duration of Treatment (Minutes) 10 Heating Pad Applied No Traction Treatment Comment Fletcher Home traction unit PT-OP-S Aquatic Treatment Start: 11/06/21 08:25 Freq: Status: Active Protocol: Document 01/21/22 16:38 LJ (Rec: 01/21/22 16:48 LJ [id number]) Aquatics Treatment Pool Entry/Exit Pool Entry/Exit Method Stairs Assistance Independent Water Walking jogging Water Level Chest Level Comments 2 laps quick steps Water Level Chest Level Comments 2 laps stop start Water Level Waist Level Walking Equipment 5 min Level of Assistance Verbal Cues Comments added direction changes April Water Level Chest Level Level of Assistance Verbal Cues Sideways Water Level Chest Level Level of Assistance Verbal Cues Comments large steps challenging Backwards Water Level Chest Level forward Water Level Chest Level Lower Extremity Exercises step up/down Details 3 boxes; various methods-up/ down, step over Water Level Chest Level Comments cues for ecc. control; hh on wall most times squats Details BLE, SL Body Position Standing Water Level Waist Level Reps/Duration [id number] Comments focus on form and hip thrust hip ab/ad Body Position Standing Water Level Chest Level Comments unil UE support knee flex/ext Reps/Duration 10x Comments unil UE support Lower Extremity Stretches gastroc Details at wall Body Position Standing Water Level Waist Level Reps/Duration 2x45 B hip flexors, quads Details at wall Body Position Standing Water Level Waist Level Reps/Duration 2x45 B HS Body Position Standing Water Level Chest Level Equipment Small Noodle Reps/Duration 2x40 Comments contract/relax x2 B Balance weight transfer-f/b, s/s, tandem, wide stance, Details at wall Body Position Standing Water Level Waist Level Reps/Duration 6 min Comments NM re-ed; balance; strength PT-OP-T Assessment and Plan Start: 11/06/21 08:18 Freq: Status: Active Protocol: Document 03/09/22 08:15 SAK (Rec: 03/09/22 08:55 [facility] [id number]) Physical Therapy Assessment Goals Four Impairment LBP Impairment Oswestry disability index score 42% Senior Living Goal (LTG) Decrease Oswestry disability index score to no greater than 30% 01/06/22: goal met LTG Duration goal met Three Impairment gait dysfunction Impairment step-to pattern on stairs, requires use of walker on level surfaces Senior Living Goal (LTG) Patient will be able to ascend and descend stairs safetly with alternating step pattern and weigh least restrictive device on level surfaces at home and in the community 01/06/22: goal met, able to do with SPC and railing LTG Duration goal met Two Impairment weakness left LE Short Term Goal (STG) Patient to be instructed in HEP for purposes of LE strengthening to support PT clinic activities STG Duration goal met Senior Living Goal (LTG) Patient to be independent and compliant with HEP and demonstrate 1 grade muscle strength improvement throughout left LE 01/06/22: good progress, except no change left ankle 02/16/22: no change in ankle 03/02/22: no further progress, patient reports earlier fatigue. LTG Duration 04/07/22 One Impairment balance dysfunction indicating high fall risk Impairment Cavanaugh balance score 36/56 Dynamic gait index 01/01 Activitiesw Specific Balance Confidence (ABC ) scale 40% Short Term Goal (STG) Improve Cavanaugh balance and Dynamic gait index by 5 points as measure of improved functional balance and safety STG Duration goal met Pick Up Operator Goal (LTG) Improve Cavanaugh balance and Dynamic Gait index by 10 points as measure of improved functional balance and safety in the home and community 01/06/22: good goal progress, has improved 5 points on Cavanaugh 02/16/22: Cavanaugh Balance score 38/ 56, Dynamic Gait Index , ABC 52.5% all improved 03/02/22: no further progress LTG Duration 04/07/22 Assessment Summary Assessment Patient apperars to benefit from spinal decompression with mechanical traction and inversion table. Resumption of aquatic exercise encouraged . Physical Therapy Plan Frequency and Duration Frequency of Treatment 2x/Week Duration of treatment (weeks) 8 Plan of Care Start Date 02/16/22 Plan of Care End Date 04/07/22 Therapeutic Interventions Therapeutic Interventions Aquatic Therapy,Balance Training,Gait Training,Home Exercise Program,Manual Therapy,Neuromuscular Re- education,Patient/Caregiver Education,Self-Care/Home Management,Soft Tissue Mobilization,Taping, Therapeutic Activities, Therapeutic Exercises Modalities Cold Pack/Ice Massage,Electric Stimulation,Hot Packs, Traction- Mechanical, Ultrasound Next Visit Focus/Plan Next Note Type Treatment Note Next Visit Plan Continue PT Per POC, assure patient went to pool for aquatic exercise and spinal decompression.
--- NOTE | 2022-03-16 08:49 | PT.OTN ---
Current Diagnoses Other chronic pain (03/16/22) Sciatica, left side (03/16/22) Low back pain, unspecified (03/16/22) Paresthesia of skin (03/16/22) Other abnormalities of gait and mobility (03/16/22) Weakness (03/16/22) Physical Therapy Treatment Note PT-OP-A Visit Information Start: 11/06/21 08:18 Freq: Status: Active Protocol: Document 03/16/22 08:14 SAK (Rec: 03/16/22 08:49 [facility] [id number]) Out-Patient Physical Therapy Visit Information Visit Information Visit Type Treatment Note Visit Start Time 08:15 Visit Stop Time 09:00 Total Visit Minutes 45 Visit Number 22 Number of PRODUCE PRODUCTION TEAM MEMBER Visits 0 Precautions Precautions back pain with spinal stenosis , prostate cancer, cardiac disease PT-OP-B Current Condition Start: 11/06/21 08:18 Freq: Status: Active Protocol: Document 11/20/21 14:31 SAK (Rec: 11/20/21 15:15 SAK [id number]) Current Condition History of Current Condition Onset Date 2010 Current Complaints balance dysfunction History of Current Condition 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 Has fallen several times last probably 6 months ago. Reports drop foot. States he has gained weight and would like to lose weight as well. Also history of a tank falling on his back 1983 with 4 compression fractures. Reports his balance difficulty is his biggest concern. Prior Treatments and Tests History aortic valve replacement, raúl TKA, right RJ, cataract surgery with partial vision loss left ( upper and side), prostate cancer. Pain clinic not helpful, has seen neurologist Treatment Goals Patient/Caregiver Goals Improve balance, decrease neuropathy PT-OP-C Subjective Start: 11/06/21 08:18 Freq: Status: Active Protocol: Document 03/16/22 08:14 SAK (Rec: 03/16/22 08:49 [facility] [id number]) OP-PT Subjective Patient Comments Patient Comments Was at [employer] [place] 4 days last week, using exercise machines with good tolerance. Going to pool today to check on Silver Sneakers program. Hasn't been as faithful with inversion table, likes traction in PT. Doing balance exercises. Went to last Wednesday for 5 year check, heart valves ok. PT-OP-D Balance Start: 11/06/21 08:18 Freq: Status: Active Protocol: Document 11/06/21 11:17 [facility] (Rec: 11/10/21 08:55 [facility] [id number]) OP-PT Balance Assessment Sitting Balance Static Sitting Balance Ability Good Standing Balance Static Standing Balance Ability Fair Cavanaugh Balance Assessment Evaluation Sitting to Standing Ability Independent w/Hands Unsupported Stance Supervision- 2 minutes Sitting Unsupported, Feet on Floor Safely- 2 minutes Standing to Sitting Ability Safely, Minimal Hand Use Transfer Ability Safely, Hand Use Unsupported Stance- Eyes Closed Supervision, 10 seconds Unsupported Stance- Eyes Open Supervision to maintain Reaching Forward Standing Safely, 5 inches Pick- Up Object From Floor Supervision Look Behind Shoulder - Standing Shifts Weight Well Turning 360 Degrees Turns slowly, but safely Unsupported Stance, Alternating Feet on 2 Steps w/Minimum Assist Stair Unsupported Tandem Stance Balance Lost- Step/Stand Unilateral Leg Stance Unable,assist to not fall Total Score Cavanaugh Total Score (out of 56 points) 36 Taylor Fall Scale Copyright Permission PT-OP-E Functional Tests Start: 11/06/21 08:18 Freq: Status: Active Protocol: Document 11/06/21 11:17 [facility] (Rec: 11/10/21 08:55 [facility] [id number]) Functional Tests Dynamic Gait Index (DGI) Score 11 PT-OP-G Mobility & Gait Start: 11/06/21 08:18 Freq: Status: Active Protocol: Document 11/06/21 11:17 [facility] (Rec: 11/10/21 08:55 [facility] [id number]) OP Gait Assessment Gait Gait Assistance Required: Independent Distance (Feet) 150 Assistive Devices Assistive Device Front Wheeled Walker Factors Limiting Gait Function Factors Limiting Gait Function Decreased Sensation,Decreased Strength Stair Climbing Evaluation Evaluation Level of Assist On Stairs Standby Assistance Devices Stair Climbing Assistive Devices Right Railing Technique/Endurance Stair Climbing Direction Descend Stair Climbing Technique Step to Step Number of Steps Climbed 4 Stair Climbing Set # Repetitions (reps) 1 PT-OP-H Neuro Start: 11/06/21 08:18 Freq: Status: Active Protocol: Document 11/06/21 11:17 SAK (Rec: 11/10/21 08:55 [facility] [id number]) Sensation Evaluation Gross Sensation Gross Sensation Left LE Impaired Sensation Description Numbness PT-OP-K Range of Motion Start: 11/06/21 08:18 Freq: Status: Active Protocol: Document 11/06/21 11:17 [facility] (Rec: 11/10/21 08:55 [facility] [id number]) Lumbar Spine Range of Motion Lumbar Spine Active ROM Limitations Soft Tissue Tightness,Pain Comments Mod decrease all motions Hip Goniometric Range of Motion Hip Active Hip ROM WFL No Flexion w/Knee Flexed 95 Straight Leg Raise 55 Extension 0 Abduction 35 Internal Rotation 10 External Rotation 40 Comments raúl Ankle and Foot Goniometric Range of Motion Ankle and Foot Left Active Comments lacking 10 deg from neutral df right Ankle/Foot ROM WFL Yes PT-OP-M Strength Start: 11/06/21 08:18 Freq: Status: Active Protocol: Document 11/06/21 11:17 [facility] (Rec: 11/10/21 08:55 [facility] [id number]) Trunk Strength Trunk Manual Muscle Testing Flexion 4- Good- Extension 3+ Fair+ Hip Strength Hip Manual Muscle Testing Left Flexion (L2) 4- Good- Extension (S1) 3 Fair Abduction 3+ Fair+ External Rotation 3+ Fair+ Internal Rotation 4- Good- Right Flexion (L2) 4 Good Extension (S1) 3+ Fair+ Abduction 3+ Fair+ External Rotation 4- Good- Internal Rotation 4 Good Knee Strength Knee Manual Muscle Testing Left Flexion (S2) 4 Good Extension (L3) 4 Good Right Flexion (S2) 5 Normal Extension (L3) 5 Normal Ankle/Foot Strength Ankle and Foot Manual Muscle Testing Left Dorsiflexion (L4) 2+ Poor+ Plantarflexion (S1) 3- Fair- Right Dorsiflexion (L4) 5 Normal Plantarflexion (S1) 5 Normal PT-OP-Q Treatments Start: 11/06/21 08:18 Freq: Status: Active Protocol: Document 03/16/22 08:14 [facility] (Rec: 03/16/22 08:49 [facility] [id number]) Cardio Equipment Recumbent Stepper (Sci-Fit) Duration (Minutes) 5 Resistance 2.0 Seat Position 13 Other LE's only Gym Equipment Shuttle Balance Red Details bal and wt shift a/p, side to side Reps/Duration 18 mins Therapeutic Exercises Sitting Exercises HC stretch Equipment Used strap Reps/Minutes 2x30 HS stretch Sitting Exercise Name Seated HS stretch Side bilateral Reps/Minutes 2x30 Neuro Re-Education Treatment Balance Activities SLS Details 95% SLS in (opp toe down) // bars Comments Cues for posture, glute, core activation. min to no UE support tandem stand Reps/Duration 4x30 Comments raúl UE support PT-OP-R Modalities Start: 11/06/21 08:18 Freq: Status: Active Protocol: Document 03/16/22 08:14 SAK (Rec: 03/16/22 08:49 SAK [id number]) Spinal Traction Traction Treatment Lumbar Method Mechanical,Static Patient Position Hooklying Force Applied (Pounds) 65 Duration of Treatment (Minutes) 10 Heating Pad Applied No Traction Treatment Comment [facility] traction unit PT-OP-S Aquatic Treatment Start: 11/06/21 08:25 Freq: Status: Active Protocol: Document 01/21/22 16:38 LJ (Rec: 01/21/22 16:48 LJ [id number]) Aquatics Treatment Pool Entry/Exit Pool Entry/Exit Method Stairs Assistance Independent Water Walking jogging Water Level Chest Level Comments 2 laps quick steps Water Level Chest Level Comments 2 laps stop start Water Level Waist Level Walking Equipment 5 min Level of Assistance Verbal Cues Comments added direction changes April Water Level Chest Level Level of Assistance Verbal Cues Sideways Water Level Chest Level Level of Assistance Verbal Cues Comments large steps challenging Backwards Water Level Chest Level forward Water Level Chest Level Lower Extremity Exercises step up/down Details 3 boxes; various methods-up/ down, step over Water Level Chest Level Comments cues for ecc. control; hh on wall most times squats Details BLE, SL Body Position Standing Water Level Waist Level Reps/Duration [id number] Comments focus on form and hip thrust hip ab/ad Body Position Standing Water Level Chest Level Comments unil UE support knee flex/ext Reps/Duration 10x Comments unil UE support Lower Extremity Stretches gastroc Details at wall Body Position Standing Water Level Waist Level Reps/Duration 2x45 B hip flexors, quads Details at wall Body Position Standing Water Level Waist Level Reps/Duration 2x45 B HS Body Position Standing Water Level Chest Level Equipment Small Noodle Reps/Duration 2x40 Comments contract/relax x2 B Balance weight transfer-f/b, s/s, tandem, wide stance, Details at wall Body Position Standing Water Level Waist Level Reps/Duration 6 min Comments NM re-ed; balance; strength PT-OP-T Assessment and Plan Start: 11/06/21 08:18 Freq: Status: Active Protocol: Document 03/16/22 08:14 ELIA (Rec: 03/16/22 08:49 [facility] [id number]) Physical Therapy Assessment Goals Four Impairment LBP Impairment Oswestry disability index score 42% Heating And Refrigeration Inspector Goal (LTG) Decrease Oswestry disability index score to no greater than 30% 01/06/22: goal met LTG Duration goal met Three Impairment gait dysfunction Impairment step-to pattern on stairs, requires use of walker on level surfaces Long-Term Goal (LTG) Patient will be able to ascend and descend stairs safetly with alternating step pattern and weigh least restrictive device on level surfaces at home and in the community 01/06/22: goal met, able to do with SPC and railing LTG Duration goal met Two Impairment weakness left LE Short Term Goal (STG) Patient to be instructed in HEP for purposes of LE strengthening to support PT clinic activities STG Duration goal met Long-Term Goal (LTG) Patient to be independent and compliant with HEP and demonstrate 1 grade muscle strength improvement throughout left LE 01/06/22: good progress, except no change left ankle 02/16/22: no change in ankle 03/02/22: no further progress, patient reports earlier fatigue. LTG Duration 04/07/22 One Impairment balance dysfunction indicating high fall risk Impairment Cavanaugh balance score 36/56 Dynamic gait index 01/01 Activitiesw Specific Balance Confidence (ABC ) scale 40% Short Term Goal (STG) Improve Cavanaugh balance and Dynamic gait index by 5 points as measure of improved functional balance and safety STG Duration goal met Heating And Refrigeration Inspector Goal (LTG) Improve Cavanaugh balance and Dynamic Gait index by 10 points as measure of improved functional balance and safety in the home and community 01/06/22: good goal progress, has improved 5 points on Cavanaugh 02/16/22: Cavanaugh Balance score 38/ 56, Dynamic Gait Index , ABC 52.5% all improved 03/02/22: no further progress LTG Duration 04/07/22 Assessment Summary Assessment Improved balance with tandem stand today to 10 sec. Improving compliance with HEP. Benefiting from lumbar traction. To start back with aquatic exercise today. Physical Therapy Plan Frequency and Duration Frequency of Treatment 2x/Week Duration of treatment (weeks) 8 Plan of Care Start Date 02/16/22 Plan of Care End Date 04/07/22 Therapeutic Interventions Therapeutic Interventions Aquatic Therapy,Balance Training,Gait Training,Home Exercise Program,Manual Therapy,Neuromuscular Re- education,Patient/Caregiver Education,Self-Care/Home Management,Soft Tissue Mobilization,Taping, Therapeutic Activities, Therapeutic Exercises Modalities Cold Pack/Ice Massage,Electric Stimulation,Hot Packs, Traction- Mechanical, Ultrasound Next Visit Focus/Plan Next Note Type Treatment Note Next Visit Plan Continue PT Per POC, assure patient went to pool for aquatic exercise and spinal decompression.
--- NOTE | 2022-03-23 08:49 | PT.OTN ---
Current Diagnoses Other chronic pain (03/23/22) Sciatica, left side (03/23/22) Low back pain, unspecified (03/23/22) Paresthesia of skin (03/23/22) Other abnormalities of gait and mobility (03/23/22) Weakness (03/23/22) Physical Therapy Treatment Note PT-OP-A Visit Information Start: 11/06/21 08:18 Freq: Status: Active Protocol: Document 03/23/22 08:11 SAK (Rec: 03/23/22 08:49 [facility] [id number]) Out-Patient Physical Therapy Visit Information Visit Information Visit Type Treatment Note Visit Start Time 08:15 Visit Stop Time 09:00 Total Visit Minutes 45 Visit Number 23 Number of SAWSMITH Visits 0 Precautions Precautions back pain with spinal stenosis , prostate cancer, cardiac disease PT-OP-B Current Condition Start: 11/06/21 08:18 Freq: Status: Active Protocol: Document 11/20/21 14:31 SAK (Rec: 11/20/21 15:15 [facility] [id number]) Current Condition History of Current Condition Onset Date 2010 Current Complaints balance dysfunction History of Current Condition 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 Has fallen several times last probably 6 months ago. Reports drop foot. States he has gained weight and would like to lose weight as well. Also history of a tank falling on his back 1983 with 4 compression fractures. Reports his balance difficulty is his biggest concern. Prior Treatments and Tests History aortic valve replacement, raúl TKA, right RJ, cataract surgery with partial vision loss left ( upper and side), prostate cancer. Pain clinic not helpful, has seen neurologist Treatment Goals Patient/Caregiver Goals Improve balance, decrease neuropathy PT-OP-C Subjective Start: 11/06/21 08:18 Freq: Status: Active Protocol: Document 03/23/22 08:11 SAK (Rec: 03/23/22 08:49 [facility] [id number]) OP-PT Subjective Patient Comments Patient Comments Hasn't gone to the pool yet. Doing HEP. States his A-fib continues to be bad. Going to see underwater trapper. States his balance seems to be a little better especially on right foot. Went to fitness center [facility]x last week. PT-OP-D Balance Start: 11/06/21 08:18 Freq: Status: Active Protocol: Document 11/06/21 11:17 [facility] (Rec: 11/10/21 08:55 [facility] [id number]) OP-PT Balance Assessment Sitting Balance Static Sitting Balance Ability Good Standing Balance Static Standing Balance Ability Fair Cavanaugh Balance Assessment Evaluation Sitting to Standing Ability Independent w/Hands Unsupported Stance Supervision- 2 minutes Sitting Unsupported, Feet on Floor Safely- 2 minutes Standing to Sitting Ability Safely, Minimal Hand Use Transfer Ability Safely, Hand Use Unsupported Stance- Eyes Closed Supervision, 10 seconds Unsupported Stance- Eyes Open Supervision to maintain Reaching Forward Standing Safely, 5 inches Pick- Up Object From Floor Supervision Look Behind Shoulder - Standing Shifts Weight Well Turning 360 Degrees Turns slowly, but safely Unsupported Stance, Alternating Feet on 2 Steps w/Minimum Assist Stair Unsupported Tandem Stance Balance Lost- Step/Stand Unilateral Leg Stance Unable,assist to not fall Total Score Cavanaugh Total Score (out of 56 points) 36 Taylor Fall Scale Copyright Permission PT-OP-E Functional Tests Start: 11/06/21 08:18 Freq: Status: Active Protocol: Document 11/06/21 11:17 [facility] (Rec: 11/10/21 08:55 [facility] [id number]) Functional Tests Dynamic Gait Index (DGI) Score 11 PT-OP-G Mobility & Gait Start: 11/06/21 08:18 Freq: Status: Active Protocol: Document 11/06/21 11:17 [facility] (Rec: 11/10/21 08:55 [facility] [id number]) OP Gait Assessment Gait Gait Assistance Required: Independent Distance (Feet) 150 Assistive Devices Assistive Device Front Wheeled Walker Factors Limiting Gait Function Factors Limiting Gait Function Decreased Sensation,Decreased Strength Stair Climbing Evaluation Evaluation Level of Assist On Stairs Standby Assistance Devices Stair Climbing Assistive Devices Right Railing Technique/Endurance Stair Climbing Direction Descend Stair Climbing Technique Step to Step Number of Steps Climbed 4 Stair Climbing Set # Repetitions (reps) 1 PT-OP-H Neuro Start: 11/06/21 08:18 Freq: Status: Active Protocol: Document 11/06/21 11:17 [facility] (Rec: 11/10/21 08:55 [facility] [id number]) Sensation Evaluation Gross Sensation Gross Sensation Left LE Impaired Sensation Description Numbness PT-OP-K Range of Motion Start: 11/06/21 08:18 Freq: Status: Active Protocol: Document 11/06/21 11:17 [facility] (Rec: 11/10/21 08:55 [facility] [id number]) Lumbar Spine Range of Motion Lumbar Spine Active ROM Limitations Soft Tissue Tightness,Pain Comments Mod decrease all motions Hip Goniometric Range of Motion Hip Active Hip ROM WFL No Flexion w/Knee Flexed 95 Straight Leg Raise 55 Extension 0 Abduction 35 Internal Rotation 10 External Rotation 40 Comments raúl Ankle and Foot Goniometric Range of Motion Ankle and Foot Left Active Comments lacking 10 deg from neutral df right Ankle/Foot ROM WFL Yes PT-OP-M Strength Start: 11/06/21 08:18 Freq: Status: Active Protocol: Document 11/06/21 11:17 [facility] (Rec: 11/10/21 08:55 [facility] [id number]) Trunk Strength Trunk Manual Muscle Testing Flexion 4- Good- Extension 3+ Fair+ Hip Strength Hip Manual Muscle Testing Left Flexion (L2) 4- Good- Extension (S1) 3 Fair Abduction 3+ Fair+ External Rotation 3+ Fair+ Internal Rotation 4- Good- Right Flexion (L2) 4 Good Extension (S1) 3+ Fair+ Abduction 3+ Fair+ External Rotation 4- Good- Internal Rotation 4 Good Knee Strength Knee Manual Muscle Testing Left Flexion (S2) 4 Good Extension (L3) 4 Good Right Flexion (S2) 5 Normal Extension (L3) 5 Normal Ankle/Foot Strength Ankle and Foot Manual Muscle Testing Left Dorsiflexion (L4) 2+ Poor+ Plantarflexion (S1) 3- Fair- Right Dorsiflexion (L4) 5 Normal Plantarflexion (S1) 5 Normal PT-OP-Q Treatments Start: 11/06/21 08:18 Freq: Status: Active Protocol: Document 03/23/22 08:11 [facility] (Rec: 03/23/22 08:49 [facility] [id number]) Cardio Equipment Recumbent Stepper (Sci-Fit) Duration (Minutes) 8 Resistance 2.0 Seat Position 13 Other LE's only Gym Equipment Shuttle Balance Red Details bal and wt shift a/p, side to side Reps/Duration 18 mins Therapeutic Exercises Sitting Exercises HC stretch Equipment Used strap Reps/Minutes 2x30 HS stretch Sitting Exercise Name Seated HS stretch Side bilateral Reps/Minutes 2x30 Neuro Re-Education Treatment Balance Activities SLS Details HEP tandem stand Details HEP PT-OP-R Modalities Start: 11/06/21 08:18 Freq: Status: Active Protocol: Document 03/23/22 08:11 [facility] (Rec: 03/23/22 08:49 [facility] [id number]) Spinal Traction Traction Treatment Lumbar Method Mechanical,Static Patient Position Hooklying Force Applied (Pounds) 66 Duration of Treatment (Minutes) 10 Heating Pad Applied No Traction Treatment Comment [facility] traction unit PT-OP-T Assessment and Plan Start: 11/06/21 08:18 Freq: Status: Active Protocol: Document 03/23/22 08:11 [facility] (Rec: 03/23/22 08:49 [facility] [id number]) Physical Therapy Assessment Goals Four Impairment LBP Impairment Oswestry disability index score 42% Alf Goal (LTG) Decrease Oswestry disability index score to no greater than 30% 01/06/22: goal met LTG Duration goal met Three Impairment gait dysfunction Impairment step-to pattern on stairs, requires use of walker on level surfaces Rubber Worker Goal (LTG) Patient will be able to ascend and descend stairs safetly with alternating step pattern and weigh least restrictive device on level surfaces at home and in the community 01/06/22: goal met, able to do with SPC and railing LTG Duration goal met Two Impairment weakness left LE Short Term Goal (STG) Patient to be instructed in HEP for purposes of LE strengthening to support PT clinic activities STG Duration goal met Alf Goal (LTG) Patient to be independent and compliant with HEP and demonstrate 1 grade muscle strength improvement throughout left LE 01/06/22: good progress, except no change left ankle 02/16/22: no change in ankle 03/02/22: no further progress, patient reports earlier fatigue. LTG Duration 04/07/22 One Impairment balance dysfunction indicating high fall risk Impairment Cavanaugh balance score 36/56 Dynamic gait index 01/01 Activitiesw Specific Balance Confidence (ABC ) scale 40% Short Term Goal (STG) Improve Cavanaugh balance and Dynamic gait index by 5 points as measure of improved functional balance and safety STG Duration goal met Rubber Worker Goal (LTG) Improve Cavanaugh balance and Dynamic Gait index by 10 points as measure of improved functional balance and safety in the home and community 01/06/22: good goal progress, has improved 5 points on Cavanaugh 02/16/22: Cavanaugh Balance score 38/ 56, Dynamic Gait Index , ABC 52.5% all improved 03/02/22: no further progress LTG Duration 04/07/22 Assessment Summary Assessment Noted improved balance on shuttle balance and able to progress to staggered feet. Continues with HEP, use of inversion table, plans to get back to aquatic PT this week, unable last week. Physical Therapy Plan Frequency and Duration Frequency of Treatment 2x/Week Duration of treatment (weeks) 8 Plan of Care Start Date 02/16/22 Plan of Care End Date 04/07/22 Therapeutic Interventions Therapeutic Interventions Aquatic Therapy,Balance Training,Gait Training,Home Exercise Program,Manual Therapy,Neuromuscular Re- education,Patient/Caregiver Education,Self-Care/Home Management,Soft Tissue Mobilization,Taping, Therapeutic Activities, Therapeutic Exercises Modalities Cold Pack/Ice Massage,Electric Stimulation,Hot Packs, Traction- Mechanical, Ultrasound Next Visit Focus/Plan Next Note Type Treatment Note Next Visit Plan Continue PT Per POC, assure patient went to pool for aquatic exercise and spinal decompression. Anticipate discharge to independent HEP, aquatic exercise, self- management.
--- NOTE | 2022-03-30 08:53 | PT.OTN ---
Current Diagnoses Other chronic pain (03/30/22) Sciatica, left side (03/30/22) Low back pain, unspecified (03/30/22) Paresthesia of skin (03/30/22) Other abnormalities of gait and mobility (03/30/22) Weakness (03/30/22) Physical Therapy Treatment Note PT-OP-A Visit Information Start: 11/06/21 08:18 Freq: Status: Active Protocol: Document 03/30/22 08:14 SAK (Rec: 03/30/22 08:53 [facility] [id number]) Out-Patient Physical Therapy Visit Information Visit Information Visit Type Treatment Note Visit Start Time 08:15 Visit Stop Time 09:00 Total Visit Minutes 45 Visit Number 24 Number of PLANNING ENGINEER Visits 0 Evaluation Information Evaluation Date 11/06/21 Precautions Precautions back pain with spinal stenosis , prostate cancer, cardiac disease PT-OP-B Current Condition Start: 11/06/21 08:18 Freq: Status: Active Protocol: Document 11/20/21 14:31 SAK (Rec: 11/20/21 15:15 [facility] [id number]) Current Condition History of Current Condition Onset Date 2010 Current Complaints balance dysfunction History of Current Condition 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 Has fallen several times last probably 6 months ago. Reports drop foot. States he has gained weight and would like to lose weight as well. Also history of a tank falling on his back 1983 with 4 compression fractures. Reports his balance difficulty is his biggest concern. Prior Treatments and Tests History aortic valve replacement, raúl TKA, right RJ, cataract surgery with partial vision loss left ( upper and side), prostate cancer. Pain clinic not helpful, has seen neurologist Treatment Goals Patient/Caregiver Goals Improve balance, decrease neuropathy PT-OP-C Subjective Start: 11/06/21 08:18 Freq: Status: Active Protocol: Document 03/23/22 08:11 SAK (Rec: 03/23/22 08:49 [facility] [id number]) OP-PT Subjective Patient Comments Patient Comments Hasn't gone to the pool yet. Doing HEP. States his A-fib continues to be bad. Going to see decorator store. States his balance seems to be a little better especially on right foot. Went to fitness center 3x last week. PT-OP-D Balance Start: 11/06/21 08:18 Freq: Status: Active Protocol: Document 11/06/21 11:17 [facility] (Rec: 11/10/21 08:55 [facility] [id number]) OP-PT Balance Assessment Sitting Balance Static Sitting Balance Ability Good Standing Balance Static Standing Balance Ability Fair Cavanaugh Balance Assessment Evaluation Sitting to Standing Ability Independent w/Hands Unsupported Stance Supervision- 2 minutes Sitting Unsupported, Feet on Floor Safely- 2 minutes Standing to Sitting Ability Safely, Minimal Hand Use Transfer Ability Safely, Hand Use Unsupported Stance- Eyes Closed Supervision, 10 seconds Unsupported Stance- Eyes Open Supervision to maintain Reaching Forward Standing Safely, 5 inches Pick- Up Object From Floor Supervision Look Behind Shoulder - Standing Shifts Weight Well Turning 360 Degrees Turns slowly, but safely Unsupported Stance, Alternating Feet on 2 Steps w/Minimum Assist Stair Unsupported Tandem Stance Balance Lost- Step/Stand Unilateral Leg Stance Unable,assist to not fall Total Score Cavanaugh Total Score (out of 56 points) 36 Taylor Fall Scale Copyright Permission PT-OP-E Functional Tests Start: 11/06/21 08:18 Freq: Status: Active Protocol: Document 11/06/21 11:17 [facility] (Rec: 11/10/21 08:55 [facility] [id number]) Functional Tests Dynamic Gait Index (DGI) Score 11 PT-OP-G Mobility & Gait Start: 11/06/21 08:18 Freq: Status: Active Protocol: Document 03/30/22 08:14 [facility] (Rec: 03/30/22 08:53 [facility] [id number]) Stair Climbing Evaluation Evaluation Level of Assist On Stairs Standby Assistance Devices Stair Climbing Assistive Devices Right Railing PT-OP-H Neuro Start: 11/06/21 08:18 Freq: Status: Active Protocol: Document 11/06/21 11:17 [facility] (Rec: 11/10/21 08:55 [facility] [id number]) Sensation Evaluation Gross Sensation Gross Sensation Left LE Impaired Sensation Description Numbness PT-OP-K Range of Motion Start: 11/06/21 08:18 Freq: Status: Active Protocol: Document 11/06/21 11:17 [facility] (Rec: 11/10/21 08:55 [facility] [id number]) Lumbar Spine Range of Motion Lumbar Spine Active ROM Limitations Soft Tissue Tightness,Pain Comments Mod decrease all motions Hip Goniometric Range of Motion Hip Active Hip ROM WFL No Flexion w/Knee Flexed 95 Straight Leg Raise 55 Extension 0 Abduction 35 Internal Rotation 10 External Rotation 40 Comments raúl Ankle and Foot Goniometric Range of Motion Ankle and Foot Left Active Comments lacking 10 deg from neutral df right Ankle/Foot ROM WFL Yes PT-OP-M Strength Start: 11/06/21 08:18 Freq: Status: Active Protocol: Document 11/06/21 11:17 [facility] (Rec: 11/10/21 08:55 [facility] [id number]) Trunk Strength Trunk Manual Muscle Testing Flexion 4- Good- Extension 3+ Fair+ Hip Strength Hip Manual Muscle Testing Left Flexion (L2) 4- Good- Extension (S1) 3 Fair Abduction 3+ Fair+ External Rotation 3+ Fair+ Internal Rotation 4- Good- Right Flexion (L2) 4 Good Extension (S1) 3+ Fair+ Abduction 3+ Fair+ External Rotation 4- Good- Internal Rotation 4 Good Knee Strength Knee Manual Muscle Testing Left Flexion (S2) 4 Good Extension (L3) 4 Good Right Flexion (S2) 5 Normal Extension (L3) 5 Normal Ankle/Foot Strength Ankle and Foot Manual Muscle Testing Left Dorsiflexion (L4) 2+ Poor+ Plantarflexion (S1) 3- Fair- Right Dorsiflexion (L4) 5 Normal Plantarflexion (S1) 5 Normal PT-OP-Q Treatments Start: 11/06/21 08:18 Freq: Status: Active Protocol: Document 03/30/22 08:14 [facility] (Rec: 03/30/22 08:53 [facility] [id number]) Gym Equipment Sport Cord cord green Exercise Details fwd, side Reps/Duration 10x,4x ea side Comments CG to [place] for balance, no AD. cues for core activation Gait Training Gait Activity gait with 2 canes, trekking poles Treatment Focus sequencing, safety Comments 4 pt, 2 pt gait, correct fit of trekking poles stairs Device Used raúl railing Surface 6 stairs x 1 Treatment Focus gluteal activation Neuro Re-Education Treatment Balance Activities SLS Details HEP Comments review tandem stand Details HEP Comments review PT-OP-R Modalities Start: 11/06/21 08:18 Freq: Status: Active Protocol: Document 03/30/22 08:14 [facility] (Rec: 03/30/22 08:53 [facility] [id number]) Spinal Traction Traction Treatment Lumbar Method Mechanical,Static Patient Position Hooklying Force Applied (Pounds) 66 Duration of Treatment (Minutes) 10 Heating Pad Applied No Traction Treatment Comment [facility] traction unit PT-OP-T Assessment and Plan Start: 11/06/21 08:18 Freq: Status: Active Protocol: Document 03/30/22 08:14 [facility]IA (Rec: 03/30/22 08:53 [facility] [id number]) Physical Therapy Assessment Goals Four Impairment LBP Impairment Oswestry disability index score 42% Nursing Home Goal (LTG) Decrease Oswestry disability index score to no greater than 30% 01/06/22: goal met LTG Duration goal met Three Impairment gait dysfunction Impairment step-to pattern on stairs, requires use of walker on level surfaces Nursing Home Goal (LTG) Patient will be able to ascend and descend stairs safetly with alternating step pattern and weigh least restrictive device on level surfaces at home and in the community 01/06/22: goal met, able to do with SPC and railing LTG Duration goal met Two Impairment weakness left LE Short Term Goal (STG) Patient to be instructed in HEP for purposes of LE strengthening to support PT clinic activities STG Duration goal met Nursing Home Goal (LTG) Patient to be independent and compliant with HEP and demonstrate 1 grade muscle strength improvement throughout left LE 01/06/22: good progress, except no change left ankle 02/16/22: no change in ankle 03/02/22: no further progress, patient reports earlier fatigue. LTG Duration goal met 03/30/22 One Impairment balance dysfunction indicating high fall risk Impairment Cavanaugh balance score 36/56 Dynamic gait index 01/01 Activitiesw Specific Balance Confidence (ABC ) scale 40% Short Term Goal (STG) Improve Cavanaugh balance and Dynamic gait index by 5 points as measure of improved functional balance and safety STG Duration goal met Nursing Home Goal (LTG) Improve Cavanaugh balance and Dynamic Gait index by 10 points as measure of improved functional balance and safety in the home and community 01/06/22: good goal progress, has improved 5 points on Cavanaugh 02/16/22: Cavanaugh Balance score 38/ 56, Dynamic Gait Index , ABC 52.5% all improved 03/02/22: no further progress 03/30/22: Cavanaugh Balance score 40 /56 Dynamic GAit Indix 1524 LTG Duration 04/07/22 Assessment Summary Assessment Patient progress has plateaued . He is independent with HEP and goes to gym to lift weights 3x/wk. Has inverfsion table that he uses consistently. Has not yet started back to aquatic exercises but plans to. Has been given information regarding home traction unit if decides would like for at home. Physical Therapy Plan Discharge Physical Therapy Discharge Reasons Plateau in Progress
== END 2022-09-16 16:02 | disposition home or self-care (01) ==
LOC: PHYS 08:15
PROVIDERS: PCP Nurse Practitioner; Referring Provider Nurse Practitioner; Visit Provider Nurse Practitioner
DX: R26.89 Other abnormalities of gait and mobility (principal); R53.1 Weakness; M54.50 Low back pain, unspecified; G89.29 Other chronic pain; M54.32 Sciatica, left side; R20.2 Paresthesia of skin
CPT/HCPCS: 97012; 97110; 97112; 97113; 97116; 97140; 97162; 97530; 97535

== ENCOUNTER 2022-05-09 10:39 | Emergency (ER) | payer MEDICARE, SELFPAY ==
[2022-05-09 10:40] VITALS: BP 139/69; PULSE 82; RESP 14; TEMP 36.4; O2SAT 95; BMI 35.2
--- NOTE | 2022-05-09 10:51 | DI.RAD.S_ITS ---
PROCEDURE: XR KNEE LT 3V INDICATIONS: fall t-1, left knee swelling, unable to bear weight TECHNIQUE: 3 views of the knee were acquired. COMPARISON: [facility], , KNEE 1-2 VIEWS LEFT, 12/26/2010, 20:59. FINDINGS: Bones: There is a minimally displaced fracture involving the medial femoral condyle. No suspicious bony lesions. Knee arthroplasty hardware is seen, without findings of failure or loosening. Soft tissues: There is a moderate to prominent joint effusion. No suspicious soft tissue calcifications. Atherosclerotic calcification is noted. IMPRESSION: There is a minimally displaced fracture seen involving the medial femoral condyle. Moderate to prominent joint effusion. Dictated by: Lukas Church M.D. on 05/09/2022 at 10:29 Approved by: Lukas Church M.D. on 05/09/2022 at 10:31
[2022-05-09 11:29] VITALS: BP 130/69; PULSE 71; RESP 17; O2SAT 97
--- NOTE | 2022-05-09 11:36 | ED_ITS ---
HPI - Extremity Injury (Lower) General Chief Complaint: Trauma Stated Complaint: fell yesterday, lt kn swelling Time Seen by Provider: 05/09/22 11:30 Source: patient Mode of arrival: Wheelchair History of Present Illness HPI Narrative: Patient is a 81-year-old male history of atrial fibrillation on Eliquis chronic ongoing back pain with lower extremity neuropathy presents today after ground level fall yesterday complaining of left leg pain. He said he was getting up into his truck he stepped off the asphalt which was raised up a couple of inches landed on his left side. He did not hit his head his did not lose consciousness he has no neck pain nausea or. He has no significant shoulder pain really complaining of left knee pain. He has some swelling in the left knee limited range of motion secondary to swelling no hip pain or ankle pain Related Data Home Medications Medication Instructions Recorded Confirmed CHOLECALCIFEROL (D3-5) 1,000 iu PO QDAY ##0 12/24/10 10/23/21 ASPIRIN (Aspir-Low) 81 mg PO QDAY ##0 03/19/11 10/23/21 apixaban 5 mg tablet (Eliquis) 5 mg PO BID 04/04/18 10/23/21 ezetimibe 10 mg tablet (Zetia) 10 mg PO DAILY 05/19/19 10/23/21 ketoconazole 2 % topical cream 1 applic topical BID 06/09/21 10/23/21 metoprolol succinate 25 mg 12.5 mg PO DAILY 06/09/21 10/23/21 tablet,extended release 24 hr multivitamin (Daily Multi-Vitamin 1 tab PO DAILY 06/09/21 10/23/21 tablet) omega 8-hyk-vtf-fish oil 1,000 mg 1 cap PO DAILY 06/09/21 10/23/21 (120 mg-180 mg) capsule (Fish Oil) Previous Rx's Medication Instructions Recorded lisinopril 20 1 tab PO QAM #90 tabs 05/04/18 mg-hydrochlorothiazide 25 mg tablet citalopram 40 mg tablet See Rx Instructions .Route 06/09/21 .COMPLEX #90 tabs meclizine 25 mg tablet 25 mg PO TID PRN dizziness #10 tabs 08/27/21 atorvastatin 80 mg tablet See Rx Instructions .Route 04/22/22 .COMPLEX #90 tabs Allergies Allergy/AdvReac Type Severity Reaction Status Date / Time oxycodone Allergy Mild ITCHING, Verified 05/09/22 10:56 RASH Review of Systems Review of Systems ROS Unobtainable: All systems reviewed & are unremarkable except as noted in HPI and below Patient History Medical History Bitten by squirrel (11/22/19) Compression fracture of L3 vertebra Fatigue (12/10/14) Irritability Left sciatic nerve pain Mild chronic anemia Obesity (BMI 30-39.9) Obstructive sleep apnea of adult Rosacea Seborrheic dermatitis Seborrheic keratosis Total bilirubin, elevated Surgical History Status post knee surgery Social History Previous occupational history: 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 Well-developed patient, in mild distress. HEAD: Atraumatic. Normocephalic. EYES: Pupils equal round and reactive. Extraocular motions intact. NECK: No vertebral tenderness no step-off CARDIOVASCULAR: Regular rate and rhythm without murmurs, gallops, or rubs. RESPIRATORY: Clear to auscultation. Breath sounds equal bilaterally. No wheezes, rales, or rhonchi. GASTROINTESTINAL: Abdomen soft, non-tender, nondistended. EXTREMITIES: No edema or joint tenderness. Left knee effusion noted no erythema distal pedal pulse intact limited range of motion secondary to swelling BACK: Nontender without deformity or crepitance. No flank tenderness. NEURO: AOx3. SKIN: No rash or erythema of visible areas Course Orders Ordered: ED Orders 05/09/22 10:51 XR knee LT 3V Stat Vital Signs Vital signs: Vital Signs - 8 hr 05/09/22 10:40 05/09/22 11:29 05/09/22 12:45 Temperature 97.5 F L Pulse Rate 82 71 68 Respiratory Rate 14 17 18 Blood Pressure 139/69 130/69 139/69 Pulse Oximetry 95 97 95 Oxygen Delivery Method Room Air Room Air Room Air MDM - Extremity Injury (Lower) Imaging Data Extremity x-ray #1: Radiologist's Impression: PROCEDURE:? XR KNEE LT 3V ? INDICATIONS:? fall t-1, left knee swelling, unable to bear weight ? TECHNIQUE:? 3 views of the knee were acquired.? ? COMPARISON:? [facility], , KNEE 1-2 VIEWS LEFT, 12/26/2010, 20:59. ? FINDINGS:? ? Bones:? There is a minimally displaced fracture involving the medial femoral condyle.? No suspicious bony lesions.? ? Knee arthroplasty hardware is seen, without findings of failure or loosening. ? Soft tissues:? There is a moderate to prominent joint effusion.? No suspicious soft tissue calcifications.? Atherosclerotic calcification is noted.? ? ? IMPRESSION:? There is a minimally displaced fracture seen involving the medial femoral condyle. ? Moderate to prominent joint effusion. ? Dictated by: Lukas Church M.D. on 05/09/2022 at 10:29 ? ? [facility] Narrative Medical decision making narrative: Patient 81-year-old male history of AFib on Eliquis presenting after ground level fall yesterday and left knee pain. Found to have medial femoral condyle fracture. It does not involve hardware from total knee arthroplasty. Has a distal pedal pulse. Spoke with Dr. Whittington orthopedics who states that immobilized with knee immobilizer may partial weightbear with walker and follow-up with ortho. Patient reports that Tylenol is controlling his pain he does not want or need anything stronger. Discharge Plan Departure Patient Disposition: Home Clinical Impression: Closed fracture of medial condyle of distal end of left femur Qualifiers: Encounter type: initial encounter Fracture alignment: displaced Qualified Code(s): S72.432A - Displaced fracture of medial condyle of left femur, initial encounter for closed fracture Instructions: DI for Patella Fracture Activity Restrictions/Additional Instructions: *You have been diagnosed with medial femoral condyle fracture *What to do: At this time wear immobilizer at all times except bathing, use walker may partially weight bear *Continue to take medications as directed Tylenol 650 mg every 4-6 hours if needed for enck-dc-zdmefdch pain *Follow up with your primary care provider in 2-3 days or call [phone] Dr. Whittington, orthopedics, call on Wednesday to schedule an appointment *Return to ER if you should have increasing redness pain swelling or any new, worsening or concerning symptoms Prescriptions: No Action Eliquis 5 mg tablet 5 mg PO BID CHOLECALCIFEROL (D3-5) 1,000 iu PO QDAY Qty: 0 ASPIRIN (Aspir-Low) 81 mg tablet 81 mg PO QDAY Qty: 0 lisinopril-hydrochlorothiazide 20-25 mg tablet 1 tab PO QAM Qty: 90 1RF atorvastatin 80 mg tablet See Rx Instructions .ROUTE .COMPLEX Qty: 90 0RF Dose Instruction: TAKE 1 TABLET BY MOUTH DAILY Rx Instructions: TAKE 1 TABLET BY MOUTH DAILY ezetimibe [Zetia] 10 mg tablet 10 mg PO DAILY ketoconazole 2 % cream 1 applic topical BID multivitamin [Daily Multi-Vitamin] Tablet 1 tab PO DAILY omega 5-gev-qnc-fish oil [Fish Oil] 1,000 mg (120 mg-180 mg) capsule 1 cap PO DAILY citalopram 40 mg tablet See Rx Instructions .ROUTE .COMPLEX Qty: 90 3RF Dose Instruction: TAKE 1 TABLET BY MOUTH ONCE DAILY Rx Instructions: TAKE 1 TABLET BY MOUTH ONCE DAILY metoprolol succinate 25 mg tablet extended release 24 hr 12.5 mg PO DAILY meclizine 25 mg tablet 25 mg PO TID PRN (Reason: dizziness) Qty: 10 0RF Referrals: Alma Coates ARNP [Primary Care Provider] - Tatum Whittington MD [Physician] - Stand Alone Forms: Patient Portal/API
[2022-05-09 12:45] VITALS: BP 139/69; PULSE 68; RESP 18; O2SAT 95
== END 2022-05-09 12:46 | disposition home or self-care (01) ==
PROVIDERS: Emergency Provider Emergency Medicine; PCP Nurse Practitioner
DX: S72.432A Displaced fracture of medial condyle of left femur, initial encounter for closed fracture (principal); W18.30XA Fall on same level, unspecified, initial encounter; Z79.01 Long term (current) use of anticoagulants; Z79.899 Other long term (current) drug therapy
CPT/HCPCS: 73562; 99283; 99284

== ENCOUNTER → 2022-12-03 06:51 | Outpatient (CLI) | payer MEDICARE, SELFPAY ==
[2022-12-03 07:59] LABS: Alanine Aminotransferase 26 IU/L (<50); Albumin 3.9 g/dL (3.5-5.0); Albumin Globulin Ratio 1.4 (1.0-2.8); Alkaline Phosphatase 76 U/L (38-126); Aspartate Aminotransferase 38 IU/L (17-59); BUN Creatinine Ratio 23.9 (6-22); Bilirubin Total 1.8 mg/dL (0.2-1.3); Blood Urea Nitrogen 16 mg/dL (9-20); Carbon Dioxide 30 mmol/L (22-32); Chloride 102 mmol/L (98-107); Cholesterol 130 mg/dL (140-199); Estimated Glomerular Filt Rate > 60 mL/min (>60); Globulin 2.8 g/dL (1.7-4.1); Glucose 105 mg/dL (80-110); HDL Cholesterol 39 mg/dL (40-60); HEMOLYSIS < 15 (0-50); LDL Cholesterol Calculated 66 mg/dL (<100); Potassium 3.8 mmol/L (3.4-5.1); Sodium 138 mmol/L (137-145); Total Protein 6.7 g/dL (6.3-8.2); Triglycerides 125 mg/dL (35-150)
[2022-12-03 08:14] LABS: Free T3, Triiodothyronine Free 3.97 pg/mL (2.77-5.27)
[2022-12-03 08:28] LABS: Thyroid Stimulating Hormone 1.76 uIU/mL (0.47-4.68)
[2022-12-03 10:33] LABS: Creatinine Urine Random 205.3 mg/dL
[2022-12-03 10:38] LABS: Microalbumi Creatinin Ratio Ur 8.7 ug/mg CR (<30); Microalbumin Urine Random 1.8 mg/dL (0-1.6)
[2022-12-03 16:14] LABS: Hep C Virus Ab w/Reflex Quant NEGATIVE s/c (NEGATIVE)
== END ==
PROVIDERS: PCP Nurse Practitioner; Referring Provider Nurse Practitioner; Visit Provider Nurse Practitioner
DX: I10 Essential (primary) hypertension (principal); F32.9 Major depressive disorder, single episode, unspecified; R53.83 Other fatigue; E78.2 Mixed hyperlipidemia; Z79.899 Other long term (current) drug therapy; Z11.59 Encounter for screening for other viral diseases
CPT/HCPCS: 36415; 80053; 80061; 82043; 82570; 84439; 84443; 84481; 86803

== ENCOUNTER → 2022-12-08 10:07 | Outpatient (CLI) | payer MEDICARE, SELFPAY | PROVIDERS: PCP Nurse Practitioner; Referring Provider Family Medicine; Visit Provider Surgery | DX: L89.329 Pressure ulcer of left buttock, unspecified stage (principal); G60.9 Hereditary and idiopathic neuropathy, unspecified | CPT/HCPCS: 99203; 99213 ==

== ENCOUNTER → 2023-02-15 06:45 | Outpatient (CLI) | payer MEDICARE, SELFPAY ==
[2023-02-15 08:32] LABS: Alanine Aminotransferase 37 IU/L (<50); Albumin Globulin Ratio 1.3 (1.0-2.8); Alkaline Phosphatase 94 U/L (38-126); Aspartate Aminotransferase 43 IU/L (17-59); BUN Creatinine Ratio 21.8 (6-22); Bilirubin Total 1.9 mg/dL (0.2-1.3); Blood Urea Nitrogen 19 mg/dL (9-20); Calcium 9.3 mg/dL (8.4-10.2); Carbon Dioxide 29 mmol/L (22-32); Chloride 100 mmol/L (98-107); Cholesterol 121 mg/dL (140-199); Estimated Glomerular Filt Rate > 60 mL/min (>60); Globulin 3.1 g/dL (1.7-4.1); Glucose 97 mg/dL (80-110); HDL Cholesterol 32 mg/dL (40-60); HEMOLYSIS < 15 (0-50); LDL Cholesterol Calculated 72 mg/dL (<100); Potassium 3.6 mmol/L (3.4-5.1); Sodium 137 mmol/L (137-145); Total Protein 7.1 g/dL (6.3-8.2); Triglycerides 83 mg/dL (35-150)
== END ==
PROVIDERS: PCP Nurse Practitioner; Referring Provider Nurse Practitioner; Visit Provider Nurse Practitioner
DX: E78.5 Hyperlipidemia, unspecified (principal); I10 Essential (primary) hypertension
CPT/HCPCS: 36415; 80053; 80061

== ENCOUNTER → 2023-03-09 15:22 | Outpatient (CLI) | payer MEDICARE, SELFPAY ==
--- NOTE | 2023-03-09 15:23 | DI.RAD.S_ITS ---
PROCEDURE: XR THORACIC SPINE 3V INDICATIONS: lower back pain, sciatica, neuropathy TECHNIQUE: 3 views of the thoracic spine were acquired. COMPARISON: None. FINDINGS: Limitations: The study is limited due to motion artifact on the lateral view. 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 Soft tissues: Prosthetic cardiac valve ring projects over the midthoracic spine. IMPRESSION: Limits study with DISH changes of the spine Dictated by: Jamar Scruggs M.D. on 03/09/2023 at 19:00 Approved by: Jamar Scruggs M.D. on 03/09/2023 at 19:03
--- NOTE | 2023-03-09 15:23 | DI.RAD.S_ITS ---
PROCEDURE: XR LUMBAR SPINE MIN 4V INDICATIONS: lower back pain, sciatica, neuropathy TECHNIQUE: 5 views of the lumbar spine were acquired, including bilateral oblique views. COMPARISON: [facility], CT, CT ABDOMEN PELVIS W CON, 05/30/2021, 20:59. [facility], CR, XR LUMBAR SPINE MIN 4V, 11/02/2018, 10:35. FINDINGS: Bones: Mild scoliosis. 5 nonrib-bearing vertebrae are present. Severe DJD of the lumbar spine is again seen with compression deformity of L3 with approximately 40% height loss, appearing similar to prior CT of the abdomen and the pelvis dated 05/30/2021. Multilevel spondylolisthesis and DJD of the posterior elements also noted. Soft tissues: Severe aortic, iliac vessel calcifications also noted. Surgical clips project over the pelvis. Total hip arthroplasty hardware partially visualized. Oblique images: Limited evaluation due to overlying soft tissues IMPRESSION: 1. Compression deformity of L3 is again seen with approximately 40% height loss appearing similar to prior CT abdomen and pelvis dated 05/30/2021. 2. Severe DJD of the lumbar spine. Dictated by: Jamar cSruggs M.D. on 03/09/2023 at 19:04 Approved by: Jamar Scruggs M.D. on 03/09/2023 at 19:09
== END ==
PROVIDERS: PCP Nurse Practitioner; Referring Provider Nurse Practitioner; Visit Provider Nurse Practitioner
DX: M54.32 Sciatica, left side (principal); G62.9 Polyneuropathy, unspecified; M54.9 Dorsalgia, unspecified; M48.14 Ankylosing hyperostosis [Forestier], thoracic region; M41.9 Scoliosis, unspecified; M47.816 Spondylosis without myelopathy or radiculopathy, lumbar region; M43.16 Spondylolisthesis, lumbar region; M43.8X6 Other specified deforming dorsopathies, lumbar region
CPT/HCPCS: 72072; 72110

== ENCOUNTER → 2023-04-08 07:23 | Outpatient (CLI) | payer MEDICARE, SELFPAY ==
--- NOTE | 2023-04-08 08:00 | DI.MRI.S_ITS ---
PROCEDURE: MR LUMBAR SPINE WO CON INDICATIONS: Lumbar radiculopathy, h/o compression fractures TECHNIQUE: Noncontrast sagittal T1 spin echo and T2 fast echo, sagittal STIR, and T2 fast spin echo through the lumbar spine. In cases with scoliosis, additional coronal T2 fast spin echo may be performed. COMPARISON: [facility], , L-SPINE WITHOUT CONTRAST, 10/08/2009, 17:15. FINDINGS: Image quality: Excellent. Alignment and Curvature: There is mild dextroconvex curvature of the lower thoracic and lumbar spine. 2 mm grade 1 retrolisthesis at L1-2. 5 mm grade 2 retrolisthesis at L2-3. 3 mm grade 1 anterolisthesis at L4-5. Bone Marrow: Postsurgical changes are seen at L2-3 through L4-5 from prior hemilaminotomies. Marrow is of normal overall signal. No acute vertebral body compression fractures. Spinal Cord: Conus medullaris terminates at the L1 level. Visualized cord demonstrates normal signal. Paraspinous Soft Tissues: No paravertebral masses. Grade 2-3 fatty infiltration of the paraspinous musculature. Mild subcutaneous scarring is seen posterior to the lumbar spine. T11-12: Disc desiccation with moderate circumferential disc bulging as well as bilateral facet hypertrophy and buckling of the ligamentum flavum, which result in moderate to severe narrowing of the spinal canal with mass effect on the dorsal and ventral spinal cord without abnormal cord edema. There is severe right and moderate to severe left neural foraminal narrowing. T12-L1: Disc desiccation and mild circumferential disc bulging as well as moderate bilateral facet hypertrophy, which result in mild narrowing of the spinal canal as well as mild bilateral neural foraminal narrowing. L1-L2: Disc desiccation mild grade 1 retrolisthesis with circumferential disc bulging as well as moderate bilateral facet hypertrophy and buckling of the ligamentum flavum, which result in mild to moderate narrowing of the spinal canal moderate to severe right and severe left neural foraminal narrowing. L2-L3: Postsurgical changes from right hemilaminotomy with decompression of the spinal canal. Disc desiccation and loss of disc space height with grade 1 retrolisthesis and circumferential disc bulging as well as bilateral facet hypertrophy. There is severe right and moderate to severe left neural foraminal narrowing. L3-L4: Postsurgical changes from right hemilaminotomy with decompression of the spinal canal. Loss of disc space height with circumferential disc-osteophyte complex as well as severe bilateral facet hypertrophy. There is moderate bilateral neural foraminal narrowing. L4-L5: Postsurgical changes from right hemilaminotomy with decompression of the spinal canal. Disc desiccation with mild circumferential disc bulging and grade 1 anterolisthesis as well as severe bilateral facet hypertrophy. There is moderate bilateral neural foraminal narrowing. L5-S1: Severe bilateral facet hypertrophy, which results and moderate to severe left neural foraminal narrowing without significant right neural foraminal narrowing or spinal canal stenosis. IMPRESSION: 1. Postsurgical changes at L2-3 through L4-5 with decompression of the spinal canal at these levels. 2. Progressive degenerative disc disease and facet hypertrophy throughout the lower thoracic and lumbar spine. 3. At T11-12, degenerative changes result in moderate to severe narrowing of the spinal canal with impingement of the dorsal and ventral spinal cord as well as severe right and moderate severe left neural foraminal narrowing. 4. Additional multilevel degenerative disc disease and facet hypertrophy resulting in high-grade neural foraminal narrowing at multiple levels as described in the body of the report. Approved by: Jan Marlow M.D. on 04/08/2023 at 13:08
== END ==
PROVIDERS: PCP Nurse Practitioner; Referring Provider Anesthesiology; Visit Provider Anesthesiology
DX: M47.27 Other spondylosis with radiculopathy, lumbosacral region (principal); M47.26 Other spondylosis with radiculopathy, lumbar region; M47.24 Other spondylosis with radiculopathy, thoracic region; M51.16 Intervertebral disc disorders with radiculopathy, lumbar region; M51.14 Intervertebral disc disorders with radiculopathy, thoracic region; M48.07 Spinal stenosis, lumbosacral region; M48.061 Spinal stenosis, lumbar region without neurogenic claudication; M48.04 Spinal stenosis, thoracic region
CPT/HCPCS: 72148

== ENCOUNTER → 2023-05-23 13:24 | Outpatient (CLI) | payer MEDICARE, SELFPAY ==
--- NOTE | 2023-05-23 13:29 | DI.MRI.S_ITS ---
PROCEDURE: MR CERVICAL SPINE WO CON INDICATIONS: CERVICAL THORACIC PAIN TECHNIQUE: Noncontrast sagittal T1 spin echo and T2 fast spin echo, sagittal STIR, foraminal oblique sagittal T2 fast spin echo, and axial gradient echo or T2 fast spin echo through the cervical spine. COMPARISON: [facility], CT, CT ANGIO HEAD AND NECK, 08/27/2021, 12:16. [facility], MR, C-SPINE WITHOUT CONTRAST, 12/06/2007, 16:05. FINDINGS: Image quality: Excellent. Alignment and Curvature: Trace anterolisthesis of C7 on T1. Bone Marrow: Marrow demonstrates normal overall signal. Spinal Cord: Visualized spinal cord has normal size and signal. No cerebellar tonsillar herniation. Paraspinous Soft Tissues: No paravertebral masses. Prevertebral soft tissues are normal in thickness. C2-C3: No canal stenosis. Left facet hypertrophy. Moderate to severe left foraminal narrowing with left foraminal C3 nerve root impingement. C3-C4: No canal stenosis. Somewhat exuberant right facet hypertrophy and mild left facet hypertrophy. Severe bilateral foraminal narrowing with bilateral foraminal C4 nerve root impingement. C4-C5: . Posterior ligamentous hypertrophy abutting the cord. AP diameter of the central canal is 9.1 mm. Bilateral uncovertebral joint hypertrophy and facet hypertrophy. Left facet hypertrophy is exuberant. There is severe bilateral foraminal narrowing with bilateral foraminal C5 nerve root impingement. C5-C6: Posterior disc post osteophyte. Posterior ligamentous hypertrophy. AP diameter of the central canal is 7.7 mm. Bilateral uncovertebral joint hypertrophy and facet hypertrophy. Severe bilateral foraminal narrowing with bilateral foraminal C6 nerve root impingement. C6-C7: Severe chronic disc height loss. Posterior disc post osteophyte. Mild canal stenosis. Bilateral uncovertebral joint hypertrophy. Severe bilateral foraminal narrowing with bilateral foraminal C7 nerve root impingement. C7-T1: Disc bulge. Bilateral uncovertebral joint hypertrophy. Trace anterolisthesis C7 on T1. Posterior ligamentous hypertrophy. AP diameter of the central canal is 8.4 mm. Severe bilateral foraminal narrowing with bilateral foraminal C8 nerve root impingement. IMPRESSION: 1. Extensive multilevel spondylitic change. There is multilevel canal stenosis, multilevel uncovertebral joint hypertrophy, significant multilevel facet hypertrophy, and multilevel foraminal narrowing. 2. Canal stenosis is mild to moderate at C4-C5, moderate to severe at C5-C6, mild at C6-C7, and moderate at C7-T1. 3. Multilevel foraminal narrowing as described above. There is moderate to severe left foraminal narrowing at C2-C3. There is severe bilateral foraminal narrowing at all other levels with foraminal nerve root impingement at these levels. Dictated by: Tray Roldan M.D. on 05/24/2023 at 10:53 Approved by: Tray Roldan M.D. on 05/24/2023 at 11:58
--- NOTE | 2023-05-23 13:29 | DI.MRI.S_ITS ---
PROCEDURE: MR THORACIC SPINE WO CON INDICATIONS: CERVICAL THORACIC PAIN TECHNIQUE: Noncontrast sagittal T1 spine echo and T2 fast spin echo, sagittal STIR, and T2 fast spin echo through the thoracic spine. COMPARISON: [facility], MR, MR LUMBAR SPINE WO CON, 04/08/2023, 7:44. [facility], MR, MR CERVICAL SPINE WO CON, 05/23/2023, 13:45. FINDINGS: Image quality: Excellent. Alignment and Curvature: There is normal bony alignment. Bone Marrow: Marrow is of normal overall signal. No acute vertebral body compression fractures. Spinal Cord: There is cord signal abnormality in the left side of the cord at T11-T12 in an area of severe canal stenosis consistent with myelomalacia. Reference axial T2 image 24 of series 10. Paraspinous Soft Tissues: No paravertebral masses. Miscellaneous: T7-T8: There is a very shallow right paracentral superior disc extrusion without canal stenosis. There is no foraminal stenosis. T11-T12: There is severe multifactorial canal stenosis secondary to short pedicles, moderately large diffuse disc bulge, eccentric to the right, and facet hypertrophy, as well as a right facet joint cyst which is anteriorly directed. There is associated cord signal abnormality in the left side of the cord. Reference sagittal T2 images 8 and 9 of series 6 and axial T2 image 24 of series 10. T12-L1: Disc bulge. Facet and ligament hypertrophy. Mild canal stenosis. Mild bilateral foraminal stenosis. IMPRESSION: 1. At T11-T12, there is multifactorial severe canal stenosis as described above. 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 2. Mild canal stenosis at T12-L1. Dictated by: Tray Roldan M.D. on 05/24/2023 at 11:59 Approved by: Tray Roldan M.D. on 05/24/2023 at 12:06
== END ==
LOC: MRI 13:26
PROVIDERS: PCP Nurse Practitioner; Referring Provider Orthopaedic Surgery Orthopaedic Surgery of the Spine; Visit Provider Orthopaedic Surgery Orthopaedic Surgery of the Spine
DX: M48.04 Spinal stenosis, thoracic region (principal); M51.04 Intervertebral disc disorders with myelopathy, thoracic region; M48.05 Spinal stenosis, thoracolumbar region; M48.02 Spinal stenosis, cervical region; M47.812 Spondylosis without myelopathy or radiculopathy, cervical region
CPT/HCPCS: 72141; 72146

== ENCOUNTER → 2023-06-09 06:47 | Outpatient (CLI) | payer MEDICARE, SELFPAY ==
[2023-06-09 07:35] LABS: Appearance Urine UA CLEAR; Bilirubin Urine UA NEGATIVE (NEGATIVE); Color Urine UA YELLOW; Glucose Urine UA NEGATIVE (Negative); Ketones Urine UA NEGATIVE (NEGATIVE); Leukocyte Esterase Urine UA NEGATIVE (NEGATIVE); Nitrite Urine UA NEGATIVE (Negative); Occult Blood Urine UA NEGATIVE (Negative); Protein Urine UA NEGATIVE (Negative); Specific Gravity Urine UA 1.025 (1.000-1.035); pH Urine UA 5.5 (4.5-8.0)
[2023-06-09 07:39] LABS: Add Manual Diff / Slide Review NO; Basophils Absolute Auto 0 /uL (0-100); Basophils Percent Auto 0.4 % (0-2); Eosinophils Absolute Auto 400 /uL (0-450); Eosinophils Percent Auto 5.4 % (2-4); Hematocrit 39.2 % (41-53); Hemoglobin 13.2 g/dL (13.5-17.5); Lymphocytes Absolute Auto 1700 /uL (1100-4500); Lymphocytes Percent Auto 25.6 % (25-40); Mean Corpuscular HGB Conc 33.7 % (30-36); Mean Corpuscular Hemoglobin 30.1 PG (26-34); Mean Corpuscular Volume 89.5 fL (80-100); Monocytes Absolute Auto 600 /uL (0-900); Monocytes Percent Auto 9.5 % (3-14); Neutrophils Absolute Auto 3900 /uL (1500-7000); Neutrophils Percent Auto 59.1 % (50-75); Platelet Count 200 X10^3/uL (150-400); Red Blood Cell Count 4.39 X10^6/uL (4.5-5.9); Red Cell Distribution Width 13.7 % (11.6-14.8); White Blood Cell Count 6.6 X10^3/uL (4.5-11.0)
[2023-06-09 07:47] LABS: INR 1.2 (0.9-1.3); Prothrombin Time 14.1 SECONDS (9.4-12.5)
[2023-06-09 08:04] LABS: HEMOLYSIS < 15 (0-50); Potassium 3.9 mmol/L (3.4-5.1)
[2023-06-09 08:05] LABS: Alanine Aminotransferase 26 IU/L (<50); Albumin 4.4 g/dL (3.5-5.0); Albumin Globulin Ratio 1.6 (1.0-2.8); Alkaline Phosphatase 88 U/L (38-126); Aspartate Aminotransferase 36 IU/L (17-59); BUN Creatinine Ratio 25.7 (6-22); Bilirubin Total 1.8 mg/dL (0.2-1.3); Blood Urea Nitrogen 18 mg/dL (9-20); Calcium 9.2 mg/dL (8.4-10.2); Carbon Dioxide 27 mmol/L (22-32); Chloride 104 mmol/L (98-107); Estimated Glomerular Filt Rate > 60 mL/min (>60); Globulin 2.7 g/dL (1.7-4.1); Glucose 122 mg/dL (80-110); Sodium 138 mmol/L (137-145); Total Protein 7.1 g/dL (6.3-8.2)
== END ==
PROVIDERS: PCP Nurse Practitioner; Referring Provider Nurse Practitioner; Visit Provider Nurse Practitioner
DX: I10 Essential (primary) hypertension (principal); Z79.01 Long term (current) use of anticoagulants; Z01.812 Encounter for preprocedural laboratory examination
CPT/HCPCS: 36415; 80053; 81003; 85025; 85610; 93005

== ENCOUNTER → 2023-08-03 12:41 | Outpatient (ROUT) | payer MEDICARE, SELFPAY ==
[2023-08-03 12:47] LABS: Add Manual Diff / Slide Review NO; Basophils Absolute Auto 100 /uL (0-100); Basophils Percent Auto 0.9 % (0-2); Eosinophils Absolute Auto 200 /uL (0-450); Eosinophils Percent Auto 2.6 % (2-4); Hematocrit 33.3 % (41-53); Hemoglobin 11.1 g/dL (13.5-17.5); Lymphocytes Absolute Auto 1800 /uL (1100-4500); Lymphocytes Percent Auto 21.2 % (25-40); Mean Corpuscular HGB Conc 33.2 % (30-36); Mean Corpuscular Hemoglobin 29.3 PG (26-34); Mean Corpuscular Volume 88.1 fL (80-100); Monocytes Absolute Auto 600 /uL (0-900); Monocytes Percent Auto 6.8 % (3-14); Neutrophils Absolute Auto 5800 /uL (1500-7000); Neutrophils Percent Auto 68.5 % (50-75); Platelet Count 256 X10^3/uL (150-400); Red Blood Cell Count 3.78 X10^6/uL (4.5-5.9); Red Cell Distribution Width 14.4 % (11.6-14.8); White Blood Cell Count 8.4 X10^3/uL (4.5-11.0)
[2023-08-03 13:09] LABS: HEMOLYSIS < 15 (0-50); Iron 61 ug/dL (49-181)
[2023-08-03 13:11] LABS: Alanine Aminotransferase 31 IU/L (<50); Albumin 3.4 g/dL (3.5-5.0); Albumin Globulin Ratio 1.1 (1.0-2.8); Alkaline Phosphatase 97 U/L (38-126); Aspartate Aminotransferase 33 IU/L (17-59); BUN Creatinine Ratio 20.8 (6-22); Bilirubin Total 1.1 mg/dL (0.2-1.3); Blood Urea Nitrogen 15 mg/dL (9-20); Calcium 8.5 mg/dL (8.4-10.2); Carbon Dioxide 32 mmol/L (22-32); Chloride 105 mmol/L (98-107); Cholesterol 130 mg/dL (140-199); Estimated Glomerular Filt Rate > 60 mL/min (>60); Globulin 3.1 g/dL (1.7-4.1); Glucose 111 mg/dL (80-110); HDL Cholesterol 43 mg/dL (40-60); HEMOLYSIS < 15 (0-50); LDL Cholesterol Calculated 61 mg/dL (<100); Sodium 140 mmol/L (137-145); Total Protein 6.5 g/dL (6.3-8.2); Triglycerides 131 mg/dL (35-150)
[2023-08-03 13:26] LABS: Percent Iron Saturation 22 % (20-50); Total Iron Binding Capacity 283 ug/dL (261-462); Transferrin 208 mg/dL (206-381)
[2023-08-03 13:30] LABS: Free T3, Triiodothyronine Free 3.26 pg/mL (2.77-5.27); Free T4, Direct Thyroxine 1.12 ng/dL (0.78-2.19)
[2023-08-03 13:42] LABS: Thyroid Stimulating Hormone 1.17 uIU/mL (0.47-4.68)
[2023-08-03 14:09] LABS: Vitamin B12 816 pg/mL (239-931)
[2023-08-03 15:14] LABS: Creatinine Urine Random 34.87 mg/dL; Protein (Total) Urine Random 10 mg/dL (0-12); Protein Creatinine Ratio Urine 0.28 GRAM/24H
[2023-08-03 15:22] LABS: Microalbumin Urine Random < 0.6 mg/dL (0-1.6)
== END ==
PROVIDERS: PCP Nurse Practitioner; Visit Provider Nurse Practitioner
DX: D64.9 Anemia, unspecified (principal); E03.9 Hypothyroidism, unspecified; I10 Essential (primary) hypertension; E78.2 Mixed hyperlipidemia; E78.5 Hyperlipidemia, unspecified; Z79.899 Other long term (current) drug therapy
CPT/HCPCS: 80053; 80061; 82043; 82570; 82607; 83540; 83550; 84156; 84439; 84443; 84481; 85025

== ENCOUNTER → 2023-08-09 07:30 | Outpatient (CLI) | payer MEDICARE, SELFPAY ==
--- NOTE | 2023-08-09 07:31 | DI.ECHO.S_ITS ---
[place] [facility] : : [address] : : [id number] : : Phone: [phone] Echocardiogram Report + + :Name: CAROLINA MCDERMOTT Study Date: 08/09/2023 Height: 70 in : :[facility] ReadingLocation: Weight: 236 lb : : Gender: Male BSA: 2.2 m2 : :: 1940 Age: 82 yrs BP: 125/73 mmHg: :Reason For Study: S/P TAVR : :Ordering Physician: LYN, : :SARAH Performed By: Milad Lam : :Referring: SARAH NICHOLSON : + + Interpretation Summary The patient was in normal sinus rhythm during the exam. The patient had frequent PACs during the exam. The left ventricle is normal in size. Left ventricular ejection fraction is estimated to be 50 +/- 5%. Previous LVEF 60 to 65%. MV E/A: 0.81 Med Peak E' Daniel: 4.8 cm/sec E/E' med: 20.4 The right ventricle is normal size. The right ventricular systolic function is normal. There is a bioprosthetic aortic valve. The prosthetic aortic valve is well-seated. The peak aortic velocity is 1.69 m/sec. The aortic valve mean gradient is 5.9 mmHg. There is probable normal prosthetic aortic valve function. The peak aortic velocity on the previous exam was 2.63 m/sec. There is mild tricuspid regurgitation. The right ventricular systolic pressure is estimated to be at least 32.1 mmHg based on an estimated right atrial pressure of 3 mm Hg. Procedure: A two-dimensional transthoracic echocardiogram with color flow and Doppler was performed. The study quality was technically adequate. Comparison is made with the echocardiogram of 05/01/2021. The heart rate ranged between 57-93 bpm during the study. The patient had frequent PACs during the exam. The patient was in normal sinus rhythm during the exam. Left Ventricle: The left ventricle is normal in size. Left ventricular wall thickness is mildly increased. There is no thrombus. Left ventricular ejection fraction is estimated to be 50 +/- 5%. There are no focal wall motion abnormalities. MV E/A: 0.81 Med Peak E' Daniel: 4.8 cm/sec E/E' med: 20.4. Right Ventricle: The right ventricle is normal size. The right ventricular systolic function is normal. Atria: The left atrial size is normal. There has been no significant change since the previous study. Right atrial size is normal. The interatrial septum grossly appears intact with no obvious evidence for an atrial septal defect. Mitral Valve: There is moderate mitral annular calcification. There is no mitral valve stenosis. There is trace mitral regurgitation. There has been no significant change since the previous study. Aortic Valve: There is a bioprosthetic aortic valve. The prosthetic aortic valve is well-seated. There is probable normal prosthetic aortic valve function. The peak aortic velocity is 1.69 m/sec. The aortic valve mean gradient is 5.9 mmHg. The peak aortic velocity on the previous exam was 2.63 m/sec. No aortic regurgitation is present. Tricuspid Valve: The tricuspid valve is normal. There is no tricuspid stenosis. There is mild tricuspid regurgitation. The right ventricular systolic pressure is estimated to be at least 32.1 mmHg based on an estimated right atrial pressure of 3 mm Hg. Pulmonic Valve: The pulmonic valve is not well visualized. There is no pulmonic valvular stenosis. There is no pulmonic valvular regurgitation. Great Vessels: The aortic root is normal size. The dimensions of the ascending aorta are normal. The IVC is of normal diameter and collapses greater than 50% with a sniff. This suggests a low right atrial pressure of 3 mm Hg. Pericardium/ Pleura There is no pericardial effusion. There is no pleural effusion. MMode/2D Measurements & Calculations LVIDd: 5.2 cm LVOT diam: 1.9 cm LVIDs: 4.0 cm Ao root diam: 3.3 cm FS: 23.7 % asc Aorta Diam: 3.4 cm IVSd: 1.1 cm Ao Arch Diam (Prox Trans): 2.8 cm LVPWd: 1.2 cm LV deras. diameter/BSA (cm/m^2): 2.3 LV sys. diameter/BSA (cm/m^2): 1.8 LA A2 area: 17.6 cm2 RA long axis: 4.3 cm LA A4 area: 21.2 cm2 RA area: 13.4 cm2 LA length (vol): 5.7 cm RA vol: 35.1 ml LA vol: 56.0 ml RA : 15.7 ml/m2 LA vol index: 25.0 ml/m2 IVC diam: 1.5 cm RVD1 (basal): 3.5 cm RVD2 (mid): 3.2 cm TAPSE: 3.1 cm Doppler Measurements & Calculations Ao V2 max: 169.1 cm/sec LVOT Max Daniel: 91.2 cm/sec Ao V2 mean: 113.7 cm/sec LV V1 max P.3 mmHg Ao max P.4 mmHg LV V1 VTI: 24.0 cm Ao mean P.9 mmHg ABBIE(I,D): 1.9 cm2 Ao V2 VTI: 35.9 cm ABBIE(V,D): 1.5 cm2 sev ratio: 0.67 ABBIE indexed to BSA (cm^2/m^2): 0.83 MV E max daniel: 97.1 cm/sec TR max daniel: 269.6 cm/sec MV A max daniel: 120.2 cm/sec TR max P.1 mmHg MV E/A: 0.81 PA V2 max: 90.8 cm/sec Med Peak E' Daniel: 4.8 cm/sec PA V2 mean: 65.3 cm/sec E/E' med: 20.4 PA mean P.9 mmHg Lat Peak E' Daniel: 7.9 cm/sec PA pr(Accel): 48.2 mmHg E/E' lat: 12.4 E/e' average: 16.4 MV dec time: 0.21 sec SV(LVOT): 67.0 ml Reading Physician:04:16 PM
== END ==
PROVIDERS: PCP Nurse Practitioner; Referring Provider Internal Medicine Cardiovascular Disease; Visit Provider Internal Medicine Cardiovascular Disease
DX: I08.1 Rheumatic disorders of both mitral and tricuspid valves (principal); Z95.2 Presence of prosthetic heart valve
CPT/HCPCS: 93306

== ENCOUNTER 2023-11-17 13:45 | Outpatient (RCR) | payer MEDICARE, SELFPAY ==
--- NOTE | 2023-10-04 10:57 | PT.OIE ---
Current Diagnoses Primary osteoarthritis, left hand (10/04/23) Pain in left shoulder (10/04/23) Radiculopathy, cervical region (10/04/23) Anesthesia of skin (10/04/23) Weakness (10/04/23) Past Medical History (Last Reviewed 09/27/23 @ 09:30 by BENNY Bauman) Bitten by squirrel (11/22/19) BPH (benign prostatic hyperplasia) Dorsalgia Fatigue (12/10/14) Irritability Left sciatic nerve pain Lumbar facet arthropathy Lumbar radiculopathy Lumbar spinal stenosis Lumbar spondylosis Mild chronic anemia Obesity (BMI 30-39.9) Obstructive sleep apnea of adult Peripheral neuropathy Rosacea Seborrheic dermatitis Seborrheic keratosis Thoracic spinal stenosis Total bilirubin, elevated Traumatic epidural hematoma Past Surgical History (Last Reviewed 09/27/23 @ 09:30 by BENNY Bauman) Aortic valve replaced History of lumbar laminectomy Status post knee surgery Visit Care Team Role Provider Type BENNY Bauman Attending Provider Advanced Loan Representative Family Provider Primary Care Provider Referring Provider Specialty: [facility] Address: [address] [place] [address] Email: [email or web address] Physical Therapy Initial Evaluation PT-OP-A Visit Information Start: 10/03/23 08:26 Freq: Status: Active Protocol: Document 10/04/23 08:13 MB (Rec: 10/04/23 08:48 MB [id number]) Out-Patient Physical Therapy Visit Information Visit Information Visit Type Initial Evaluation Visit Note Medicare, AARP Progress note by 11/04/2302/26 before KX Visit Start Time 08:13 Visit Stop Time 08:53 Visit Number 1 Number of HOUSEHOLD APPLIANCES SERVICE TECHNICIAN Visits 0 Evaluation Information Evaluation Date 10/04/23 Precautions Precautions Lumbar surgery in June, pt is on Eliquis PT-OP-B Current Condition Start: 10/03/23 08:26 Freq: Status: Active Protocol: Document 10/04/23 08:13 MB (Rec: 10/04/23 08:48 MB [id number]) Current Condition History of Current Condition Onset Date Left 4th and 5th digit numbness, pt denies shoulder pain Current Complaints Left 4th and 5th digit numbness History of Current Condition Pt has lumbar spinal surgery in June of 2023 and then he had another lumbar spinal surgery after they found a blood clot in his spine. Surgery was at [facility] and then he went to [facility]. About a month ago, pt raised his left arm and something popped and then he had left 4th and 5th digit numbness in left hand. Medial side of 4th digit is spared. Pt has a cut on his face from his CPAP. He sleeps in his recliner. PMH includes right RJ, B TKAs , lumbar fractures and surgery , left LE neuropathy and drop foot and pt uses cane in right hand, aortic valve replacement through groin, pt is right handed. Pt denies falls. History of left thenar injury, watch is tight on left wrist. Prior Treatments and Tests Cervical MRI 05/23/23: 1. Extensive multilevel spondylitic change. There is multilevel canal stenosis, multilevel uncovertebral joint hypertrophy, significant multilevel facet hypertrophy, and multilevel foraminal narrowing . 2. Canal stenosis is mild to moderate at C4-C5, moderate to severe at C5-C6, mild at C6-C7, and moderate at C7-T1. 3. Multilevel foraminal narrowing as described above. There is moderate to severe left foraminal narrowing at C2-C3. There is severe bilateral foraminal narrowing at all other levels with foraminal nerve root impingement at these levels. Thoracic MRI 05/23/23: 1. At T11-T12, there is multifactorial severe canal stenosis as described above. 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 2. Mild canal stenosis at T12- L1. Treatment Goals Patient/Caregiver Goals To see if left finger numbness can improve PT-OP-C Subjective Start: 10/03/23 08:26 Freq: Status: Active Protocol: Document 10/04/23 08:13 MB (Rec: 10/04/23 08:48 MB [id number]) OP-PT Subjective Patient Comments Patient Comments See history of current condition Patient Questionnaires Quick Dash- Upper Extremity Quick Dash UE Score 23 Quick Dash UE Impairment 20 to 39% Impaired (Score 20- 39) PT-OP-J Posture/Palpation/Skin Start: 10/03/23 08:26 Freq: Status: Active Protocol: Document 10/04/23 08:13 MB (Rec: 10/04/23 08:48 MB [id number]) Posture Evaluation Comments Posture Comments Forward and rounded shoulders, Dowager's hump, decreased thoracic kyphosis and mild right convexity, lower thoracic to upper/mid lumbar spine with scar over spinous processes from recent surgery likely, history of surgery previously as well, left iliac crest is higher than the right, wide ALBINO, less WB through left foot compared to the right, increased [place] angle on the left. Left thenar changes and watch is tight along left wrist. PT-OP-K Range of Motion Start: 10/03/23 08:26 Freq: Status: Active Protocol: Document 10/04/23 08:13 MB (Rec: 10/04/23 08:48 MB [id number]) Cervical Spine Range of Motion Cervical Spine Active Testing Position Sitting Flexion 42 Extension 30 Rotation Left 52 Rotation Right 53 Lateral Flexion Left 20 Lateral Flexion Right 15 Comments SB component to rotation Shoulder Goniometric Range of Motion Shoulder Bilateral Shoulder ROM WFL No Testing Position Sitting Flexion 134 Comments Limited B supination, right more limited than left, arthritic changes in hands. Overall, degenerative changes all joints. Elbow/Forearm Range of Motion Elbow/Forearm ROM Limitations Comments See comments above Wrist Goniometric Range of Motion ROM Limitations Comments See comments above Finger Goniometric Range of Motion Finger ROM Limitations Comments Arthritic changes B hands and fingers and some muscle wasting left medial finger PT-OP-M Strength Start: 10/03/23 08:26 Freq: Status: Active Protocol: Document 10/04/23 08:13 MB (Rec: 10/04/23 10:55 MB [id number]) Shoulder Strength Shoulder Manual Muscle Testing Bilateral Flexion 5 Normal Abduction (C5) 5 Normal Comments Normal strength in limited range Elbow/Forearm Strength Elbow and Forearm Manual Muscle Testing Bilateral Flexion (C6) 5 Normal Extension (C7) 5 Normal Pronation 4 Good Supination 4- Good- Comments Decreased supination greater on the right. Degenerative changes in wrists and fingers and so rubber stamps and dies supervisor testing deferred and pt has functional weakness in both hands. PT-OP-Q Treatments Start: 10/03/23 08:26 Freq: Status: Active Protocol: Document 10/04/23 08:13 MB (Rec: 10/04/23 10:55 MB [id number]) Self-Care/Home Management Treatment Education Patient Education Body Mechanics,Joint Protection,Pain Management, Posture Other Education PT ed pt in findings of stiffness in left first ribs, that numbness in fingers may be related to cervical and thoracic changes as well as wrist changes, ed pt in proper sleeping position in his recliner: cervical support with towel roll behind head and pillow under hands (1-2 pillows) to help unweight neck , thorax and UEs at night to see if this helps numbness in left fingers PT-OP-T Assessment and Plan Start: 10/03/23 08:26 Freq: Status: Active Protocol: Document 10/04/23 08:13 MB (Rec: 10/04/23 10:55 MB [id number]) Physical Therapy Assessment Rehab Potential Rehabilitation Potential Fair Evaluation Complexity Number of Personal Factors/Comorbidities 1-2 Number of Body Systems Impaired 3 Clinical Presentation at Evaluation Evolving Impairments Impairments Activity Tolerance,Balance, Coordination,Functional Activities,Functional Mobility ,Gait,Pain,Posture,ROM, Sensation,Soft Tissue Mobility ,Strength Goals Two Impairment Decreased left fourth and fifth digit strength Impairment . Detention Goal (LTG) Pt will present with three trial resisted rubber stamps and dies supervisor strength testing of left hand no more than 5 lb less than right hand to improve functional strength of left hand. LTG Duration 12 weeks Four Impairment QuickDASH score reflects over 27% impairment Impairment . Photonics Engineer Goal (LTG) Pt will present with improved QuickDASH score to reflect no more than 10% impairment to improve functional use of left hand and symptoms. LTG Duration 12 weeks Three Impairment Lack of HEP Impairment . Detention Goal (LTG) Pt will perform progressive HEP with I including pelvic realignment, thoracic and cervical flexibility, posture, balance, UE flexibility and strengthening exercises to improve functional hand use and symptoms. LTG Duration 12 weeks One Impairment Evidence of imbalance and high fall risk Impairment . Detention Goal (LTG) Pt will perform TUG in no more than 10 sec to decrease fall risk. LTG Duration 12 weeks Assessment Summary Assessment Pt is a gentleman presenting with recent lumbar surgery in June 2023. He is unsure what levels were operated upon and it may have been as high as lower thoracic spine. PT is able to review spinal MRI results from May of 2023 and pt has many levels of changes . He reports that several weeks ago, he lifted his left arm, heard a pop, and then lost sensation in his 4th and 5th left hand digits. He has numbness C8 distribution with lateral 4th digit spared. Pt has spinal postural changes from cervical to lumbar spine, pelvic obliquities, multi- joint degenerative changes that are moderately severe in his hands. His left thenar eminence had an old crush injury. PT cannot clearly make symptoms worse with thoracic outlet or cervical radiculopathy testing today and since he has numbness all the time and arthritic changes in hands, ulnar and median nerve testing is deferred. His left first rib and thoracic spine are very tight. Given postural presentation, symptoms, degenerative spine and joint changes and palpable tightness today as well as mechanism of injury, PT favors radicular component to symptomology. Order was for shoulder pain but pt does not have any shoulder pain. Also, pt sleeps in a recliner and uses a CPAP and feel this postural presentation could be provocative. Pt will benefit from PT from ongoing manual assessment and treatment, rubber stamps and dies supervisor testing next treatment date, cervical and thoracic mobility and hand assessment and treatment. If symptoms do not improve with PT, he may benefit from EMG testing. Physical Therapy Plan Frequency and Duration Frequency of Treatment 1-2x/wk Duration of treatment (weeks) 12 Plan of Care Start Date 10/04/23 Plan of Care End Date 01/04/24 Therapeutic Interventions Therapeutic Interventions Balance Training,Canalithic Repositioning,Coordination Training,Gait Training,Home Exercise Program,Joint Mobilizations,Manual Therapy, Neuromuscular Re-education, Patient/Caregiver Education, Self-Care/Home Management, Sensory Integration,Soft Tissue Mobilization,Taping, Therapeutic Activities, Therapeutic Exercises Modalities Cold Pack/Ice Massage,Electric Stimulation,Hot Packs, Paraffin Bath,Traction- Mechanical,Ultrasound Other Referrals/Consults Referrals/Consults Recommended Possible EMG testing if symptoms not improved with PT. PT hand specialist to also assess pt this PT course. Next Visit Focus/Plan Next Note Type Treatment Note Next Visit Plan Priming Powder Premix Blender strength testing, pelvic realignment exercises, thoracic mobility, initiate gentle manual work, especially for left first rib
--- NOTE | 2023-10-04 12:45 | PT.OIE ---
Current Diagnoses Primary osteoarthritis, left hand (10/04/23) Pain in left shoulder (10/04/23) Radiculopathy, cervical region (10/04/23) Anesthesia of skin (10/04/23) Weakness (10/04/23) Past Medical History (Last Reviewed 09/27/23 @ 09:30 by BENNY Bauman) Bitten by squirrel (11/22/19) BPH (benign prostatic hyperplasia) Dorsalgia Fatigue (12/10/14) Irritability Left sciatic nerve pain Lumbar facet arthropathy Lumbar radiculopathy Lumbar spinal stenosis Lumbar spondylosis Mild chronic anemia Obesity (BMI 30-39.9) Obstructive sleep apnea of adult Peripheral neuropathy Rosacea Seborrheic dermatitis Seborrheic keratosis Thoracic spinal stenosis Total bilirubin, elevated Traumatic epidural hematoma Past Surgical History (Last Reviewed 09/27/23 @ 09:30 by BENNY Bauman) Aortic valve replaced History of lumbar laminectomy Status post knee surgery Visit Care Team Role Provider Type BENNY Bauman Attending Provider Advanced Passport Support Manager Family Provider Primary Care Provider Referring Provider Specialty: [facility] Address: [address] [place] [address] Email: [email or web address] Physical Therapy Initial Evaluation PT-OP-A Visit Information Start: 10/03/23 08:26 Freq: Status: Active Protocol: Document 10/04/23 08:13 MB (Rec: 10/04/23 08:48 MB [id number]) Out-Patient Physical Therapy Visit Information Visit Information Visit Type Initial Evaluation Visit Note Medicare, AARP Progress note by 11/04/2302/26 before KX Visit Start Time 08:13 Visit Stop Time 08:53 Visit Number 1 Number of MANAGER OF REGULATORY AFFAIRS Visits 0 Evaluation Information Evaluation Date 10/04/23 Precautions Precautions Lumbar surgery in June, pt is on Eliquis PT-OP-B Current Condition Start: 10/03/23 08:26 Freq: Status: Active Protocol: Document 10/04/23 08:13 MB (Rec: 10/04/23 08:48 MB [id number]) Current Condition History of Current Condition Onset Date Left 4th and 5th digit numbness, pt denies shoulder pain Current Complaints Left 4th and 5th digit numbness History of Current Condition Pt has lumbar spinal surgery in June of 2023 and then he had another lumbar spinal surgery after they found a blood clot in his spine. Surgery was at [facility] and then he went to [facility]. About a month ago, pt raised his left arm and something popped and then he had left 4th and 5th digit numbness in left hand. Lateral side of 4th digit is spared. Pt has a cut on his face from his CPAP. He sleeps in his recliner. PMH includes right RJ, B TKAs , lumbar fractures and surgery , left LE neuropathy and drop foot and pt uses cane in right hand, aortic valve replacement through groin, pt is right handed. Pt denies falls. History of left thenar injury, watch is tight on left wrist. Prior Treatments and Tests Cervical MRI 05/23/23: 1. Extensive multilevel spondylitic change. There is multilevel canal stenosis, multilevel uncovertebral joint hypertrophy, significant multilevel facet hypertrophy, and multilevel foraminal narrowing . 2. Canal stenosis is mild to moderate at C4-C5, moderate to severe at C5-C6, mild at C6-C7, and moderate at C7-T1. 3. Multilevel foraminal narrowing as described above. There is moderate to severe left foraminal narrowing at C2-C3. There is severe bilateral foraminal narrowing at all other levels with foraminal nerve root impingement at these levels. Thoracic MRI 05/23/23: 1. At T11-T12, there is multifactorial severe canal stenosis as described above. 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 2. Mild canal stenosis at T12- L1. Treatment Goals Patient/Caregiver Goals To see if left finger numbness can improve PT-OP-C Subjective Start: 10/03/23 08:26 Freq: Status: Active Protocol: Document 10/04/23 08:13 MB (Rec: 10/04/23 08:48 MB [id number]) OP-PT Subjective Patient Comments Patient Comments See history of current condition Patient Questionnaires Quick Dash- Upper Extremity Quick Dash UE Score 23 Quick Dash UE Impairment 20 to 39% Impaired (Score 20- 39) PT-OP-J Posture/Palpation/Skin Start: 10/03/23 08:26 Freq: Status: Active Protocol: Document 10/04/23 08:13 MB (Rec: 10/04/23 08:48 MB [id number]) Posture Evaluation Comments Posture Comments Forward and rounded shoulders, Dowager's hump, decreased thoracic kyphosis and mild right convexity, lower thoracic to upper/mid lumbar spine with scar over spinous processes from recent surgery likely, history of surgery previously as well, left iliac crest is higher than the right, wide ALBINO, less WB through left foot compared to the right, increased [place] angle on the left. Left thenar changes and watch is tight along left wrist. PT-OP-K Range of Motion Start: 10/03/23 08:26 Freq: Status: Active Protocol: Document 10/04/23 08:13 MB (Rec: 10/04/23 08:48 MB [id number]) Cervical Spine Range of Motion Cervical Spine Active Testing Position Sitting Flexion 42 Extension 30 Rotation Left 52 Rotation Right 53 Lateral Flexion Left 20 Lateral Flexion Right 15 Comments SB component to rotation Shoulder Goniometric Range of Motion Shoulder Bilateral Shoulder ROM WFL No Testing Position Sitting Flexion 134 Comments Limited B supination, right more limited than left, arthritic changes in hands. Overall, degenerative changes all joints. Elbow/Forearm Range of Motion Elbow/Forearm ROM Limitations Comments See comments above Wrist Goniometric Range of Motion ROM Limitations Comments See comments above Finger Goniometric Range of Motion Finger ROM Limitations Comments Arthritic changes B hands and fingers and some muscle wasting left medial hand at hypothenar eminence PT-OP-M Strength Start: 10/03/23 08:26 Freq: Status: Active Protocol: Document 10/04/23 08:13 MB (Rec: 10/04/23 10:55 MB [id number]) Shoulder Strength Shoulder Manual Muscle Testing Bilateral Flexion 5 Normal Abduction (C5) 5 Normal Comments Normal strength in limited range Elbow/Forearm Strength Elbow and Forearm Manual Muscle Testing Bilateral Flexion (C6) 5 Normal Extension (C7) 5 Normal Pronation 4 Good Supination 4- Good- Comments Decreased supination greater on the right. Degenerative changes in wrists and fingers and so executive marketing assistant testing deferred and pt has functional weakness in both hands. PT-OP-Q Treatments Start: 10/03/23 08:26 Freq: Status: Active Protocol: Document 10/04/23 08:13 MB (Rec: 10/04/23 10:55 MB [id number]) Self-Care/Home Management Treatment Education Patient Education Body Mechanics,Joint Protection,Pain Management, Posture Other Education PT ed pt in findings of stiffness in left first ribs, that numbness in fingers may be related to cervical and thoracic changes as well as wrist changes, ed pt in proper sleeping position in his recliner: cervical support with towel roll behind head and pillow under hands (1-2 pillows) to help unweight neck , thorax and UEs at night to see if this helps numbness in left fingers PT-OP-T Assessment and Plan Start: 10/03/23 08:26 Freq: Status: Active Protocol: Document 10/04/23 08:13 MB (Rec: 10/04/23 10:55 MB [id number]) Physical Therapy Assessment Rehab Potential Rehabilitation Potential Fair Evaluation Complexity Number of Personal Factors/Comorbidities 1-2 Number of Body Systems Impaired 3 Clinical Presentation at Evaluation Evolving Impairments Impairments Activity Tolerance,Balance, Coordination,Functional Activities,Functional Mobility ,Gait,Pain,Posture,ROM, Sensation,Soft Tissue Mobility ,Strength Goals Two Impairment Decreased left fourth and fifth digit strength Impairment . Grain Broker Goal (LTG) Pt will present with three trial resisted executive marketing assistant strength testing of left hand no more than 5 lb less than right hand to improve functional strength of left hand. LTG Duration 12 weeks Four Impairment QuickDASH score reflects over 27% impairment Impairment . Halfway Goal (LTG) Pt will present with improved QuickDASH score to reflect no more than 10% impairment to improve functional use of left hand and symptoms. LTG Duration 12 weeks Three Impairment Lack of HEP Impairment . Halfway Goal (LTG) Pt will perform progressive HEP with I including pelvic realignment, thoracic and cervical flexibility, posture, balance, UE flexibility and strengthening exercises to improve functional hand use and symptoms. LTG Duration 12 weeks One Impairment Evidence of imbalance and high fall risk Impairment . Halfway Goal (LTG) Pt will perform TUG in no more than 10 sec to decrease fall risk. LTG Duration 12 weeks Assessment Summary Assessment Pt is a gentleman presenting with recent lumbar surgery in June 2023. He is unsure what levels were operated upon and it may have been as high as lower thoracic spine. PT is able to review spinal MRI results from May of 2023 and pt has many levels of changes . He reports that several weeks ago, he lifted his left arm, heard a pop, and then lost sensation in his 4th and 5th left hand digits. He has numbness C8 distribution with lateral 4th digit spared. Pt has spinal postural changes from cervical to lumbar spine, pelvic obliquities, multi- joint degenerative changes that are moderately severe in his hands. His left thenar eminence had an old crush injury. PT cannot clearly make symptoms worse with thoracic outlet or cervical radiculopathy testing today and since he has numbness all the time and arthritic changes in hands, ulnar and median nerve testing is deferred. His left first rib and thoracic spine are very tight. Given postural presentation, symptoms, degenerative spine and joint changes and palpable tightness today as well as mechanism of injury, PT favors radicular component to symptomology. Order was for shoulder pain but pt does not have any shoulder pain. Also, pt sleeps in a recliner and uses a CPAP and feel this postural presentation could be provocative. Pt will benefit from PT from ongoing manual assessment and treatment, executive marketing assistant testing next treatment date, cervical and thoracic mobility and hand assessment and treatment. If symptoms do not improve with PT, he may benefit from EMG testing. Physical Therapy Plan Frequency and Duration Frequency of Treatment 1-2x/wk Duration of treatment (weeks) 12 Plan of Care Start Date 10/04/23 Plan of Care End Date 01/04/24 Therapeutic Interventions Therapeutic Interventions Balance Training,Canalithic Repositioning,Coordination Training,Gait Training,Home Exercise Program,Joint Mobilizations,Manual Therapy, Neuromuscular Re-education, Patient/Caregiver Education, Self-Care/Home Management, Sensory Integration,Soft Tissue Mobilization,Taping, Therapeutic Activities, Therapeutic Exercises Modalities Cold Pack/Ice Massage,Electric Stimulation,Hot Packs, Paraffin Bath,Traction- Mechanical,Ultrasound Other Referrals/Consults Referrals/Consults Recommended Possible EMG testing if symptoms not improved with PT. PT hand specialist to also assess pt this PT course. Next Visit Focus/Plan Next Note Type Treatment Note Next Visit Plan Room Clerk strength testing, pelvic realignment exercises, thoracic mobility, initiate gentle manual work, especially for left first rib
--- NOTE | 2023-10-06 08:55 | PT.OTN ---
Current Diagnoses Primary osteoarthritis, left hand (10/06/23) Pain in left shoulder (10/06/23) Radiculopathy, cervical region (10/06/23) Anesthesia of skin (10/06/23) Weakness (10/06/23) Physical Therapy Treatment Note PT-OP-A Visit Information Start: 10/03/23 08:26 Freq: Status: Active Protocol: Document 10/06/23 08:13 MB (Rec: 10/06/23 08:53 MB [id number]) Out-Patient Physical Therapy Visit Information Visit Information Visit Type Treatment Note Visit Note Medicare, AARP Progress note by 11/04/2303/29 before KX Visit Start Time 08:13 Visit Stop Time 08:53 Visit Number 2 Number of DEVELOPMENTAL ELECTRONICS ASSEMBLER Visits 0 Evaluation Information Evaluation Date 10/04/23 Precautions Precautions Lumbar surgery in June, pt is on Eliquis PT-OP-B Current Condition Start: 10/03/23 08:26 Freq: Status: Active Protocol: Document 10/04/23 08:13 MB (Rec: 10/04/23 08:48 MB [id number]) Current Condition History of Current Condition Onset Date Left 4th and 5th digit numbness, pt denies shoulder pain Current Complaints Left 4th and 5th digit numbness History of Current Condition Pt has lumbar spinal surgery in June of 2023 and then he had another lumbar spinal surgery after they found a blood clot in his spine. Surgery was at [facility] and then he went to [facility]. About a month ago, pt raised his left arm and something popped and then he had left 4th and 5th digit numbness in left hand. Lateral side of 4th digit is spared. Pt has a cut on his face from his CPAP. He sleeps in his recliner. PMH includes right RJ, B TKAs , lumbar fractures and surgery , left LE neuropathy and drop foot and pt uses cane in right hand, aortic valve replacement through groin, pt is right handed. Pt denies falls. History of left thenar injury, watch is tight on left wrist. Prior Treatments and Tests Cervical MRI 05/23/23: 1. Extensive multilevel spondylitic change. There is multilevel canal stenosis, multilevel uncovertebral joint hypertrophy, significant multilevel facet hypertrophy, and multilevel foraminal narrowing . 2. Canal stenosis is mild to moderate at C4-C5, moderate to severe at C5-C6, mild at C6-C7, and moderate at C7-T1. 3. Multilevel foraminal narrowing as described above. There is moderate to severe left foraminal narrowing at C2-C3. There is severe bilateral foraminal narrowing at all other levels with foraminal nerve root impingement at these levels. Thoracic MRI 05/23/23: 1. At T11-T12, there is multifactorial severe canal stenosis as described above. 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 2. Mild canal stenosis at T12- L1. Treatment Goals Patient/Caregiver Goals To see if left finger numbness can improve PT-OP-C Subjective Start: 10/03/23 08:26 Freq: Status: Active Protocol: Document 10/06/23 08:13 MB (Rec: 10/06/23 08:53 MB [id number]) OP-PT Subjective Patient Comments Patient Comments Pt has no new complaints, ongoing C8 area numbness left hand. PT-OP-J Posture/Palpation/Skin Start: 10/03/23 08:26 Freq: Status: Active Protocol: Document 10/04/23 08:13 MB (Rec: 10/04/23 08:48 MB [id number]) Posture Evaluation Comments Posture Comments Forward and rounded shoulders, Dowager's hump, decreased thoracic kyphosis and mild right convexity, lower thoracic to upper/mid lumbar spine with scar over spinous processes from recent surgery likely, history of surgery previously as well, left iliac crest is higher than the right, wide ALBINO, less WB through left foot compared to the right, increased [place] angle on the left. Left thenar changes and watch is tight along left wrist. PT-OP-K Range of Motion Start: 10/03/23 08:26 Freq: Status: Active Protocol: Document 10/04/23 08:13 MB (Rec: 10/04/23 08:48 MB [id number]) Cervical Spine Range of Motion Cervical Spine Active Testing Position Sitting Flexion 42 Extension 30 Rotation Left 52 Rotation Right 53 Lateral Flexion Left 20 Lateral Flexion Right 15 Comments SB component to rotation Shoulder Goniometric Range of Motion Shoulder Bilateral Shoulder ROM WFL No Testing Position Sitting Flexion 134 Comments Limited B supination, right more limited than left, arthritic changes in hands. Overall, degenerative changes all joints. Elbow/Forearm Range of Motion Elbow/Forearm ROM Limitations Comments See comments above Wrist Goniometric Range of Motion ROM Limitations Comments See comments above Finger Goniometric Range of Motion Finger ROM Limitations Comments Arthritic changes B hands and fingers and some muscle wasting left medial hand at hypothenar eminence PT-OP-M Strength Start: 10/03/23 08:26 Freq: Status: Active Protocol: Document 10/04/23 08:13 MB (Rec: 10/04/23 10:55 MB [id number]) Shoulder Strength Shoulder Manual Muscle Testing Bilateral Flexion 5 Normal Abduction (C5) 5 Normal Comments Normal strength in limited range Elbow/Forearm Strength Elbow and Forearm Manual Muscle Testing Bilateral Flexion (C6) 5 Normal Extension (C7) 5 Normal Pronation 4 Good Supination 4- Good- Comments Decreased supination greater on the right. Degenerative changes in wrists and fingers and so veterinary medical officer testing deferred and pt has functional weakness in both hands. PT-OP-Q Treatments Start: 10/03/23 08:26 Freq: Status: Active Protocol: Document 10/06/23 08:13 MB (Rec: 10/06/23 08:53 MB [id number]) Therapeutic Exercises Sidelying Exercises Open book Side bilateral Comments Doubled pillow under head and 2 pillows between knees, 2x10 reps Sitting Exercises Meat Butcher testing Side bilateral Comments R hand: 1st 55 lb, 2nd 54 lb, 3rd 56 lb; L: 1st 43 lb, 2nd 45 lb, 3rd 43 lb Cervical rotation Side bilateral Comments Cues to perform in sitting to loosen neck, 10 reps slowly Manual Therapy Treatment Consent Patient gave verbal consent for manual Yes treatment Other Other Manual Treatments Pt supine with head and legs supported: B first rib isometric and left first rib particularly moves better afterwards, B STM upper traps, pect major, gentle grade II- III cervical PA mobs, lateral and superior glides, left middle scalene STM, positional release thoracic spine Self-Care/Home Management Treatment Education Other Education Ed pt on benefits of trying out a new mattress so that he can get back to sleeping in bed d/t increased rib stiffness and LBP stiffness in recliner. Ed pt in log rolling to get in and OOB and practiced today. PT-OP-T Assessment and Plan Start: 10/03/23 08:26 Freq: Status: Active Protocol: Document 10/06/23 08:13 MB (Rec: 10/06/23 08:53 MB [id number]) Physical Therapy Assessment Rehab Potential Rehabilitation Potential Fair Evaluation Complexity Number of Personal Factors/Comorbidities 1-2 Number of Body Systems Impaired 3 Clinical Presentation at Evaluation Evolving Impairments Impairments Activity Tolerance,Balance, Coordination,Functional Activities,Functional Mobility ,Gait,Pain,Posture,ROM, Sensation,Soft Tissue Mobility ,Strength Goals Two Impairment Decreased left fourth and fifth digit strength Impairment . Institution Librarian Goal (LTG) Pt will present with three trial resisted veterinary medical officer strength testing of left hand no more than 5 lb less than right hand to improve functional strength of left hand. 10/06/23: R hand: 1st 55 lb, 2nd 54 lb, 3rd 56 lb; L: 1st 43 lb, 2nd 45 lb, 3rd 43 lb LTG Duration 12 weeks Four Impairment QuickDASH score reflects over 27% impairment Impairment . Institution Librarian Goal (LTG) Pt will present with improved QuickDASH score to reflect no more than 10% impairment to improve functional use of left hand and symptoms. LTG Duration 12 weeks Three Impairment Lack of HEP Impairment . Retirement Goal (LTG) Pt will perform progressive HEP with I including pelvic realignment, thoracic and cervical flexibility, posture, balance, UE flexibility and strengthening exercises to improve functional hand use and symptoms. LTG Duration 12 weeks One Impairment Evidence of imbalance and high fall risk Impairment . Institution Librarian Goal (LTG) Pt will perform TUG in no more than 10 sec to decrease fall risk. LTG Duration 12 weeks Assessment Summary Assessment Initiated manual work today, thoracic and cervical mobility and recorded veterinary medical officer testing findings. Pt con't with spinal changes and stiffness and will benefit from progression for flexibility, mobility and alignment. PT feels that sleeping position in recliner is contributer to spinal stiffness and symptoms. Re-ed in benefits of looking into getting another mattress. Physical Therapy Plan Frequency and Duration Frequency of Treatment 1-2x/wk Duration of treatment (weeks) 12 Plan of Care Start Date 10/04/23 Plan of Care End Date 01/04/24 Therapeutic Interventions Therapeutic Interventions Balance Training,Canalithic Repositioning,Coordination Training,Gait Training,Home Exercise Program,Joint Mobilizations,Manual Therapy, Neuromuscular Re-education, Patient/Caregiver Education, Self-Care/Home Management, Sensory Integration,Soft Tissue Mobilization,Taping, Therapeutic Activities, Therapeutic Exercises Modalities Cold Pack/Ice Massage,Electric Stimulation,Hot Packs, Paraffin Bath,Traction- Mechanical,Ultrasound Other Referrals/Consults Referrals/Consults Recommended Possible EMG testing if symptoms not improved with PT. PT hand specialist to also assess pt this PT course. Next Visit Focus/Plan Next Note Type Treatment Note Next Visit Plan Review open book, consider pect stretch, pelvic realignment exercises, progress thoracic mobility, further manual work. Hand assessment with Mckenna, manual cervical traction and consider mechanical cervical traction
--- NOTE | 2023-10-12 09:41 | PT.OTN ---
Current Diagnoses Primary osteoarthritis, left hand (10/12/23) Pain in left shoulder (10/12/23) Radiculopathy, cervical region (10/12/23) Anesthesia of skin (10/12/23) Weakness (10/12/23) Physical Therapy Treatment Note PT-OP-A Visit Information Start: 10/03/23 08:26 Freq: Status: Active Protocol: Document 10/12/23 09:01 SP (Rec: 10/12/23 09:50 SP [id number]) Out-Patient Physical Therapy Visit Information Visit Information Visit Type Treatment Note Visit Note Medicare, AARP Progress note by 11/04/2304/26 before KX Visit Start Time 09:01 Visit Stop Time 09:41 Visit Number 3 Number of RAILROAD CAR LETTERER Visits 1 Evaluation Information Evaluation Date 10/04/23 Precautions Precautions Lumbar surgery in June, pt is on Eliquis PT-OP-B Current Condition Start: 10/03/23 08:26 Freq: Status: Active Protocol: Document 10/04/23 08:13 MB (Rec: 10/04/23 08:48 MB [id number]) Current Condition History of Current Condition Onset Date Left 4th and 5th digit numbness, pt denies shoulder pain Current Complaints Left 4th and 5th digit numbness History of Current Condition Pt has lumbar spinal surgery in June of 2023 and then he had another lumbar spinal surgery after they found a blood clot in his spine. Surgery was at [facility] and then he went to [facility]. About a month ago, pt raised his left arm and something popped and then he had left 4th and 5th digit numbness in left hand. Lateral side of 4th digit is spared. Pt has a cut on his face from his CPAP. He sleeps in his recliner. PMH includes right RJ, B TKAs , lumbar fractures and surgery , left LE neuropathy and drop foot and pt uses cane in right hand, aortic valve replacement through groin, pt is right handed. Pt denies falls. History of left thenar injury, watch is tight on left wrist. Prior Treatments and Tests Cervical MRI 05/23/23: 1. Extensive multilevel spondylitic change. There is multilevel canal stenosis, multilevel uncovertebral joint hypertrophy, significant multilevel facet hypertrophy, and multilevel foraminal narrowing . 2. Canal stenosis is mild to moderate at C4-C5, moderate to severe at C5-C6, mild at C6-C7, and moderate at C7-T1. 3. Multilevel foraminal narrowing as described above. There is moderate to severe left foraminal narrowing at C2-C3. There is severe bilateral foraminal narrowing at all other levels with foraminal nerve root impingement at these levels. Thoracic MRI 05/23/23: 1. At T11-T12, there is multifactorial severe canal stenosis as described above. 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 2. Mild canal stenosis at T12- L1. Treatment Goals Patient/Caregiver Goals To see if left finger numbness can improve PT-OP-C Subjective Start: 10/03/23 08:26 Freq: Status: Active Protocol: Document 10/12/23 09:01 SP (Rec: 10/12/23 09:50 SP [id number]) OP-PT Subjective Patient Comments Patient Comments Pt reports noted less tension in neck after last tx. Still no change in numbness of L 4 ( 2/3 medial)-5th MTPs(whole) finger. Is compliant with open book HEP with no change more/ less numbness in L hand, improved shoulder ROM loosened though. PT-OP-J Posture/Palpation/Skin Start: 10/03/23 08:26 Freq: Status: Active Protocol: Document 10/04/23 08:13 MB (Rec: 10/04/23 08:48 MB [id number]) Posture Evaluation Comments Posture Comments Forward and rounded shoulders, Dowager's hump, decreased thoracic kyphosis and mild right convexity, lower thoracic to upper/mid lumbar spine with scar over spinous processes from recent surgery likely, history of surgery previously as well, left iliac crest is higher than the right, wide AL[place], less WB through left foot compared to the right, increased [place] angle on the left. Left thenar changes and watch is tight along left wrist. PT-OP-K Range of Motion Start: 10/03/23 08:26 Freq: Status: Active Protocol: Document 10/04/23 08:13 MB (Rec: 10/04/23 08:48 MB [id number]) Cervical Spine Range of Motion Cervical Spine Active Testing Position Sitting Flexion 42 Extension 30 Rotation Left 52 Rotation Right 53 Lateral Flexion Left 20 Lateral Flexion Right 15 Comments SB component to rotation Shoulder Goniometric Range of Motion Shoulder Bilateral Shoulder ROM WFL No Testing Position Sitting Flexion 134 Comments Limited B supination, right more limited than left, arthritic changes in hands. Overall, degenerative changes all joints. Elbow/Forearm Range of Motion Elbow/Forearm ROM Limitations Comments See comments above Wrist Goniometric Range of Motion ROM Limitations Comments See comments above Finger Goniometric Range of Motion Finger ROM Limitations Comments Arthritic changes B hands and fingers and some muscle wasting left medial hand at hypothenar eminence PT-OP-M Strength Start: 10/03/23 08:26 Freq: Status: Active Protocol: Document 10/04/23 08:13 MB (Rec: 10/04/23 10:55 MB [id number]) Shoulder Strength Shoulder Manual Muscle Testing Bilateral Flexion 5 Normal Abduction (C5) 5 Normal Comments Normal strength in limited range Elbow/Forearm Strength Elbow and Forearm Manual Muscle Testing Bilateral Flexion (C6) 5 Normal Extension (C7) 5 Normal Pronation 4 Good Supination 4- Good- Comments Decreased supination greater on the right. Degenerative changes in wrists and fingers and so belt operator testing deferred and pt has functional weakness in both hands. PT-OP-Q Treatments Start: 10/03/23 08:26 Freq: Status: Active Protocol: Document 10/12/23 09:01 SP (Rec: 10/12/23 09:50 SP [id number]) Therapeutic Exercises Supine Exercises pelvic realignment Supine Exercise Name added to HEP: adductor isometric, hip lift isometric, HS isometric (90(90) Side bilateral Reps/Minutes 3 SH 5each Comments cued set up and pro Sidelying Exercises Open book Side bilateral Resistance AROM Equipment Used Doubled pillow under head and 2 pillows between knees Reps/Minutes 10 reps each side Comments cued no UT recruitment, head turn estrada end range arm pec gentle stretch Sitting Exercises Cervical rotation Side bilateral Comments Cues to perform in sitting to loosen neck, 10 reps slowly Standing Exercises pec stretch doorway Standing Exercise Name trialed in PT- if ok add to HEP next txf Side bilateral Reps/Minutes 10 SH x3 Comments cued neck alignment back neutral, pnfree range- good pec stretch Manual Therapy Treatment Manual Traction CS Comments gentle manual traction, trialed traction with shld FF and HABD- no-no reduction numbness L 4-5th MTP Other Other Manual Treatments Pt supine with head and legs supported: L first rib AAROM wtih breath caudal gentle pressure during exhale, L>R STM upper traps & LS, pect major and minor, gentle grade II cervical PA mobs, left middle scalene STM, L bicep & tricep, pronator teres, wrist carpal PAs with PROM wrist PT-OP-T Assessment and Plan Start: 10/03/23 08:26 Freq: Status: Active Protocol: Document 10/12/23 09:01 SP (Rec: 10/12/23 09:50 SP [id number]) Physical Therapy Assessment Goals Two Impairment Decreased left fourth and fifth digit strength Impairment . Senior Living Goal (LTG) Pt will present with three trial resisted belt operator strength testing of left hand no more than 5 lb less than right hand to improve functional strength of left hand. 10/06/23: R hand: 1st 55 lb, 2nd 54 lb, 3rd 56 lb; L: 1st 43 lb, 2nd 45 lb, 3rd 43 lb LTG Duration 12 weeks Four Impairment QuickDASH score reflects over 27% impairment Impairment . Aircraft Navigator Goal (LTG) Pt will present with improved QuickDASH score to reflect no more than 10% impairment to improve functional use of left hand and symptoms. LTG Duration 12 weeks Three Impairment Lack of HEP Impairment . Aircraft Navigator Goal (LTG) Pt will perform progressive HEP with I including pelvic realignment, thoracic and cervical flexibility, posture, balance, UE flexibility and strengthening exercises to improve functional hand use and symptoms. LTG Duration 12 weeks One Impairment Evidence of imbalance and high fall risk Impairment . Senior Living Goal (LTG) Pt will perform TUG in no more than 10 sec to decrease fall risk. LTG Duration 12 weeks Assessment Summary Assessment Pt reports improved L shoulder and neck ROM post manual but no change in numbness of L 4- 5th fingers. Trialed gentle manual sustained cervical traction and MWM shld FF and HABD with no change in numbness symtom reduction. Tolerated ther ex with no increased or decrease in numbness L 4-5th MTPs but does report less tension in shoulder and neck. Initiated doorway pec stretch and pelvic realignment ex per primary PT 's suggestion with no adverse affects other than more mobility scap and hips. Physical Therapy Plan Frequency and Duration Frequency of Treatment 1-2x/wk Duration of treatment (weeks) 12 Plan of Care Start Date 10/04/23 Plan of Care End Date 01/04/24 Therapeutic Interventions Therapeutic Interventions Balance Training,Canalithic Repositioning,Coordination Training,Gait Training,Home Exercise Program,Joint Mobilizations,Manual Therapy, Neuromuscular Re-education, Patient/Caregiver Education, Self-Care/Home Management, Sensory Integration,Soft Tissue Mobilization,Taping, Therapeutic Activities, Therapeutic Exercises Modalities Cold Pack/Ice Massage,Electric Stimulation,Hot Packs, Paraffin Bath,Traction- Mechanical,Ultrasound Other Referrals/Consults Referrals/Consults Recommended Possible EMG testing if symptoms not improved with PT. PT hand specialist to also assess pt this PT course. Next Visit Focus/Plan Next Note Type Treatment Note Next Visit Plan Reassess reponse to HEP: open book and pelvic realignment ex , if suggest add pec stretch. Recheck if traction if beneficial. PT POC: progress thoracic mobility, further manual work. Hand assessment with Mckenna, manual cervical traction and consider mechanical cervical traction
--- NOTE | 2023-10-14 15:49 | PT.OTN ---
Current Diagnoses Primary osteoarthritis, left hand (10/14/23) Pain in left shoulder (10/14/23) Radiculopathy, cervical region (10/14/23) Anesthesia of skin (10/14/23) Weakness (10/14/23) Physical Therapy Treatment Note PT-OP-A Visit Information Start: 10/03/23 08:26 Freq: Status: Active Protocol: Document 10/14/23 14:37 LRN (Rec: 10/14/23 15:47 LRN [id number]) Out-Patient Physical Therapy Visit Information Visit Information Visit Type Treatment Note Visit Note Medicare, AARP Progress note by 11/04/2305/27 before KX Visit Start Time 14:37 Visit Stop Time 15:17 Visit Number 4 Number of JV BASEBALL COACH Visits 1 Evaluation Information Evaluation Date 10/04/23 Precautions Precautions Lumbar surgery x 2 in June, pt is on Eliquis due to blood clot. PT-OP-B Current Condition Start: 10/03/23 08:26 Freq: Status: Active Protocol: Document 10/04/23 08:13 MB (Rec: 10/04/23 08:48 MB [id number]) Current Condition History of Current Condition Onset Date Left 4th and 5th digit numbness, pt denies shoulder pain Current Complaints Left 4th and 5th digit numbness History of Current Condition Pt has lumbar spinal surgery in June of 2023 and then he had another lumbar spinal surgery after they found a blood clot in his spine. Surgery was at [facility] and then he went to [facility]. About a month ago, pt raised his left arm and something popped and then he had left 4th and 5th digit numbness in left hand. Lateral side of 4th digit is spared. Pt has a cut on his face from his CPAP. He sleeps in his recliner. PMH includes right RJ, B TKAs , lumbar fractures and surgery , left LE neuropathy and drop foot and pt uses cane in right hand, aortic valve replacement through groin, pt is right handed. Pt denies falls. History of left thenar injury, watch is tight on left wrist. Prior Treatments and Tests Cervical MRI 05/23/23: 1. Extensive multilevel spondylitic change. There is multilevel canal stenosis, multilevel uncovertebral joint hypertrophy, significant multilevel facet hypertrophy, and multilevel foraminal narrowing . 2. Canal stenosis is mild to moderate at C4-C5, moderate to severe at C5-C6, mild at C6-C7, and moderate at C7-T1. 3. Multilevel foraminal narrowing as described above. There is moderate to severe left foraminal narrowing at C2-C3. There is severe bilateral foraminal narrowing at all other levels with foraminal nerve root impingement at these levels. Thoracic MRI 05/23/23: 1. At T11-T12, there is multifactorial severe canal stenosis as described above. 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 2. Mild canal stenosis at T12- L1. Treatment Goals Patient/Caregiver Goals To see if left finger numbness can improve PT-OP-C Subjective Start: 10/03/23 08:26 Freq: Status: Active Protocol: Document 10/14/23 14:37 LRN (Rec: 10/14/23 15:47 LRN [id number]) OP-PT Subjective Patient Comments Patient Comments Sore after last session in back, from doorway stretch. States he is doing the open book stretch. PT-OP-J Posture/Palpation/Skin Start: 10/03/23 08:26 Freq: Status: Active Protocol: Document 10/04/23 08:13 MB (Rec: 10/04/23 08:48 MB [id number]) Posture Evaluation Comments Posture Comments Forward and rounded shoulders, Dowager's hump, decreased thoracic kyphosis and mild right convexity, lower thoracic to upper/mid lumbar spine with scar over spinous processes from recent surgery likely, history of surgery previously as well, left iliac crest is higher than the right, wide [place], less WB through left foot compared to the right, increased [place] angle on the left. Left thenar changes and watch is tight along left wrist. PT-OP-K Range of Motion Start: 10/03/23 08:26 Freq: Status: Active Protocol: Document 10/04/23 08:13 MB (Rec: 10/04/23 08:48 MB [id number]) Cervical Spine Range of Motion Cervical Spine Active Testing Position Sitting Flexion 42 Extension 30 Rotation Left 52 Rotation Right 53 Lateral Flexion Left 20 Lateral Flexion Right 15 Comments SB component to rotation Shoulder Goniometric Range of Motion Shoulder Bilateral Shoulder ROM WFL No Testing Position Sitting Flexion 134 Comments Limited B supination, right more limited than left, arthritic changes in hands. Overall, degenerative changes all joints. Elbow/Forearm Range of Motion Elbow/Forearm ROM Limitations Comments See comments above Wrist Goniometric Range of Motion ROM Limitations Comments See comments above Finger Goniometric Range of Motion Finger ROM Limitations Comments Arthritic changes B hands and fingers and some muscle wasting left medial hand at hypothenar eminence PT-OP-M Strength Start: 10/03/23 08:26 Freq: Status: Active Protocol: Document 10/04/23 08:13 MB (Rec: 10/04/23 10:55 MB [id number]) Shoulder Strength Shoulder Manual Muscle Testing Bilateral Flexion 5 Normal Abduction (C5) 5 Normal Comments Normal strength in limited range Elbow/Forearm Strength Elbow and Forearm Manual Muscle Testing Bilateral Flexion (C6) 5 Normal Extension (C7) 5 Normal Pronation 4 Good Supination 4- Good- Comments Decreased supination greater on the right. Degenerative changes in wrists and fingers and so currency counter testing deferred and pt has functional weakness in both hands. PT-OP-Q Treatments Start: 10/03/23 08:26 Freq: Status: Active Protocol: Document 10/14/23 14:37 LRN (Rec: 10/14/23 15:47 LRN [id number]) Therapeutic Exercises Supine Exercises MCP flex Supine Exercise Name Table top flex/ext Side left Comments MMT Finger AB/AD Side left Comments MMT Wrist flexion/ext stretch Supine Exercise Name Wrist flex/ext stretch Side left Reps/Minutes 4' C. AROM Supine Exercise Name Rot, Rot/ext Side bilateral Reps/Minutes 5 SH x 4 & 60 SH, respectively . Comments VA test taken. Sidelying Exercises Open book Side bilateral Resistance AROM Equipment Used Doubled pillow under head and 2 pillows between knees Reps/Minutes 10 reps each side Comments cued no UT recruitment, leading w/head Manual Therapy Treatment Consent Patient gave verbal consent for manual Yes treatment Soft Tissue Mobilization L UT Body Location L UT Mobilization Type Strumming,Trigger Point Release Intensity/Depth Moderate Body Position Hooklying w/bolster L pec Body Location L Pec Mobilization Type Myofascial Release,Sustained Pressure Intensity/Depth Moderate Body Position Hooklying w/bolster Comments No c/o discomfort Manual Traction CS Details Manual traction targeting C7- C8 Body Position sup/bolstr Reps/Duration 5 SH x 5 at start and after manual therapy. Comments Pt I/S to use ice to the neck at home today if sore. Pt not sure if sensation improved at palmar surface of ring finger . PT-OP-T Assessment and Plan Start: 10/03/23 08:26 Freq: Status: Active Protocol: Document 10/14/23 14:37 LRN (Rec: 10/14/23 15:47 LRN [id number]) Physical Therapy Assessment Goals Two Impairment Decreased left fourth and fifth digit strength Impairment . Assisted Goal (LTG) Pt will present with three trial resisted currency counter strength testing of left hand no more than 5 lb less than right hand to improve functional strength of left hand. 10/06/23: R hand: 1st 55 lb, 2nd 54 lb, 3rd 56 lb; L: 1st 43 lb, 2nd 45 lb, 3rd 43 lb LTG Duration 12 weeks Four Impairment QuickDASH score reflects over 27% impairment Impairment . Live In Caregiver Goal (LTG) Pt will present with improved QuickDASH score to reflect no more than 10% impairment to improve functional use of left hand and symptoms. LTG Duration 12 weeks Three Impairment Lack of HEP Impairment . Live In Caregiver Goal (LTG) Pt will perform progressive HEP with I including pelvic realignment, thoracic and cervical flexibility, posture, balance, UE flexibility and strengthening exercises to improve functional hand use and symptoms. LTG Duration 12 weeks One Impairment Evidence of imbalance and high fall risk Impairment . Live In Caregiver Goal (LTG) Pt will perform TUG in no more than 10 sec to decrease fall risk. LTG Duration 12 weeks Assessment Summary Assessment Pt had soreness last session in anter shoulders from doorway stretch. No worsening of symptoms with open book and pelvic realignment, ex's reportedly feel good. Today he wasn't sure if there was a change in sensation in his L hand with manual C/S traction; therefore appears negative for c/s involvement, but severe forward head posturing would indicate some kind of involvement. Vertebral Artery testing was negative bilaterally. Carpal tunnel testing was inconclusive, but no change in sensation was noted. Possible Thoracic outlet syndrome or ACJ involvement? Further testing is needed. Physical Therapy Plan Frequency and Duration Frequency of Treatment 1-2x/wk Duration of treatment (weeks) 12 Plan of Care Start Date 10/04/23 Plan of Care End Date 01/04/24 Next Visit Focus/Plan Next Note Type Treatment Note Next Visit Plan Reassess reponse to HEP: add pec stretch w/o creating discomfort. DC traction. Cont T/S mobility, add contrast bath to HEP. Check for Thoracic Outlet or L ACJ dysfunction. PT POC: progress thoracic mobility, further manual work. Hand assessment with Mckenna, manual cervical traction and consider mechanical cervical traction
--- NOTE | 2023-10-18 08:59 | PT.OTN ---
Current Diagnoses Primary osteoarthritis, left hand (10/18/23) Pain in left shoulder (10/18/23) Radiculopathy, cervical region (10/18/23) Anesthesia of skin (10/18/23) Weakness (10/18/23) Physical Therapy Treatment Note PT-OP-A Visit Information Start: 10/03/23 08:26 Freq: Status: Active Protocol: Document 10/18/23 08:17 MB (Rec: 10/18/23 08:59 MB [id number]) Out-Patient Physical Therapy Visit Information Visit Information Visit Type Treatment Note Visit Note Medicare, AARP Progress note by 11/04/2306/26 before KX Visit Start Time 08:17 Visit Stop Time 08:57 Visit Number 5 Number of PROOFER APPRENTICE Visits 0 Evaluation Information Evaluation Date 10/04/23 Precautions Precautions Lumbar surgery x 2 in June, pt is on Eliquis due to blood clot. PT-OP-B Current Condition Start: 10/03/23 08:26 Freq: Status: Active Protocol: Document 10/04/23 08:13 MB (Rec: 10/04/23 08:48 MB [id number]) Current Condition History of Current Condition Onset Date Left 4th and 5th digit numbness, pt denies shoulder pain Current Complaints Left 4th and 5th digit numbness History of Current Condition Pt has lumbar spinal surgery in June of 2023 and then he had another lumbar spinal surgery after they found a blood clot in his spine. Surgery was at [facility] and then he went to [facility]. About a month ago, pt raised his left arm and something popped and then he had left 4th and 5th digit numbness in left hand. Lateral side of 4th digit is spared. Pt has a cut on his face from his CPAP. He sleeps in his recliner. PMH includes right RJ, B TKAs , lumbar fractures and surgery , left LE neuropathy and drop foot and pt uses cane in right hand, aortic valve replacement through groin, pt is right handed. Pt denies falls. History of left thenar injury, watch is tight on left wrist. Prior Treatments and Tests Cervical MRI 05/23/23: 1. Extensive multilevel spondylitic change. There is multilevel canal stenosis, multilevel uncovertebral joint hypertrophy, significant multilevel facet hypertrophy, and multilevel foraminal narrowing . 2. Canal stenosis is mild to moderate at C4-C5, moderate to severe at C5-C6, mild at C6-C7, and moderate at C7-T1. 3. Multilevel foraminal narrowing as described above. There is moderate to severe left foraminal narrowing at C2-C3. There is severe bilateral foraminal narrowing at all other levels with foraminal nerve root impingement at these levels. Thoracic MRI 05/23/23: 1. At T11-T12, there is multifactorial severe canal stenosis as described above. 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 2. Mild canal stenosis at T12- L1. Treatment Goals Patient/Caregiver Goals To see if left finger numbness can improve PT-OP-C Subjective Start: 10/03/23 08:26 Freq: Status: Active Protocol: Document 10/18/23 08:17 MB (Rec: 10/18/23 08:59 MB [id number]) OP-PT Subjective Patient Comments Patient Comments Pt states that he had an orthopedic appointment and he thinks he has a nerve/ electrical study ordered for left hand. PT-OP-J Posture/Palpation/Skin Start: 10/03/23 08:26 Freq: Status: Active Protocol: Document 10/04/23 08:13 MB (Rec: 10/04/23 08:48 MB [id number]) Posture Evaluation Comments Posture Comments Forward and rounded shoulders, Dowager's hump, decreased thoracic kyphosis and mild right convexity, lower thoracic to upper/mid lumbar spine with scar over spinous processes from recent surgery likely, history of surgery previously as well, left iliac crest is higher than the right, wide ALBINO, less WB through left foot compared to the right, increased [place] angle on the left. Left thenar changes and watch is tight along left wrist. PT-OP-K Range of Motion Start: 10/03/23 08:26 Freq: Status: Active Protocol: Document 10/04/23 08:13 MB (Rec: 10/04/23 08:48 MB [id number]) Cervical Spine Range of Motion Cervical Spine Active Testing Position Sitting Flexion 42 Extension 30 Rotation Left 52 Rotation Right 53 Lateral Flexion Left 20 Lateral Flexion Right 15 Comments SB component to rotation Shoulder Goniometric Range of Motion Shoulder Bilateral Shoulder ROM WFL No Testing Position Sitting Flexion 134 Comments Limited B supination, right more limited than left, arthritic changes in hands. Overall, degenerative changes all joints. Elbow/Forearm Range of Motion Elbow/Forearm ROM Limitations Comments See comments above Wrist Goniometric Range of Motion ROM Limitations Comments See comments above Finger Goniometric Range of Motion Finger ROM Limitations Comments Arthritic changes B hands and fingers and some muscle wasting left medial hand at hypothenar eminence PT-OP-M Strength Start: 10/03/23 08:26 Freq: Status: Active Protocol: Document 10/04/23 08:13 MB (Rec: 10/04/23 10:55 MB [id number]) Shoulder Strength Shoulder Manual Muscle Testing Bilateral Flexion 5 Normal Abduction (C5) 5 Normal Comments Normal strength in limited range Elbow/Forearm Strength Elbow and Forearm Manual Muscle Testing Bilateral Flexion (C6) 5 Normal Extension (C7) 5 Normal Pronation 4 Good Supination 4- Good- Comments Decreased supination greater on the right. Degenerative changes in wrists and fingers and so roller mechanic testing deferred and pt has functional weakness in both hands. PT-OP-Q Treatments Start: 10/03/23 08:26 Freq: Status: Active Protocol: Document 10/18/23 08:17 MB (Rec: 10/18/23 08:59 MB [id number]) Therapeutic Exercises Supine Exercises Gentle pect stretch in supine Side bilateral Reps/Minutes 45 sec, 2 reps Manual Therapy Treatment Consent Patient gave verbal consent for manual Yes treatment Other Other Manual Treatments Pt supine with head and legs supported: STM left pects, triceps, medial biceps, wrist flexors, extensors, and elbow pronators and supinators and MWM with active movement with TrP pressure. Most tingling working on wrist flexors. Self-Care/Home Management Treatment Education Other Education Ed pt findings of posture and benefits of PT, even if numbness is not getting better , ed in likely ulnar nerve/ elbow/wrist component Ed pt on benefits of wearing wrist brace loose at night to help wrist stay in neutral to unload nerve PT-OP-T Assessment and Plan Start: 10/03/23 08:26 Freq: Status: Active Protocol: Document 10/18/23 08:17 MB (Rec: 10/18/23 08:59 MB [id number]) Physical Therapy Assessment Goals Two Impairment Decreased left fourth and fifth digit strength Impairment . Assisted Goal (LTG) Pt will present with three trial resisted roller mechanic strength testing of left hand no more than 5 lb less than right hand to improve functional strength of left hand. 10/06/23: R hand: 1st 55 lb, 2nd 54 lb, 3rd 56 lb; L: 1st 43 lb, 2nd 45 lb, 3rd 43 lb LTG Duration 12 weeks Four Impairment QuickDASH score reflects over 27% impairment Impairment . Christian Science Practitioner Goal (LTG) Pt will present with improved QuickDASH score to reflect no more than 10% impairment to improve functional use of left hand and symptoms. LTG Duration 12 weeks Three Impairment Lack of HEP Impairment . Assisted Goal (LTG) Pt will perform progressive HEP with I including pelvic realignment, thoracic and cervical flexibility, posture, balance, UE flexibility and strengthening exercises to improve functional hand use and symptoms. LTG Duration 12 weeks One Impairment Evidence of imbalance and high fall risk Impairment . Christian Science Practitioner Goal (LTG) Pt will perform TUG in no more than 10 sec to decrease fall risk. LTG Duration 12 weeks Assessment Summary Assessment Since pt has no shoulder pain and did not have injury, PT defers ACJ assessment. Similarly, he does not have thoracic outlet symptoms and so deferred assessment of this . He has known cervcial and thoracic changes by postural and palpation assessment as well as MRIs and so will con't work on cervical and thoracic spine. Pt may already have EMG scheduled but he cannot clearly state. Left elbow area palpation and assessment today and pt does report increased tingling in fingers and so PT does feel that pt has a peripheral nerve/ulnar nerve component to symptoms. Most finger tingling provoked today with STM wrist flexors. Physical Therapy Plan Frequency and Duration Frequency of Treatment 1-2x/wk Duration of treatment (weeks) 12 Plan of Care Start Date 10/04/23 Plan of Care End Date 01/04/24 Therapeutic Interventions Therapeutic Interventions Balance Training,Canalithic Repositioning,Coordination Training,Gait Training,Home Exercise Program,Joint Mobilizations,Manual Therapy, Neuromuscular Re-education, Patient/Caregiver Education, Self-Care/Home Management, Sensory Integration,Soft Tissue Mobilization,Taping, Therapeutic Activities, Therapeutic Exercises Modalities Cold Pack/Ice Massage,Electric Stimulation,Hot Packs, Paraffin Bath,Traction- Mechanical,Ultrasound Next Visit Focus/Plan Next Note Type Treatment Note Next Visit Plan Can try gentle biceps, triceps and forearm/wrist stretches. Consider scapular retraction in hook lying, at wall in standing and sitting, thoracic extension with scap retraction in hook lying. Ongoing progression of thoracic mobility and cervical flexibility with exercises and manual work, postural and intrascapular strengthening, perhaps posture at wall, balance training. Mckenna to further assess elbow/ wrist areas/hand exercise progression *Please no nerve glides as he has many joint changes.
--- NOTE | 2023-10-20 11:18 | PT.OTN ---
Current Diagnoses Primary osteoarthritis, left hand (10/20/23) Pain in left shoulder (10/20/23) Radiculopathy, cervical region (10/20/23) Anesthesia of skin (10/20/23) Weakness (10/20/23) Physical Therapy Treatment Note PT-OP-A Visit Information Start: 10/03/23 08:26 Freq: Status: Active Protocol: Document 10/20/23 10:33 SP (Rec: 10/20/23 11:19 SP [id number]) Out-Patient Physical Therapy Visit Information Visit Information Visit Type Treatment Note Visit Note Medicare, AARP Progress note by 11/04/2307/27 before KX Visit Start Time 10:33 Visit Stop Time 11:18 Visit Number 6 Number of GREIGE GOODS INSPECTOR Visits 1 Evaluation Information Evaluation Date 10/04/23 Precautions Precautions Lumbar surgery x 2 in June, pt is on Eliquis due to blood clot. PT-OP-B Current Condition Start: 10/03/23 08:26 Freq: Status: Active Protocol: Document 10/04/23 08:13 MB (Rec: 10/04/23 08:48 MB [id number]) Current Condition History of Current Condition Onset Date Left 4th and 5th digit numbness, pt denies shoulder pain Current Complaints Left 4th and 5th digit numbness History of Current Condition Pt has lumbar spinal surgery in June of 2023 and then he had another lumbar spinal surgery after they found a blood clot in his spine. Surgery was at [facility] and then he went to [facility]. About a month ago, pt raised his left arm and something popped and then he had left 4th and 5th digit numbness in left hand. Lateral side of 4th digit is spared. Pt has a cut on his face from his CPAP. He sleeps in his recliner. PMH includes right RJ, B TKAs , lumbar fractures and surgery , left LE neuropathy and drop foot and pt uses cane in right hand, aortic valve replacement through groin, pt is right handed. Pt denies falls. History of left thenar injury, watch is tight on left wrist. Prior Treatments and Tests Cervical MRI 05/23/23: 1. Extensive multilevel spondylitic change. There is multilevel canal stenosis, multilevel uncovertebral joint hypertrophy, significant multilevel facet hypertrophy, and multilevel foraminal narrowing . 2. Canal stenosis is mild to moderate at C4-C5, moderate to severe at C5-C6, mild at C6-C7, and moderate at C7-T1. 3. Multilevel foraminal narrowing as described above. There is moderate to severe left foraminal narrowing at C2-C3. There is severe bilateral foraminal narrowing at all other levels with foraminal nerve root impingement at these levels. Thoracic MRI 05/23/23: 1. At T11-T12, there is multifactorial severe canal stenosis as described above. 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 2. Mild canal stenosis at T12- L1. Treatment Goals Patient/Caregiver Goals To see if left finger numbness can improve PT-OP-C Subjective Start: 10/03/23 08:26 Freq: Status: Active Protocol: Document 10/20/23 10:33 SP (Rec: 10/20/23 11:19 SP [id number]) OP-PT Subjective Patient Comments Patient Comments Pt reports the pec stretch helping loosen up his shoulders. Numbness in L hand still same. Hasn't gotten the results back yet from EMG had at [facility], will bring in results. PT-OP-J Posture/Palpation/Skin Start: 10/03/23 08:26 Freq: Status: Active Protocol: Document 10/04/23 08:13 MB (Rec: 10/04/23 08:48 MB [id number]) Posture Evaluation Comments Posture Comments Forward and rounded shoulders, Dowager's hump, decreased thoracic kyphosis and mild right convexity, lower thoracic to upper/mid lumbar spine with scar over spinous processes from recent surgery likely, history of surgery previously as well, left iliac crest is higher than the right, wide ALBINO, less WB through left foot compared to the right, increased [place] angle on the left. Left thenar changes and watch is tight along left wrist. PT-OP-K Range of Motion Start: 10/03/23 08:26 Freq: Status: Active Protocol: Document 10/04/23 08:13 MB (Rec: 10/04/23 08:48 MB [id number]) Cervical Spine Range of Motion Cervical Spine Active Testing Position Sitting Flexion 42 Extension 30 Rotation Left 52 Rotation Right 53 Lateral Flexion Left 20 Lateral Flexion Right 15 Comments SB component to rotation Shoulder Goniometric Range of Motion Shoulder Bilateral Shoulder ROM WFL No Testing Position Sitting Flexion 134 Comments Limited B supination, right more limited than left, arthritic changes in hands. Overall, degenerative changes all joints. Elbow/Forearm Range of Motion Elbow/Forearm ROM Limitations Comments See comments above Wrist Goniometric Range of Motion ROM Limitations Comments See comments above Finger Goniometric Range of Motion Finger ROM Limitations Comments Arthritic changes B hands and fingers and some muscle wasting left medial hand at hypothenar eminence PT-OP-M Strength Start: 10/03/23 08:26 Freq: Status: Active Protocol: Document 10/04/23 08:13 MB (Rec: 10/04/23 10:55 MB [id number]) Shoulder Strength Shoulder Manual Muscle Testing Bilateral Flexion 5 Normal Abduction (C5) 5 Normal Comments Normal strength in limited range Elbow/Forearm Strength Elbow and Forearm Manual Muscle Testing Bilateral Flexion (C6) 5 Normal Extension (C7) 5 Normal Pronation 4 Good Supination 4- Good- Comments Decreased supination greater on the right. Degenerative changes in wrists and fingers and so rn case manager testing deferred and pt has functional weakness in both hands. PT-OP-Q Treatments Start: 10/03/23 08:26 Freq: Status: Active Protocol: Document 10/20/23 10:33 SP (Rec: 10/20/23 11:19 SP [id number]) Therapeutic Exercises Supine Exercises Gentle pect stretch in supine Side bilateral Reps/Minutes 45 sec, 2 reps Sitting Exercises neck stretching Sitting Exercise Name added to HEP: SB UT & LS Side left Resistance AROM to R Reps/Minutes 15 SH x3 Comments cued slow small range gentle stretch, good stretch no pain or tingle wrist stretch Sitting Exercise Name Trialed and added to HEP: flex and extend Side left Reps/Minutes 15 SH x3 Comments arm out front RUE assist stretch of LUE- good forearm stretch, no pn/tingle Cervical rotation Sitting Exercise Name HEP reviewed. Side bilateral Comments Cues to perform in sitting to loosen neck, 10 reps slowly Standing Exercises pec stretch doorway Standing Exercise Name reviewed HEP Side bilateral Reps/Minutes 20 SH x3 Comments cued neck alignment back neutral, pnfree range- good pec stretch Therapeutic Activity Therapeutic Activity safe transfers Reps/Minutes 2 Comments instructed due to hard land sit in chair, slight chair tip . Ed back up fully then reach back slow sit for safety. Manual Therapy Treatment Nerve Glides ulnar nerve glide Nerve modified range due to limited L wrist ext Reps/Duration 5 reps Comments no additional tingle or reduction numbness, nothing changed. Other Other Manual Treatments Pt supine with head (1 pillow) and legs (wedge bolster) supported: STM L SCM, Scalenes , SOR, L UT, left proximal pec Major & Minor, triceps belly ok distal causes tingling ( stopped), medial biceps rolling & MWM elbow flex/ext, wrist flexors rolling/ cross fiber friction (mid ok proximal tingling close to CFT near elbow so stopped), extensors rolling and cross fiber friction fine, and elbow pronators and supinators rolling and MWM pron/sup fine. Most tingling working on wrist flexors proximally. PT-OP-T Assessment and Plan Start: 10/03/23 08:26 Freq: Status: Active Protocol: Document 10/20/23 10:33 SP (Rec: 10/20/23 11:19 SP [id number]) Physical Therapy Assessment Goals Two Impairment Decreased left fourth and fifth digit strength Impairment . Nursing Home Goal (LTG) Pt will present with three trial resisted rn case manager strength testing of left hand no more than 5 lb less than right hand to improve functional strength of left hand. 10/06/23: R hand: 1st 55 lb, 2nd 54 lb, 3rd 56 lb; L: 1st 43 lb, 2nd 45 lb, 3rd 43 lb LTG Duration 12 weeks Four Impairment QuickDASH score reflects over 27% impairment Impairment . Repair Electric Motor Assembler Goal (LTG) Pt will present with improved QuickDASH score to reflect no more than 10% impairment to improve functional use of left hand and symptoms. LTG Duration 12 weeks Three Impairment Lack of HEP Impairment . Nursing Home Goal (LTG) Pt will perform progressive HEP with I including pelvic realignment, thoracic and cervical flexibility, posture, balance, UE flexibility and strengthening exercises to improve functional hand use and symptoms. LTG Duration 12 weeks One Impairment Evidence of imbalance and high fall risk Impairment . Repair Electric Motor Assembler Goal (LTG) Pt will perform TUG in no more than 10 sec to decrease fall risk. LTG Duration 12 weeks Assessment Summary Assessment Pt demonstrated unsafe sitting intially when arrived to PT gym, reaching for chair not fully stepping back and flopped into chair, chair tipped little bit. REviewed safe pivot and back step fully then slow descend, improved demonstration. Pt responded well to mid muscle STMs CS and throughout L arm, reported tingling into hand when at muscle attachment closer to elbow so discontinued. Intiated cervical and L forearm/wrist stretching this tx with no adverse affects, reported good muscular stretch , provided HOs for carryover home and in filer. He understand to DC if at home causes pain in wrist or increased tingling unlike response in PT. Physical Therapy Plan Frequency and Duration Frequency of Treatment 1-2x/wk Duration of treatment (weeks) 12 Plan of Care Start Date 10/04/23 Plan of Care End Date 01/04/24 Therapeutic Interventions Therapeutic Interventions Balance Training,Canalithic Repositioning,Coordination Training,Gait Training,Home Exercise Program,Joint Mobilizations,Manual Therapy, Neuromuscular Re-education, Patient/Caregiver Education, Self-Care/Home Management, Sensory Integration,Soft Tissue Mobilization,Taping, Therapeutic Activities, Therapeutic Exercises Modalities Cold Pack/Ice Massage,Electric Stimulation,Hot Packs, Paraffin Bath,Traction- Mechanical,Ultrasound Other Referrals/Consults Referrals/Consults Recommended Awaiting results from EMG, 12/01 at [facility]. Next Visit Focus/Plan Next Note Type Treatment Note Next Visit Plan Recheck cervical and forearm wrist stretching. POC: Next can try gentle biceps, triceps stretches. Consider scapular retraction in hook lying, at wall in standing and sitting, thoracic extension with scap retraction in hook lying. Ongoing progression of thoracic mobility and cervical flexibility with exercises and manual work, postural and intrascapular strengthening, perhaps posture at wall, balance training. Mckenna to further assess elbow/ wrist areas/hand exercise progression *Please no nerve glides as he has many joint changes.
--- NOTE | 2023-10-27 12:08 | PT.OTN ---
Current Diagnoses Primary osteoarthritis, left hand (10/27/23) Pain in left shoulder (10/27/23) Radiculopathy, cervical region (10/27/23) Anesthesia of skin (10/27/23) Weakness (10/27/23) Physical Therapy Treatment Note PT-OP-A Visit Information Start: 10/03/23 08:26 Freq: Status: Active Protocol: Document 10/27/23 11:17 MB (Rec: 10/27/23 12:07 MB [id number]) Out-Patient Physical Therapy Visit Information Visit Information Visit Type Progress Note Visit Note Medicare[facility] Visit Start Time 11:17 Visit Stop Time 11:57 Visit Number 7 Number of ELECTRONIC SCALE ASSEMBLER AND TESTER Visits 0 Evaluation Information Evaluation Date 10/04/23 Precautions Precautions Lumbar surgery x 2 in June, pt is on Eliquis due to blood clot. PT-OP-B Current Condition Start: 10/03/23 08:26 Freq: Status: Active Protocol: Document 10/04/23 08:13 MB (Rec: 10/04/23 08:48 MB [id number]) Current Condition History of Current Condition Onset Date Left 4th and 5th digit numbness, pt denies shoulder pain Current Complaints Left 4th and 5th digit numbness History of Current Condition Pt has lumbar spinal surgery in June of 2023 and then he had another lumbar spinal surgery after they found a blood clot in his spine. Surgery was at [facility] and then he went to [facility]. About a month ago, pt raised his left arm and something popped and then he had left 4th and 5th digit numbness in left hand. Lateral side of 4th digit is spared. Pt has a cut on his face from his CPAP. He sleeps in his recliner. PMH includes right RJ, B TKAs , lumbar fractures and surgery , left LE neuropathy and drop foot and pt uses cane in right hand, aortic valve replacement through groin, pt is right handed. Pt denies falls. History of left thenar injury, watch is tight on left wrist. Prior Treatments and Tests Cervical MRI 05/23/23: 1. Extensive multilevel spondylitic change. There is multilevel canal stenosis, multilevel uncovertebral joint hypertrophy, significant multilevel facet hypertrophy, and multilevel foraminal narrowing . 2. Canal stenosis is mild to moderate at C4-C5, moderate to severe at C5-C6, mild at C6-C7, and moderate at C7-T1. 3. Multilevel foraminal narrowing as described above. There is moderate to severe left foraminal narrowing at C2-C3. There is severe bilateral foraminal narrowing at all other levels with foraminal nerve root impingement at these levels. Thoracic MRI 05/23/23: 1. At T11-T12, there is multifactorial severe canal stenosis as described above. 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 2. Mild canal stenosis at T12- L1. 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 He saw Dr. 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 PT-OP-J Posture/Palpation/Skin Start: 10/03/23 08:26 Freq: Status: Active Protocol: Document 10/04/23 08:13 MB (Rec: 10/04/23 08:48 MB [id number]) Posture Evaluation Comments Posture Comments Forward and rounded shoulders, Dowager's hump, decreased thoracic kyphosis and mild right convexity, lower thoracic to upper/mid lumbar spine with scar over spinous processes from recent surgery likely, history of surgery previously as well, left iliac crest is higher than the right, wide ALBINO, less WB through left foot compared to the right, increased [place] angle on the left. Left thenar changes and watch is tight along left wrist. PT-OP-K Range of Motion Start: 10/03/23 08:26 Freq: Status: Active Protocol: Document 10/04/23 08:13 MB (Rec: 10/04/23 08:48 MB [id number]) Cervical Spine Range of Motion Cervical Spine Active Testing Position Sitting Flexion 42 Extension 30 Rotation Left 52 Rotation Right 53 Lateral Flexion Left 20 Lateral Flexion Right 15 Comments SB component to rotation Shoulder Goniometric Range of Motion Shoulder Bilateral Shoulder ROM WFL No Testing Position Sitting Flexion 134 Comments Limited B supination, right more limited than left, arthritic changes in hands. Overall, degenerative changes all joints. Elbow/Forearm Range of Motion Elbow/Forearm ROM Limitations Comments See comments above Wrist Goniometric Range of Motion ROM Limitations Comments See comments above Finger Goniometric Range of Motion Finger ROM Limitations Comments Arthritic changes B hands and fingers and some muscle wasting left medial hand at hypothenar eminence PT-OP-M Strength Start: 10/03/23 08:26 Freq: Status: Active Protocol: Document 10/04/23 08:13 MB (Rec: 10/04/23 10:55 MB [id number]) Shoulder Strength Shoulder Manual Muscle Testing Bilateral Flexion 5 Normal Abduction (C5) 5 Normal Comments Normal strength in limited range Elbow/Forearm Strength Elbow and Forearm Manual Muscle Testing Bilateral Flexion (C6) 5 Normal Extension (C7) 5 Normal Pronation 4 Good Supination 4- Good- Comments Decreased supination greater on the right. Degenerative changes in wrists and fingers and so coordinator of genetic services testing deferred and pt has functional weakness in both hands. PT-OP-Q Treatments Start: 10/03/23 08:26 Freq: Status: Active Protocol: Document 10/27/23 11:17 MB (Rec: 10/27/23 12:07 MB [id number]) Therapeutic Exercises Supine Exercises Gentle pect stretch in supine Comments PT reviews with pt today Wrist flexion/ext stretch Comments PT reviews with pt today pelvic realignment Comments PT reviews with pt today Sidelying Exercises Open book Comments PT reviews with pt today Sitting Exercises neck stretching Comments Pt demonstrates today wrist stretch Comments Pt demonstrates today Laundry Supervisor testing Comments Performed today and see findings under goals Standing Exercises pec stretch doorway Comments Verbally reviewed today and pt also has in supine Neuro Re-Education Treatment Balance Activities TUG Comments TUG performed without cane today and in 14 sec Self-Care/Home Management Treatment Education Other Education Education about benefits of PT , plan to con't 5 more treatments to see if Mckenna can provide more forearm/elbow/ wrist exercises and reps and Marina and Josette to progress intrascapular strengthening/ postural work and 1-3 balance exercises for home, manual work if time PT-OP-T Assessment and Plan Start: 10/03/23 08:26 Freq: Status: Active Protocol: Document 10/27/23 11:17 MB (Rec: 10/27/23 12:07 MB [id number]) Physical Therapy Assessment Goals Two Impairment Decreased left fourth and fifth digit strength Impairment . Jail Goal (LTG) Pt will present with three trial resisted coordinator of genetic services strength testing of left hand no more than 5 lb less than right hand to improve functional strength of left hand. 10/06/23: R hand: 1st 55 lb, 2nd 54 lb, 3rd 56 lb; L: 1st 43 lb, 2nd 45 lb, 3rd 43 lb 10/27/23: R hand 50 lb, 55 lb, 52 lb; left hand 50 lb, 43 lb, 50 lb LTG Duration 4 weeks Four Impairment QuickDASH score reflects over 27% impairment Impairment . Store Product Demonstrator Goal (LTG) Pt will present with improved QuickDASH score to reflect no more than 10% impairment to improve functional use of left hand and symptoms. 10/27/23: QuickDASH score reflects 38.63% impairment, which is not better and worse but pt does not feel worse functionally. This might be d/ t PT reviewing the questionnaire with pt during reports today. LTG Duration 4 weeks Three Impairment Lack of HEP Impairment . Store Product Demonstrator Goal (LTG) Pt will perform progressive HEP with I including pelvic realignment, thoracic and cervical flexibility, posture, balance, UE flexibility and strengthening exercises to improve functional hand use and symptoms. 10/27/23: Pt is performing HEP exercises for flexibility, mobility and alignment. No exercises have affected left finger numbness. LTG Duration 4 weeks One Impairment Evidence of imbalance and high fall risk Impairment . Store Product Demonstrator Goal (LTG) Pt will perform TUG in no more than 10 sec to decrease fall risk. 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 He saw Dr. 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 Pt will con't with 5 more PT treatments: two with hand specialist to obtain further exercises for hand and wrist and things to consider pre-op and then one with ELECTRONIC SCALE ASSEMBLER AND TESTER and two more with evaluating PT. ELECTRONIC SCALE ASSEMBLER AND TESTER and evaluating PT can con't manual work, intrascapular and postural strengthening and 1-3 balance exercises for home. Physical Therapy Plan Frequency and Duration Frequency of Treatment 1-2x/wk Duration of treatment (weeks) 4 Plan of Care Start Date 10/27/23 Plan of Care End Date 11/22/23 Therapeutic Interventions Therapeutic Interventions Balance Training,Canalithic Repositioning,Coordination Training,Gait Training,Home Exercise Program,Joint Mobilizations,Manual Therapy, Neuromuscular Re-education, Patient/Caregiver Education, Self-Care/Home Management, Sensory Integration,Soft Tissue Mobilization,Taping, Therapeutic Activities, Therapeutic Exercises Modalities Cold Pack/Ice Massage,Electric Stimulation,Hot Packs, Paraffin Bath,Traction- Mechanical,Ultrasound Next Visit Focus/Plan Next Note Type Treatment Note Next Visit Plan Biceps and triceps stretches. Manual work, intrascapular strengthening, perhaps posture at wall, balance training. Mckenna to further assess elbow/ wrist areas/hand exercise progression *Please no nerve glides as he has many joint changes.
--- NOTE | 2023-10-27 12:08 | PT.OPPOC ---
Physical, Occupational & Speech Therapy At [facility] Current Diagnoses Primary osteoarthritis, left hand (10/27/23) Pain in left shoulder (10/27/23) Radiculopathy, cervical region (10/27/23) Anesthesia of skin (10/27/23) Weakness (10/27/23) Visit Care Team Role Provider Type BNENY Bauman Attending Provider Advanced Television Producer Family Provider Primary Care Provider Referring Provider Specialty: Family Practice Address: [address] [place] [address], [facility] Email: [email or web address] Plan Of Care PT-OP-B Current Condition Start: 10/03/23 08:26 Freq: Status: Active Protocol: Document 10/04/23 08:13 MB (Rec: 10/04/23 08:48 MB [id number]) Current Condition History of Current Condition Onset Date Left 4th and 5th digit numbness, pt denies shoulder pain Current Complaints Left 4th and 5th digit numbness History of Current Condition Pt has lumbar spinal surgery in June of 2023 and then he had another lumbar spinal surgery after they found a blood clot in his spine. Surgery was at [facility] and then he went to [facility]. About a month ago, pt raised his left arm and something popped and then he had left 4th and 5th digit numbness in left hand. Lateral side of 4th digit is spared. Pt has a cut on his face from his CPAP. He sleeps in his recliner. PMH includes right RJ, B TKAs , lumbar fractures and surgery , left LE neuropathy and drop foot and pt uses cane in right hand, aortic valve replacement through groin, pt is right handed. Pt denies falls. History of left thenar injury, watch is tight on left wrist. Prior Treatments and Tests Cervical MRI 05/23/23: 1. Extensive multilevel spondylitic change. There is multilevel canal stenosis, multilevel uncovertebral joint hypertrophy, significant multilevel facet hypertrophy, and multilevel foraminal narrowing . 2. Canal stenosis is mild to moderate at C4-C5, moderate to severe at C5-C6, mild at C6-C7, and moderate at C7-T1. 3. Multilevel foraminal narrowing as described above. There is moderate to severe left foraminal narrowing at C2-C3. There is severe bilateral foraminal narrowing at all other levels with foraminal nerve root impingement at these levels. Thoracic MRI 05/23/23: 1. At T11-T12, there is multifactorial severe canal stenosis as described above. 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 2. Mild canal stenosis at T12- L1. Treatment Goals Patient/Caregiver Goals To see if left finger numbness can improve PT-OP-T Assessment and Plan Start: 10/03/23 08:26 Freq: Status: Active Protocol: Document 10/27/23 11:17 MB (Rec: 10/27/23 12:07 MB [id number]) Physical Therapy Assessment Goals Two Impairment Decreased left fourth and fifth digit strength Impairment . Neuropsychiatric Aide Goal (LTG) Pt will present with three trial resisted box lining machine operator strength testing of left hand no more than 5 lb less than right hand to improve functional strength of left hand. 10/06/23: R hand: 1st 55 lb, 2nd 54 lb, 3rd 56 lb; L: 1st 43 lb, 2nd 45 lb, 3rd 43 lb 10/27/23: R hand 50 lb, 55 lb, 52 lb; left hand 50 lb, 43 lb, 50 lb LTG Duration 4 weeks Four Impairment QuickDASH score reflects over 27% impairment Impairment . Prison Goal (LTG) Pt will present with improved QuickDASH score to reflect no more than 10% impairment to improve functional use of left hand and symptoms. 10/27/23: QuickDASH score reflects 38.63% impairment, which is not better and worse but pt does not feel worse functionally. This might be d/ t PT reviewing the questionnaire with pt during reports today. LTG Duration 4 weeks Three Impairment Lack of HEP Impairment . Neuropsychiatric Aide Goal (LTG) Pt will perform progressive HEP with I including pelvic realignment, thoracic and cervical flexibility, posture, balance, UE flexibility and strengthening exercises to improve functional hand use and symptoms. 10/27/23: Pt is performing HEP exercises for flexibility, mobility and alignment. No exercises have affected left finger numbness. LTG Duration 4 weeks One Impairment Evidence of imbalance and high fall risk Impairment . Prison Goal (LTG) Pt will perform TUG in no more than 10 sec to decrease fall risk. 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 He saw Dr. 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 Pt will con't with 5 more PT treatments: two with hand specialist to obtain further exercises for hand and wrist and things to consider pre-op and then one with IMAGING MANAGER and two more with evaluating PT. IMAGING MANAGER and evaluating PT can con't manual work, intrascapular and postural strengthening and 1-3 balance exercises for home. Physical Therapy Plan Frequency and Duration Frequency of Treatment 1-2x/wk Duration of treatment (weeks) 4 Plan of Care Start Date 10/27/23 Plan of Care End Date 11/22/23 Therapeutic Interventions Therapeutic Interventions Balance Training,Canalithic Repositioning,Coordination Training,Gait Training,Home Exercise Program,Joint Mobilizations,Manual Therapy, Neuromuscular Re-education, Patient/Caregiver Education, Self-Care/Home Management, Sensory Integration,Soft Tissue Mobilization,Taping, Therapeutic Activities, Therapeutic Exercises Modalities Cold Pack/Ice Massage,Electric Stimulation,Hot Packs, Paraffin Bath,Traction- Mechanical,Ultrasound Next Visit Focus/Plan Next Note Type Treatment Note Next Visit Plan Biceps and triceps stretches. Manual work, intrascapular strengthening, perhaps posture at wall, balance training. Mckenna to further assess elbow/ wrist areas/hand exercise progression *Please no nerve glides as he has many joint changes. Plan of Care Dates Plan of Care Start Date 10/27/23 Plan of Care End Date 11/22/23 Electronically Signed by: Josette Richardson, PT 10/27/23 [id number] If you are in agreement with this Plan of Care, please return a signed and dated copy. I have reviewed this Plan of Care and certify that the skilled therapy services above are required to meet the patient?s needs. Physician Signature Date Printed Name and Credentials Clinical Instructor Signature Printed Name and Credentials
--- NOTE | 2023-11-04 09:17 | PT.OTN ---
Current Diagnoses Primary osteoarthritis, left hand (11/04/23) Pain in left shoulder (11/04/23) Radiculopathy, cervical region (11/04/23) Anesthesia of skin (11/04/23) Weakness (11/04/23) Physical Therapy Treatment Note PT-OP-A Visit Information Start: 10/03/23 08:26 Freq: Status: Active Protocol: Document 11/04/23 08:15 LRN (Rec: 11/04/23 09:02 LRN [id number]) Out-Patient Physical Therapy Visit Information Visit Information Visit Type Treatment Note Visit Note [facility] KX Visit Start Time 08:20 Visit Stop Time 09:00 Visit Number 8 Evaluation Information Evaluation Date 10/04/23 Precautions Precautions Lumbar surgery x 2 in June, pt is on Eliquis due to blood clot. PT-OP-B Current Condition Start: 10/03/23 08:26 Freq: Status: Active Protocol: Document 10/04/23 08:13 MB (Rec: 10/04/23 08:48 MB [id number]) Current Condition History of Current Condition Onset Date Left 4th and 5th digit numbness, pt denies shoulder pain Current Complaints Left 4th and 5th digit numbness History of Current Condition Pt has lumbar spinal surgery in June of 2023 and then he had another lumbar spinal surgery after they found a blood clot in his spine. Surgery was at [facility] and then he went to [facility]. About a month ago, pt raised his left arm and something popped and then he had left 4th and 5th digit numbness in left hand. Lateral side of 4th digit is spared. Pt has a cut on his face from his CPAP. He sleeps in his recliner. PMH includes right RJ, B TKAs , lumbar fractures and surgery , left LE neuropathy and drop foot and pt uses cane in right hand, aortic valve replacement through groin, pt is right handed. Pt denies falls. History of left thenar injury, watch is tight on left wrist. Prior Treatments and Tests Cervical MRI 05/23/23: 1. Extensive multilevel spondylitic change. There is multilevel canal stenosis, multilevel uncovertebral joint hypertrophy, significant multilevel facet hypertrophy, and multilevel foraminal narrowing . 2. Canal stenosis is mild to moderate at C4-C5, moderate to severe at C5-C6, mild at C6-C7, and moderate at C7-T1. 3. Multilevel foraminal narrowing as described above. There is moderate to severe left foraminal narrowing at C2-C3. There is severe bilateral foraminal narrowing at all other levels with foraminal nerve root impingement at these levels. Thoracic MRI 05/23/23: 1. At T11-T12, there is multifactorial severe canal stenosis as described above. 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 2. Mild canal stenosis at T12- L1. Treatment Goals Patient/Caregiver Goals To see if left finger numbness can improve PT-OP-C Subjective Start: 10/03/23 08:26 Freq: Status: Active Protocol: Document 11/04/23 08:15 LRN (Rec: 11/04/23 09:02 LRN [id number]) OP-PT Subjective Patient Comments Patient Comments No change. Surgical date not set, waiting for appt. PT-OP-J Posture/Palpation/Skin Start: 10/03/23 08:26 Freq: Status: Active Protocol: Document 10/04/23 08:13 MB (Rec: 10/04/23 08:48 MB [id number]) Posture Evaluation Comments Posture Comments Forward and rounded shoulders, Dowager's hump, decreased thoracic kyphosis and mild right convexity, lower thoracic to upper/mid lumbar spine with scar over spinous processes from recent surgery likely, history of surgery previously as well, left iliac crest is higher than the right, wide ALBINO, less WB through left foot compared to the right, increased [place] angle on the left. Left thenar changes and watch is tight along left wrist. PT-OP-K Range of Motion Start: 10/03/23 08:26 Freq: Status: Active Protocol: Document 10/04/23 08:13 MB (Rec: 10/04/23 08:48 MB [id number]) Cervical Spine Range of Motion Cervical Spine Active Testing Position Sitting Flexion 42 Extension 30 Rotation Left 52 Rotation Right 53 Lateral Flexion Left 20 Lateral Flexion Right 15 Comments SB component to rotation Shoulder Goniometric Range of Motion Shoulder Bilateral Shoulder ROM WFL No Testing Position Sitting Flexion 134 Comments Limited B supination, right more limited than left, arthritic changes in hands. Overall, degenerative changes all joints. Elbow/Forearm Range of Motion Elbow/Forearm ROM Limitations Comments See comments above Wrist Goniometric Range of Motion ROM Limitations Comments See comments above Finger Goniometric Range of Motion Finger ROM Limitations Comments Arthritic changes B hands and fingers and some muscle wasting left medial hand at hypothenar eminence PT-OP-M Strength Start: 10/03/23 08:26 Freq: Status: Active Protocol: Document 10/04/23 08:13 MB (Rec: 10/04/23 10:55 MB [id number]) Shoulder Strength Shoulder Manual Muscle Testing Bilateral Flexion 5 Normal Abduction (C5) 5 Normal Comments Normal strength in limited range Elbow/Forearm Strength Elbow and Forearm Manual Muscle Testing Bilateral Flexion (C6) 5 Normal Extension (C7) 5 Normal Pronation 4 Good Supination 4- Good- Comments Decreased supination greater on the right. Degenerative changes in wrists and fingers and so crystal lapper testing deferred and pt has functional weakness in both hands. PT-OP-Q Treatments Start: 10/03/23 08:26 Freq: Status: Active Protocol: Document 11/04/23 08:15 LRN (Rec: 11/04/23 09:02 LRN [id number]) Therapeutic Exercises Sitting Exercises Wrist/elbow strengthening ex Sitting Exercise Name Elbow flex/ext; wrist flex/ext /UD/RD/sup/pron Side left Equipment Used L1 TB for elbow ex's. Reps/Minutes 30x each Comments Extra time taken to for trng & determining max estrada mvmt wrist stretch Sitting Exercise Name AAROM: Wrist ext, UD, RD, Sup ,Pron Side left Reps/Minutes 5-10 SH x 2-5 reps Self-Care/Home Management Treatment Activities Self-Care/Home Management Activities Issued & reviewed HEP: Active Wrist ex's: flex/ext/UD/RD/ sup/pron/circles; ARROM Elbow: flex/ext. Lev 1 TB issued. PT-OP-T Assessment and Plan Start: 10/03/23 08:26 Freq: Status: Active Protocol: Document 11/04/23 08:15 LRN (Rec: 11/04/23 09:02 LRN [id number]) Physical Therapy Assessment Goals Two Impairment Decreased left fourth and fifth digit strength Impairment . Alf Goal (LTG) Pt will present with three trial resisted crystal lapper strength testing of left hand no more than 5 lb less than right hand to improve functional strength of left hand. 10/06/23: R hand: 1st 55 lb, 2nd 54 lb, 3rd 56 lb; L: 1st 43 lb, 2nd 45 lb, 3rd 43 lb 10/27/23: R hand 50 lb, 55 lb, 52 lb; left hand 50 lb, 43 lb, 50 lb LTG Duration 4 weeks Four Impairment QuickDASH score reflects over 27% impairment Impairment . Alf Goal (LTG) Pt will present with improved QuickDASH score to reflect no more than 10% impairment to improve functional use of left hand and symptoms. 10/27/23: QuickDASH score reflects 38.63% impairment, which is not better and worse but pt does not feel worse functionally. This might be d/ t PT reviewing the questionnaire with pt during reports today. LTG Duration 4 weeks Three Impairment Lack of HEP Impairment . Web Applications Administrator Goal (LTG) Pt will perform progressive HEP with I including pelvic realignment, thoracic and cervical flexibility, posture, balance, UE flexibility and strengthening exercises to improve functional hand use and symptoms. 10/27/23: Pt is performing HEP exercises for flexibility, mobility and alignment. No exercises have affected left finger numbness. LTG Duration 4 weeks One Impairment Evidence of imbalance and high fall risk Impairment . Alf Goal (LTG) Pt will perform TUG in no more than 10 sec to decrease fall risk. 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 Pt is limited in ability to stretch his L forearm to improve L wrist mobility due to fx at wrist 20+yrs ago; therefore stretches were not issued. His elbow mobility is symmetrical and very close to functional; therefore stretches not needed, but strengthening given for HEP. Physical Therapy Plan Frequency and Duration Frequency of Treatment 1-2x/wk Duration of treatment (weeks) 4 Plan of Care Start Date 10/27/23 Plan of Care End Date 11/22/23 Next Visit Focus/Plan Next Note Type Treatment Note Next Visit Plan Add: hand mobility/ strengthening ex's to HEP. Manual work, intrascapular strengthening, perhaps posture at wall, balance training. Mckenna to further assess elbow/ wrist areas/hand exercise progression *Please no nerve glides as he has many joint changes.
--- NOTE | 2023-11-09 11:34 | PT.OTN ---
Current Diagnoses Primary osteoarthritis, left hand (11/09/23) Pain in left shoulder (11/09/23) Radiculopathy, cervical region (11/09/23) Anesthesia of skin (11/09/23) Weakness (11/09/23) Physical Therapy Treatment Note PT-OP-A Visit Information Start: 10/03/23 08:26 Freq: Status: Active Protocol: Document 11/09/23 10:48 LRN (Rec: 11/09/23 11:34 LRN [id number]) Out-Patient Physical Therapy Visit Information Visit Information Visit Type Treatment Note Visit Note [facility] before KX Visit Start Time 10:48 Visit Stop Time 11:28 Visit Number 9 Evaluation Information Evaluation Date 10/04/23 Precautions Precautions Lumbar surgery x 2 in June, pt is on Eliquis due to blood clot. PT-OP-B Current Condition Start: 10/03/23 08:26 Freq: Status: Active Protocol: Document 10/04/23 08:13 MB (Rec: 10/04/23 08:48 MB [id number]) Current Condition History of Current Condition Onset Date Left 4th and 5th digit numbness, pt denies shoulder pain Current Complaints Left 4th and 5th digit numbness History of Current Condition Pt has lumbar spinal surgery in June of 2023 and then he had another lumbar spinal surgery after they found a blood clot in his spine. Surgery was at [facility] and then he went to [facility]. About a month ago, pt raised his left arm and something popped and then he had left 4th and 5th digit numbness in left hand. Lateral side of 4th digit is spared. Pt has a cut on his face from his CPAP. He sleeps in his recliner. PMH includes right RJ, B TKAs , lumbar fractures and surgery , left LE neuropathy and drop foot and pt uses cane in right hand, aortic valve replacement through groin, pt is right handed. Pt denies falls. History of left thenar injury, watch is tight on left wrist. Prior Treatments and Tests Cervical MRI 05/23/23: 1. Extensive multilevel spondylitic change. There is multilevel canal stenosis, multilevel uncovertebral joint hypertrophy, significant multilevel facet hypertrophy, and multilevel foraminal narrowing . 2. Canal stenosis is mild to moderate at C4-C5, moderate to severe at C5-C6, mild at C6-C7, and moderate at C7-T1. 3. Multilevel foraminal narrowing as described above. There is moderate to severe left foraminal narrowing at C2-C3. There is severe bilateral foraminal narrowing at all other levels with foraminal nerve root impingement at these levels. Thoracic MRI 05/23/23: 1. At T11-T12, there is multifactorial severe canal stenosis as described above. 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 2. Mild canal stenosis at T12- L1. Treatment Goals Patient/Caregiver Goals To see if left finger numbness can improve PT-OP-C Subjective Start: 10/03/23 08:26 Freq: Status: Active Protocol: Document 11/09/23 10:48 LRN (Rec: 11/09/23 11:34 LRN [id number]) OP-PT Subjective Patient Comments Patient Comments Nov 24 is surgery date, at [facility]. Patient Reported Progress Same PT-OP-J Posture/Palpation/Skin Start: 10/03/23 08:26 Freq: Status: Active Protocol: Document 10/04/23 08:13 MB (Rec: 10/04/23 08:48 MB [id number]) Posture Evaluation Comments Posture Comments Forward and rounded shoulders, Dowager's hump, decreased thoracic kyphosis and mild right convexity, lower thoracic to upper/mid lumbar spine with scar over spinous processes from recent surgery likely, history of surgery previously as well, left iliac crest is higher than the right, wide ALBINO, less WB through left foot compared to the right, increased [place] angle on the left. Left thenar changes and watch is tight along left wrist. PT-OP-K Range of Motion Start: 10/03/23 08:26 Freq: Status: Active Protocol: Document 10/04/23 08:13 MB (Rec: 10/04/23 08:48 MB [id number]) Cervical Spine Range of Motion Cervical Spine Active Testing Position Sitting Flexion 42 Extension 30 Rotation Left 52 Rotation Right 53 Lateral Flexion Left 20 Lateral Flexion Right 15 Comments SB component to rotation Shoulder Goniometric Range of Motion Shoulder Bilateral Shoulder ROM WFL No Testing Position Sitting Flexion 134 Comments Limited B supination, right more limited than left, arthritic changes in hands. Overall, degenerative changes all joints. Elbow/Forearm Range of Motion Elbow/Forearm ROM Limitations Comments See comments above Wrist Goniometric Range of Motion ROM Limitations Comments See comments above Finger Goniometric Range of Motion Finger ROM Limitations Comments Arthritic changes B hands and fingers and some muscle wasting left medial hand at hypothenar eminence PT-OP-M Strength Start: 10/03/23 08:26 Freq: Status: Active Protocol: Document 10/04/23 08:13 MB (Rec: 10/04/23 10:55 MB [id number]) Shoulder Strength Shoulder Manual Muscle Testing Bilateral Flexion 5 Normal Abduction (C5) 5 Normal Comments Normal strength in limited range Elbow/Forearm Strength Elbow and Forearm Manual Muscle Testing Bilateral Flexion (C6) 5 Normal Extension (C7) 5 Normal Pronation 4 Good Supination 4- Good- Comments Decreased supination greater on the right. Degenerative changes in wrists and fingers and so refinery operator testing deferred and pt has functional weakness in both hands. PT-OP-Q Treatments Start: 10/03/23 08:26 Freq: Status: Active Protocol: Document 11/09/23 10:48 LRN (Rec: 11/09/23 11:34 LRN [id number]) Therapeutic Exercises Sitting Exercises Spout Liner Helper strengthening Sitting Exercise Name Gripping ball, holding ball. Equipment Used Aumentality.cl ball, L 1 TB Reps/Minutes 30x each Putty refinery operator ex's Sitting Exercise Name Hernandez refinery operator, thumb flex, putty fist Side left Equipment Used 5# putty (red) Reps/Minutes 15x each Wrist/elbow strengthening ex Sitting Exercise Name Elbow flex/ext; wrist flex/ext /UD/RD/sup/pron Side left Equipment Used L1 TB for elbow ex's, and 2# for elbow curls. Reps/Minutes 10x each Comments Extra time taken to for trng & determining max estrada mvmt wrist stretch Sitting Exercise Name AAROM: Wrist ext, UD, RD, Sup ,Pron Side left Reps/Minutes 2-3 SH x 5 reps Self-Care/Home Management Treatment Activities Self-Care/Home Management Activities Issued & reviewed HEP: Spout Liner Helper ex's (putty hernandez, thumb flex, putty fist, gripping ball, ball refinery operator with TB reistance. Issued 5# putty (red). PT-OP-T Assessment and Plan Start: 10/03/23 08:26 Freq: Status: Active Protocol: Document 11/09/23 10:48 LRN (Rec: 11/09/23 11:34 LRN [id number]) Physical Therapy Assessment Goals Two Impairment Decreased left fourth and fifth digit strength Impairment . Shelter Goal (LTG) Pt will present with three trial resisted refinery operator strength testing of left hand no more than 5 lb less than right hand to improve functional strength of left hand. 10/06/23: R hand: 1st 55 lb, 2nd 54 lb, 3rd 56 lb; L: 1st 43 lb, 2nd 45 lb, 3rd 43 lb 10/27/23: R hand 50 lb, 55 lb, 52 lb; left hand 50 lb, 43 lb, 50 lb LTG Duration 4 weeks Four Impairment QuickDASH score reflects over 27% impairment Impairment . Shelter Goal (LTG) Pt will present with improved QuickDASH score to reflect no more than 10% impairment to improve functional use of left hand and symptoms. 10/27/23: QuickDASH score reflects 38.63% impairment, which is not better and worse but pt does not feel worse functionally. This might be d/ t PT reviewing the questionnaire with pt during reports today. LTG Duration 4 weeks Three Impairment Lack of HEP Impairment . Educational Adviser Goal (LTG) Pt will perform progressive HEP with I including pelvic realignment, thoracic and cervical flexibility, posture, balance, UE flexibility and strengthening exercises to improve functional hand use and symptoms. 10/27/23: Pt is performing HEP exercises for flexibility, mobility and alignment. No exercises have affected left finger numbness. 11/04/23 & 11/09/23: Issued HEP of wrist/elbow strengthening and hand refinery operator strengthening ex's. Previous wrist stretches issued. 5# putty issued. LTG Duration 4 weeks One Impairment Evidence of imbalance and high fall risk Impairment . Educational Adviser Goal (LTG) Pt will perform TUG in no more than 10 sec to decrease fall risk. 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 Pt showed good understanding of wrist, elbow ex's, needed a little help with tricep ext ex to start. Good estrada to refinery operator strengthening ex's. Physical Therapy Plan Frequency and Duration Frequency of Treatment 1-2x/wk Duration of treatment (weeks) 4 Plan of Care Start Date 10/27/23 Plan of Care End Date 11/22/23 Next Visit Focus/Plan Next Note Type Treatment Note Next Visit Plan Review: hand strengthening ex' s. Manual work, intrascapular strengthening, perhaps posture at wall, balance training. STart balance ex's. *Please no nerve glides as he has many joint changes.
--- NOTE | 2023-11-12 09:45 | PT.OTN ---
Current Diagnoses Primary osteoarthritis, left hand (11/12/23) Pain in left shoulder (11/12/23) Radiculopathy, cervical region (11/12/23) Anesthesia of skin (11/12/23) Weakness (11/12/23) Physical Therapy Treatment Note PT-OP-A Visit Information Start: 10/03/23 08:26 Freq: Status: Active Protocol: Document 11/12/23 09:05 SP (Rec: 11/12/23 09:46 SP [id number]) Out-Patient Physical Therapy Visit Information Visit Information Visit Type Treatment Note Visit Note Medicare, AARP 11/26 before KX 05/18 after PN Visit Start Time 09:05 Visit Stop Time 09:45 Visit Number 10 Number of ENDLESS STEAMER TENDER Visits 1 Evaluation Information Evaluation Date 10/04/23 Precautions Precautions Lumbar surgery x 2 in June, pt is on Eliquis due to blood clot. PT-OP-B Current Condition Start: 10/03/23 08:26 Freq: Status: Active Protocol: Document 10/04/23 08:13 MB (Rec: 10/04/23 08:48 MB [id number]) Current Condition History of Current Condition Onset Date Left 4th and 5th digit numbness, pt denies shoulder pain Current Complaints Left 4th and 5th digit numbness History of Current Condition Pt has lumbar spinal surgery in June of 2023 and then he had another lumbar spinal surgery after they found a blood clot in his spine. Surgery was at [facility] and then he went to [facility]. About a month ago, pt raised his left arm and something popped and then he had left 4th and 5th digit numbness in left hand. Lateral side of 4th digit is spared. Pt has a cut on his face from his CPAP. He sleeps in his recliner. PMH includes right RJ, B TKAs , lumbar fractures and surgery , left LE neuropathy and drop foot and pt uses cane in right hand, aortic valve replacement through groin, pt is right handed. Pt denies falls. History of left thenar injury, watch is tight on left wrist. Prior Treatments and Tests Cervical MRI 05/23/23: 1. Extensive multilevel spondylitic change. There is multilevel canal stenosis, multilevel uncovertebral joint hypertrophy, significant multilevel facet hypertrophy, and multilevel foraminal narrowing . 2. Canal stenosis is mild to moderate at C4-C5, moderate to severe at C5-C6, mild at C6-C7, and moderate at C7-T1. 3. Multilevel foraminal narrowing as described above. There is moderate to severe left foraminal narrowing at C2-C3. There is severe bilateral foraminal narrowing at all other levels with foraminal nerve root impingement at these levels. Thoracic MRI 05/23/23: 1. At T11-T12, there is multifactorial severe canal stenosis as described above. 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 2. Mild canal stenosis at T12- L1. Treatment Goals Patient/Caregiver Goals To see if left finger numbness can improve PT-OP-C Subjective Start: 10/03/23 08:26 Freq: Status: Active Protocol: Document 11/12/23 09:05 SP (Rec: 11/12/23 09:46 SP [id number]) OP-PT Subjective Patient Comments Patient Comments Pt report the exercises are helping with his L hand strength but doesn't help reduction numbness in 4-5th fingers. He states has to pay attention to echo technician with those fingers too when picks up items so not to drop something , drink cup. Has Surgery set up on [address]. PT-OP-J Posture/Palpation/Skin Start: 10/03/23 08:26 Freq: Status: Active Protocol: Document 10/04/23 08:13 MB (Rec: 10/04/23 08:48 MB [id number]) Posture Evaluation Comments Posture Comments Forward and rounded shoulders, Dowager's hump, decreased thoracic kyphosis and mild right convexity, lower thoracic to upper/mid lumbar spine with scar over spinous processes from recent surgery likely, history of surgery previously as well, left iliac crest is higher than the right, wide ALBINO, less WB through left foot compared to the right, increased [place] angle on the left. Left thenar changes and watch is tight along left wrist. PT-OP-K Range of Motion Start: 10/03/23 08:26 Freq: Status: Active Protocol: Document 10/04/23 08:13 MB (Rec: 10/04/23 08:48 MB [id number]) Cervical Spine Range of Motion Cervical Spine Active Testing Position Sitting Flexion 42 Extension 30 Rotation Left 52 Rotation Right 53 Lateral Flexion Left 20 Lateral Flexion Right 15 Comments SB component to rotation Shoulder Goniometric Range of Motion Shoulder Bilateral Shoulder ROM WFL No Testing Position Sitting Flexion 134 Comments Limited B supination, right more limited than left, arthritic changes in hands. Overall, degenerative changes all joints. Elbow/Forearm Range of Motion Elbow/Forearm ROM Limitations Comments See comments above Wrist Goniometric Range of Motion ROM Limitations Comments See comments above Finger Goniometric Range of Motion Finger ROM Limitations Comments Arthritic changes B hands and fingers and some muscle wasting left medial hand at hypothenar eminence PT-OP-M Strength Start: 10/03/23 08:26 Freq: Status: Active Protocol: Document 10/04/23 08:13 MB (Rec: 10/04/23 10:55 MB [id number]) Shoulder Strength Shoulder Manual Muscle Testing Bilateral Flexion 5 Normal Abduction (C5) 5 Normal Comments Normal strength in limited range Elbow/Forearm Strength Elbow and Forearm Manual Muscle Testing Bilateral Flexion (C6) 5 Normal Extension (C7) 5 Normal Pronation 4 Good Supination 4- Good- Comments Decreased supination greater on the right. Degenerative changes in wrists and fingers and so echo technician testing deferred and pt has functional weakness in both hands. PT-OP-Q Treatments Start: 10/03/23 08:26 Freq: Status: Active Protocol: Document 11/12/23 09:05 SP (Rec: 11/12/23 09:46 SP [id number]) Therapeutic Exercises Sitting Exercises Tricep extension Sitting Exercise Name reviewed HEP /c HO Side left Resistance TB #1 -anchored behind back with RUE in LB Equipment Used reports back arm and shoulder no pain good muscle tiring. Reps/Minutes x15 Comments good set up and form with shld range has Acrobatic Rigger strengthening Sitting Exercise Name Gripping marble foam ball Side left Equipment Used marble foam ball, L 1 TB ( sling shot) Reps/Minutes 30x each Comments cued 4 & 5th finger flexion, anchor band front RUE Putty echo technician ex's Sitting Exercise Name Hernandez echo technician, thumb flex, putty fist Side left Equipment Used 5# putty (red) Reps/Minutes 15x each Wrist/elbow strengthening ex Sitting Exercise Name Elbow flex/ext; wrist flex/ext /UD/RD/sup/pron Side left Equipment Used L1 TB for elbow ex's, and 2# for elbow curls. Reps/Minutes 10x each Comments Extra time taken to for trng & determining max estrada mvmt wrist stretch Sitting Exercise Name AAROM: Wrist ext, UD, RD, Sup ,Pron Side left Resistance AROM Reps/Minutes 2-3 SH x 5 reps Standing Exercises tricep extension Standing Exercise Name HEP reviewed /c HO Side left Resistance TB #2 (orange in PT), light blue #1 home Reps/Minutes 10 x2 Comments cued tall posture, arm at side & press down tricep squeeze- pnfre reported pec stretch doorway Standing Exercise Name REviewed HEP Side bilateral Equipment Used left ft forward- good feedback pec stretch Reps/Minutes 30 sec x2 Comments cued tall posture, wt shift into front leg, WBOS, gentle stretch PT-OP-T Assessment and Plan Start: 10/03/23 08:26 Freq: Status: Active Protocol: Document 11/12/23 09:05 SP (Rec: 11/12/23 09:46 SP [id number]) Physical Therapy Assessment Goals Two Impairment Decreased left fourth and fifth digit strength Impairment . Group Home Goal (LTG) Pt will present with three trial resisted echo technician strength testing of left hand no more than 5 lb less than right hand to improve functional strength of left hand. 10/06/23: R hand: 1st 55 lb, 2nd 54 lb, 3rd 56 lb; L: 1st 43 lb, 2nd 45 lb, 3rd 43 lb 10/27/23: R hand 50 lb, 55 lb, 52 lb; left hand 50 lb, 43 lb, 50 lb LTG Duration 4 weeks Four Impairment QuickDASH score reflects over 27% impairment Impairment . Group Home Goal (LTG) Pt will present with improved QuickDASH score to reflect no more than 10% impairment to improve functional use of left hand and symptoms. 10/27/23: QuickDASH score reflects 38.63% impairment, which is not better and worse but pt does not feel worse functionally. This might be d/ t PT reviewing the questionnaire with pt during reports today. LTG Duration 4 weeks Three Impairment Lack of HEP Impairment . Group Home Goal (LTG) Pt will perform progressive HEP with I including pelvic realignment, thoracic and cervical flexibility, posture, balance, UE flexibility and strengthening exercises to improve functional hand use and symptoms. 10/27/23: Pt is performing HEP exercises for flexibility, mobility and alignment. No exercises have affected left finger numbness. 11/04/23 & 11/09/23: Issued HEP of wrist/elbow strengthening and hand echo technician strengthening ex's. Previous wrist stretches issued. 5# putty issued. LTG Duration 4 weeks One Impairment Evidence of imbalance and high fall risk Impairment . Legal Associate Goal (LTG) Pt will perform TUG in no more than 10 sec to decrease fall risk. LTG Duration 4 weeks Assessment Summary Assessment Tx focused on ther ex, cues for LUE 45th flexion for echo technician strength to allow carrying cup . Improved form finger flexion cues for set up hold band in RUE anchor FF in front and L hand finger flexion echo technician ball in theraband pulling back like performing sling shot with reports good effort grasp with corrections R hand finger positioning to incorporated 4-5th finger strength. He reports no pain just finger and L>R shoulder muscle tiring in a good way working to hold a cup better. Improved form tricep overhead seated and standing with cues for posturing able to engage L tricep without increased numbness in L 4-5th fingers. Pt would benefit from continued posture and balance training per PT POC suggestions. Physical Therapy Plan Frequency and Duration Frequency of Treatment 1-2x/wk Duration of treatment (weeks) 4 Plan of Care Start Date 10/27/23 Plan of Care End Date 11/22/23 Therapeutic Interventions Therapeutic Interventions Balance Training,Canalithic Repositioning,Coordination Training,Gait Training,Home Exercise Program,Joint Mobilizations,Manual Therapy, Neuromuscular Re-education, Patient/Caregiver Education, Self-Care/Home Management, Sensory Integration,Soft Tissue Mobilization,Taping, Therapeutic Activities, Therapeutic Exercises Modalities Cold Pack/Ice Massage,Electric Stimulation,Hot Packs, Paraffin Bath,Traction- Mechanical,Ultrasound Other Referrals/Consults Referrals/Consults Recommended Awaiting results from EMG, 12/01 at [facility]. Next Visit Focus/Plan Next Note Type Treatment Note Next Visit Plan Next initiated balance exercises and wall posture. Review HEP: hand finger flexion strengthening ex's. Manual work, intrascapular strengthening, perhaps posture at wall, balance training. STart balance ex's. *Please no nerve glides as he has many joint changes.
--- NOTE | 2023-11-15 08:55 | PT.OTN ---
Current Diagnoses Primary osteoarthritis, left hand (11/15/23) Pain in left shoulder (11/15/23) Radiculopathy, cervical region (11/15/23) Anesthesia of skin (11/15/23) Weakness (11/15/23) Physical Therapy Treatment Note PT-OP-A Visit Information Start: 10/03/23 08:26 Freq: Status: Active Protocol: Document 11/15/23 08:30 MB (Rec: 11/15/23 08:51 MB [id number]) Out-Patient Physical Therapy Visit Information Visit Information Visit Type Treatment Note Visit Note Pt is 15' late to appointment Visit Start Time 08:30 Visit Stop Time 08:55 Visit Number 11 Number of FENDER MECHANIC Visits 0 Evaluation Information Evaluation Date 10/04/23 Precautions Precautions Lumbar surgery x 2 in June, pt is on Eliquis due to blood clot. PT-OP-B Current Condition Start: 10/03/23 08:26 Freq: Status: Active Protocol: Document 10/04/23 08:13 MB (Rec: 10/04/23 08:48 MB [id number]) Current Condition History of Current Condition Onset Date Left 4th and 5th digit numbness, pt denies shoulder pain Current Complaints Left 4th and 5th digit numbness History of Current Condition Pt has lumbar spinal surgery in June of 2023 and then he had another lumbar spinal surgery after they found a blood clot in his spine. Surgery was at [facility] and then he went to [facility]. About a month ago, pt raised his left arm and something popped and then he had left 4th and 5th digit numbness in left hand. Lateral side of 4th digit is spared. Pt has a cut on his face from his CPAP. He sleeps in his recliner. PMH includes right RJ, B TKAs , lumbar fractures and surgery , left LE neuropathy and drop foot and pt uses cane in right hand, aortic valve replacement through groin, pt is right handed. Pt denies falls. History of left thenar injury, watch is tight on left wrist. Prior Treatments and Tests Cervical MRI 05/23/23: 1. Extensive multilevel spondylitic change. There is multilevel canal stenosis, multilevel uncovertebral joint hypertrophy, significant multilevel facet hypertrophy, and multilevel foraminal narrowing . 2. Canal stenosis is mild to moderate at C4-C5, moderate to severe at C5-C6, mild at C6-C7, and moderate at C7-T1. 3. Multilevel foraminal narrowing as described above. There is moderate to severe left foraminal narrowing at C2-C3. There is severe bilateral foraminal narrowing at all other levels with foraminal nerve root impingement at these levels. Thoracic MRI 05/23/23: 1. At T11-T12, there is multifactorial severe canal stenosis as described above. 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 2. Mild canal stenosis at T12- L1. Treatment Goals Patient/Caregiver Goals To see if left finger numbness can improve PT-OP-C Subjective Start: 10/03/23 08:26 Freq: Status: Active Protocol: Document 11/15/23 08:30 MB (Rec: 11/15/23 08:51 MB [id number]) OP-PT Subjective Patient Comments Patient Comments Pt con't with numbness in hand and is not worried about surgery on Nov 24. PT-OP-J Posture/Palpation/Skin Start: 10/03/23 08:26 Freq: Status: Active Protocol: Document 10/04/23 08:13 MB (Rec: 10/04/23 08:48 MB [id number]) Posture Evaluation Comments Posture Comments Forward and rounded shoulders, Dowager's hump, decreased thoracic kyphosis and mild right convexity, lower thoracic to upper/mid lumbar spine with scar over spinous processes from recent surgery likely, history of surgery previously as well, left iliac crest is higher than the right, wide ALBINO, less WB through left foot compared to the right, increased [place] angle on the left. Left thenar changes and watch is tight along left wrist. PT-OP-K Range of Motion Start: 10/03/23 08:26 Freq: Status: Active Protocol: Document 10/04/23 08:13 MB (Rec: 10/04/23 08:48 MB [id number]) Cervical Spine Range of Motion Cervical Spine Active Testing Position Sitting Flexion 42 Extension 30 Rotation Left 52 Rotation Right 53 Lateral Flexion Left 20 Lateral Flexion Right 15 Comments SB component to rotation Shoulder Goniometric Range of Motion Shoulder Bilateral Shoulder ROM WFL No Testing Position Sitting Flexion 134 Comments Limited B supination, right more limited than left, arthritic changes in hands. Overall, degenerative changes all joints. Elbow/Forearm Range of Motion Elbow/Forearm ROM Limitations Comments See comments above Wrist Goniometric Range of Motion ROM Limitations Comments See comments above Finger Goniometric Range of Motion Finger ROM Limitations Comments Arthritic changes B hands and fingers and some muscle wasting left medial hand at hypothenar eminence PT-OP-M Strength Start: 10/03/23 08:26 Freq: Status: Active Protocol: Document 10/04/23 08:13 MB (Rec: 10/04/23 10:55 MB [id number]) Shoulder Strength Shoulder Manual Muscle Testing Bilateral Flexion 5 Normal Abduction (C5) 5 Normal Comments Normal strength in limited range Elbow/Forearm Strength Elbow and Forearm Manual Muscle Testing Bilateral Flexion (C6) 5 Normal Extension (C7) 5 Normal Pronation 4 Good Supination 4- Good- Comments Decreased supination greater on the right. Degenerative changes in wrists and fingers and so cuffer testing deferred and pt has functional weakness in both hands. PT-OP-Q Treatments Start: 10/03/23 08:26 Freq: Status: Active Protocol: Document 11/15/23 08:30 MB (Rec: 11/15/23 08:51 MB [id number]) Neuro Re-Education Treatment Balance Activities Thoracic rotation with arms out Comments Attempted and pt had LOB d/t left knee giving way Static balance Comments Romberg EO at least 30 sec with increased sway, practiced at bar and then in corner with bench in front and will perform in corner at home; EC, pt's elbows hit wall within 5 sec. Pt occ reaches for bench to catch balance. 30 sec STS Comments 1 rep without hands and 1 rep with hands and LOB with attempt and CGA to prevent fall. Pt c/o left knee pain TUG Comments Performed twice today and see goals for findings today PT-OP-T Assessment and Plan Start: 10/03/23 08:26 Freq: Status: Active Protocol: Document 11/15/23 08:30 MB (Rec: 11/15/23 08:51 MB [id number]) Physical Therapy Assessment Goals Two Impairment Decreased left fourth and fifth digit strength Impairment . Director Data Architecture Goal (LTG) Pt will present with three trial resisted cuffer strength testing of left hand no more than 5 lb less than right hand to improve functional strength of left hand. 10/06/23: R hand: 1st 55 lb, 2nd 54 lb, 3rd 56 lb; L: 1st 43 lb, 2nd 45 lb, 3rd 43 lb 10/27/23: R hand 50 lb, 55 lb, 52 lb; left hand 50 lb, 43 lb, 50 lb LTG Duration 4 weeks Four Impairment QuickDASH score reflects over 27% impairment Impairment . Director Data Architecture Goal (LTG) Pt will present with improved QuickDASH score to reflect no more than 10% impairment to improve functional use of left hand and symptoms. 10/27/23: QuickDASH score reflects 38.63% impairment, which is not better and worse but pt does not feel worse functionally. This might be d/ t PT reviewing the questionnaire with pt during reports today. LTG Duration 4 weeks Three Impairment Lack of HEP Impairment . Mcfp Goal (LTG) Pt will perform progressive HEP with I including pelvic realignment, thoracic and cervical flexibility, posture, balance, UE flexibility and strengthening exercises to improve functional hand use and symptoms. 10/27/23: Pt is performing HEP exercises for flexibility, mobility and alignment. No exercises have affected left finger numbness. 11/04/23 & 11/09/23: Issued HEP of wrist/elbow strengthening and hand cuffer strengthening ex's. Previous wrist stretches issued. 5# putty issued. LTG Duration 4 weeks One Impairment Evidence of imbalance and high fall risk Impairment . Mcfp Goal (LTG) Pt will perform TUG in no more than 10 sec to decrease fall risk. 11/14 First TUG 16 sec with SPC right hand and CGA d/t LOB turning around cone at turn point; second attempt 15 sec with SPC, superv and no LOB LTG Duration 4 weeks Assessment Summary Assessment Pt arrives 15' late to appointment. He has LOB x3 with balance testing and training today and pt can only safely perform Romberg in corner with chair in front in clinic and for HEP. Left knee issues and giving way appear to be his biggest problem. He is good about using his SPC. 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 She had a fall and hit head last week. One more PT treatment for pt pre-op. Physical Therapy Plan Frequency and Duration Frequency of Treatment 1-2x/wk Duration of treatment (weeks) 4 Plan of Care Start Date 10/27/23 Plan of Care End Date 11/22/23 Therapeutic Interventions Therapeutic Interventions Balance Training,Canalithic Repositioning,Coordination Training,Gait Training,Home Exercise Program,Joint Mobilizations,Manual Therapy, Neuromuscular Re-education, Patient/Caregiver Education, Self-Care/Home Management, Sensory Integration,Soft Tissue Mobilization,Taping, Therapeutic Activities, Therapeutic Exercises Modalities Cold Pack/Ice Massage,Electric Stimulation,Hot Packs, Paraffin Bath,Traction- Mechanical,Ultrasound Next Visit Focus/Plan Next Note Type Discharge Summary
--- NOTE | 2023-11-17 14:30 | PT.OTN ---
Current Diagnoses Primary osteoarthritis, left hand (11/17/23) Pain in left shoulder (11/17/23) Radiculopathy, cervical region (11/17/23) Anesthesia of skin (11/17/23) Weakness (11/17/23) Physical Therapy Treatment Note PT-OP-A Visit Information Start: 10/03/23 08:26 Freq: Status: Active Protocol: Document 11/17/23 13:45 MB (Rec: 11/17/23 14:30 MB [id number]) Out-Patient Physical Therapy Visit Information Visit Information Visit Type Discharge Summary Visit Start Time 13:45 Visit Stop Time 12:25 Visit Number 12 Number of PRINCIPAL ACCOUNT CLERK Visits 0 Evaluation Information Evaluation Date 10/04/23 Precautions Precautions Lumbar surgery x 2 in June, pt is on Eliquis due to blood clot. PT-OP-B Current Condition Start: 10/03/23 08:26 Freq: Status: Active Protocol: Document 10/04/23 08:13 MB (Rec: 10/04/23 08:48 MB [id number]) Current Condition History of Current Condition Onset Date Left 4th and 5th digit numbness, pt denies shoulder pain Current Complaints Left 4th and 5th digit numbness History of Current Condition Pt has lumbar spinal surgery in June of 2023 and then he had another lumbar spinal surgery after they found a blood clot in his spine. Surgery was at [facility] and then he went to [facility]. About a month ago, pt raised his left arm and something popped and then he had left 4th and 5th digit numbness in left hand. Lateral side of 4th digit is spared. Pt has a cut on his face from his CPAP. He sleeps in his recliner. PMH includes right RJ, B TKAs , lumbar fractures and surgery , left LE neuropathy and drop foot and pt uses cane in right hand, aortic valve replacement through groin, pt is right handed. Pt denies falls. History of left thenar injury, watch is tight on left wrist. Prior Treatments and Tests Cervical MRI 05/23/23: 1. Extensive multilevel spondylitic change. There is multilevel canal stenosis, multilevel uncovertebral joint hypertrophy, significant multilevel facet hypertrophy, and multilevel foraminal narrowing . 2. Canal stenosis is mild to moderate at C4-C5, moderate to severe at C5-C6, mild at C6-C7, and moderate at C7-T1. 3. Multilevel foraminal narrowing as described above. There is moderate to severe left foraminal narrowing at C2-C3. There is severe bilateral foraminal narrowing at all other levels with foraminal nerve root impingement at these levels. Thoracic MRI 05/23/23: 1. At T11-T12, there is multifactorial severe canal stenosis as described above. 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 2. Mild canal stenosis at T12- L1. Treatment Goals Patient/Caregiver Goals To see if left finger numbness can improve PT-OP-C Subjective Start: 10/03/23 08:26 Freq: Status: Active Protocol: Document 11/17/23 13:45 MB (Rec: 11/17/23 14:30 MB [id number]) OP-PT Subjective Patient Comments Patient Comments No change in left hand numbness since starting PT. Pt feels that PT was helpful for neck stiffness and exercises are helpful. He is sleeping in a better reclined position in the recliner with his arms supported. PT-OP-J Posture/Palpation/Skin Start: 10/03/23 08:26 Freq: Status: Active Protocol: Document 10/04/23 08:13 MB (Rec: 10/04/23 08:48 MB [id number]) Posture Evaluation Comments Posture Comments Forward and rounded shoulders, Dowager's hump, decreased thoracic kyphosis and mild right convexity, lower thoracic to upper/mid lumbar spine with scar over spinous processes from recent surgery likely, history of surgery previously as well, left iliac crest is higher than the right, wide ALBINO, less WB through left foot compared to the right, increased [place] angle on the left. Left thenar changes and watch is tight along left wrist. PT-OP-K Range of Motion Start: 10/03/23 08:26 Freq: Status: Active Protocol: Document 10/04/23 08:13 MB (Rec: 10/04/23 08:48 MB [id number]) Cervical Spine Range of Motion Cervical Spine Active Testing Position Sitting Flexion 42 Extension 30 Rotation Left 52 Rotation Right 53 Lateral Flexion Left 20 Lateral Flexion Right 15 Comments SB component to rotation Shoulder Goniometric Range of Motion Shoulder Bilateral Shoulder ROM WFL No Testing Position Sitting Flexion 134 Comments Limited B supination, right more limited than left, arthritic changes in hands. Overall, degenerative changes all joints. Elbow/Forearm Range of Motion Elbow/Forearm ROM Limitations Comments See comments above Wrist Goniometric Range of Motion ROM Limitations Comments See comments above Finger Goniometric Range of Motion Finger ROM Limitations Comments Arthritic changes B hands and fingers and some muscle wasting left medial hand at hypothenar eminence PT-OP-M Strength Start: 10/03/23 08:26 Freq: Status: Active Protocol: Document 10/04/23 08:13 MB (Rec: 10/04/23 10:55 MB [id number]) Shoulder Strength Shoulder Manual Muscle Testing Bilateral Flexion 5 Normal Abduction (C5) 5 Normal Comments Normal strength in limited range Elbow/Forearm Strength Elbow and Forearm Manual Muscle Testing Bilateral Flexion (C6) 5 Normal Extension (C7) 5 Normal Pronation 4 Good Supination 4- Good- Comments Decreased supination greater on the right. Degenerative changes in wrists and fingers and so belt picker testing deferred and pt has functional weakness in both hands. PT-OP-Q Treatments Start: 10/03/23 08:26 Freq: Status: Active Protocol: Document 11/17/23 13:45 MB (Rec: 11/17/23 14:30 MB [id number]) Therapeutic Exercises Supine Exercises Gentle pect stretch in supine Comments Verbally reviewed today and pt prefers supine exercise to standing Wrist flexion/ext stretch Comments I performance pelvic realignment Comments Verbally reviewed today Sidelying Exercises Open book Comments Verbally reviewed today Sitting Exercises Tricep extension Comments Pt able to demo form today Putty belt picker ex's Comments Performing at home Wrist/elbow strengthening ex Comments Reviewed today and performing at home neck stretching Comments Performs well today in sitting Supervisor Cab testing Comments Performed today and see findings under goals Manual Therapy Treatment Consent Patient gave verbal consent for manual Yes treatment Other Other Manual Treatments Pt sitting and PT provides positional release and STM left triceps, biceps, wrist extensors, flexors, supinator and pronator and pt tolerates well Self-Care/Home Management Treatment Education Other Education Ed pt that he might need to ask surgeon about sleeping position after left elbow surgery/cubital fossa surgery d/t he sleeps in recliner with arms supported on pillows and elbows bent. PT-OP-T Assessment and Plan Start: 10/03/23 08:26 Freq: Status: Active Protocol: Document 11/17/23 13:45 MB (Rec: 11/17/23 14:30 MB [id number]) Physical Therapy Assessment Goals Two Impairment Decreased left fourth and fifth digit strength Impairment . Keymodule Assembly Machine Tender Goal (LTG) Pt will present with three trial resisted belt picker strength testing of left hand no more than 5 lb less than right hand to improve functional strength of left hand. 10/06/23: R hand: 1st 55 lb, 2nd 54 lb, 3rd 56 lb; L: 1st 43 lb, 2nd 45 lb, 3rd 43 lb 10/27/23: R hand 50 lb, 55 lb, 52 lb; left hand 50 lb, 43 lb, 50 lb 11/17/23: R hand 52 lb, 51 lb, 48 lb; left hand 43 lb, 48 lb, 50 lb LTG Duration Progressed towards goal Four Impairment QuickDASH score reflects over 27% impairment Impairment . Half-Way Goal (LTG) Pt will present with improved QuickDASH score to reflect no more than 10% impairment to improve functional use of left hand and symptoms. 10/27/23: QuickDASH score reflects 38.63% impairment, which is not better and worse but pt does not feel worse functionally. This might be d/ t PT reviewing the questionnaire with pt during reports today. 11/17/23 QuickDASH score is improved and reflects 22.72% impairment LTG Duration Progressed towards goal Three Impairment Lack of HEP Impairment . Half-Way Goal (LTG) Pt will perform progressive HEP with I including pelvic realignment, thoracic and cervical flexibility, posture, balance, UE flexibility and strengthening exercises to improve functional hand use and symptoms. 10/27/23: Pt is performing HEP exercises for flexibility, mobility and alignment. No exercises have affected left finger numbness. 11/04/23 & 11/09/23: Issued HEP of wrist/elbow strengthening and hand belt picker strengthening ex's. Previous wrist stretches issued. 5# putty issued. 11/17/23: Pt is performing most of his exercises at home. He is taking care of and this takes quite a bit of time . LTG Duration Progressed towards goal One Impairment Evidence of imbalance and high fall risk Impairment . Keymodule Assembly Machine Tender Goal (LTG) Pt will perform TUG in no more than 10 sec to decrease fall risk. 11/14 First TUG 16 sec with SPC right hand and CGA d/t LOB turning around cone at turn point; second attempt 15 sec with SPC, superv and no LOB 11/17/23: TUG with cane in right hand 17 sec today LTG Duration Did not meet goal Assessment Summary Assessment Pt progressed towards HEP, QuickDASH and belt picker strength goals since starting PT. His TUG score did not improve. He has cubital tunnel surgery next week and ed pt to ask surgeon precautions and what he is allowed and not allowed to do post-op.
== END 2023-11-19 14:57 | disposition home or self-care (01) ==
LOC: PHYS 13:45
PROVIDERS: Family Provider Nurse Practitioner; PCP Nurse Practitioner; Referring Provider Nurse Practitioner; Visit Provider Nurse Practitioner
DX: M25.512 Pain in left shoulder (principal); R20.0 Anesthesia of skin; M54.12 Radiculopathy, cervical region; M19.042 Primary osteoarthritis, left hand; R53.1 Weakness
CPT/HCPCS: 97110; 97112; 97140; 97161; 97535

== ENCOUNTER 2023-12-19 14:57 | Emergency (ER) | payer MEDICARE, SELFPAY ==
[2023-12-19 15:06] VITALS: BP 152/65; PULSE 76; RESP 18; TEMP 36.6; O2SAT 95; BMI 34.4
--- NOTE | 2023-12-19 15:09 | DI.RAD.S_ITS ---
PROCEDURE: XR HIP W PEL IF DONE RT 4V INDICATIONS: Fall 1 week ago on R hip; hx of replacement 2018 TECHNIQUE: AP pelvis and lateral view of the hip acquired. COMPARISON: None. FINDINGS: Bones: Patient is status post right hip arthroplasty, with hardware components in expected positions. The femoral head component is symmetrically well seated within the acetabular component and there is no periprosthetic lucency. The visualized bony structures appear intact. Soft tissues: Overlying postoperative changes are noted. No suspicious soft tissue densities. IMPRESSION: Expected post-operative appearance of a hip arthroplasty. Dictated by: Oumou Coulter M.D. on 12/19/2023 at 14:40 Approved by: Oumou Coulter M.D. on 12/19/2023 at 14:41
--- NOTE | 2023-12-19 15:53 | ED.LOWEXIN ---
HPI - Extremity Injury (Lower) <BENNY Ovalle - Last Filed: 12/19/23 16:06> General Chief Complaint: Extremity Injury, Lower Stated Complaint: fell and hurt R hip wk ago- artifical hip Time Seen by Provider: 12/19/23 15:16 Source: patient and family Mode of arrival: Ambulatory History of Present Illness HPI Narrative: 83-year-old male, former smoker with history of right THR, presents to the emergency department with right buttock/hip pain. Patient reports that that he fell backwards 6 days ago, while placing a tarp over a leaking shed roof, and landed on a rock retaining wall that sits approximately 3 ft above ground. Patient states that the pain was gradually improving, even without any home treatment, but re-injured it yesterday. 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 Patient was concerned that he may have injured his hip that has been previously repaired. Patient typically uses a cane for stability but has been using his walker due to the pain. Patient denies hitting his head or any loss of consciousness. Patient is here with his spouse and daughter. Related Data Home Medications Medication Instructions Recorded Confirmed CHOLECALCIFEROL (D3-5) 1,000 iu PO QDAY ##0 12/24/10 11/01/23 ASPIRIN (Aspir-Low) 81 mg PO QDAY ##0 03/19/11 11/01/23 apixaban 5 mg tablet (Eliquis) 5 mg PO BID 04/04/18 11/01/23 metoprolol succinate 25 mg 12.5 mg PO DAILY 06/09/21 11/01/23 tablet,extended release 24 hr multivitamin (Daily Multi-Vitamin 1 tab PO DAILY 06/09/21 11/01/23 tablet) omega 4-mtw-wds-fish oil 1,000 mg 1 cap PO DAILY 06/09/21 11/01/23 (120 mg-180 mg) capsule (Fish Oil) cholecalciferol (vitamin D3) 125 125 mcg PO DAILY 12/01/22 11/01/23 mcg (5,000 unit) capsule Previous Rx's Medication Instructions Recorded lisinopril 20 1 tab PO QAM #90 tabs 05/04/18 mg-hydrochlorothiazide 25 mg tablet citalopram 40 mg tablet See Rx Instructions .Route 03/09/23 .COMPLEX #90 tabs ketoconazole 2 % topical cream 1 applic topical BID #30 grams 03/09/23 nystatin 100,000 unit/gram topical 1 applic topical BID #30 grams 03/09/23 powder ezetimibe 10 mg tablet (Zetia) 10 mg PO DAILY #90 tabs 07/28/23 mupirocin 2 % topical ointment 1 applic topical BID #22 grams 07/28/23 atorvastatin 80 mg tablet See Rx Instructions .Route 10/22/23 .COMPLEX #90 tabs Allergies Allergy/AdvReac Type Severity Reaction Status Date / Time gabapentin Allergy Intermediate Rash Verified 11/01/23 11:32 oxycodone Allergy Mild ITCHING, Verified 11/01/23 11:32 RASH Review of Systems <BENNY Ovalle - Last Filed: 12/19/23 16:06> Review of Systems Narrative: Narrative: See HPI. GENERAL: Denies chills, fatigue, fever, sweats. HEENT: Denies sinus pain, ear pain, sore throat, difficulty swallowing, dizziness. RESPIRATORY: Denies dyspnea, cough, wheezing, sputum. CARDIOVASCULAR: Denies chest pain, palpitations, edema. GASTROINTESTINAL: Denies nausea, vomiting, abdominal pain, diarrhea, constipation. : Denies dysuria, frequency, incontinence, hematuria, urinary retention, flank pain. MSK: Denies weakness. Endorses right hip pain. SKIN: Denies rash, skin lesions, or pruritis. NEUROLOGIC: Denies weakness, dizziness, headache, numbness, confusion. PSYCHIATRIC: No concerning psychosocial issues. Patient History <BENNY Ovalle - Last Filed: 12/19/23 16:06> Medical History Traumatic epidural hematoma BPH (benign prostatic hyperplasia) Lumbar spinal stenosis Thoracic spinal stenosis Dorsalgia Lumbar facet arthropathy Lumbar spondylosis Lumbar radiculopathy Peripheral neuropathy Left sciatic nerve pain Irritability Total bilirubin, elevated Mild chronic anemia Bitten by haiderel (11/22/19) Rosacea Seborrheic keratosis Seborrheic dermatitis Obesity (BMI 30-39.9) Obstructive sleep apnea of adult Fatigue (12/10/14) Surgical History History of lumbar laminectomy Aortic valve replaced Status post knee surgery Social History Previous occupational history: 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 HEAD: Atraumatic. Normocephalic. EYES: Pupils equal round and reactive. No scleral icterus, injection or drainage. ENT: Nose without bleeding, purulent drainage. Airway patent. CARDIOVASCULAR: Regular rate and rhythm without murmurs, peripheral pulses intact, cap refill <2 sec. RESPIRATORY: Breath sounds equal and clear bilaterally. No wheezes, rales, or rhonchi. No cough. No increased respiratory effort. No accessory muscle use. MSK: Moves all extremities. Normal range of motion, no clubbing or edema. Positive pedal pulses. NEURO: A&O x 3. SKIN: Warm, dry, no rashes or lesions noted. Hip: There is no obvious deformity. There is no redness, swelling or wound. Able to bear weight without assistance. Non-tender over the greater trochanter, ischial spine or SI joint. Tenderness noted over right mid buttock. There is no pain along the ilio-tibial band. Initial Vital Signs Initial Vital Signs: Vital Signs Temperature 97.9 F 12/19/23 15:06 Pulse Rate 76 12/19/23 15:06 Respiratory Rate 18 12/19/23 15:06 Blood Pressure 152/65 H 12/19/23 15:06 Pulse Oximetry 95 12/19/23 15:06 Oxygen Delivery Method Room Air 12/19/23 15:06 Reviewed <Yamini Gerber DO - Last Filed: 12/19/23 18:20> Initial Vital Signs Initial Vital Signs: Vital Signs Temperature 97.9 F 12/19/23 15:06 Pulse Rate 76 12/19/23 15:06 Respiratory Rate 18 12/19/23 15:06 Blood Pressure 152/65 H 12/19/23 15:06 Pulse Oximetry 95 12/19/23 15:06 Oxygen Delivery Method Room Air 12/19/23 15:06 Course <BENNY Ovalle - Last Filed: 12/19/23 16:06> Orders Ordered: ED Orders 12/19/23 15:09 XR hip w pel if done RT 2V Stat Vital Signs Vital signs: Vital Signs - 8 hr 12/19/23 15:06 Temperature 97.9 F Pulse Rate 76 Respiratory Rate 18 Blood Pressure 152/65 H Pulse Oximetry 95 Oxygen Delivery Method Room Air <Yamini Gerber DO - Last Filed: 12/19/23 18:20> Orders Ordered: ED Orders 12/19/23 15:09 XR hip w pel if done RT 2V Stat Vital Signs Vital signs: Vital Signs - 8 hr 12/19/23 15:06 Temperature 97.9 F Pulse Rate 76 Respiratory Rate 18 Blood Pressure 152/65 H Pulse Oximetry 95 Oxygen Delivery Method Room Air MDM - Extremity Injury (Lower) <BENNY Ovalle - Last Filed: 12/19/23 16:06> Differential Diagnosis Differential diagnosis: Likely other (Musculoskeletal injury, hip strain); Unlikely fracture of hip Imaging Data Extremity x-ray #1: Radiologist's Impression: [place] [address] XRay Report Signed Patient: Woodrow Diego MR#: [id number] : 1940 Acct:[id number] Age/Sex: 83 / M Date of Service: 12/19/23 Loc: ED Accession Number: [id number] Procedure: XR hip w pel if done RT 2V Ordering Provider: Yamini Gerber D.O. PROCEDURE: XR HIP W PEL IF DONE RT 4V INDICATIONS: Fall 1 week ago on R hip; hx of replacement 2019 TECHNIQUE: AP pelvis and lateral view of the hip acquired. COMPARISON: None. FINDINGS: Bones: Patient is status post right hip arthroplasty, with hardware components in expected positions. The femoral head component is symmetrically well seated within the acetabular component and there is no periprosthetic lucency. The visualized bony structures appear intact. Soft tissues: Overlying postoperative changes are noted. No suspicious soft tissue densities. IMPRESSION: Expected post-operative appearance of a hip arthroplasty. Dictated by: Oumou Coulter M.D. on 12/19/2023 at 14:40 Approved by: Oumou Coulter M.D. on 12/19/2023 at 14:41 [facility] Narrative Medical decision making narrative: 83-year-old male with previous right total hip replacement complaining of right hip pain. X-ray revealed no fracture or changes to THR hardware. Clinical findings were suggestive of a musculoskeletal injury. Discussed supportive care measures that includes RICE and tylenol. Discussed plan of care and return precautions with patient, spouse and daughter, who verbalized understanding and were agreeable with course of action. Discharge Plan Departure Patient Disposition: Home Clinical Impression: Injury of Lower Extremity Qualifiers: Encounter type: initial encounter Laterality: right Qualified Code(s): S89.91XA - Unspecified injury of right lower leg, initial encounter Instructions: How To Perform RICE (Rest, Ice, Compress, Elevate) Activity Restrictions/Additional Instructions: *You have been diagnosed with right lower extremity musculoskeletal injury. I am happy to report that your x-ray was normal and no abnormalities noted. As we discussed, good supportive care includes rest, hot or cold compresses to the affected site and Tylenol as needed for discomfort. Please feel free to return to the emergency department for any worsening symptoms, otherwise follow up with your family doctor as needed. *What to do: *Please continue to take your regular medications as directed. [ ] New medication prescriptions sent to your pharmacy: [ ] [ ] New medication written as a paper prescription [x ] No new medications given *Please follow up with your primary care provider in 2-3 days, call for an appointment. Let them know you were seen in the Emergency Department and that we ask that you be seen in follow up. We will electronically transmit a record of today's note if your PCP is in our system *If you do not have a primary care provider please contact the [facility] Resource line at [phone]. They will ask some questions about your medical history and help get you set up with a doctor in the community. ? Return to ER if you should have any new, worsening or concerning symptoms, such as worsening pain, severe headache, confusion, chest pain, difficulty breathing, fever greater than 101 F, shaking chills, persistent vomiting to the point that you cannot drink fluids, or other new or worsening symptoms. Prescriptions: No Action Eliquis 5 mg tablet 5 mg PO BID CHOLECALCIFEROL (D3-5) 1,000 iu PO QDAY Qty: 0 ASPIRIN (Aspir-Low) 81 mg tablet 81 mg PO QDAY Qty: 0 lisinopril-hydrochlorothiazide 20-25 mg tablet 1 tab PO QAM Qty: 90 1RF atorvastatin 80 mg tablet See Rx Instructions .ROUTE .COMPLEX Qty: 90 3RF Dose Instruction: TAKE 1 TABLET BY MOUTH DAILY Rx Instructions: TAKE 1 TABLET BY MOUTH DAILY cholecalciferol (vitamin D3) 125 mcg (5,000 unit) capsule 125 mcg PO DAILY multivitamin [Daily Multi-Vitamin] Tablet 1 tab PO DAILY omega 5-uve-edu-fish oil [Fish Oil] 1,000 mg (120 mg-180 mg) capsule 1 cap PO DAILY metoprolol succinate 25 mg tablet extended release 24 hr 12.5 mg PO DAILY citalopram 40 mg tablet See Rx Instructions .ROUTE .COMPLEX Qty: 90 3RF Dose Instruction: TAKE 1 TABLET BY MOUTH ONCE DAILY Rx Instructions: TAKE 1 TABLET BY MOUTH ONCE DAILY ketoconazole 2 % cream 1 applic topical BID Qty: 30 3RF nystatin 100,000 unit/gram powder 1 applic topical BID Qty: 30 2RF Rx Instructions: Apply topically under chest skin folds twice daily for yeast infection mupirocin 2 % ointment 1 applic topical BID Qty: 22 3RF Rx Instructions: Apply to dry skin around the surgical incision twice per day as needed. ezetimibe [Zetia] 10 mg tablet 10 mg PO DAILY Qty: 90 3RF Referrals: Migdalia Hong DO [Primary Care Provider] - Stand Alone Forms: Patient Portal/API/Survey ED Sign-out <Yamini Gerber DO - Last Filed: 12/19/23 18:20> Cosign ED Attending Cosignature Attestation: I was available for consultation.
== END 2023-12-19 16:00 | disposition home or self-care (01) ==
PROVIDERS: Emergency Provider Registered Nurse; Family Provider Nurse Practitioner; PCP Family Medicine
DX: S89.91XA Unspecified injury of right lower leg, initial encounter (principal); W17.89XA Other fall from one level to another, initial encounter; Z96.641 Presence of right artificial hip joint
CPT/HCPCS: 73502; 99281; 99283

== ENCOUNTER → 2024-01-18 16:32 | Outpatient (CLI) | payer MEDICARE, SELFPAY ==
--- NOTE | 2024-01-18 16:33 | DI.MRI.S_ITS ---
PROCEDURE: MR LUMBAR SPINE WO CON INDICATIONS: Worsening back pain, LE weakness TECHNIQUE: Noncontrast sagittal T1 spin echo and T2 fast echo, sagittal STIR, and T2 fast spin echo through the lumbar spine. In cases with scoliosis, additional coronal T2 fast spin echo may be performed. COMPARISON: [facility], MR, MR LUMBAR SPINE WITH/WITHOUT CONTRAST, 06/29/2023, 9:22. [facility], MR, MR LUMBAR SPINE WO CON, 04/08/2023, 7:44. FINDINGS: Image quality: Somewhat limited evaluation secondary to patient motion on axial images. Posterior decompression from T11-L1. Mild retrolisthesis of L2 on L3, grade 1 anterolisthesis of L4 on L5. Mild superior endplate fracture of L3, chronic, unchanged from prior exam. Mild marrow edema of the posterior aspect of L3 vertebral body, favoring degenerative. Additional multilevel mild fibrovascular endplate change, most pronounced at L1-2. Conus terminates at the level of T12-L1. Small area of at T2 hyperintensity of the cord at the level of T11-T12, unchanged from 04/08/2023. Right neural foraminal stenosis: Severe at T11-T12, moderate at L1-2, L2-3, L3-4, mild at L4-5. Left neural foraminal stenosis: Moderate at L1-2, L2-3, mild at L3-4, L4-5 and moderate at L5-S1. Axial images: T12-L1: Disc bulge. Posterior decompression. Bilateral facet arthropathy. Mild central canal stenosis. T12-L1: Posterior decompression. Bilateral facet arthropathy. There is a 9 mm T2 hyperintense lesion in the posterior epidural space, decrease in size, resulting in mass effect on the conus medullaris. Mild central canal stenosis, improved from prior exam. L1-2: Disc bulge. Posterior decompression. Bilateral facet arthropathy. Mild central canal stenosis. L2-3: Bilateral facet arthropathy. Disc bulge. No central canal stenosis. L3-4: Right laminotomy. Bilateral facet arthropathy. No central canal stenosis. L4-5: Right laminotomy. Severe bilateral facet arthropathy. No central canal stenosis. L5-S1: Severe bilateral facet arthropathy. Posterior decompression. No central canal stenosis. Visualized sacrum is intact. No abdominal aortic aneurysm. IMPRESSION: 1. Multilevel posterior decompression and right laminotomy as described above. 2. Small area of cord T2 hyperintensity at the level of T11-T12, unchanged from prior exam. 3. 9 mm posterior epidural fluid collection at the level T12-L1, decreased in size from prior exam. Persistent mass effect on the conus medullaris with improved, mild central canal stenosis. 4. No severe central canal stenosis in the lumbar spine. 5. Bilateral neural foraminal stenosis, most pronounced and severe at right T11-T12, unchanged. Dictated by: Nerissa Xie M.D. on 01/19/2024 at 10:08 Approved by: Nerissa Xie M.D. on 01/19/2024 at 10:23
== END ==
PROVIDERS: Family Provider Nurse Practitioner; PCP Family Medicine; Referring Provider Family Medicine; Visit Provider Family Medicine
DX: M47.25 Other spondylosis with radiculopathy, thoracolumbar region (principal); M47.26 Other spondylosis with radiculopathy, lumbar region; M47.27 Other spondylosis with radiculopathy, lumbosacral region; M51.15 Intervertebral disc disorders with radiculopathy, thoracolumbar region; M51.16 Intervertebral disc disorders with radiculopathy, lumbar region; M48.04 Spinal stenosis, thoracic region; M48.061 Spinal stenosis, lumbar region without neurogenic claudication; M54.9 Dorsalgia, unspecified; R29.898 Other symptoms and signs involving the musculoskeletal system; Z98.890 Other specified postprocedural states
CPT/HCPCS: 72148

== ENCOUNTER → 2024-04-18 14:14 | Outpatient (CLI) | payer MEDICARE, SELFPAY ==
--- NOTE | 2024-04-18 14:17 | DI.US.S_ITS ---
PROCEDURE: US CAROTID DOPPLER BI INDICATIONS: BILAT CAROTID ARTERY STENOSIS TECHNIQUE: Color and pulse Doppler interrogation was performed of both carotid systems, with image documentation and velocity measurements. COMPARISON: [facility], US, US CAROTID DOPPLER BI, 02/13/2021, 12:30. FINDINGS: Stenosis calculations are based on SRU (Society of Radiologists in Ultrasound) criteria. Right side: Brachial blood pressure: 116/70 mm Hg. Common carotid artery peak systolic velocity: 57 cm/sec. Internal carotid artery peak systolic velocity: 58 cm/sec. Internal carotid artery end diastolic velocity: 18 cm/sec. External carotid artery peak systolic velocity: 71 cm/sec. ICA/CCA peak systolic ratio: 1.0. Guzman scale imaging description: Mild calcified plaques are noted in distal right common carotid artery and proximal right internal carotid artery. Percent internal carotid artery stenosis: Less than 50%. Vertebral artery: Flow direction is antegrade. Left side: Brachial blood pressure: 104/64 mm Hg. Common carotid artery peak systolic velocity: 70 cm/sec. Internal carotid artery peak systolic velocity: 62 cm/sec. Internal carotid artery end diastolic velocity: 20 cm/sec. External carotid artery peak systolic velocity: 127 cm/sec. ICA/CCA peak systolic ratio: 0.9. Guzman scale imaging description: [id number] amount of atherosclerotic plaques are noted in proximal left internal carotid artery. Percent internal carotid artery stenosis: Less than 50%. Vertebral artery: Flow direction is antegrade. IMPRESSION: 1. In the right carotid artery, there is less than 50% stenosis based on peak systolic velocity criteria. 2. In the left carotid artery, there is less than 50% stenosis based on peak systolic velocity criteria. 3. Antegrade vertebral arteries. Dictated by: Leonidas Roberto M.D. on 04/18/2024 at 16:28 Approved by: Leonidas Roberto M.D. on 04/18/2024 at 16:30
== END ==
PROVIDERS: Family Provider Nurse Practitioner; PCP Family Medicine; Referring Provider Internal Medicine Cardiovascular Disease; Visit Provider Internal Medicine Cardiovascular Disease
DX: I65.23 Occlusion and stenosis of bilateral carotid arteries (principal)
CPT/HCPCS: 93880

== ENCOUNTER 2024-05-09 07:12 | Outpatient (CLI) | payer MEDICARE, SELFPAY ==
[2024-05-09] VITALS (9 sets, daily range): BP systolic 104–145; BP diastolic 65–89; PULSE 58–79; RESP 14–17; TEMP 36.5; O2SAT 95–99
[2024-05-09] MEDS: MIDAZOLAM 2 MG/2 ML VIAL IV (08:25)
[2024-05-09] MEDS: BUPIVACAINE 0.5% (PF) 10 ML VIAL 5 ML INJ (08:32)
[2024-05-09] MEDS: LIDOCAINE 1% 20 ML 5 ML INJ (08:32)
[2024-05-09] MEDS: iopamidoL 15 ML VIAL 3 ML INJ (08:34)
--- NOTE | 2024-05-09 08:51 | PM.PROC.IR.1 ---
Date/Time/Diagnoses Date of procedure: 05/09/24 Time of procedure: 08:51 Pre-procedure diagnosis: 1. FACET ARTHROPATHY Post-procedure diagnosis: same Procedure Notes Procedure: 1. BILATERAL- L4, L5 and S1 DIAGNOSTIC MB BLOCKS with LA Anesthetic Indications: oWodrow is referred by Dr. Hong for treatment of Bilateral Axial LBP. Physician: Marino Quan Total Fluoroscopy time (seconds): 14 Total sedation minutes: 23 Complications: none Procedure in detail & Post-procedure care: DESCRIPTION OF PROCEDURE Fluoroscopically guided, contrast-controlled bilateral L4, L5 and S1 medial branch blocks with 0.5cc of 0.5% Marcaine. Following review of allergy and review of potential side effects and complications, including, but not necessarily limited to, infection, allergic reaction, local tissue breakdown, nerve injury, paralysis, stroke and possible , the patient indicated that the patient understood and agreed to proceed. An informed consent document was signed by the patient, witnessed by a nurse, and placed in the patient's chart. After review of previous anaesthesic history and IV conscious sedation the patient was deemed safe to proceed with today's procedure with IV conscious sedation as ASA class II designation. Safety time-out was performed to confirm patient ID, procedure to be performed and site of procedure. IV sedation was accomplished with a combination of 2mg of Versed was administered by the RN after DO order, titrated to patient comfort during the course of the procedure while the patient remained responsive to all verbal commands In the prone position, following sterile prep and drape of the lumbar region, the right L4, L5 and S1 anatomical location of the medial branch of the dorsal ramus was identified fluoroscopically. Subsequently an anesthetic skin wheal using 1% lidocaine solution was initiated at each of the anatomical spots. Subsequently then a 22-gauge 3.5-inch spinal needle was atraumatically introduced and advanced under fluoroscopic guidance at each of the corresponding sites at the right L4, L5 and S1 MB. After negative aspiration, 0.2cc of Isovue 200 was injected, confirming placement without vascular or intrathecal uptake. Subsequently then 0.5cc of 0.5% Marcaine solution was injected at each of the corresponding sites at the right L4, L5 and S1 medial branch locations. The identical procedure was replicated on the left. The patient tolerated the procedure well without signs or symptoms of complications prior to transfer to the recovery area continued monitoring without incident. Post-procedure, the patient was monitored initiating provocative activities to measure the amount of relief from block of the facetogenic pain. The patient reported a VAS of 7 prior to the procedure and a post-procedure VAS of 1. It has been a pleasure to assist in the diagnostic and therapeutic care of your patient. POST OP INSTRUCTIONS The patient was provided with a Pain Log to complete over the next several hours and subsequent days prior to the patient's follow up with the ordering physician. If the patient has angiography technologist relief to the solution applied, then they may be a candidate for medial branch rhizotomy. The patient is aware, was provided, once again, with a Pain Log and will follow up with the referring physician for review and clinical correlation
== END 2024-05-09 09:00 | disposition home or self-care (01) ==
PROVIDERS: Family Provider Nurse Practitioner; PCP Family Medicine; Referring Provider Physical Medicine & Rehabilitation; Visit Provider Physical Medicine & Rehabilitation
DX: M47.816 Spondylosis without myelopathy or radiculopathy, lumbar region (principal); M47.817 Spondylosis without myelopathy or radiculopathy, lumbosacral region
CPT/HCPCS: 64493; 64494; 99152; 99153; J2250

== ENCOUNTER → 2024-06-21 06:59 | Outpatient (CLI) | payer MEDICARE, SELFPAY ==
[2024-06-21 07:50] LABS: Add Manual Diff / Slide Review NO; Basophils Absolute Auto 0 /uL (0-100); Basophils Percent Auto 0.4 % (0-2); Eosinophils Absolute Auto 300 /uL (0-450); Eosinophils Percent Auto 4.7 % (2-4); Hemoglobin 13.4 g/dL (13.5-17.5); Lymphocytes Absolute Auto 2000 /uL (1100-4500); Lymphocytes Percent Auto 29.3 % (25-40); Mean Corpuscular HGB Conc 34.4 % (30-36); Mean Corpuscular Hemoglobin 30.8 PG (26-34); Mean Corpuscular Volume 89.7 fL (80-100); Monocytes Absolute Auto 700 /uL (0-900); Monocytes Percent Auto 9.6 % (3-14); Neutrophils Absolute Auto 3800 /uL (1500-7000); Platelet Count 177 X10^3/uL (150-400); Red Blood Cell Count 4.35 X10^6/uL (4.5-5.9); Red Cell Distribution Width 13.7 % (11.6-14.8); White Blood Cell Count 6.9 X10^3/uL (4.5-11.0)
[2024-06-21 08:03] LABS: Hemoglobin A1C% w Est Avg Glu 5.9 % (4.0-6.0)
[2024-06-21 08:13] LABS: Alanine Aminotransferase 26 IU/L (<50); Albumin 4.3 g/dL (3.5-5.0); Albumin Globulin Ratio 1.7 (1.0-2.8); Alkaline Phosphatase 88 U/L (38-126); Aspartate Aminotransferase 37 IU/L (17-59); BUN Creatinine Ratio 25.9 (6-22); Bilirubin Total 2.8 mg/dL (0.2-1.3); Blood Urea Nitrogen 22 mg/dL (9-20); Carbon Dioxide 26 mmol/L (22-32); Chloride 102 mmol/L (98-107); Cholesterol 135 mg/dL (140-199); Estimated Glomerular Filt Rate > 60 mL/min (>60); Globulin 2.5 g/dL (1.7-4.1); Glucose 105 mg/dL (70-99); HDL Cholesterol 38 mg/dL (40-60); HEMOLYSIS < 15 (0-50); LDL Cholesterol Calculated 76 mg/dL (<100); Potassium 3.8 mmol/L (3.4-5.1); Sodium 136 mmol/L (137-145); Total Protein 6.8 g/dL (6.3-8.2); Triglycerides 104 mg/dL (35-150)
== END ==
PROVIDERS: Family Provider Nurse Practitioner; PCP Family Medicine; Referring Provider Internal Medicine Cardiovascular Disease; Visit Provider Internal Medicine Cardiovascular Disease
DX: E78.5 Hyperlipidemia, unspecified (principal); R73.03 Prediabetes; M47.816 Spondylosis without myelopathy or radiculopathy, lumbar region; E66.9 Obesity, unspecified; M54.9 Dorsalgia, unspecified; M54.16 Radiculopathy, lumbar region; Z98.890 Other specified postprocedural states; E78.2 Mixed hyperlipidemia; I10 Essential (primary) hypertension; Z79.899 Other long term (current) drug therapy
CPT/HCPCS: 36415; 80053; 80061; 83036; 85025

== ENCOUNTER 2024-07-29 14:01 | Emergency (ER) | payer MEDICARE, SELFPAY ==
[2024-07-29] VITALS (22 sets, daily range): BP systolic 115–184; BP diastolic 65–90; PULSE 60–77; RESP 14–24; TEMP 36.8; O2SAT 93–99; BMI 35.2
--- NOTE | 2024-07-29 14:17 | EKG_ITS ---
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
--- NOTE | 2024-07-29 14:20 | ED.ABDPAIN ---
HPI - Abdominal Pain <Arsenio Ascencio, DO - Last Filed: 07/29/24 17:57> General Chief Complaint: Abdominal Pain Stated Complaint: Ab/lower back pain, weakness,bloodthinner Time Seen by Provider: 07/29/24 14:16 Source: patient Mode of arrival: Wheelchair History of Present Illness HPI narrative: 83-year-old gentle history of atrial fibrillation, sleep apnea, hypertension, aortic stenosis status post TAVR, peripheral neuropathy, CAD, dyslipidemia, back surgery February 2024 presents with left lower quadrant pain radiating to left flank region that is been going on for 2-3 months but today would not go away on its own. His last bowel movement was yesterday and normal but it states that he has been having more difficulty going for the past few weeks having to strain more but did not note any. blood in the urine or stool patient denies fever chills body aches nausea vomiting chest pain shortness of breath hematuria. Nothing makes it better or worse. He last ate earlier today. Other than what is stated 14 point review of system is negative Related Data Home Medications ?Medication ?Instructions ?Recorded ?Confirmed CHOLECALCIFEROL (D3-5) 1,000 iu PO QDAY ##0 12/24/10 05/17/24 ASPIRIN (Aspir-Low) 81 mg PO QDAY ##0 03/19/11 05/17/24 apixaban 5 mg tablet (Eliquis) 5 mg PO BID 04/04/18 05/17/24 metoprolol succinate 25 mg 12.5 mg PO DAILY 06/09/21 05/17/24 tablet,extended release 24 hr multivitamin (Daily Multi-Vitamin 1 tab PO DAILY 06/09/21 05/17/24 tablet) omega 0-dro-lzy-fish oil 1,000 mg 1 cap PO DAILY 06/09/21 05/17/24 (120 mg-180 mg) capsule (Fish Oil) cholecalciferol (vitamin D3) 125 125 mcg PO DAILY 12/01/22 05/17/24 mcg (5,000 unit) capsule acetaminophen 500 mg tablet 500 mg PO Q6H PRN 05/03/24 05/17/24 (Tylenol Extra Strength) Previous Rx's ?Medication ?Instructions ?Recorded lisinopril 20 1 tab PO QAM #90 tabs 05/04/18 mg-hydrochlorothiazide 25 mg tablet ketoconazole 2 % topical cream 1 applic topical BID #30 grams 03/09/23 ezetimibe 10 mg tablet (Zetia) 10 mg PO DAILY #90 tabs 07/28/23 atorvastatin 80 mg tablet See Rx Instructions .Route 10/22/23 .COMPLEX #90 tabs citalopram 40 mg tablet See Rx Instructions .Route 03/27/24 .COMPLEX #90 tabs Allergies Allergy/AdvReac Type Severity Reaction Status Date / Time gabapentin Allergy Intermediate Rash Verified 07/29/24 14:12 oxycodone Allergy Mild ITCHING, Verified 07/29/24 14:12 RASH Review of Systems <Arsenio Ascencio DO - Last Filed: 07/29/24 17:57> Review of Systems ROS Unobtainable: All systems reviewed & are unremarkable except as noted in HPI and below Patient History <Arsenio Ascencio DO - Last Filed: 07/29/24 17:57> Medical History (Updated 07/29/24 @ 21:26 by Won Martinez DO) Lumbar spinal stenosis Thoracic spinal stenosis Dorsalgia Lumbar radiculopathy Traumatic epidural hematoma BPH (benign prostatic hyperplasia) Lumbar facet arthropathy Lumbar spondylosis Peripheral neuropathy Left sciatic nerve pain Irritability Total bilirubin, elevated Mild chronic anemia Bitten by haiderel (11/22/19) Rosacea Seborrheic keratosis Seborrheic dermatitis Obesity (BMI 30-39.9) Obstructive sleep apnea of adult Fatigue (12/10/14) Surgical History (Updated 05/03/24 @ 14:21 by Marino Quan DO) History of lumbar laminectomy Aortic valve replaced Status post knee surgery Social History Previous occupational history: 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 Well-developed patient, in mild distress. HEAD: Atraumatic. Normocephalic. EYES: Pupils equal round and reactive. Extraocular motions intact. No scleral icterus. No injection or drainage. ENT: Nose without bleeding, purulent drainage. Throat without erythema, tonsillar hypertrophy or exudate. Airway patent. NECK: Trachea midline. Non tender CARDIOVASCULAR: Regular rate and rhythm without murmurs, gallops, or rubs. RESPIRATORY: Clear to auscultation. Breath sounds equal bilaterally. No wheezes, rales, or rhonchi. GASTROINTESTINAL: Abdomen soft, LLQ no rebound rigidity or guarding nondistended. EXTREMITIES: No edema or joint tenderness. BACK: Nontender without deformity or crepitance. No flank tenderness. NEURO: AOx3. SKIN: No rash or erythema of visible areas Initial Vital Signs Initial Vital Signs: Vital Signs Temperature 98.2 F 07/29/24 14:12 Pulse Rate 73 07/29/24 14:12 Respiratory Rate 18 07/29/24 14:12 Blood Pressure 145/75 H 07/29/24 14:12 Pulse Oximetry 97 07/29/24 14:12 Oxygen Delivery Method Room Air 07/29/24 14:12 <Won Martinez, DO - Last Filed: 07/29/24 21:27> Initial Vital Signs Initial Vital Signs: Vital Signs Temperature 98.2 F 07/29/24 14:12 Pulse Rate 73 07/29/24 14:12 Respiratory Rate 18 07/29/24 14:12 Blood Pressure 145/75 H 07/29/24 14:12 Pulse Oximetry 97 07/29/24 14:12 Oxygen Delivery Method Room Air 07/29/24 14:12 Course <Arsenio Ascencio, DO - Last Filed: 07/29/24 17:57> Orders Ordered: ED Orders 07/29/24 14:16 EKG-12 Lead Stat 07/29/24 14:18 Complete Blood Count AUTO DIFF Stat Comprehensive Metabolic Panel Stat Lipase Stat 07/29/24 14:27 CT abdomen pelvis w con Stat 07/29/24 14:36 Ammonia (NH3) Stat 07/29/24 16:41 US abdomen limited Stat Ondansetron HCl (Ondansetron 4 Mg/2 Ml Inj) 4 mg IV NOW PRN PRN Reason: Nausea And Vomiting Ondansetron HCl (Ondansetron 4 Mg Odt) 4 mg PO NOW PRN PRN Reason: Nausea And Vomiting Discontinued Medications Hydromorphone HCl (Hydromorphone 1 Mg Inj) 1 mg IV NOW ONE Stop: 07/29/24 16:42 Last Admin: 07/29/24 16:59 Dose: 1 mg Documented By: CHICHI Sodium Chloride (Normal Saline 0.9%) 1,000 mls @ 1,000 mls/hr IV BOLUS ONE Stop: 07/29/24 15:25 Last Infusion: 07/29/24 16:12 Dose: Infused Documented By: Admin: 07/29/24 14:47 Dose: 1,000 mls/hr Documented By: AJAY Ketorolac Tromethamine (Ketorolac 30 Mg/Ml Vial) 30 mg IV NOW ONE Stop: 07/29/24 14:27 Last Admin: 07/29/24 14:43 Dose: 30 mg Documented By: AJAY Vital Signs Vital signs: Vital Signs - 8 hr 07/29/24 14:12 07/29/24 14:15 07/29/24 14:30 Temperature 98.2 F Pulse Rate 73 74 72 Respiratory Rate 18 14 Blood Pressure 145/75 H Pulse Oximetry 97 95 93 Oxygen Delivery Method Room Air 07/29/24 14:30 07/29/24 15:00 07/29/24 15:30 Temperature Pulse Rate 69 72 Respiratory Rate 18 18 Blood Pressure 143/65 H Pulse Oximetry 97 98 Oxygen Delivery Method 07/29/24 16:00 07/29/24 16:04 07/29/24 16:04 Temperature Pulse Rate 77 69 Respiratory Rate 24 20 Blood Pressure 184/81 H Pulse Oximetry 96 Oxygen Delivery Method Room Air 07/29/24 16:30 07/29/24 16:31 07/29/24 16:31 Temperature Pulse Rate 69 67 Respiratory Rate 23 21 Blood Pressure 165/75 H Pulse Oximetry 98 96 Oxygen Delivery Method 07/29/24 17:00 07/29/24 17:01 07/29/24 17:01 Temperature Pulse Rate 69 69 Respiratory Rate Blood Pressure 144/72 H Pulse Oximetry 99 99 Oxygen Delivery Method Room Air 07/29/24 17:30 07/29/24 17:30 07/29/24 18:00 Temperature Pulse Rate 68 Respiratory Rate Blood Pressure 143/71 H 145/78 H Pulse Oximetry 97 Oxygen Delivery Method 07/29/24 18:00 07/29/24 18:30 07/29/24 18:31 Temperature Pulse Rate 71 64 63 Respiratory Rate Blood Pressure Pulse Oximetry 96 98 98 Oxygen Delivery Method 07/29/24 18:31 07/29/24 19:00 07/29/24 19:00 Temperature Pulse Rate 62 Respiratory Rate Blood Pressure 115/90 130/68 Pulse Oximetry 96 Oxygen Delivery Method 07/29/24 19:30 07/29/24 20:00 07/29/24 20:25 Temperature Pulse Rate 61 60 71 Respiratory Rate 20 Blood Pressure Pulse Oximetry 97 97 98 Oxygen Delivery Method 07/29/24 20:25 Temperature Pulse Rate Respiratory Rate Blood Pressure 171/77 H Pulse Oximetry Oxygen Delivery Method <Won Martinez, DO - Last Filed: 07/29/24 21:27> Orders Ordered: ED Orders 07/29/24 14:16 EKG-12 Lead Stat 07/29/24 14:18 Complete Blood Count AUTO DIFF Stat Comprehensive Metabolic Panel Stat Lipase Stat 07/29/24 14:27 CT abdomen pelvis w con Stat 07/29/24 14:36 Ammonia (NH3) Stat 07/29/24 16:41 US abdomen limited Stat Ondansetron HCl (Ondansetron 4 Mg/2 Ml Inj) 4 mg IV NOW PRN PRN Reason: Nausea And Vomiting Ondansetron HCl (Ondansetron 4 Mg Odt) 4 mg PO NOW PRN PRN Reason: Nausea And Vomiting Discontinued Medications Hydromorphone HCl (Hydromorphone 1 Mg Inj) 1 mg IV NOW ONE Stop: 07/29/24 16:42 Last Admin: 07/29/24 16:59 Dose: 1 mg Documented By: CHICHI Sodium Chloride (Normal Saline 0.9%) 1,000 mls @ 1,000 mls/hr IV BOLUS ONE Stop: 07/29/24 15:25 Last Infusion: 07/29/24 16:12 Dose: Infused Documented By: Admin: 07/29/24 14:47 Dose: 1,000 mls/hr Documented By: AJAY Ketorolac Tromethamine (Ketorolac 30 Mg/Ml Vial) 30 mg IV NOW ONE Stop: 07/29/24 14:27 Last Admin: 07/29/24 14:43 Dose: 30 mg Documented By: AJAY Vital Signs Vital signs: Vital Signs - 8 hr 07/29/24 14:12 07/29/24 14:15 07/29/24 14:30 Temperature 98.2 F Pulse Rate 73 74 72 Respiratory Rate 18 14 Blood Pressure 145/75 H Pulse Oximetry 97 95 93 Oxygen Delivery Method Room Air 07/29/24 14:30 07/29/24 15:00 07/29/24 15:30 Temperature Pulse Rate 69 72 Respiratory Rate 18 18 Blood Pressure 143/65 H Pulse Oximetry 97 98 Oxygen Delivery Method 07/29/24 16:00 07/29/24 16:04 07/29/24 16:04 Temperature Pulse Rate 77 69 Respiratory Rate 24 20 Blood Pressure 184/81 H Pulse Oximetry 96 Oxygen Delivery Method Room Air 07/29/24 16:30 07/29/24 16:31 07/29/24 16:31 Temperature Pulse Rate 69 67 Respiratory Rate 23 21 Blood Pressure 165/75 H Pulse Oximetry 98 96 Oxygen Delivery Method 07/29/24 17:00 07/29/24 17:01 07/29/24 17:01 Temperature Pulse Rate 69 69 Respiratory Rate Blood Pressure 144/72 H Pulse Oximetry 99 99 Oxygen Delivery Method Room Air 07/29/24 17:30 07/29/24 17:30 07/29/24 18:00 Temperature Pulse Rate 68 Respiratory Rate Blood Pressure 143/71 H 145/78 H Pulse Oximetry 97 Oxygen Delivery Method 07/29/24 18:00 07/29/24 18:30 07/29/24 18:31 Temperature Pulse Rate 71 64 63 Respiratory Rate Blood Pressure Pulse Oximetry 96 98 98 Oxygen Delivery Method 07/29/24 18:31 07/29/24 19:00 07/29/24 19:00 Temperature Pulse Rate 62 Respiratory Rate Blood Pressure 115/90 130/68 Pulse Oximetry 96 Oxygen Delivery Method 07/29/24 19:30 07/29/24 20:00 07/29/24 20:25 Temperature Pulse Rate 61 60 71 Respiratory Rate 20 Blood Pressure Pulse Oximetry 97 97 98 Oxygen Delivery Method 07/29/24 20:25 Temperature Pulse Rate Respiratory Rate Blood Pressure 171/77 H Pulse Oximetry Oxygen Delivery Method MDM - Abdominal Pain <Arsenio Ascencio, DO - Last Filed: 07/29/24 17:57> Lab Data 07/29/24 14:18 07/29/24 14:18 Labs: Lab Results 07/29/24 07/29/24 Range/Units 14:18 14:36 WBC 6.4 (4.5-11.0) X10^3/uL RBC 4.65 (4.5-5.9) X10^6/uL Hgb 14.3 (13.5-17.5) g/dL Hct 41.9 (41-53) % MCV 90.2 (80-100) fL MCH 30.7 (26-34) PG MCHC 34.1 (30-36) % RDW 14.1 (11.6-14.8) % Plt Count 193 (150-400) X10^3/uL Neut % (Auto) 57.8 (50-75) % Lymph % (Auto) 26.3 (25-40) % [place] % (Auto) 10.1 (3-14) % Eos % (Auto) 5.2 H (2-4) % Baso % (Auto) 0.6 (0-2) % Neut # (Auto) 3700 (1004-2636) /uL Lymph # (Auto) 1700 (4597-9954) /uL [place] # (Auto) 600 (0-900) /uL Eos # (Auto) 300 (0-450) /uL Baso # (Auto) 0 (0-100) /uL Sodium 139 (137-145) mmol/L Potassium 3.6 (3.4-5.1) mmol/L Chloride 101 (98-107) mmol/L Carbon Dioxide 30 (22-32) mmol/L BUN 17 (9-20) mg/dL Creatinine 0.78 (0.66-1.25) mg/dL Estimated GFR > 60 (>60) mL/min BUN/Creatinine Ratio 21.8 (6-22) Glucose 133 H (70-99) mg/dL Calcium 9.6 (8.4-10.2) mg/dL Total Bilirubin 2.7 H (0.2-1.3) mg/dL AST 44 (17-59) IU/L ALT 31 (<50) IU/L Alkaline Phosphatase 98 (38-126) U/L Ammonia < 9 L (9-30) umol/L Total Protein 7.7 (6.3-8.2) g/dL Albumin 4.7 (3.5-5.0) g/dL Globulin 3.0 (1.7-4.1) g/dL Albumin/Globulin Ratio 1.6 (1.0-2.8) Lipase 327 H (23-300) U/L Point of care testing: Urine Dip Bedside Urine Glucose Negative Bedside Urine Bilirubin - Negative Bedside Urine Ketone - Negative Urine Specific [place] 1.010 Bedside Urine Occult Blood - Negative Bedside Urine pH 6.0 Bedside Urine Protein - Negative Bedside Urine Urobilinogen - Negative Bedside Urine Nitrite - Negative Bedside Urine Leukocytes - Negative Esterase Imaging Data CT scan - abdomen/pelvis: Radiologist's Impression: [address] [address] [address] Scan Report Signed Patient: Woodrow Diego MR#: [id number] : 1940 Acct:[id number] Age/Sex: 83 / M Date of Service: 07/29/24 Loc: ED Accession Number: [id number] Procedure: CT abdomen pelvis w con Ordering Provider: Arsenio Ascencio D.O. PROCEDURE: CT ABDOMEN PELVIS W CON INDICATIONS: LLQ / L flank pain TECHNIQUE: After the administration of intravenous contrast, axial sections acquired from the lung bases to the pubic symphysis. Coronal and sagittal reformats were performed. For radiation dose reduction, the following was used: automated exposure control, adjustment of mA and/or kV according to patient size. COMPARISON: [facility], CT, CT ABDOMEN PELVIS W CON, 05/30/2021, 20:59. FINDINGS: Image quality: Diagnostic. Lower Chest: Again seen is a right lower lobe nodule which is partially imaged and measures 1.9 x 2.4 cm, an interval change compared to the prior exam. There is a focus of calcification within this nodule. Lungs are otherwise clear. ABDOMEN: Liver: No solid mass. A 6.3 cm perihepatic mass is grossly unchanged. Gallbladder: No radiopaque gallstones or wall thickening. Biliary ducts: No biliary dilation. Pancreas: No ductal dilation. Spleen: Size is within normal limits. Adrenal Glands: No adrenal nodules. Kidneys and Ureters: No hydronephrosis. No solid mass. No complex renal cystic lesion which requires follow up. An upper pole cyst measuring 1.8 cm is again shown. Stomach and Bowel: Normal colonic caliber, without significant wall thickening. The appendix is normal. Multiple colonic diverticula are present without associated inflammation. Peritoneum: No abnormal intraperitoneal fluid. No free air. Ventral Wall: No significant ventral hernia. Abdominal Nodes: No retroperitoneal or mesenteric adenopathy by size criteria. Vessels: Aorta and inferior vena cava are normal in size. PELVIS: Pelvic Organs: Unremarkable. Bladder: No bladder wall thickening, accounting for underdistention. Pelvic Nodes: No enlarged lymph nodes. Miscellaneous: No inguinal hernias are seen. Bones: No aggressive osseous abnormality. There are degenerative changes of the spine. IMPRESSION: No CT evidence for the etiology of the patient's symptoms. Specifically, no obstructive uropathy, urolithiasis, diverticulitis, appendicitis, or bowel obstruction. Chronic findings as above. Dictated by: Oumou Coulter M.D. on 07/29/2024 at 14:32 Approved by: Oumou Coulter M.D. on 07/29/2024 at 14:41 ECG Data Interpretation: NSR HR 72 IL 224 QRS [address]-t wave change No previous EKG to compare against MDM Narrative Medical decision making narrative: All lab work, vital signs, nurse triage note, medication list, previous ER visits and all imaging reviewed. CT abdomen showed no evidence for the patient's symptoms specifically no obstructive uropathy urolithiasis diverticulitis appendicitis or bowel obstruction. WBC is normal glucose 133 T bili 2.7 lipase 327 AST ALT normal <Won Martinez DO - Last Filed: 07/29/24 21:27> Lab Data Labs: Lab Results 07/29/24 07/29/24 Range/Units 14:18 14:36 WBC 6.4 (4.5-11.0) X10^3/uL RBC 4.65 (4.5-5.9) X10^6/uL Hgb 14.3 (13.5-17.5) g/dL Hct 41.9 (41-53) % MCV 90.2 (80-100) fL MCH 30.7 (26-34) PG MCHC 34.1 (30-36) % RDW 14.1 (11.6-14.8) % Plt Count 193 (150-400) X10^3/uL Neut % (Auto) 57.8 (50-75) % Lymph % (Auto) 26.3 (25-40) % [place] % (Auto) 10.1 (3-14) % Eos % (Auto) 5.2 H (2-4) % Baso % (Auto) 0.6 (0-2) % Neut # (Auto) 3700 (7934-8627) /uL Lymph # (Auto) 1700 (3893-8563) /uL [place] # (Auto) 600 (0-900) /uL Eos # (Auto) 300 (0-450) /uL Baso # (Auto) 0 (0-100) /uL Sodium 139 (137-145) mmol/L Potassium 3.6 (3.4-5.1) mmol/L Chloride 101 (98-107) mmol/L Carbon Dioxide 30 (22-32) mmol/L BUN 17 (9-20) mg/dL Creatinine 0.78 (0.66-1.25) mg/dL Estimated GFR > 60 (>60) mL/min BUN/Creatinine Ratio 21.8 (6-22) Glucose 133 H (70-99) mg/dL Calcium 9.6 (8.4-10.2) mg/dL Total Bilirubin 2.7 H (0.2-1.3) mg/dL AST 44 (17-59) IU/L ALT 31 (<50) IU/L Alkaline Phosphatase 98 (38-126) U/L Ammonia < 9 L (9-30) umol/L Total Protein 7.7 (6.3-8.2) g/dL Albumin 4.7 (3.5-5.0) g/dL Globulin 3.0 (1.7-4.1) g/dL Albumin/Globulin Ratio 1.6 (1.0-2.8) Lipase 327 H (23-300) U/L Point of care testing: Urine Dip Bedside Urine Glucose Negative Bedside Urine Bilirubin - Negative Bedside Urine Ketone - Negative Urine Specific [place] 1.010 Bedside Urine Occult Blood - Negative Bedside Urine pH 6.0 Bedside Urine Protein - Negative Bedside Urine Urobilinogen - Negative Bedside Urine Nitrite - Negative Bedside Urine Leukocytes - Negative Esterase Imaging Data US - abdomen: Radiologist's Impression: [address] [address] Ultrasound Report Signed Patient: Woodrow Diego MR#: [id number] : 1940 Acct:[id number] Age/Sex: 83 / M Date of Service: 07/29/24 Loc: ED Accession Number: [id number] Procedure: US abdomen limited Ordering Provider: Arsenio Ascencio D.O. PROCEDURE: US ABDOMEN LIMITED INDICATIONS: abd pain TECHNIQUE: Real-time scanning was performed of the abdominal and retroperitoneal organs, with image documentation. COMPARISON: None. FINDINGS: Of note this exam was technically difficult secondary to bowel gas and patient's body habitus. Liver: Visible liver is grossly normal in morphology and increased in echogenicity throughout. Gallbladder: No intraluminal stone or debris. No pericholecystic fluid or wall thickening. Sonographic Singh sign is negative. Biliary ducts: Intrahepatic bile ducts are non-dilated. Extrahepatic bile duct caliber measures 3 mm. Normal is 6-7 mm or less in diameter, or 10 mm or less post-cholecystectomy. Pancreas: Suboptimally evaluated. Spleen: Spleen is normal in size and homogeneous in echotexture. Kidneys: Kidneys are normal in size and echotexture. Right kidney measures 11.6 cm long; left kidney measures 11.8 cm long. No hydronephrosis. No solid masses. No cystic masses that require follow-up per consensus criteria. There is a 9 mm nonobstructing calcification within the left kidney. The left kidney also demonstrates a superior pole cyst measuring 2.2 x 1.9 x 1.7 cm. Miscellaneous: No free abdominal fluid. IMPRESSION: Hepatic steatosis. No evidence of acute cholecystitis. Non-obstructing left nephrolithiasis. Otherwise normal kidneys without hydronephrosis. MDM Narrative Medical decision making narrative: All lab work, vital signs, nurse triage note, medication list, previous ER visits and all imaging reviewed. CT abdomen showed no evidence for the patient's symptoms specifically no obstructive uropathy urolithiasis diverticulitis appendicitis or bowel obstruction. WBC is normal glucose 133 T bili 2.7 lipase 327 AST ALT normal 1814: Patient was signed out to me by Dr. Ascencio, patient came in complaining of right-sided back pain intermittent nature ongoing for the past few weeks worse over the past few days, patient's lab work imaging has all been unremarkable with the exception that patient has had a mildly elevated bilirubin at 2.7, review of records show that patient does have a normally elevated bilirubin, CT scan did not show signs of an acute cholecystitis however given right-sided pain ultrasound was ordered, final disposition pending ultrasound results and urinalysis 2124: Patient was re-evaluated, stating that his pain has subsided after administration of medication here, urinalysis not consistent with acute urinary tract infection, ultrasound just showing cholelithiasis without cholecystitis, symptoms more likely musculoskeletal in nature, patient will be discharged home with analgesics and instructed follow up with primary care in outpatient follow up, patient verbalized understanding of this and agrees to being discharged home with outpatient follow up Discharge Plan Departure Patient Disposition: Home Clinical Impression: Acute right flank pain Activity Restrictions/Additional Instructions: Please follow up with your primary care doctor Please read the discharge instructions sheet carefully and bring all papers to all doctor follow-up visits, as it may contain information that your doctor may want to see. Disease processes change and evolve, if your symptoms worsen or if you develop any new symptoms that are concerning to you please return for evaluation. Your evaluation today does not show any evidence of any life-threatening/serious illnesses requiring admission to the hospital or surgery. Please follow-up with your doctor for re-evaluation in approximately 1 day. Seek immediate medical attention for any worrisome symptoms. *If you do not have a primary care provider please contact the [facility] Resource line at [phone]. They will ask some questions about your medical history and help get you set up with a doctor in the community. Prescriptions: No Action Eliquis 5 mg tablet 5 mg PO BID CHOLECALCIFEROL (D3-5) 1,000 iu PO QDAY Qty: 0 ASPIRIN (Aspir-Low) 81 mg tablet 81 mg PO QDAY Qty: 0 lisinopril-hydrochlorothiazide 20-25 mg tablet 1 tab PO QAM Qty: 90 1RF atorvastatin 80 mg tablet See Rx Instructions .ROUTE .COMPLEX Qty: 90 3RF Dose Instruction: TAKE 1 TABLET BY MOUTH DAILY Rx Instructions: TAKE 1 TABLET BY MOUTH DAILY citalopram 40 mg tablet See Rx Instructions .ROUTE .COMPLEX Qty: 90 3RF Dose Instruction: TAKE 1 TABLET BY MOUTH ONCE DAILY Rx Instructions: TAKE 1 TABLET BY MOUTH ONCE DAILY cholecalciferol (vitamin D3) 125 mcg (5,000 unit) capsule 125 mcg PO DAILY multivitamin [Daily Multi-Vitamin] Tablet 1 tab PO DAILY omega 2-dag-dmg-fish oil [Fish Oil] 1,000 mg (120 mg-180 mg) capsule 1 cap PO DAILY metoprolol succinate 25 mg tablet extended release 24 hr 12.5 mg PO DAILY ketoconazole 2 % cream 1 applic topical BID Qty: 30 3RF ezetimibe [Zetia] 10 mg tablet 10 mg PO DAILY Qty: 90 3RF acetaminophen [Tylenol Extra Strength] 500 mg tablet 500 mg PO Q6H PRN Referrals: Migdalia Hong DO [Primary Care Provider, Family Practice] Stand Alone Forms: Patient Portal/API
[2024-07-29 14:23] LABS: Add Manual Diff / Slide Review NO; Basophils Absolute Auto 0 /uL (0-100); Basophils Percent Auto 0.6 % (0-2); Eosinophils Absolute Auto 300 /uL (0-450); Eosinophils Percent Auto 5.2 % (2-4); Hematocrit 41.9 % (41-53); Hemoglobin 14.3 g/dL (13.5-17.5); Lymphocytes Absolute Auto 1700 /uL (1100-4500); Lymphocytes Percent Auto 26.3 % (25-40); Mean Corpuscular HGB Conc 34.1 % (30-36); Mean Corpuscular Hemoglobin 30.7 PG (26-34); Mean Corpuscular Volume 90.2 fL (80-100); Monocytes Absolute Auto 600 /uL (0-900); Monocytes Percent Auto 10.1 % (3-14); Neutrophils Absolute Auto 3700 /uL (1500-7000); Neutrophils Percent Auto 57.8 % (50-75); Platelet Count 193 X10^3/uL (150-400); Red Blood Cell Count 4.65 X10^6/uL (4.5-5.9); Red Cell Distribution Width 14.1 % (11.6-14.8); White Blood Cell Count 6.4 X10^3/uL (4.5-11.0)
--- NOTE | 2024-07-29 14:27 | DI.CT.S_ITS ---
PROCEDURE: CT ABDOMEN PELVIS W CON INDICATIONS: LLQ / L flank pain TECHNIQUE: After the administration of intravenous contrast, axial sections acquired from the lung bases to the pubic symphysis. Coronal and sagittal reformats were performed. For radiation dose reduction, the following was used: automated exposure control, adjustment of mA and/or kV according to patient size. COMPARISON: [facility], CT, CT ABDOMEN PELVIS W CON, 05/30/2021, 20:59. FINDINGS: Image quality: Diagnostic. Lower Chest: Again seen is a right lower lobe nodule which is partially imaged and measures 1.9 x 2.4 cm, an interval change compared to the prior exam. There is a focus of calcification within this nodule. Lungs are otherwise clear. ABDOMEN: Liver: No solid mass. A 6.3 cm perihepatic mass is grossly unchanged. Gallbladder: No radiopaque gallstones or wall thickening. Biliary ducts: No biliary dilation. Pancreas: No ductal dilation. Spleen: Size is within normal limits. Adrenal Glands: No adrenal nodules. Kidneys and Ureters: No hydronephrosis. No solid mass. No complex renal cystic lesion which requires follow up. An upper pole cyst measuring 1.8 cm is again shown. Stomach and Bowel: Normal colonic caliber, without significant wall thickening. The appendix is normal. Multiple colonic diverticula are present without associated inflammation. Peritoneum: No abnormal intraperitoneal fluid. No free air. Ventral Wall: No significant ventral hernia. Abdominal Nodes: No retroperitoneal or mesenteric adenopathy by size criteria. Vessels: Aorta and inferior vena cava are normal in size. PELVIS: Pelvic Organs: Unremarkable. Bladder: No bladder wall thickening, accounting for underdistention. Pelvic Nodes: No enlarged lymph nodes. Miscellaneous: No inguinal hernias are seen. Bones: No aggressive osseous abnormality. There are degenerative changes of the spine. IMPRESSION: No CT evidence for the etiology of the patient's symptoms. Specifically, no obstructive uropathy, urolithiasis, diverticulitis, appendicitis, or bowel obstruction. Chronic findings as above. Dictated by: Oumou Coulter M.D. on 07/29/2024 at 14:32 Approved by: Oumou Coulter M.D. on 07/29/2024 at 14:41
[2024-07-29 14:34] LABS: Alanine Aminotransferase 31 IU/L (<50); Albumin 4.7 g/dL (3.5-5.0); Albumin Globulin Ratio 1.6 (1.0-2.8); Alkaline Phosphatase 98 U/L (38-126); Aspartate Aminotransferase 44 IU/L (17-59); BUN Creatinine Ratio 21.8 (6-22); Bilirubin Total 2.7 mg/dL (0.2-1.3); Blood Urea Nitrogen 17 mg/dL (9-20); Calcium 9.6 mg/dL (8.4-10.2); Carbon Dioxide 30 mmol/L (22-32); Chloride 101 mmol/L (98-107); Estimated Glomerular Filt Rate > 60 mL/min (>60); Glucose 133 mg/dL (70-99); HEMOLYSIS 17 (0-50); Lipase 327 U/L (23-300); Potassium 3.6 mmol/L (3.4-5.1); Sodium 139 mmol/L (137-145); Total Protein 7.7 g/dL (6.3-8.2)
[2024-07-29] MEDS: KETOROLAC 30 MG/ML VIAL IV (14:43)
[2024-07-29] MEDS: SODIUM CHLORIDE 0.9% 1,000 ML 1000 ML IV (14:47)
[2024-07-29 14:57] LABS: Ammonia (NH3) < 9 umol/L (9-30)
--- NOTE | 2024-07-29 16:41 | DI.US.S_ITS ---
PROCEDURE: US ABDOMEN LIMITED INDICATIONS: abd pain TECHNIQUE: Real-time scanning was performed of the abdominal and retroperitoneal organs, with image documentation. COMPARISON: None. FINDINGS: Of note this exam was technically difficult secondary to bowel gas and patient's body habitus. Liver: Visible liver is grossly normal in morphology and increased in echogenicity throughout. Gallbladder: No intraluminal stone or debris. No pericholecystic fluid or wall thickening. Sonographic Singh sign is negative. Biliary ducts: Intrahepatic bile ducts are non-dilated. Extrahepatic bile duct caliber measures 3 mm. Normal is 6-7 mm or less in diameter, or 10 mm or less post-cholecystectomy. Pancreas: Suboptimally evaluated. Spleen: Spleen is normal in size and homogeneous in echotexture. Kidneys: Kidneys are normal in size and echotexture. Right kidney measures 11.6 cm long; left kidney measures 11.8 cm long. No hydronephrosis. No solid masses. No cystic masses that require follow-up per consensus criteria. There is a 9 mm nonobstructing calcification within the left kidney. The left kidney also demonstrates a superior pole cyst measuring 2.2 x 1.9 x 1.7 cm. Miscellaneous: No free abdominal fluid. IMPRESSION: Hepatic steatosis. No evidence of acute cholecystitis. Non-obstructing left nephrolithiasis. Otherwise normal kidneys without hydronephrosis. Dictated by: Oumou Coulter M.D. on 07/29/2024 at 17:34 Approved by: Oumou Coulter M.D. on 07/29/2024 at 17:38
[2024-07-29] MEDS: HYDROMORPHONE 1 MG INJ IV (16:59)
--- NOTE | 2024-07-29 21:00 | PC.NURSE ---
Patients daughter stands at the doorway and asks if the doctor is around and if her father is going to be seen anytime soon. This RN informs her that the doctor is in a procedure but he will be with them as fast and as safely as possible, pt's daughter states that this is unacceptable that her father has been here since 2PM and needs to be seen. This RN goes back into room to talk with family and apologize for the wait. Daughter states that she is going to have a talk with Glenn Sierra Bunny that this is unacceptable that we have only one doctor on at a time.
[2024-07-29] MEDS: TRAMADOL 50 MG PREPACK 1 BOTTLE MISC (21:32)
== END 2024-07-29 21:42 | disposition home or self-care (01) ==
PROVIDERS: Family Medicine; Emergency Provider Student in an Organized Health Care Education/Training Program; Family Provider Nurse Practitioner; PCP Family Medicine
DX: R10.32 Left lower quadrant pain (principal); I48.91 Unspecified atrial fibrillation; I10 Essential (primary) hypertension; Z79.01 Long term (current) use of anticoagulants; Z95.2 Presence of prosthetic heart valve
CPT/HCPCS: 36415; 74177; 76705; 80053; 81003; 82140; 83690; 85025; 93005; 93010; 96361; 96374; 96375; 99284; J1171; J1885; Q9967

== ENCOUNTER 2024-07-31 18:32 | Emergency (ER) | payer MEDICARE, SELFPAY ==
[2024-07-31 18:42] VITALS: BP 136/65; PULSE 67; RESP 18; TEMP 36.3; O2SAT 97; BMI 35.2
[2024-07-31 22:15] VITALS: BP 163/77; PULSE 69; RESP 18; O2SAT 99
[2024-08-01 00:35] VITALS: PULSE 70; O2SAT 96
[2024-08-01 01:00] VITALS: BP 142/68; PULSE 66; O2SAT 96
[2024-08-01 01:30] VITALS: PULSE 65; O2SAT 95
[2024-08-01 01:31] VITALS: BP 148/65; PULSE 65; O2SAT 95
--- NOTE | 2024-08-01 01:47 | ED.BACK ---
HPI - Back Pain/Injury General Chief Complaint: Back Pain/Injury Stated Complaint: back pain Time Seen by Provider: 07/31/24 18:35 Source: patient and EMS History of Present Illness HPI Narrative: 83-year-old male with history of previous back injury and back surgery February 2024 mitali Guzman, on chronic Eliquis anticoagulation, recalls lumbar surgery in February with follow up MRI imaging of the spine showing hematoma that was also evacuated, by Dr. Suresh at [facility]. Subsequently 1-1/2 months ago patient has seen Dr. Pablo for spinal injections that seemed to help. Seen here 07/29/2024 with flank pain, CT imaging showed no acute process at the time, discharged home on oral tramadol which he thought was helping, ran out of the medication, still low back pain. No incontinence of stool or urine. No numbness tingling to legs. No new leg weakness symptoms. Related Data Home Medications ?Medication ?Instructions ?Recorded ?Confirmed CHOLECALCIFEROL (D3-5) 1,000 iu PO QDAY ##0 12/24/10 05/17/24 ASPIRIN (Aspir-Low) 81 mg PO QDAY ##0 03/19/11 05/17/24 apixaban 5 mg tablet (Eliquis) 5 mg PO BID 04/04/18 05/17/24 metoprolol succinate 25 mg 12.5 mg PO DAILY 06/09/21 05/17/24 tablet,extended release 24 hr multivitamin (Daily Multi-Vitamin 1 tab PO DAILY 06/09/21 05/17/24 tablet) omega 2-rdp-znz-fish oil 1,000 mg 1 cap PO DAILY 06/09/21 05/17/24 (120 mg-180 mg) capsule (Fish Oil) cholecalciferol (vitamin D3) 125 125 mcg PO DAILY 12/01/22 05/17/24 mcg (5,000 unit) capsule acetaminophen 500 mg tablet 500 mg PO Q6H PRN 05/03/24 05/17/24 (Tylenol Extra Strength) Previous Rx's ?Medication ?Instructions ?Recorded lisinopril 20 1 tab PO QAM #90 tabs 05/04/18 mg-hydrochlorothiazide 25 mg tablet ketoconazole 2 % topical cream 1 applic topical BID #30 grams 03/09/23 ezetimibe 10 mg tablet (Zetia) 10 mg PO DAILY #90 tabs 07/28/23 atorvastatin 80 mg tablet See Rx Instructions .Route 10/22/23 .COMPLEX #90 tabs citalopram 40 mg tablet See Rx Instructions .Route 03/27/24 .COMPLEX #90 tabs methocarbamol 500 mg tablet 500 mg PO TID 7 days #21 tabs 08/01/24 tramadol 50 mg tablet 50 mg PO TID PRN pain #14 tabs 08/01/24 Allergies Allergy/AdvReac Type Severity Reaction Status Date / Time gabapentin Allergy Intermediate Rash Verified 07/31/24 18:42 oxycodone Allergy Mild ITCHING, Verified 07/31/24 18:42 RASH Patient History Medical History (Updated 08/01/24 @ 02:03 by Ramin Bah MD) Lumbar spinal stenosis Thoracic spinal stenosis Dorsalgia Lumbar radiculopathy Traumatic epidural hematoma BPH (benign prostatic hyperplasia) Lumbar facet arthropathy Lumbar spondylosis Peripheral neuropathy Left sciatic nerve pain Irritability Total bilirubin, elevated Mild chronic anemia Bitten by squirrel (11/22/19) Rosacea Seborrheic keratosis Seborrheic dermatitis Obesity (BMI 30-39.9) Obstructive sleep apnea of adult Fatigue (12/10/14) Surgical History (Updated 05/03/24 @ 14:21 by Marino Quan DO) History of lumbar laminectomy Aortic valve replaced Status post knee surgery Social History Previous occupational history: 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 HEAD: Atraumatic. Normocephalic. EYES: Pupils equal round and reactive. Extraocular motions intact. No scleral icterus. No injection or drainage. ENT: Nose without bleeding, purulent drainage. Throat without erythema, tonsillar hypertrophy or exudate. Airway patent. NECK: Trachea midline. Non tender CARDIOVASCULAR: Regular rate and rhythm without murmurs, gallops, or rubs. RESPIRATORY: Clear to auscultation. Breath sounds equal bilaterally. No wheezes, rales, or rhonchi. GASTROINTESTINAL: Abdomen soft, non-tender, nondistended. EXTREMITIES: No edema or joint tenderness. BACK: Nontender without deformity or crepitance. No flank tenderness. Well-healed midline lumbar scar and lower thoracic scar, without redness or swelling. NEURO: AOx3. Motor functions grossly nonfocal. SKIN: No rash or erythema of visible areas Initial Vital Signs Initial Vital Signs: Vital Signs Temperature 97.3 F L 07/31/24 18:42 Pulse Rate 67 07/31/24 18:42 Respiratory Rate 18 07/31/24 18:42 Blood Pressure 136/65 07/31/24 18:42 Pulse Oximetry 97 07/31/24 18:42 Oxygen Delivery Method Room Air 07/31/24 18:42 Course Orders Ordered: Discontinued Medications Hydromorphone HCl (Hydromorphone 0.5 Mg Inj) 0.5 mg IV NOW ONE Stop: 08/01/24 01:59 Last Admin: 08/01/24 02:09 Dose: 0.5 mg Documented By: JENI Methocarbamol (Methocarbamol 500 Mg Tablet) 500 mg PO NOW ONE Stop: 08/01/24 01:59 Last Admin: 08/01/24 02:09 Dose: 500 mg Documented By: JENI Tramadol HCl (Tramadol 50 Mg Prepack) 1 bottle MISC DIRECTED ONE Stop: 08/01/24 02:09 Last Admin: 08/01/24 02:15 Dose: 1 bottle Documented By: JENI Vital Signs Vital signs: Vital Signs - 8 hr 08/01/24 00:35 08/01/24 01:00 08/01/24 01:00 Pulse Rate 70 66 Respiratory Rate Blood Pressure 142/68 H Pulse Oximetry 96 96 Oxygen Delivery Method 08/01/24 01:30 08/01/24 01:31 08/01/24 01:31 Pulse Rate 65 65 Respiratory Rate Blood Pressure 148/65 H Pulse Oximetry 95 95 Oxygen Delivery Method 08/01/24 02:00 08/01/24 02:01 08/01/24 02:01 Pulse Rate 78 78 Respiratory Rate 18 Blood Pressure 151/67 H Pulse Oximetry 93 93 Oxygen Delivery Method Room Air MDM - Back Pain/Injury MDM Narrative Medical decision making narrative: 83-year-old male with previous lumbar surgery, seen here 2 days ago for flank pain, CT imaging without acute changes, discharged on tramadol, ran out of the tramadol, thought it was helpful, we would like refill. Having similar chronic low back pain problems. No radicular symptoms lower extremity. No incontinence symptoms urine or stool. IV Dilaudid, oral Robaxin Home pack tramadol for discharge, prescription sent to his pharmacy for tramadol additional doses. Advised to follow up with his regular provider during regular hours, consider referral back to his neurosurgeon in [place] as outpatient. Discharge Plan Departure Patient Disposition: Home Clinical Impression: Chronic low back pain Activity Restrictions/Additional Instructions: Ongoing low back pain, prior back surgery February 2024 [place]. Recent visit 2 or 3 days ago here for flank area discomfort, CT imaging done at that time showed no actionable findings. Tramadol was helpful, you ran out of the trauma, requesting refill. IV Dilaudid dose given. Trial of muscle relaxant methocarbamol, dose given here, prescription sent to your pharmacy. Home pack of tramadol also provided for discharge here, with prescription sent to your pharmacy. Recheck advised with your regular doctor later this week. Also advised consider referral back to your neurosurgeon in [place]. Return earlier to this/nearest emergency department for any change worsening symptoms or any concerns prior. Prescriptions: New methocarbamol 500 mg tablet 500 mg PO TID 7 Days Qty: 21 0RF tramadol 50 mg tablet 50 mg PO TID PRN (Reason: pain) Qty: 14 0RF No Action Eliquis 5 mg tablet 5 mg PO BID CHOLECALCIFEROL (D3-5) 1,000 iu PO QDAY Qty: 0 ASPIRIN (Aspir-Low) 81 mg tablet 81 mg PO QDAY Qty: 0 lisinopril-hydrochlorothiazide 20-25 mg tablet 1 tab PO QAM Qty: 90 1RF atorvastatin 80 mg tablet See Rx Instructions .ROUTE .COMPLEX Qty: 90 3RF Dose Instruction: TAKE 1 TABLET BY MOUTH DAILY Rx Instructions: TAKE 1 TABLET BY MOUTH DAILY citalopram 40 mg tablet See Rx Instructions .ROUTE .COMPLEX Qty: 90 3RF Dose Instruction: TAKE 1 TABLET BY MOUTH ONCE DAILY Rx Instructions: TAKE 1 TABLET BY MOUTH ONCE DAILY cholecalciferol (vitamin D3) 125 mcg (5,000 unit) capsule 125 mcg PO DAILY multivitamin [Daily Multi-Vitamin] Tablet 1 tab PO DAILY omega 8-wwk-zbj-fish oil [Fish Oil] 1,000 mg (120 mg-180 mg) capsule 1 cap PO DAILY metoprolol succinate 25 mg tablet extended release 24 hr 12.5 mg PO DAILY ketoconazole 2 % cream 1 applic topical BID Qty: 30 3RF ezetimibe [Zetia] 10 mg tablet 10 mg PO DAILY Qty: 90 3RF acetaminophen [Tylenol Extra Strength] 500 mg tablet 500 mg PO Q6H PRN Referrals: Migdalia Hong DO [Primary Care Provider, Family Practice] Stand Alone Forms: Patient Portal/API
[2024-08-01 02:00] VITALS: PULSE 78; O2SAT 93
[2024-08-01 02:01] VITALS: BP 151/67; PULSE 78; RESP 18; O2SAT 93
[2024-08-01] MEDS: methocarbamoL 500 MG TABLET PO (02:09)
[2024-08-01] MEDS: HYDROMORPHONE 0.5 MG INJ IV (02:09)
[2024-08-01] MEDS: TRAMADOL 50 MG PREPACK 1 BOTTLE MISC (02:15)
== END 2024-08-01 02:37 | disposition home or self-care (01) ==
PROVIDERS: Emergency Provider Emergency Medicine; Family Provider Nurse Practitioner; PCP Family Medicine
DX: M54.50 Low back pain, unspecified (principal); G89.29 Other chronic pain; Z98.890 Other specified postprocedural states
CPT/HCPCS: 96374; 99284; J1171

== ENCOUNTER → 2024-08-02 16:27 | Outpatient (CLI) | payer MEDICARE, SELFPAY ==
--- NOTE | 2024-08-02 16:28 | DI.MRI.S_ITS ---
PROCEDURE: MR LUMBAR SPINE WO/W CON INDICATIONS: acute on chronic low back pain w/ stool retention TECHNIQUE: Noncontrast sagittal T1 spin echo and T2 fast spin echo, sagittal STIR, axial T1 and T2 fast spin echo through the lumbar spine. In cases with scoliosis, additional coronal T2 fast spin echo may be performed. After the administration of contrast, sagittal and axial T1 spin echo with fat saturation through the lumbar spine. COMPARISON: [facility], , MR LUMBAR SPINE WO CON, 01/18/2024, 16:48. FINDINGS: Image quality: Excellent. Alignment and curvature: Mild retrolisthesis of L1 on L2 and L2 on L3. Marrow: Multilevel degenerative endplate changes. Posterior decompression spanning T11 through L2. Marrow is of normal overall signal. No acute vertebral body compression fractures. No suspicious marrow enhancement. Spinal cord: Conus medullaris terminates at the T12-L1 level. Tiny focus of T2 hyperintense signal within the cord at T11-T12 is stable. Paraspinous soft tissues: No paravertebral masses or abnormal enhancement. T12-L1: Disc desiccation and mild disc bulge. Facet arthropathy. Mild central canal stenosis. No significant neural foraminal stenosis. Stable compared to prior. L1-L2: Disc desiccation and mild height loss. Disc bulge. Facet arthropathy. Mild central canal stenosis. Moderate bilateral neural foraminal stenosis. L2-L3: Disc desiccation and severe height loss. Posterior disc bulge. Facet arthropathy. No central canal stenosis. Moderate bilateral neural foraminal stenosis is stable. L3-L4: Disc desiccation is severe height loss. Facet arthropathy. Decompression. No central canal stenosis. Moderate right and mild left neural foraminal stenosis is stable. L4-L5: Disc desiccation and mild disc bulge. Facet arthropathy. No significant central canal stenosis. Mild bilateral neural foraminal stenosis. Stable compared to prior peer L5-S1: Disc desiccation. Facet arthropathy. No central canal stenosis. Moderate left neural foraminal stenosis and no right neural foraminal stenosis is stable. IMPRESSION: Multilevel degenerative changes of the lumbar spine as described above are stable compared to prior exam. Dictated by: Ricardo Pederson M.D. on 08/02/2024 at 20:00 Approved by: Ricardo Pederson M.D. on 08/02/2024 at 20:06
== END ==
LOC: MRI 16:28
PROVIDERS: Family Provider Nurse Practitioner; PCP Family Medicine; Referring Provider Physician Assistant; Visit Provider Physician Assistant
DX: M47.816 Spondylosis without myelopathy or radiculopathy, lumbar region (principal); M47.817 Spondylosis without myelopathy or radiculopathy, lumbosacral region; M54.50 Low back pain, unspecified; K59.00 Constipation, unspecified; G89.29 Other chronic pain
CPT/HCPCS: 72158; A9579

== ENCOUNTER 2024-09-12 07:54 | Outpatient (CLI) | payer MEDICARE, SELFPAY ==
[2024-09-12] VITALS (9 sets, daily range): BP systolic 118–153; BP diastolic 65–90; PULSE 89–100; RESP 16; TEMP 36.6; O2SAT 95–99
[2024-09-12] MEDS: MIDAZOLAM 2 MG/2 ML VIAL IV (09:23)
[2024-09-12] MEDS: LIDOCAINE 1% 20 ML 5 ML INJ (09:26)
[2024-09-12] MEDS: LIDOCAINE 2% INJ MDV 20ML 5 ML INJ (09:26)
--- NOTE | 2024-09-12 09:40 | P.PCN_ITS ---
Date/Time/Diagnoses Date of procedure: 09/12/24 Time of procedure: 09:40 Pre-procedure diagnosis: 1. FACET ARTHROPATHY Post-procedure diagnosis: same Procedure Notes Procedure: 1. BILATERAL- L4, L5 and S1 DIAGNOSTIC MB BLOCKS with SA Anesthetic Indications: Woodrow is referred by Dr. Hong for treatment of Bilateral Axial LBP. Physician: Marino Quan Total Fluoroscopy time (seconds): 7 Total sedation minutes: 12 Complications: none Procedure in detail & Post-procedure care: DESCRIPTION OF PROCEDURE Fluoroscopically guided, contrast-controlled bilateral L4, L5 and S1 medial branch blocks with 0.5cc of 2% Lidocaine. Following review of allergy and review of potential side effects and complications, including, but not necessarily limited to, infection, allergic reaction, local tissue breakdown, nerve injury, paralysis, stroke and possible , the patient indicated that the patient understood and agreed to proceed. An informed consent document was signed by the patient, witnessed by a nurse, and placed in the patient's chart. After review of previous anaesthesic history and IV conscious sedation the patient was deemed safe to proceed with today's procedure with IV conscious sedation as ASA class II designation. Safety time-out was performed to confirm patient ID, procedure to be performed and site of procedure. IV sedation was accomplished with a combination of 2mg of Versed was administered by the RN after DO order, titrated to patient comfort during the course of the procedure while the patient remained responsive to all verbal commands In the prone position, following sterile prep and drape of the lumbar region, the right L4, L5 and S1 anatomical location of the medial branch of the dorsal ramus was identified fluoroscopically. Subsequently an anesthetic skin wheal u sing 1% lidocaine solution was initiated at each of the anatomical spots. Subsequently then a 22-gauge 3.5-inch spinal needle was atraumatically introduced and advanced under fluoroscopic guidance at each of the corresponding sites at the right L4, L5 and S1 MB. After negative aspiration, 0.2cc of Isovue 200 was injected, confirming placement without vascular or intrathecal uptake. Subsequently then 0.5cc of 2% Lidocaine solution was injected at each of the corresponding sites at the right L4, L5 and S1 medial branch locations. The identical procedure was replicated on the left. The patient tolerated the procedure well without signs or symptoms of complications prior to transfer to the recovery area continued monitoring without incident. Post-procedure, the patient was monitored initiating provocative activities to measure the amount of relief from block of the facetogenic pain. The patient reported a VAS of 7 prior to the procedure and a post-procedure VAS of 1. It has been a pleasure to assist in the diagnostic and therapeutic care of your patient. POST OP INSTRUCTIONS The patient was provided with a Pain Log to complete over the next several hours and subsequent days prior to the patient's follow up with the ordering physician. If the patient has spinning lathe operator hydraulic relief to the solution applied, then they may be a candidate for medial branch rhizotomy. The patient is aware, was provided, once again, with a Pain Log and will follow up with the referring physician for review and clinical correlation
== END 2024-09-12 09:55 | disposition home or self-care (01) ==
PROVIDERS: Family Provider Family Medicine; PCP Family Medicine; Referring Provider Physical Medicine & Rehabilitation; Visit Provider Physical Medicine & Rehabilitation
DX: M47.816 Spondylosis without myelopathy or radiculopathy, lumbar region (principal); M47.817 Spondylosis without myelopathy or radiculopathy, lumbosacral region
CPT/HCPCS: 64493; 64494; 99152; J2250

== ENCOUNTER 2024-09-26 10:45 | Outpatient (RCR) | payer MEDICARE, SELFPAY ==
--- NOTE | 2024-09-01 09:19 | PT.OIE ---
Current Diagnoses Other chronic pain (09/01/24) Spondylosis without myelopathy or radiculopathy, lumbar region (09/01/24) Radiculopathy, lumbar region (09/01/24) Lumbago with sciatica, right side (09/01/24) Lumbago with sciatica, left side (09/01/24) Past Medical History (Last Updated 08/14/24 @ 08:56 by Marino Quan DO) Bitten by squirrel (11/22/19) BPH (benign prostatic hyperplasia) Dorsalgia Fatigue (12/10/14) Irritability Left sciatic nerve pain Lumbar facet arthropathy Lumbar radiculopathy Lumbar spinal stenosis Lumbar spondylosis Mild chronic anemia Obesity (BMI 30-39.9) Obstructive sleep apnea of adult Peripheral neuropathy Rosacea Seborrheic dermatitis Seborrheic keratosis Thoracic spinal stenosis Total bilirubin, elevated Traumatic epidural hematoma Past Surgical History (Last Updated 05/03/24 @ 14:21 by Marino Quan DO) Aortic valve replaced History of lumbar laminectomy Status post knee surgery Visit Care Team Role Provider Type Migdalia Hong DO Family Provider Physician Primary Care Provider Specialty: Family Practice Address: [address] [place] [address], [place] [id number] Email: [email or web address] Faye Mcarthur PA-C Attending Provider [employer] Referring Provider Specialty: Medical Wound Care Address: [address] [place] [address], [facility] Email: [email or web address] Physical Therapy Initial Evaluation PT-OP-A Visit Information Start: 09/01/24 07:22 Freq: Status: Active Protocol: Document 09/01/24 07:23 BL (Rec: 09/01/24 08:16 BL Laptop) Out-Patient Physical Therapy Visit Information Visit Information Visit Type Initial Evaluation Visit Start Time 07:30 Visit Stop Time 08:10 Visit Number (1) 02/17 (PN by 10/02/24) Number of DIRECTOR MORTGAGE Visits 0 Evaluation Information Evaluation Date 09/01/24 PT-OP-C Subjective Start: 09/01/24 07:22 Freq: Status: Active Protocol: Document 09/01/24 07:23 BL (Rec: 09/01/24 08:16 BL Laptop) OP-PT Subjective Patient Comments Patient Comments Pt presents to the clinic this date and reports difficulty with balance and low back pain, 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 Pt reports neuropathy on raúl feet with L>R. Pt states his biggest concern is his balance and LE strength at this time. Reports his pain is managed at this time and has a plan in place. Pt rates his pain as 4/10 this date. Patient Reported Same Progress Patient Questionnaires Oswestry Low Back Index Oswestry Score 32% disability PT-OP-D Balance Start: 09/01/24 07:22 Freq: Status: Active Protocol: Document 09/01/24 07:23 BL (Rec: 09/01/24 08:16 BL Laptop) Balance Tests Single Limb Standing Single Limb- Right 2 Single Limb- Left 0 PT-OP-H Neuro Start: 09/01/24 07:22 Freq: Status: Active Protocol: Document 09/01/24 07:23 BL (Rec: 09/01/24 08:16 BL Laptop) Sensation Evaluation Comments Summary Comments Pt reports neuropathy on both LE L>R. Coordination Evaluation Comments Coordination pt denies any changes in his Comments PT-OP-K Range of Motion Start: 09/01/24 07:22 Freq: Status: Active Protocol: Document 09/01/24 07:23 BL (Rec: 09/01/24 08:16 BL Laptop) Lumbar Spine Range of Motion Lumbar Spine Active Percentage Testing Position Standing Flexion 75 Extension 50 Rotation Left 75 Rotation Right 75 Lateral Flexion Left 50 Lateral Flexion 50 Right Comments pt reports slight pull on R side with L lateral flexion and forward flexion. Hip Goniometric Range of Motion Hip right Flexion w/Knee 110 Flexed Straight Leg Raise 60 Internal Rotation 20 External Rotation 40 left Flexion w/Knee 110 Flexed Straight Leg Raise 60 Internal Rotation 20 External Rotation 40 Knee Goniometric Range of Motion Knee ROM Limitations Comments WFL Raúl PT-OP-M Strength Start: 09/01/24 07:22 Freq: Status: Active Protocol: Document 09/01/24 07:23 BL (Rec: 09/01/24 08:16 BL Laptop) Trunk Strength Trunk Manual Muscle Testing Flexion 4- Good- Hip Strength Hip Manual Muscle Testing Right Flexion (L2) 4+ Good+ Extension (S1) 4+ Good+ Abduction 4+ Good+ Adduction 4+ Good+ External Rotation 4+ Good+ Internal Rotation 4+ Good+ Left Flexion (L2) 4 Good Extension (S1) 4 Good Abduction 4 Good Adduction 4 Good External Rotation 4 Good Internal Rotation 4 Good Knee Strength Knee Manual Muscle Testing Right Flexion (S2) 4+ Good+ Extension (L3) 4+ Good+ Left Flexion (S2) 4 Good Extension (L3) 4 Good PT-OP-Q Treatments Start: 09/01/24 07:22 Freq: Status: Active Protocol: Document 09/01/24 07:23 BL (Rec: 09/01/24 08:16 BL Laptop) Therapeutic Exercises Supine Exercises stretching Supine Exercise Name Hamsting st, piriformis st Comments 3x 30 sec Posture Supine Exercise Name diaphragmatic breathing with TA activation PT-OP-T Assessment and Plan Start: 09/01/24 07:22 Freq: Status: Active Protocol: Document 09/01/24 07:23 BL (Rec: 09/01/24 08:16 BL Laptop) Physical Therapy Assessment Rehab Potential Rehabilitation Fair Potential Evaluation Complexity Number of Personal 1-2 Factors/ Comorbidities Number of Body 3 Systems Impaired Clinical Evolving Presentation at Evaluation Impairments Impairments Activity Tolerance,Balance,Coordination,Functional Activities,Functional Mobility,Gait,Pain,Posture,ROM, Soft Tissue Mobility,Strength,Transfers Goals Four Care Home Goal (LTG) Pt will be able to complete SL static standing x 10 sec raúl for improved functional stability by DC. Three Fashion Model Goal (LTG) Pt will demo improved L hip abduction strength to 4+/5 by DC for improved hip stability with ambulation. Two Fashion Model Goal (LTG) Pt will demo improved L/R hip AROM for IR to 30 deg or better by DC for improved functional mobility. One Short Term Goal (STG Pt will be ind with HEP within 2 visits in order to ) progress toward superintendent terminal therapy goals outside of therapy visits. Fashion Model Goal (LTG) Pt will demo improved pain control with decreased in average symptoms to 2/10 by DC for improved quality of life. Assessment Summary Assessment Pt presents to the clinic this date with long standing LBP that is currently being managed. Pt demos decreased A/PROM into lumbar extension as well as hip IR/ER, flexion. Pt demos decreased strength to spinal stabilization and raúl hips with L>R. The proceeding deficits are contributing to pts poor balance and decreased mobility. Pt will benefit from strength and endurance training for core and LEs along with balance training in order to improve functional mobility. Physical Therapy Plan Frequency and Duration Frequency of 2x/Week Treatment Duration of 12 treatment (weeks) Plan of Care Start 09/01/24 Date Plan of Care End 11/24/24 Date Therapeutic Interventions Therapeutic Balance Training,Coordination Training,Gait Training, Interventions Home Exercise Program,Joint Mobilizations,Manual Therapy,Neuromuscular Re-education,Orthotic/Prosthetic Management,Patient/Caregiver Education,Self-Care/Home Management,Sensory Integration,Soft Tissue Mobilization ,Taping,Therapeutic Activities,Therapeutic Exercises Modalities Cold Pack/Ice Massage,Electric Stimulation,Hot Packs, Infrared Therapy,Iontophoresis,Ultrasound Next Visit Focus/Plan Next Note Type Treatment Note Next Visit Plan Advance HEP
--- NOTE | 2024-09-01 09:20 | PT.OPPOC ---
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 Plan Of Care PT-OP-T Assessment and Plan Start: 09/01/24 07:22 Freq: Status: Active Protocol: Document 09/01/24 07:23 BL (Rec: 09/01/24 08:16 BL Laptop) Physical Therapy Assessment Rehab Potential Rehabilitation Fair Potential Evaluation Complexity Number of Personal 1-2 Factors/ Comorbidities Number of Body 3 Systems Impaired Clinical Evolving Presentation at Evaluation Impairments Impairments Activity Tolerance,Balance,Coordination,Functional Activities,Functional Mobility,Gait,Pain,Posture,ROM, Soft Tissue Mobility,Strength,Transfers Goals Four Paving Supervisor Goal (LTG) Pt will be able to complete SL static standing x 10 sec raúl for improved functional stability by DC. Three Detention Goal (LTG) Pt will demo improved L hip abduction strength to 4+/5 by DC for improved hip stability with ambulation. Two Detention Goal (LTG) Pt will demo improved L/R hip AROM for IR to 30 deg or better by DC for improved functional mobility. One Short Term Goal (STG Pt will be ind with HEP within 2 visits in order to ) progress toward assisted therapy goals outside of therapy visits. Paving Supervisor Goal (LTG) Pt will demo improved pain control with decreased in average symptoms to 2/10 by DC for improved quality of life. Assessment Summary Assessment Pt presents to the clinic this date with long standing LBP that is currently being managed. Pt demos decreased A/PROM into lumbar extension as well as hip IR/ER, flexion. Pt demos decreased strength to spinal stabilization and raúl hips with L>R. The proceeding deficits are contributing to pts poor balance and decreased mobility. Pt will benefit from strength and endurance training for core and LEs along with balance training in order to improve functional mobility. Physical Therapy Plan Frequency and Duration Frequency of 2x/Week Treatment Duration of 12 treatment (weeks) Plan of Care Start 09/01/24 Date Plan of Care End 11/24/24 Date Therapeutic Interventions Therapeutic Balance Training,Coordination Training,Gait Training, Interventions Home Exercise Program,Joint Mobilizations,Manual Therapy,Neuromuscular Re-education,Orthotic/Prosthetic Management,Patient/Caregiver Education,Self-Care/Home Management,Sensory Integration,Soft Tissue Mobilization ,Taping,Therapeutic Activities,Therapeutic Exercises Modalities Cold Pack/Ice Massage,Electric Stimulation,Hot Packs, Infrared Therapy,Iontophoresis,Ultrasound Next Visit Focus/Plan Next Note Type Treatment Note Next Visit Plan Advance HEP Plan of Care Dates Plan of Care Start Date 09/01/24 Plan of Care End Date 11/24/24 Electronically Signed by: Steven Acosta PT 09/01/24 [id number] If you are in agreement with this Plan of Care, please return a signed and dated copy. I have reviewed this Plan of Care and certify that the skilled therapy services above are required to meet the patient?s needs. Physician Signature Date Printed Name and Credentials Clinical Instructor Signature Printed Name and Credentials
--- NOTE | 2024-09-04 08:13 | PT.OTN ---
Current Diagnoses Other chronic pain (09/04/24) Spondylosis without myelopathy or radiculopathy, lumbar region (09/04/24) Radiculopathy, lumbar region (09/04/24) Lumbago with sciatica, right side (09/04/24) Lumbago with sciatica, left side (09/04/24) Physical Therapy Treatment Note PT-OP-A Visit Information Start: 09/01/24 07:22 Freq: Status: Active Protocol: Document 09/04/24 07:31 SP (Rec: 09/04/24 08:17 SP [id number]) Out-Patient Physical Therapy Visit Information Visit Information Visit Type Treatment Note Visit Start Time 07:31 Visit Stop Time 08:13 Visit Number (2) 03/20 (PN by 10/02/24) Number of COMMERCIAL REAL ESTATE PARALEGAL Visits 1 Evaluation Information Evaluation Date 09/01/24 PT-OP-C Subjective Start: 09/01/24 07:22 Freq: Status: Active Protocol: Document 09/01/24 07:23 BL (Rec: 09/01/24 08:16 BL Laptop) OP-PT Subjective Patient Comments Patient Comments Pt presents to the clinic this date and reports difficulty with balance and low back pain, 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 Pt reports neuropathy on frankie feet with L>R. Pt states his biggest concern is his balance and LE strength at this time. Reports his pain is managed at this time and has a plan in place. Pt rates his pain as 4/10 this date. Patient Reported Same Progress Patient Questionnaires Oswestry Low Back Index Oswestry Score 32% disability PT-OP-D Balance Start: 09/01/24 07:22 Freq: Status: Active Protocol: Document 09/01/24 07:23 BL (Rec: 09/01/24 08:16 BL Laptop) Balance Tests Single Limb Standing Single Limb- Right 2 Single Limb- Left 0 PT-OP-H Neuro Start: 09/01/24 07:22 Freq: Status: Active Protocol: Document 09/01/24 07:23 BL (Rec: 09/01/24 08:16 BL Laptop) Sensation Evaluation Comments Summary Comments Pt reports neuropathy on both LE L>R. Coordination Evaluation Comments Coordination pt denies any changes in his Comments PT-OP-K Range of Motion Start: 09/01/24 07:22 Freq: Status: Active Protocol: Document 09/01/24 07:23 BL (Rec: 09/01/24 08:16 BL Laptop) Lumbar Spine Range of Motion Lumbar Spine Active Percentage Testing Position Standing Flexion 75 Extension 50 Rotation Left 75 Rotation Right 75 Lateral Flexion Left 50 Lateral Flexion 50 Right Comments pt reports slight pull on R side with L lateral flexion and forward flexion. Hip Goniometric Range of Motion Hip right Flexion w/Knee 110 Flexed Straight Leg Raise 60 Internal Rotation 20 External Rotation 40 left Flexion w/Knee 110 Flexed Straight Leg Raise 60 Internal Rotation 20 External Rotation 40 Knee Goniometric Range of Motion Knee ROM Limitations Comments WFL Frankie PT-OP-M Strength Start: 09/01/24 07:22 Freq: Status: Active Protocol: Document 09/01/24 07:23 BL (Rec: 09/01/24 08:16 BL Laptop) Trunk Strength Trunk Manual Muscle Testing Flexion 4- Good- Hip Strength Hip Manual Muscle Testing Right Flexion (L2) 4+ Good+ Extension (S1) 4+ Good+ Abduction 4+ Good+ Adduction 4+ Good+ External Rotation 4+ Good+ Internal Rotation 4+ Good+ Left Flexion (L2) 4 Good Extension (S1) 4 Good Abduction 4 Good Adduction 4 Good External Rotation 4 Good Internal Rotation 4 Good Knee Strength Knee Manual Muscle Testing Right Flexion (S2) 4+ Good+ Extension (L3) 4+ Good+ Left Flexion (S2) 4 Good Extension (L3) 4 Good PT-OP-Q Treatments Start: 09/01/24 07:22 Freq: Status: Active Protocol: Document 09/04/24 07:31 SP (Rec: 09/04/24 08:17 SP [id number]) Cardio Equipment Recumbent Elliptical (NuStep) Duration (Minutes) 6 Resistance 4 Seat Position 12 Other BUEs/BLEs- 108 SPM Gym Equipment Shuttle Recovery Unilateral Squats Details initial cue for R knee alignment Resistance 62 Shuttle Recovery Stable Platform Reps/Time 12x2 Bilateral Squats Details min cues for knee alignment Resistance 75>87 Shuttle Recovery Stable Platform Reps/Time 10x2 Shuttle Balance Red Details bal and wt shift a/p, side to side Reps/Duration 18 mins Therapeutic Exercises Supine Exercises stretching Supine Exercise Name Stretchin. Hamstring 2. Piriformis (hip ER & IR) 3. Mushtaq Stretch Side bilateral Equipment Used towel support during HS Reps/Minutes 60 sec each Frankie Comments cues for slow breathing Posture Supine Exercise Name diaphragmatic breathing with TA activation Equipment Used hooklying Comments cued arms at side, gentle UE pressure into table, TA facilitation Sitting Exercises Clamshell Sitting Exercise added to HEP with HO Name Side bilateral Resistance TB #3 Reps/Minutes 60 sec hold then 15 reps LAQ Sitting Exercise added to HEP with HO Name Side bilateral Resistance AROM Reps/Minutes 10 SH x15 Comments cues for quad fac Neuro Re-Education Treatment Balance Activities Dynamic Stepping Comments hallway walking head turns with SPC- sways but midline stability wtih cuing for scap engagement/posture/ core fac for safety gait in community COrner Balance Details semitandem stance Equipment corner to back and chair front Comments HTs- LOB x3 chair contact recovery PT-OP-T Assessment and Plan Start: 09/01/24 07:22 Freq: Status: Active Protocol: Document 09/04/24 07:31 SP (Rec: 09/04/24 08:17 SP [id number]) Physical Therapy Assessment Goals Four Assisted Goal (LTG) Pt will be able to complete SL static standing x 10 sec frankie for improved functional stability by DC. Three Assisted Goal (LTG) Pt will demo improved L hip abduction strength to 4+/5 by DC for improved hip stability with ambulation. Two Assisted Goal (LTG) Pt will demo improved L/R hip AROM for IR to 30 deg or better by DC for improved functional mobility. One Short Term Goal (STG Pt will be ind with HEP within 2 visits in order to ) progress toward equipment operator intermodal yard therapy goals outside of therapy visits. Assisted Goal (LTG) Pt will demo improved pain control with decreased in average symptoms to 2/10 by DC for improved quality of life. Assessment Summary Assessment Pt good feedback response to stretching and initiated low strengthening for balance support, with HOs. Trialed balance activities with instability but no LOB to start in PT only at this time. Physical Therapy Plan Frequency and Duration Frequency of 2x/Week Treatment Duration of 12 treatment (weeks) Plan of Care Start 09/01/24 Date Plan of Care End 11/24/24 Date Therapeutic Interventions Therapeutic Balance Training,Coordination Training,Gait Training, Interventions Home Exercise Program,Joint Mobilizations,Manual Therapy,Neuromuscular Re-education,Orthotic/Prosthetic Management,Patient/Caregiver Education,Self-Care/Home Management,Sensory Integration,Soft Tissue Mobilization ,Taping,Therapeutic Activities,Therapeutic Exercises Modalities Cold Pack/Ice Massage,Electric Stimulation,Hot Packs, Infrared Therapy,Iontophoresis,Ultrasound Next Visit Focus/Plan Next Note Type Treatment Note Next Visit Plan Recheck and Advance HEP Next tx: add sleeping use pillows for spinal and hip alignment and LB comfort sleeping
--- NOTE | 2024-09-06 08:16 | PT.OTN ---
Current Diagnoses Other chronic pain (09/06/24) Spondylosis without myelopathy or radiculopathy, lumbar region (09/06/24) Radiculopathy, lumbar region (09/06/24) Lumbago with sciatica, right side (09/06/24) Lumbago with sciatica, left side (09/06/24) Physical Therapy Treatment Note PT-OP-A Visit Information Start: 09/01/24 07:22 Freq: Status: Active Protocol: Document 09/06/24 07:24 BL (Rec: 09/06/24 08:16 BL Laptop) Out-Patient Physical Therapy Visit Information Visit Information Visit Type Treatment Note Visit Start Time 07:31 Visit Stop Time 08:13 Visit Number (2) 2/ (PN by 10/02/24) Number of HOTBED TRANSFER OPERATOR Visits 1 PT-OP-C Subjective Start: 09/01/24 07:22 Freq: Status: Active Protocol: Document 09/06/24 07:24 BL (Rec: 09/06/24 08:16 BL Laptop) OP-PT Subjective Patient Comments Patient Comments Pt presents to the clinic this date and reports he is doing well, states HEP is going well at home. PT-OP-D Balance Start: 09/01/24 07:22 Freq: Status: Active Protocol: Document 09/01/24 07:23 BL (Rec: 09/01/24 08:16 BL Laptop) Balance Tests Single Limb Standing Single Limb- Right 2 Single Limb- Left 0 PT-OP-H Neuro Start: 09/01/24 07:22 Freq: Status: Active Protocol: Document 09/01/24 07:23 BL (Rec: 09/01/24 08:16 BL Laptop) Sensation Evaluation Comments Summary Comments Pt reports neuropathy on both LE L>R. Coordination Evaluation Comments Coordination pt denies any changes in his Comments PT-OP-K Range of Motion Start: 09/01/24 07:22 Freq: Status: Active Protocol: Document 09/01/24 07:23 BL (Rec: 09/01/24 08:16 BL Laptop) Lumbar Spine Range of Motion Lumbar Spine Active Percentage Testing Position Standing Flexion 75 Extension 50 Rotation Left 75 Rotation Right 75 Lateral Flexion Left 50 Lateral Flexion 50 Right Comments pt reports slight pull on R side with L lateral flexion and forward flexion. Hip Goniometric Range of Motion Hip right Flexion w/Knee 110 Flexed Straight Leg Raise 60 Internal Rotation 20 External Rotation 40 left Flexion w/Knee 110 Flexed Straight Leg Raise 60 Internal Rotation 20 External Rotation 40 Knee Goniometric Range of Motion Knee ROM Limitations Comments WFL Frankie PT-OP-M Strength Start: 09/01/24 07:22 Freq: Status: Active Protocol: Document 09/01/24 07:23 BL (Rec: 09/01/24 08:16 BL Laptop) Trunk Strength Trunk Manual Muscle Testing Flexion 4- Good- Hip Strength Hip Manual Muscle Testing Right Flexion (L2) 4+ Good+ Extension (S1) 4+ Good+ Abduction 4+ Good+ Adduction 4+ Good+ External Rotation 4+ Good+ Internal Rotation 4+ Good+ Left Flexion (L2) 4 Good Extension (S1) 4 Good Abduction 4 Good Adduction 4 Good External Rotation 4 Good Internal Rotation 4 Good Knee Strength Knee Manual Muscle Testing Right Flexion (S2) 4+ Good+ Extension (L3) 4+ Good+ Left Flexion (S2) 4 Good Extension (L3) 4 Good PT-OP-Q Treatments Start: 09/01/24 07:22 Freq: Status: Active Protocol: Document 09/06/24 07:24 BL (Rec: 09/06/24 08:16 BL Laptop) Therapeutic Exercises Supine Exercises stretching Supine Exercise Name Stretchin. Hamstring 2. Piriformis (hip ER & IR) 3. Mushtaq Stretch Side bilateral Equipment Used towel support during HS Reps/Minutes 60 sec each Frankie Comments cues for slow breathing Posture Supine Exercise Name diaphragmatic breathing with TA activation(reviewed) Equipment Used hooklying Comments cued arms at side, gentle UE pressure into table, TA facilitation Sitting Exercises Clamshell Sitting Exercise added to HEP with HO Name Side bilateral Resistance TB #3 Reps/Minutes 60 sec hold then 15 reps LAQ Sitting Exercise added to HEP with HO Name Side bilateral Resistance AROM Reps/Minutes 10 SH x15 Comments cues for quad fac Neuro Re-Education Treatment Balance Activities lateral stepping Details with wall rail Comments cues for light touch on rail, focus on LE alignment. Dynamic Stepping Comments hallway walking head turns with SPC- sways but midline stability. 1x LOB this date, cues for slow turns with fixation. PT-OP-T Assessment and Plan Start: 09/01/24 07:22 Freq: Status: Active Protocol: Document 09/06/24 07:24 BL (Rec: 09/06/24 08:16 BL Laptop) Physical Therapy Assessment Goals Four First Grade Teacher Goal (LTG) Pt will be able to complete SL static standing x 10 sec frankie for improved functional stability by DC. Three Shelter Goal (LTG) Pt will demo improved L hip abduction strength to 4+/5 by DC for improved hip stability with ambulation. Two Shelter Goal (LTG) Pt will demo improved L/R hip AROM for IR to 30 deg or better by DC for improved functional mobility. One Short Term Goal (STG Pt will be ind with HEP within 2 visits in order to ) progress toward watermaster therapy goals outside of therapy visits. First Grade Teacher Goal (LTG) Pt will demo improved pain control with decreased in average symptoms to 2/10 by DC for improved quality of life. Assessment Summary Assessment Pt tolerates session well, progress balance for dynamic gait activity and lateral hip strengthening. Pt fatigued following session and requires cues throughout for form. Physical Therapy Plan Frequency and Duration Frequency of 2x/Week Treatment Duration of 12 treatment (weeks) Plan of Care Start 09/01/24 Date Plan of Care End 11/24/24 Date Next Visit Focus/Plan Next Note Type Treatment Note Next Visit Plan Recheck and Advance HEP for LE strength and balance training.
--- NOTE | 2024-09-11 08:16 | PT.OTN ---
Current Diagnoses Other chronic pain (09/11/24) Spondylosis without myelopathy or radiculopathy, lumbar region (09/11/24) Radiculopathy, lumbar region (09/11/24) Lumbago with sciatica, right side (09/11/24) Lumbago with sciatica, left side (09/11/24) Physical Therapy Treatment Note PT-OP-A Visit Information Start: 09/01/24 07:22 Freq: Status: Active Protocol: Document 09/11/24 07:34 SP (Rec: 09/11/24 08:21 SP [id number]) Out-Patient Physical Therapy Visit Information Visit Information Visit Type Treatment Note Visit Start Time 07:34 Visit Stop Time 08:16 Visit Number (3) 3 (PN by 10/02/24) Number of OUT OF SCHOOL HOURS CARE WORKER Visits 2 PT-OP-C Subjective Start: 09/01/24 07:22 Freq: Status: Active Protocol: Document 09/11/24 07:34 SP (Rec: 09/11/24 08:21 SP [id number]) OP-PT Subjective Patient Comments Patient Comments Pt reports his back has been bothering him lately, wonders if the back surgery is really going to give him relief as thought would. States has a inversion table but hasn't used in a while, maybe will try again be sure neaby assist if needed for safety. PT-OP-D Balance Start: 09/01/24 07:22 Freq: Status: Active Protocol: Document 09/01/24 07:23 BL (Rec: 09/01/24 08:16 BL Laptop) Balance Tests Single Limb Standing Single Limb- Right 2 Single Limb- Left 0 PT-OP-H Neuro Start: 09/01/24 07:22 Freq: Status: Active Protocol: Document 09/01/24 07:23 BL (Rec: 09/01/24 08:16 BL Laptop) Sensation Evaluation Comments Summary Comments Pt reports neuropathy on both LE L>R. Coordination Evaluation Comments Coordination pt denies any changes in his Comments PT-OP-K Range of Motion Start: 09/01/24 07:22 Freq: Status: Active Protocol: Document 09/01/24 07:23 BL (Rec: 09/01/24 08:16 BL Laptop) Lumbar Spine Range of Motion Lumbar Spine Active Percentage Testing Position Standing Flexion 75 Extension 50 Rotation Left 75 Rotation Right 75 Lateral Flexion Left 50 Lateral Flexion 50 Right Comments pt reports slight pull on R side with L lateral flexion and forward flexion. Hip Goniometric Range of Motion Hip right Flexion w/Knee 110 Flexed Straight Leg Raise 60 Internal Rotation 20 External Rotation 40 left Flexion w/Knee 110 Flexed Straight Leg Raise 60 Internal Rotation 20 External Rotation 40 Knee Goniometric Range of Motion Knee ROM Limitations Comments WFL Frankie PT-OP-M Strength Start: 09/01/24 07:22 Freq: Status: Active Protocol: Document 09/01/24 07:23 BL (Rec: 09/01/24 08:16 BL Laptop) Trunk Strength Trunk Manual Muscle Testing Flexion 4- Good- Hip Strength Hip Manual Muscle Testing Right Flexion (L2) 4+ Good+ Extension (S1) 4+ Good+ Abduction 4+ Good+ Adduction 4+ Good+ External Rotation 4+ Good+ Internal Rotation 4+ Good+ Left Flexion (L2) 4 Good Extension (S1) 4 Good Abduction 4 Good Adduction 4 Good External Rotation 4 Good Internal Rotation 4 Good Knee Strength Knee Manual Muscle Testing Right Flexion (S2) 4+ Good+ Extension (L3) 4+ Good+ Left Flexion (S2) 4 Good Extension (L3) 4 Good PT-OP-Q Treatments Start: 09/01/24 07:22 Freq: Status: Active Protocol: Document 09/11/24 07:34 SP (Rec: 09/11/24 08:21 SP [id number]) Cardio Equipment Recumbent Elliptical (NuStep) Duration (Minutes) 8 Resistance 5>4 Seat Position 12 Other BLEs, 99spm, 802 total steps Therapeutic Exercises Supine Exercises Core Series Supine Exercise Name initiated in PT: pelvic tilts, TA heel slide & march, LTR, KFO, bridge Side bilateral Reps/Minutes 10 reps each stretching Supine Exercise Name Stretchin. Hamstring 2. Piriformis (hip ER & IR) 3. Mushtaq 4. KTC Side bilateral Equipment Used towel support during HS Reps/Minutes 30 sec each Frankie Comments cues for slow deep breathing Manual Therapy Treatment Consent Patient gave verbal Yes consent for manual treatment Soft Tissue Mobilization back Body Location B ES, QL Comments manual STMs and cupping Manual Traction LS Body Position Hooklying Comments strap at calves, gentle distraction Self-Care/Home Management Treatment Education Patient Education Body Mechanics,Joint Protection,Pain Management,Posture Other Education Education on use pillows sleeping: hooklying, SL. with HO and manual traction lower legs over chair/side couch vs inversion table. PT-OP-T Assessment and Plan Start: 09/01/24 07:22 Freq: Status: Active Protocol: Document 09/11/24 07:34 SP (Rec: 09/11/24 08:21 SP [id number]) Physical Therapy Assessment Goals Four Agricultural Inspector Goal (LTG) Pt will be able to complete SL static standing x 10 sec frankie for improved functional stability by DC. Three Care Home Goal (LTG) Pt will demo improved L hip abduction strength to 4+/5 by DC for improved hip stability with ambulation. Two Care Home Goal (LTG) Pt will demo improved L/R hip AROM for IR to 30 deg or better by DC for improved functional mobility. One Short Term Goal (STG Pt will be ind with HEP within 2 visits in order to ) progress toward parts counterman therapy goals outside of therapy visits. Agricultural Inspector Goal (LTG) Pt will demo improved pain control with decreased in average symptoms to 2/10 by DC for improved quality of life. Assessment Summary Assessment Pt responded well to manual and incorporation of gentle manual LS traction today, eliminated his back pain while in supine. Cues to hold stretches with breath allowance. Initiated hooklying core progression today with HOs provided, good response, cues for set up and proper form with breath included, slow pacing, control/ level pelvis to allow core activation.Education for use of pillows under BLEs sleeipng for spinal alignment support. Pt stated back felt better post tx.
--- NOTE | 2024-09-15 08:11 | PT.OTN ---
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) Radiculopathy, lumbar region (09/15/24) Lumbago with sciatica, right side (09/15/24) Lumbago with sciatica, left side (09/15/24) Physical Therapy Treatment Note PT OP: Lower Back/Lower Extremity Start: 09/15/24 07:23 Freq: Status: Active Protocol: Document 09/15/24 07:33 BL (Rec: 09/15/24 08:10 BL Laptop) Out-Patient Physical Therapy Visit Information Visit Information Visit Type Treatment Note Visit Start Time 07:30 Visit Stop Time 08:10 Visit Number (4) 4 Number of HOGSHEAD FILLER Visits 0 Progress Note Due 10/02/24 OP-PT Subjective Patient Comments Patient Comments Pt presents to the clinic this date and reports his doing well, states he had several injections this past week and was feeling pretty good for several days however the symptoms have returned. Considering the ablation now. Therapeutic Exercises Supine Exercises Core Series Supine Exercise Name pelvic tilts, TA heel slide & march, LTR, KFO, bridge Side bilateral Reps/Minutes 10 reps each stretching Supine Exercise Name Stretchin. Hamstring 2. Piriformis (hip ER & IR) 3. Mushtaq 4. KTC Side bilateral Equipment Used towel support during HS Reps/Minutes 30 sec each Frankie Comments cues for slow deep breathing Posture Supine Exercise Name diaphragmatic breathing with TA activation(reviewed) Equipment Used hooklying Comments cued arms at side, gentle UE pressure into table, TA facilitation Other Exercises Warm Up Other Exercise Name NuStep Comments 4 min, lvl 4 Physical Therapy Assessment Goals Four Retirement Actuary Goal (LTG) Pt will be able to complete SL static standing x 10 sec frankie for improved functional stability by DC. Three [facility] Goal (LTG) Pt will demo improved L hip abduction strength to 4+/5 by DC for improved hip stability with ambulation. Two Retirement Actuary Goal (LTG) Pt will demo improved L/R hip AROM for IR to 30 deg or better by DC for improved functional mobility. One Short Term Goal (STG Pt will be ind with HEP within 2 visits in order to ) progress toward superintendent container terminal therapy goals outside of therapy visits. [facility] Goal (LTG) Pt will demo improved pain control with decreased in average symptoms to 2/10 by DC for improved quality of life. Assessment Summary Assessment Pt tolerates session well this date with improved control with stretching activity. Pt provided cues for control with hip activation and core stability activities. Physical Therapy Plan Frequency and Duration Frequency of 2x/Week Treatment Duration of 12 treatment (weeks) Plan of Care Start 09/01/24 Date Plan of Care End 11/24/24 Date Next Visit Focus/Plan Next Note Type Treatment Note Next Visit Plan Recheck and Advance HEP for LE strength and balance training.
--- NOTE | 2024-09-18 09:02 | PT.OTN ---
Current Diagnoses Other chronic pain (09/18/24) Spondylosis without myelopathy or radiculopathy, lumbar region (09/18/24) Radiculopathy, lumbar region (09/18/24) Lumbago with sciatica, right side (09/18/24) Lumbago with sciatica, left side (09/18/24) Physical Therapy Treatment Note PT OP: Lower Back/Lower Extremity Start: 09/15/24 07:23 Freq: Status: Active Protocol: Document 09/18/24 08:17 SP (Rec: 09/18/24 09:05 SP [id number]) Out-Patient Physical Therapy Visit Information Visit Information Visit Type Treatment Note Visit Start Time 08:17 Visit Stop Time 09:02 Visit Number (5) 06/17 Number of PHYS ASSISTANT Visits 1 Progress Note Due 10/02/24 OP-PT Subjective Patient Comments Patient Comments Pt felt good 1.5 days after injections but still having pain, awaiting hear back if candidate for ablation now . Cardio Equipment Recumbent Stepper (Sci-Fit) Duration (Minutes) 8 Resistance 4 Seat Position 115 Other BUEs/ BLEs.n 55 RPMs, 1.33 miles Gym Equipment Shuttle Recovery Unilateral Squats Details initial cue for R knee alignment Resistance 62 (2 navy) R, 62>50 (2 navy) L Shuttle Recovery Stable Platform Reps/Time 15 L, 20 R Bilateral Squats Details min cues for knee alignment Resistance 87 (3 navy bands) Shuttle Recovery Stable Platform Reps/Time 20 Therapeutic Exercises Sitting Exercises Hip IR Sitting Exercise added to HEP with HO Name Side bilateral Resistance TB #1 light blue (around raúl ankles) Equipment Used ball between knees maintain hip alignment Reps/Minutes 10 reps Comments cues for Clamshell Sitting Exercise reviewed Name Side bilateral Resistance TB #3 Reps/Minutes 60 sec hold then 15 reps Comments good hip tiring LAQ Sitting Exercise reviewed Name Side bilateral Resistance 5# leg wt (added tdoay 09/18/24)- home has 3# leg wt discussed hold 3-5 sec Reps/Minutes 10 SH x15 Comments good quad tiring bugt states LB little discomfort- better TA fac alot less. Neuro Re-Education Treatment Balance Activities hurdles Details step to>reciprocal Comments RUBBER BELT SPLICER>RUBBER BELT SPLICER & SPC Dynamic Stepping Surface SPC Reps/Duration hallway walking Comments head turns with SPC- sways but midline stability. 1x LOB CGA recovery, cues for slow turns with fixation even WB into forefoot and WBOS improved post arlyn stepping. Physical Therapy Assessment Goals Four Key Person Goal (LTG) Pt will be able to complete SL static standing x 10 sec raúl for improved functional stability by DC. Three Key Person Goal (LTG) Pt will demo improved L hip abduction strength to 4+/5 by DC for improved hip stability with ambulation. Two [facility] Goal (LTG) Pt will demo improved L/R hip AROM for IR to 30 deg or better by DC for improved functional mobility. One Short Term Goal (STG Pt will be ind with HEP within 2 visits in order to ) progress toward skilled nursing therapy goals outside of therapy visits. Key Person Goal (LTG) Pt will demo improved pain control with decreased in average symptoms to 2/10 by DC for improved quality of life. Assessment Summary Assessment Pt had good tolerance to resisted ther ex today with addition of hip IR to allow strength and mobility progression. Incorported dynamic balance arlyn stepping and gait with HTs for safety carryover cues for tall, rhomboid and TA engagement over stance LE, WBOS needed for stability and foot clearance. Improved midline stability carryover use during gait to allow safey scanning walking in parkinglot, imrpoved ALBINO over full forefoot and heel post arlyn stepping wt shift advanced LE. Physical Therapy Plan Frequency and Duration Frequency of 2x/Week Treatment Duration of 12 treatment (weeks) Plan of Care Start 09/01/24 Date Plan of Care End 11/24/24 Date Therapeutic Interventions Therapeutic Balance Training,Coordination Training,Gait Training, Interventions Home Exercise Program,Joint Mobilizations,Manual Therapy,Neuromuscular Re-education,Orthotic/Prosthetic Management,Patient/Caregiver Education,Self-Care/Home Management,Sensory Integration,Soft Tissue Mobilization ,Taping,Therapeutic Activities,Therapeutic Exercises Modalities Cold Pack/Ice Massage,Electric Stimulation,Hot Packs, Infrared Therapy,Iontophoresis,Ultrasound Next Visit Focus/Plan Next Note Type Treatment Note Next Visit Plan Recheck and Advance HEP for LE strength and COG over ALBINO balance training.
--- NOTE | 2024-09-20 08:15 | PT.OTN ---
Current Diagnoses Other chronic pain (09/20/24) Spondylosis without myelopathy or radiculopathy, lumbar region (09/20/24) Radiculopathy, lumbar region (09/20/24) Lumbago with sciatica, right side (09/20/24) Lumbago with sciatica, left side (09/20/24) Physical Therapy Treatment Note PT OP: Lower Back/Lower Extremity Start: 09/15/24 07:23 Freq: Status: Active Protocol: Document 09/20/24 07:29 BL (Rec: 09/20/24 08:14 BL Laptop) Out-Patient Physical Therapy Visit Information Visit Information Visit Type Treatment Note Visit Start Time 07:30 Visit Stop Time 08:10 Visit Number (6) 07/18 Number of LEAD PROJECT ENGINEER Visits 0 Progress Note Due 10/02/24 OP-PT Subjective Patient Comments Patient Comments Pt presents to the clinic this date and reports he is doing well, reports his back is feeling back to the way it did before the injection. Reports HEP is going well . Therapeutic Exercises Supine Exercises Core Series Supine Exercise Name pelvic tilts, TA heel slide & march, LTR, bridge Side bilateral Reps/Minutes 10 reps each Sitting Exercises Hip IR Sitting Exercise added to HEP with HO Name Side bilateral Resistance TB #1 light blue (around raúl ankles) Equipment Used ball between knees maintain hip alignment Reps/Minutes 2x10 reps Comments cues for Clamshell Sitting Exercise reviewed Name Side bilateral Resistance TB #3 Reps/Minutes 2x 10 Comments good hip tiring Other Exercises Warm Up Other Exercise Name NuStep Comments 4 min, lvl 5 Neuro Re-Education Treatment Balance Activities static Details L/R, U/D Surface foam Comments 3 min ea Dynamic Stepping Details cone taps and cone step over Comments Pt demos decreased L sided control with posterior lean and R sided veering. Cues for positioning. Physical Therapy Assessment Goals Four Weave Defect Charting Clerk Goal (LTG) Pt will be able to complete SL static standing x 10 sec raúl for improved functional stability by DC. Three [facility] Goal (LTG) Pt will demo improved L hip abduction strength to 4+/5 by DC for improved hip stability with ambulation. Two [facility] Goal (LTG) Pt will demo improved L/R hip AROM for IR to 30 deg or better by DC for improved functional mobility. One Short Term Goal (STG Pt will be ind with HEP within 2 visits in order to ) progress toward long term care pharmacist therapy goals outside of therapy visits. Weave Defect Charting Clerk Goal (LTG) Pt will demo improved pain control with decreased in average symptoms to 2/10 by DC for improved quality of life. Assessment Summary Assessment Pt tolerates session well this date, advance HEP for LE strength and balance training this date. Pt tolerates well. Physical Therapy Plan Frequency and Duration Frequency of 2x/Week Treatment Duration of 12 treatment (weeks) Plan of Care Start 09/01/24 Date Plan of Care End 11/24/24 Date Next Visit Focus/Plan Next Note Type Treatment Note Next Visit Plan Advance HEP for LE strength and COG over ALBINO balance training.
--- NOTE | 2024-09-26 11:26 | PT.OTN ---
Current Diagnoses Other chronic pain (09/26/24) Spondylosis without myelopathy or radiculopathy, lumbar region (09/26/24) Radiculopathy, lumbar region (09/26/24) Lumbago with sciatica, right side (09/26/24) Lumbago with sciatica, left side (09/26/24) Physical Therapy Treatment Note PT OP: Lower Back/Lower Extremity Start: 09/15/24 07:23 Freq: Status: Active Protocol: Document 09/26/24 10:44 BL (Rec: 09/26/24 11:26 BL Laptop) Out-Patient Physical Therapy Visit Information Visit Information Visit Type Treatment Note Visit Start Time 10:45 Visit Stop Time 11:25 Visit Number (7) 08/17 Number of CLIPPER COUNTERS Visits 0 Progress Note Due 10/02/24 OP-PT Subjective Patient Comments Patient Comments Pt presents to the clinic this date and reports he is feeling stronger, states overall his symptoms are about the same. Pt reports he has his ablation set up for November. Therapeutic Exercises Supine Exercises Core Series Supine Exercise Name pelvic tilts, TA 90/90 taps, Bridges Side bilateral Resistance lvl 3 Reps/Minutes 2x10 reps each Sitting Exercises Hip IR Sitting Exercise added to HEP with HO Name Side bilateral Resistance TB #1 light blue (around raúl ankles) Equipment Used ball between knees maintain hip alignment Reps/Minutes 2x10 reps Comments trialed without ball, pt demos improved hip stability Clamshell Sitting Exercise reviewed Name Side bilateral Resistance TB #3 Reps/Minutes 2x 10 Comments good hip tiring Standing Exercises strength Standing Exercise step ups, HR Name Resistance 6in Comments 2x 10, cues for form Physical Therapy Assessment Goals Four Orthodontist Goal (LTG) Pt will be able to complete SL static standing x 10 sec raúl for improved functional stability by DC. Three Retirement Goal (LTG) Pt will demo improved L hip abduction strength to 4+/5 by DC for improved hip stability with ambulation. Two Retirement Goal (LTG) Pt will demo improved L/R hip AROM for IR to 30 deg or better by DC for improved functional mobility. One Short Term Goal (STG Pt will be ind with HEP within 2 visits in order to ) progress toward retirement therapy goals outside of therapy visits. Retirement Goal (LTG) Pt will demo improved pain control with decreased in average symptoms to 2/10 by DC for improved quality of life. Assessment Summary Assessment Pt tolerates session well this date, advance HEP for LE strength and balance training this date. Pt tolerates well with no increase in low back symptoms. Physical Therapy Plan Frequency and Duration Frequency of 2x/Week Treatment Duration of 12 treatment (weeks) Plan of Care Start 09/01/24 Date Plan of Care End 11/24/24 Date Next Visit Focus/Plan Next Note Type Treatment Note Next Visit Plan Advance HEP for LE strength and COG over ALBINO balance training.
--- NOTE | 2024-10-06 17:41 | PT.OPDS ---
Current Diagnoses Other chronic pain (09/26/24) Spondylosis without myelopathy or radiculopathy, lumbar region (09/26/24) Radiculopathy, lumbar region (09/26/24) Lumbago with sciatica, right side (09/26/24) Lumbago with sciatica, left side (09/26/24) Visit Care Team Role Provider Type Migdalia Hong DO Family Provider Physician Primary Care Provider Specialty: Family Practice Address: [address] [place] [address], [address], [address] Email: [email or web address] Faye Mcarthur PA-C Attending Provider Advanced Baby Stroller Rental Clerk Referring Provider Specialty: Medical Wound Care Address: [address] [place] [address], [id number] Email: [email or web address] Visit Number Visit Number 7) 08/17 Discharge Summary Pt continued to make mild progress however plans to have ablation preformed in November and would like to DC at this time. PT OP: Lower Back/Lower Extremity Start: 09/15/24 07:23 Freq: Status: Active Protocol: Document 09/26/24 10:44 BL (Rec: 09/26/24 11:26 BL Laptop) Out-Patient Physical Therapy Visit Information Visit Information Visit Type Treatment Note Visit Start Time 10:45 Visit Stop Time 11:25 Visit Number (7) 08/17 Number of DENTAL EQUIPMENT INSTALLER AND SERVICER Visits 0 Progress Note Due 10/02/24 OP-PT Subjective Patient Comments Patient Comments Pt presents to the clinic this date and reports he is feeling stronger, states overall his symptoms are about the same. Pt reports he has his ablation set up for November. Therapeutic Exercises Supine Exercises Core Series Supine Exercise Name pelvic tilts, TA 90/90 taps, Bridges Side bilateral Resistance lvl 3 Reps/Minutes 2x10 reps each Sitting Exercises Hip IR Sitting Exercise added to HEP with HO Name Side bilateral Resistance TB #1 light blue (around raúl ankles) Equipment Used ball between knees maintain hip alignment Reps/Minutes 2x10 reps Comments trialed without ball, pt demos improved hip stability Clamshell Sitting Exercise reviewed Name Side bilateral Resistance TB #3 Reps/Minutes 2x 10 Comments good hip tiring Standing Exercises strength Standing Exercise step ups, HR Name Resistance 6in Comments 2x 10, cues for form Physical Therapy Assessment Goals Four Art Glass Setter Goal (LTG) Pt will be able to complete SL static standing x 10 sec raúl for improved functional stability by DC. Three Retirement Goal (LTG) Pt will demo improved L hip abduction strength to 4+/5 by DC for improved hip stability with ambulation. Two Retirement Goal (LTG) Pt will demo improved L/R hip AROM for IR to 30 deg or better by DC for improved functional mobility. One Short Term Goal (STG Pt will be ind with HEP within 2 visits in order to ) progress toward ocean transportation intermediary therapy goals outside of therapy visits. Art Glass Setter Goal (LTG) Pt will demo improved pain control with decreased in average symptoms to 2/10 by DC for improved quality of life. Assessment Summary Assessment Pt tolerates session well this date, advance HEP for LE strength and balance training this date. Pt tolerates well with no increase in low back symptoms. Physical Therapy Plan Frequency and Duration Frequency of 2x/Week Treatment Duration of 12 treatment (weeks) Plan of Care Start 09/01/24 Date Plan of Care End 11/24/24 Date Next Visit Focus/Plan Next Note Type Treatment Note Next Visit Plan Advance HEP for LE strength and COG over ALBINO balance training.
== END 2024-10-17 10:19 | disposition home or self-care (01) ==
LOC: PHYS 10:45
PROVIDERS: Family Provider Family Medicine; PCP Family Medicine; Referring Provider Physician Assistant; Visit Provider Physician Assistant
DX: M54.41 Lumbago with sciatica, right side (principal); M54.42 Lumbago with sciatica, left side; G89.29 Other chronic pain; M47.816 Spondylosis without myelopathy or radiculopathy, lumbar region; M54.16 Radiculopathy, lumbar region
CPT/HCPCS: 97110; 97112; 97140

== ENCOUNTER 2024-11-09 07:18 | Outpatient (CLI) | payer MEDICARE, SELFPAY ==
[2024-11-09] VITALS (11 sets, daily range): BP systolic 106–132; BP diastolic 65–78; PULSE 86–100; RESP 15–16; TEMP 36.5; O2SAT 94–100
[2024-11-09] MEDS: MIDAZOLAM 2 MG/2 ML VIAL IV (08:32)
[2024-11-09] MEDS: LIDOCAINE 1% 20 ML 5 ML INJ (08:38)
[2024-11-09] MEDS: MIDAZOLAM 2 MG/2 ML VIAL 1 MG IV (08:48)
--- NOTE | 2024-11-09 09:15 | P.PCN_ITS ---
Date/Time/Diagnoses Date of procedure: 11/09/24 Time of procedure: 09:15 Pre-procedure diagnosis: 1. RECALCITRANT FACET ARTHROPATHY Post-procedure diagnosis: same Procedure Notes Procedure: 1. BILATERAL L4 AND L5 MEDIAL BRANCH RADIOFREQUENCY NEUROTOMY AND S1 DORSAL RAMUS BRANCH RADIOFREQUENCY NEUROTOMY Indications: [facility] is referred by Dr. Hong for treatment of facet arthropathy. Physician: Marino Quan Total Fluoroscopy time (seconds): 18 Total sedation minutes: 39 Complications: none Procedure in detail & Post-procedure care: DESCRIPTION OF PROCEDURE Bilateral L4 and L5 medial branch radiofrequency neurotomy and bilateral S1 dorsal ramus radiofrequency neurotomy under fluoroscopy with conscious sedation. The patient is well known to this clinic having undergone previous facet injections with good but temporary relief. The patient has experienced appropriate, concordant relief with previous facet and median branch blocks but the patient's pain has been recalcitrant to further conservative measures. Therefore, based upon the patient's relief and persistent symptoms, the patient is considered an appropriate candidate for facet rhizotomy. All of the patient's questions regarding the risks versus benefits of the procedure, including, but not limited to, bleeding, infection, temporary as well as lasting nerve injury, paralysis, stroke, and , as well treatment alternatives were answered to satisfaction. After obtaining informed consent, denial of pertinent drug allergies, as well as being made aware of the potential risks of bleeding, infection, spinal cord trauma, paralysis, temporary and permanent nerve damage, seizure, stroke, and possible , the patient was brought to the fluoroscopy suite and positioned prone on the fluoroscopy table. The lumbar region was prepped in usual sterile fashion and covered with a fenestrated drape in the usual sterile fashion. Appropriate monitors applied including pulse oximeter, pulse, and blood pressure for regular monitoring throughout the procedure. After review of previous anaesthesic history and IV conscious sedation the patient was deemed safe to proceed with today's procedure with IV conscious sedation as ASA class II designation. Safety time-out was performed to confirm patient ID, procedure to be performed and site of procedure. IV sedation was accomplished with a combination of 3mg of Versed administered by the RN after DO order, titrated to patient comfort during the course of the procedure while the patient remained responsive to all verbal commands. After local infiltration using 1% lidocaine, under fluoroscopic guidance, a 10- cm RF insulated needle with a 10-mm active tip was positioned parallel to the junction of the right sacral ala and the superior articulating process where the S1 dorsal ramus resides. Needle placement was confirmed with motor stimulation of .5v on the right which produced local stimulation without radicular component. The stimulation was then increased to 2v with, once again, only local multifidus stimulation without radicular component. The needle was then removed and the identical procedure was performed along the length of the right L5 medial branch with motor stimulation at .7v on the right. The identical procedure was once again performed along the length of the right L4 medial branch with motor stimulation of .5v on the right. The medial branches were then anesthetised with 0.5% Marcaine. This was then followed by two discreet lesions performed at 80 degrees Celsius for 90 seconds each. The identical procedure was repeated on the left. The patient tolerated the procedure well without signs or symptoms of complications prior to transfer to the recovery area continued monitoring without incident. The patient was then transferred to the recovery area where they were observed for an appropriate period of time after the injection. The patient reported a VAS score of 9 prior to the procedure and a post-procedure VAS of 0. POST OP INSTRUCTIONS The patient was provided a Pain Log to continue to record the patient's response to the target-specific procedure prior to the patient's follow-up visit with the referring physician. Additionally, specific post-injection care instructions and a contact number to our office were provided if concerns arise regarding possible complications associated with the procedure are suspected.
== END 2024-11-09 09:30 | disposition home or self-care (01) ==
LOC: RAD 07:19
PROVIDERS: Family Provider Family Medicine; PCP Family Medicine; Referring Provider Physical Medicine & Rehabilitation; Visit Provider Physical Medicine & Rehabilitation
DX: M47.816 Spondylosis without myelopathy or radiculopathy, lumbar region (principal); M47.817 Spondylosis without myelopathy or radiculopathy, lumbosacral region
CPT/HCPCS: 64635; 64636; 99152; 99153; J2250